=== PATIENT | female | born 1975 | race African-American/Black ===

== ENCOUNTER 2016-05-31 19:06 | Inpatient (IN) | payer OTHER ==
[~2016-05-31] VITALS: Ht 167.6 cm; Wt 67.1 kg
[2016-05-31] VITALS (20 sets, daily range): BP systolic 151–243; BP diastolic 104–141; PULSE 92–139; RESP 15–29; TEMP 97; O2SAT 70–98
[~2016-05-31 19:06] MED LIST: 1-ME1LIQ PO; ATEN-102 PO; Hydrocodone/Acetaminophen PO; LISI-363 PO; LOPE2 PO; SIMV20TA PO
[2016-05-31] MEDS ORDERED: methylPREDNISolone SOD SUCC 125 MG/2 ML VIAL IVP ONE (19:15)
[2016-05-31] MEDS ORDERED: SODIUM CHLORIDE 0.9% FLUSH 5 ML FLUSH IVF PRN (19:15)
[2016-05-31] MEDS ORDERED: ETOMIDATE 20 MG/10 ML VIAL ONE (19:20)
[2016-05-31] MEDS ORDERED: SUCCINYLCHOLINE CHLORIDE 200 MG/10 ML VIAL ONE (19:20)
[2016-05-31] MEDS ORDERED: PROPOFOL 1000 MG/100 ML INJ 100 ML ONE (19:33)
[2016-05-31 19:37] LABS: AUTOMATED NEUTROPHIL # 6.1 TH/MM3 (1.8-7.7); BASOPHIL # 0.1 TH/MM3 (0-0.2); BASOPHIL % 0.7 % (0.0-2.0); EOSINOPHIL # 0.2 TH/MM3 (0-0.4); EOSINOPHIL % 2.1 % (0.0-4.0); HEMATOCRIT 50.8 % (35.0-46.0); HEMO FLAGS DIFF FINAL; LYMPH % 39.6 % (9.0-44.0); LYMPHOCYTE # 4.5 TH/MM3 (1.0-4.8); MEAN CELL VOLUME 102.1 FL (80.0-100.0); MEAN CORPUSCULAR HEMOGLOBIN 32.4 PG (27.0-34.0); MEAN CORPUSCULAR HGB CONC 31.8 % (32.0-36.0); MONO % 3.9 % (0.0-8.0); NEUT % 53.7 % (16.0-70.0); PLATELET COUNT 233 TH/MM3 (150-450); RED BLOOD COUNT 4.98 MIL/MM3 (4.00-5.30); RED CELL DISTRIBUTION WIDTH 15.1 % (11.6-17.2); WHITE BLOOD COUNT 11.4 TH/MM3 (4.0-11.0)
[2016-05-31 19:41] LABS: I-STAT POTASSIUM 4.1 MMOL/L (3.5-4.9); I-STAT SODIUM 142 MMOL/L (138-146)
[2016-05-31] MEDS: PROPOFOL 1000 MG/100 ML INJ 100 ML IV SCH (19:45)
[2016-05-31] MEDS ORDERED: MIDAZOLAM HCL 5 MG/ML VIAL (1 ML) ONE (19:47)
[2016-05-31 19:52] LABS: APTT (PATIENT) 24.7 SEC (24.3-30.1); PROTHROMBIN TIME - PATIENT 10.9 SEC (9.8-11.6)
[2016-05-31 20:07] LABS: ALKALINE PHOSPHATASE 117 U/L (45-117); ALT (GPT) 32 U/L (10-53); ANION GAP 17 MEQ/L (5-15); AST (GOT) 30 U/L (15-37); BICARBONATE 17.1 MEQ/L (21.0-32.0); BLOOD UREA NITROGEN 21 MG/DL (7-18); CHLORIDE 107 MEQ/L (98-107); CREATINE KINASE 163 U/L (26-192); GLOMERULAR FILTRATION RATE 36 ML/MIN (>89); SODIUM (NA) 141 MEQ/L (136-145); TOTAL BILIRUBIN ADULT 0.5 MG/DL (0.2-1.0)
--- NOTE | 2016-05-31 20:10 | RADRPT ---
EXAM DATE/TIME: 05/31/2016 19:48 [facility] COMPARISON: No previous studies available for comparison. INDICATIONS : Post intubation. Stroke alert. MEDICAL HISTORY : Unobtainable SURGICAL HISTORY : Unobtainable ENCOUNTER: Initial ACUITY: 1 day PAIN SCORE: Non-responsive. LOCATION: Bilateral chest FINDINGS: There is dense consolidation in the lungs, right greater than left with multiple air bronchograms. En dotracheal tube in satisfactory position. NG enters stomach. Probable small effusions. No pneumothora x. CONCLUSION: 1. Dense consolidation in both lungs, right greater than left. Differential diagnosis includes aspira tion, edema or infection. Allen Burks MD on May 31, 2016 at 20:07 Board Certified Radiologist. This report was verified electronically.
--- NOTE | 2016-05-31 20:34 | RADRPT ---
EXAM DATE/TIME: 05/31/2016 20:08 [facility] COMPARISON: No previous studies available for comparison. INDICATIONS : Altered mental status. Right sided gaze. RADIATION DOSE: 65.66 CTDIvol (mGy) This report was called by Dr. Burks to Dr. Owen at 8: 32 PM. MEDICAL HISTORY : Non-responsive. SURGICAL HISTORY : Non-responsive. ENCOUNTER: Initial ACUITY: 1 day PAIN SCALE: Non-responsive LOCATION: cranial TECHNIQUE: Multiple contiguous axial images were obtained of the head. Using automated exposure control and adj ustment of the mA and/or kV according to patient size, radiation dose was kept as low as reasonably a chievable to obtain optimal diagnostic quality images. FINDINGS: CEREBRUM: The ventricles are normal for age. No evidence of midline shift, mass lesion, hemorrhage or acute in farction. No extra-axial fluid collections are seen. POSTERIOR FOSSA: The cerebellum and brainstem are intact. The 4th ventricle is midline. The cerebellopontine angle i s unremarkable. EXTRACRANIAL: The visualized portion of the orbits is intact. SKULL: The calvaria is intact. No evidence of skull fracture. CONCLUSION: Normal examination. Allen Burks MD on May 31, 2016 at 20:30 Board Certified Radiologist. This report was verified electronically.
--- NOTE | 2016-05-31 20:35 | RADRPT ---
EXAM DATE/TIME: 05/31/2016 20:12 [facility] COMPARISON: No previous studies available for comparison. INDICATIONS : Abnormal chest x-ray. Hypoxia. RADIATION DOSE: 5.13 CTDIvol (mGy) MEDICAL HISTORY : Non-responsive. SURGICAL HISTORY : Non-responsive. ENCOUNTER: Initial ACUITY: 1 day PAIN SCALE: Non-responsive LOCATION: chest TECHNIQUE: Volumetric scanning of the chest was performed. Using automated exposure control and adjustment of t he mA and/or kV according to patient size, radiation dose was kept as low as reasonably achievable to obtain optimal diagnostic quality images. FINDINGS: There is extensive groundglass opacity as well is dense consolidation in both lungs. Differential edilberto gnosis includes flash pulmonary edema and massive aspiration. Endotracheal tube tip is just above car joaquin. NG is seen in the stomach. Trace pleural fluid. No pericardial effusion. No acute findings in the upper abdomen. CONCLUSION: 1. Extensive dense lung consolidation and groundglass opacity bilaterally. Differential diagnosis inc ludes flash pulmonary edema and massive aspiration. Endotracheal tube and nasogastric tube in satisfa ctory position. Allen Burks MD on May 31, 2016 at 20:32 Board Certified Radiologist. This report was verified electronically.
[2016-05-31] MEDS ORDERED: PIPERACIL-TAZO 4.5 GM PREMIX 100 ML IV STA (20:36)
[2016-05-31] MEDS ORDERED: VANCOMYCIN INJ 1,150 MG in SODIUM CHLOR 0.9% 250 ML INJ 250 ML IV ONE (20:45)
--- NOTE | 2016-05-31 20:50 | PD ---
HPI Chief Complaint: Stroke Alert Time Seen by Provider: 19:11 Travel History International Travel<30 days: No Contact w/Intl Traveler<30days: No Traveled to known affect area: No History of Present Illness HPI Is a 40-year-old female who presents to emergency room as a stroke alert from [facility]. As per [facility], they were called as patient was unresponsive. Reports that when they arrived on scene, pt had a right sided facial gaze and right-sided deficits. Reports that patient was unresponsive with a GCS of 6 or 7. Reports that on route to the emergency room, patient woke up and began talking. In the emergency room, the patient was alert to person, patient was able to move all extremities, patient was able to follow commands, patient reports that she has history of hypertension, reports that she did drink a few beers today, reports that she feels short of breath. Patient reports history of hypertension, denies use of drugs. PFSH Past Medical History Cardiovascular Problems: Yes High Cholesterol: Yes Diminished Hearing: No Gastrointestinal Disorders: Yes (CHRONIC DIARRHEA/COLITIS) Hypertension: Yes : 4 Para: 2 Miscarriage: 0 : 2 Ectopic : No Ovarian Cysts: No Tubal Ligation: No Past Surgical History Hysterectomy: No Social History Alcohol Use: Yes (WEEKENDS) Tobacco Use: Yes (WEEKENDS) Substance Use: No (DENIES) Allergies-Medications (Allergen,Severity, Reaction): Coded Allergies: No Known Allergies (Verified , 11/23/15) Reported Meds & Prescriptions Reported Meds & Active Scripts Active Review of Systems ROS Limitations: Altered Mental Status Except as stated in HPI: all other systems reviewed are Neg General / Constitutional: No: Fever Eyes: No: Visual changes HENT: No: Headaches Cardiovascular: Positive: Chest Pain or Discomfort Respiratory: Positive: Shortness of Breath Gastrointestinal: No: Abdominal Pain Genitourinary: No: Dysuria Musculoskeletal: No: Pain Skin: No Rash Neurologic: No: Weakness Psychiatric: No: Depression Endocrine: No: Polydipsia Hematologic/Lymphatic: No: Easy Bruising Physical Exam Narrative GENERAL: pt in acute respiratory distress SKIN: Warm and dry. HEAD: Atraumatic. Normocephalic. EYES: Pupils equal and round. No scleral icterus. No injection or drainage. ENT: No nasal bleeding or discharge. Mucous membranes pink and moist. NECK: Trachea midline. No JVD. CARDIOVASCULAR: Tachycardic. No murmur appreciated. RESPIRATORY: Patient with diffuse Rales bilaterally, patient using accessory muscles to breathe GASTROINTESTINAL: Abdomen soft, non-tender, nondistended. Hepatic and splenic margins not palpable. MUSCULOSKELETAL: No obvious deformities. No clubbing. No cyanosis. No edema. NEUROLOGICAL: Awake and alert. Motor grossly within normal limits. PSYCHIATRIC: Anxious Data Data Last Documented VS Vital Signs Date Time Temp Pulse Resp B/P Pulse Ox O2 Delivery O2 Flow Rate FiO2 05/31/16 21:30 95 16 174/123 90 Ventilator 100 Orders Electrocardiogram (05/31/16 19:11) Prothrombin Time / Inr (Pt) (05/31/16 19:11) Act Partial Throm Time (Ptt) (05/31/16 19:11) Complete Blood Count With Diff (05/31/16 19:11) Comprehensive Metabolic Panel (05/31/16 19:11) Creatine Kinase (Cpk) (05/31/16 19:11) Troponin I (05/31/16 19:11) Urinalysis - C+S If Indicated (05/31/16 19:11) Ecg Monitoring (05/31/16 19:11) Iv Access Insert/Monitor (05/31/16 19:11) Oximetry (05/31/16 19:11) Sodium Chloride 0.9% Flush (Ns Flush) (05/31/16 19:15) Ct Thorax/ Chest Wo Iv Contras (05/31/16 ) Arterial Blood Gas (Abg) (05/31/16 ) Methylprednisolone So Succ Inj (Solumedr (05/31/16 19:15) Albuterol-Ipratropium Neb (Duoneb Neb) (05/31/16 19:15) Ct Brain W/O Iv Contrast(Rout) (05/31/16 ) Lactic Acid Sepsis Protocol (05/31/16 19:19) Blood Culture (05/31/16 19:19) Etomidate Inj (Amidate Inj) (05/31/16 19:20) Succinylcholine Inj (Quelicin Inj) (05/31/16 19:20) Chest, Single Ap (05/31/16 ) Propofol 1000 Mg/100 Ml Inj (Diprivan 10 (05/31/16 19:33) Propofol 1000 Mg/100 Ml Inj (Diprivan 10 (05/31/16 19:45) ^ Infusion (05/31/16 19:36) RASS (05/31/16 19:36) Neurological Rass Scale RELL.Q2H (05/31/16 19:36) Insert Ng Tube (05/31/16 19:36) Urinary Catheter Insert/Apply (05/31/16 19:36) I-Stat Creatinine (05/31/16 19:10) I-Stat Profile (05/31/16 19:10) Ed Urine Pregnancytest Poc (05/31/16 19:38) Alcohol (Ethanol) (05/31/16 19:38) Salicylates (Aspirin) (05/31/16 19:38) Tylenol (Acetaminophen) (05/31/16 19:38) Blood Glucose (05/31/16 19:38) Midazolam Inj (Versed Inj) (05/31/16 19:47) Labetalol Inj (Trandate Inj) (05/31/16 20:30) Ob/Psych Drug Screen, Urine (05/31/16 20:35) Piperacil-Tazo 4.5 Gm Premix (Zosyn 4.5 (05/31/16 20:36) Vancomycin Inj (Vancomycin Inj) (05/31/16 20:45) Etomidate Inj (Amidate Inj) (05/31/16 21:45) Succinylcholine Inj (Quelicin Inj) (05/31/16 21:45) Midazolam Inj (Versed Inj) (05/31/16 21:45) Admit Order (Ed Use Only) (05/31/16 21:33) Labs Laboratory Tests Test 05/31/16 05/31/16 19:10 20:39 White Blood Count 11.4 TH/MM3 Red Blood Count 4.98 MIL/MM3 Hemoglobin 16.1 GM/DL Bedside Hemoglobin 18.4 G/DL Hematocrit 50.8 % Bedside Hematocrit 54.0 % Mean Corpuscular Volume 102.1 FL Mean Corpuscular Hemoglobin 32.4 PG Mean Corpuscular Hemoglobin 31.8 % Concent Red Cell Distribution Width 15.1 % Platelet Count 233 TH/MM3 Mean Platelet Volume 12.1 FL Neutrophils (%) (Auto) 53.7 % Lymphocytes (%) (Auto) 39.6 % Monocytes (%) (Auto) 3.9 % Eosinophils (%) (Auto) 2.1 % Basophils (%) (Auto) 0.7 % Neutrophils # (Auto) 6.1 TH/MM3 Lymphocytes # (Auto) 4.5 TH/MM3 Monocytes # (Auto) 0.4 TH/MM3 Eosinophils # (Auto) 0.2 TH/MM3 Basophils # (Auto) 0.1 TH/MM3 CBC Comment DIFF FINAL Differential Comment Prothrombin Time 10.9 SEC Prothromb Time International 1.0 RATIO Ratio Activated Partial 24.7 SEC Thromboplast Time Bedside Sodium 142 MMOL/L Sodium Level 141 MEQ/L Bedside Potassium 4.1 MMOL/L Potassium Level 4.0 MEQ/L Bedside Chloride 109 MMOL/L Chloride Level 107 MEQ/L Carbon Dioxide Level 17.1 MEQ/L Anion Gap 17 MEQ/L Bedside Blood Urea Nitrogen 33 MG/DL Blood Urea Nitrogen 21 MG/DL Creatinine 1.87 MG/DL Bedside Creatinine 1.6 MG/DL Estimat Glomerular Filtration 36 ML/MIN Rate Bedside Glucose 192 MG/DL Random Glucose 191 MG/DL Lactic Acid Level 10.6 mmol/L 7.1 mmol/L Calcium Level 9.0 MG/DL Total Bilirubin 0.5 MG/DL Aspartate Amino Transf 30 U/L (AST/SGOT) Alanine Aminotransferase 32 U/L (ALT/SGPT) Alkaline Phosphatase 117 U/L Total Creatine Kinase 163 U/L Troponin I 0.02 NG/ML Total Protein 9.0 GM/DL Albumin 4.0 GM/DL Salicylates Level 3.7 MG/DL Acetaminophen Level LESS THAN 2.0 MCG/ML Ethyl Alcohol Level 5 MG/DL MDM Medical Decision Making Medical Screen Exam Complete: Yes Emergency Medical Condition: Yes Interpretation(s) Vital Signs Date Time Temp Pulse Resp B/P Pulse Ox O2 Delivery O2 Flow Rate FiO2 05/31/16 19:57 112 29 230/132 96 Ventilator 100 05/31/16 19:24 132 15 243/133 70 05/31/16 19:09 139 29 215/141 ekg: sinus tach at 130bpm, qt/qtc: 314/391, Differential Diagnosis Hypertensive emergency, CVA, flash pulmonary edema secondary to hypertensive emergency, ACS, pneumonia, sepsis, pneumothorax Narrative Course 40-year-old female with history of hypertension, presents to emergency room after a stroke alert was initiated by [facility]. Patient was moving all extremities upon arrival to emergency room. Patient was minimally conversive complaining of shortness of breath. Patient reports history of hypertension, reported strength 2-3 beers tonight. Stroke alert was called ahead, BS normal. At CT, patient's pulse ox dropped to the 40s, patient and rest for distress, patient was brought back to ER for intubation. Patient's oxygen sats were in the 40s, patient was bagged and patient was intubated successfully. Patients initial BP 243/133, pt does have hx of htn, c/o of sob. On initial clinical exam, patient had diffuse rails. Patient most likely in flash pulmonary edema from hypertensive emergency. Patient was moving all extremities upon arrival to emergency room and talking in full sentences, unlikely the patient was having a CVA. wbc: 11.4, lactic acid 10.2 - patient has been pancultured, patient has been given broad-spectrum antibiotics. Patient has improved on a labetalol drip for control of hypertension, plan to decrease blood pressure slowly Patient will be admitted to ICU Case reviewed with Dr Knapp Critical Care Narrative Aggregate critical care time was 60 minutes. Time to perform other separately billable procedures was not included in the critical care time. My time did not include minutes spent treating any other patients simultaneously or on activities that did not directly contribute to the patient's treatment. The services I provided to this patient were to treat and/or prevent clinically significant deterioration that could result in: , decompensation, deterioration I provided critical care services requiring my management, as noted below: Chart data review, documentation time, medication orders and management, vital sign assessments/reviewing monitor data, ordering and reviewing lab tests, ordering and interpreting/reviewing x-rays and diagnostic studies, care of the patient and discussion of the patient with the admitting physicians. Procedures Procedure Narrative After the risks and benefits were discussed the following procedure was performed: INTUBATION: The patient was put in optimal position for the procedure. Rapid sequence intubation was initiated by me using 20 milligrams of etomidate IV and 100 milligrams of succinylcholine IV. The patient was intubated with a 7.5 cuffed endotracheal tube. Tube placement was confirmed by visualization of the tube and balloon passing through the cords, capnometry and subsequent chest x-ray. Breath sounds were equal and well aerated bilaterally postintubation. No breath sounds over stomach. Patient tolerated procedure well. Diagnosis Primary Impression: Hypertensive emergency Additional Impressions: Pulmonary edema Respiratory disorder with ventilator dependence Admitting Information Admitting Physician Requests: Admit Adriana Owen DO May 31, 2016 20:49
[2016-05-31] MEDS: LABETALOL INJ 500 MG in SODIUM CHLORIDE 0.9% INJ 150 ML IV SCH (21:00)
[2016-05-31 21:25] LABS: LACTIC ACID GHOST NOT REPORTABLE
[2016-05-31 21:26] LABS: ACETAMINOPHEN LESS THAN 2.0 MCG/ML (10.0-30.0)
--- NOTE | 2016-05-31 21:26 | EKG ---
Date Performed: 05/31/2016 Time Performed: 19:34:11 PTAGE: 40 years EKG: PROBABLE SINUS TACHYCARDIA vs ATRIAL FLUTTER with RVR LEFT ANTERIOR FASCICULAR BLOCK SEPTAL MYOCARDIAL INFARCTION ABNORMAL ECG PREVIOUS TRACING : 11/14/2015 18.39 DOCTOR: Bran Martin Interpretating Date/Time 05/31/2016 21:24:18
[2016-05-31] MEDS ORDERED: SUCCINYLCHOLINE CHLORIDE 200 MG/10 ML VIAL IM ONE (21:45)
[2016-05-31] MEDS ORDERED: MIDAZOLAM HCL 2 MG/2 ML VIAL IV PUSH ONE (21:45)
[2016-05-31] MEDS ORDERED: ETOMIDATE 20 MG/10 ML VIAL IV PUSH ONE (21:45)
[2016-05-31] MEDS ORDERED: RESP: ALBUTEROL 2.5 MG/IPRATROPIUM 0.5 MG NEB (PRN) ONE (21:48)
[2016-05-31] MEDS ORDERED: FUROSEMIDE 40 MG/4 ML VIAL IV PUSH SCH (22:00)
[2016-05-31] MEDS ORDERED: SODIUM CHLOR 0.9% 1000 ML INJ 1,000 ML IV SCH (22:22)
[2016-05-31] MEDS ORDERED: MAGNESIUM SULFATE INJ 2 GM in SODIUM CHLORIDE 0.9% INJ 96 ML IV PRN (22:30)
[2016-05-31] MEDS ORDERED: SODIUM PHOSPHATE INJ 30 MMOL in SODIUM CHLOR 0.9% 250 ML INJ 240 ML IV PRN (22:30)
[2016-05-31] MEDS ORDERED: MISCELLANEOUS NURSING INFORMATION XX SCH (22:30)
[2016-05-31] MEDS ORDERED: BISACODYL EC 5 MG TABEC PO PRN (22:30)
[2016-05-31] MEDS ORDERED: POTASSIUM PHOSPHATE MONOBASIC 500 MG TAB PO PRN (22:30)
[2016-05-31] MEDS ORDERED: POTASSIUM PHOSPHATE MONOBASIC 500 MG TAB PO/TUBE PRN (22:30)
[2016-05-31] MEDS ORDERED: POTASSIUM CHLOR 40 MEQ PREMIX 100 ML IV PRN ×2 (22:30)
[2016-05-31] MEDS ORDERED: RESP: ALBUTEROL 2.5 MG/IPRATROPIUM 0.5 MG NEB (PRN) INH (22:30)
[2016-05-31] MEDS ORDERED: ONDANSETRON HCL 4 MG/2 ML VIAL IV PRN (22:30)
[2016-05-31] MEDS ORDERED: MAGNESIUM SULFATE INJ 4 GM in SODIUM CHLORIDE 0.9% INJ 92 ML IV PRN (22:30)
[2016-05-31] MEDS ORDERED: CHLORHEXIDINE GLUCONATE 2 % 1 PACK (2 CLOTHS) TOP PRN (22:30)
[2016-05-31] MEDS: DOCUSATE SODIUM 100 MG/10 ML UDC G-TUBE SCH (22:30)
[2016-05-31] MEDS ORDERED: MAGNESIUM HYDROXIDE SUSP 30 ML CUP PO PRN (22:30)
[2016-05-31] MEDS ORDERED: POTASSIUM CL 40 MEQ/30 ML LIQ UDC PO/TUBE PRN ×2 (22:30)
[2016-05-31] MEDS ORDERED: SODIUM CHLORIDE 0.9% FLUSH 5 ML FLUSH IV FLUSH PRN (22:30)
[2016-05-31] MEDS ORDERED: POTASSIUM CHLOR 20 MEQ PREMIX 100 ML IV PRN ×2 (22:30)
[2016-05-31] MEDS ORDERED: POTASSIUM PHOSPHATE INJ 30 MMOL in SODIUM CHLOR 0.9% 250 ML INJ 250 ML IV PRN (22:30)
[2016-05-31] MEDS ORDERED: MAGNESIUM OXIDE 400 MG TAB PO PRN (22:30)
[2016-05-31] MEDS ORDERED: RESP: ALBUTEROL 2.5 MG/IPRATROPIUM 0.5 MG NEB (SCH) ONE (22:42)
[2016-05-31] MEDS ORDERED: FUROSEMIDE 100 MG/10 ML VIAL IV PUSH ONE (22:45)
[2016-05-31 23:00] LABS: AMPHETAMINE, URINE NEG (NEG); BARBITURATES, URINE NEG (NEG); COCAINE, URINE NEG (NEG)
[2016-05-31 23:01] LABS: BACTERIA, URINE RARE /hpf; BLOOD, URINE MOD (NEG); GLUCOSE,URINE 150 mg/dL (NEG); HYALINE CAST, URINE 1 /lpf (RARE); KETONE, URINE NEG (NEG); MUCUS URINE FEW /lpf (OCC); NITRITE,URINE NEG (NEG); SQUAMOUS EPITHELIAL CELL URINE 1 /hpf (0-5); URINE COLOR YELLOW (YELLW/STRAW)
[2016-05-31] MEDS: RESP: ALBUTEROL 2.5 MG/IPRATROPIUM 0.5 MG NEB (SCH) INH ×2 (23:27→23:28)
[2016-05-31 23:39] LABS: COMMENT (UR) CATH-CULTURE IND; CULTURE IF INDICATED CATH CULTURE IND
[2016-05-31] MEDS: HEPARIN SODIUM - SQ 10,000 UNITS/ML VIAL SQ SCH (23:57)
[2016-06-01] VITALS (20 sets, daily range): BP systolic 143–192; BP diastolic 88–129; PULSE 79–94; RESP 16–27; TEMP 98.3–99.3; O2SAT 91–100
[2016-06-01 00:07] LABS: BLOOD GAS BASE EXCESS -3.2 mmol/L (-2-2); BLOOD GAS HCO3 21 mmol/L (22-26); BLOOD GAS METHEMOGLOBIN 2.2 % (0-2); BLOOD GAS O2 HGB SATURATION 94 % (90-100); BLOOD GAS OXYGEN CONTENT 19.9 Vol % (12.0-20.0); BLOOD GAS PCO2 37 mmHg (38-42); BLOOD GAS PO2 128 mmHG (61-120); CRITICAL VALUE NO; OXYGEN DEVICE VENTILATOR; TEMP CORR TO 98.6
[2016-06-01 00:08] LABS: DRAW SITE RT RADIAL; NUMBER OF ARTERIAL PUNCTURES 1; STAT YES; ULNAR PULSE PRESENT; VENT SETTINGS 16/500/100/PEEP10
[2016-06-01] MEDS ORDERED: AMLO10TA2 PO (00:11)
[2016-06-01] MEDS ORDERED: ATEN50TA PO (00:11)
[2016-06-01] MEDS ORDERED: fentaNYL 2,500 MCG/NS 250 ML IV SCH (03:30)
[2016-06-01] MEDS: PROPOFOL 1000 MG/100 ML INJ 100 ML IV SCH (03:49)
[2016-06-01] MEDS: RESP: ALBUTEROL 2.5 MG/IPRATROPIUM 0.5 MG NEB (SCH) INH ×4 (03:53→20:51)
[2016-06-01] MEDS: CHLORHEXIDINE GLUCONATE 2 % 1 PACK (2 CLOTHS) TOP SCH (04:00)
--- NOTE | 2016-06-01 04:46 | RADRPT ---
EXAM DATE/TIME: 06/01/2016 03:28 [facility] COMPARISON: CHEST SINGLE AP, May 31, 2016, 19:48. INDICATIONS : Shortness of breath, possible pulmonary disease. MEDICAL HISTORY : None. SURGICAL HISTORY : None. ENCOUNTER: Subsequent ACUITY: 2 days PAIN SCORE: Non-responsive. LOCATION: Bilateral chest FINDINGS: There has been a significant improvement in the right lung with resolution of the prominent areas of airspace opacity. There is some mild patchy areas of opacity, but no areas of consolidation. On the left side, the airspace opacities in right upper lung have cleared. There is some residual consolid ation at the left base. Endotracheal tube tip well above the jc. Gastric tube tip and side-port project within the stomach. CONCLUSION: Significant improved aeration of the lungs with residual consolidation of the left base and resolutio n of areas of consolidation throughout the remainder of the lungs. Brent Joshua MD on June 01, 2016 at 4:43 Board Certified Radiologist. This report was verified electronically.
--- NOTE | 2016-06-01 04:51 | HHI.HP ---
HPI Service Critical Care Medicine Primary Care Physician Unknown Admission Diagnosis Hypertensive Emergency with flash pulmonary edema Diagnosis: Travel History International Travel<30 Days: No Contact w/Intl Traveler <30 Da: No Traveled to Known Affected Are: No History of Present Illness Is a 40-year-old female who presents to emergency room as a stroke alert from [facility]. As per [facility], the patient was noted to be unresponsive. Upon EMS arrival on the scene scene, pt had a right sided facial gaze and right-sided deficits. Reports that patient was unresponsive with a GCS of 6 or 7.Enroute to the emergency room, the patient became responsive and conversant . In the emergency room, the patient was alert to person, patient was able to move all extremities, patient was able to follow commands, patient reports that she has history of hypertension, reports that she did drink a few beers today, reports that she feels short of breath. In the ED the patient's presentation was blood pressure 205/141 .Per the patient's family report the patient has hypertension but has not been taking any antihypertensive medications secondary to income restrictions, has not filled any prescriptions. The patient subsequently suddenly became short of breath, dyspnea O2 sat in the 70s. The patient was emergently intubated in the ED, the patient was noted to have copious frothy bloody secretions, likely flash pulmonary edema. Critical care is consulted for management and treatment. History PFSH Past Medical History Cardiovascular Problems: Yes High Cholesterol: Yes Diminished Hearing: No Gastrointestinal Disorders: Yes (CHRONIC DIARRHEA/COLITIS) Hypertension: Yes : 4 Para: 2 Miscarriage: 0 : 2 Ectopic : No Ovarian Cysts: No Tubal Ligation: No Past Surgical History Hysterectomy: No Social History Alcohol Use: Yes (WEEKENDS) Tobacco Use: Yes (WEEKENDS) Substance Use: No (DENIES) Allergies-Medications Allergies-Medications (Allergen,Severity, Reaction): Coded Allergies: No Known Allergies (Verified , 11/23/15) Reported Meds & Prescriptions Reported Meds & Active Scripts Active ROS Review of Systems ROS Limitations: Altered Mental Status Except as stated in HPI: all other systems reviewed are Neg General / Constitutional: No: Fever Eyes: No: Visual changes HENT: No: Headaches Cardiovascular: Positive: Chest Pain or Discomfort Respiratory: Positive: Shortness of Breath Gastrointestinal: No: Abdominal Pain Genitourinary: No: Dysuria Musculoskeletal: No: Pain Skin: No Rash Neurologic: No: Weakness Psychiatric: No: Depression Endocrine: No: Polydipsia Hematologic/Lymphatic: No: Easy Bruising Physical Exam Vital Signs Vital Signs Date Time Temp Pulse Resp B/P Pulse Ox O2 Delivery O2 Flow Rate FiO2 06/01/16 02:00 92 06/01/16 01:35 99.1 91 23 192/129 97 06/01/16 01:15 94 60 06/01/16 01:15 100 100 06/01/16 00:42 92 16 181/128 93 Ventilator 100 06/01/16 00:33 94 16 158/105 94 Ventilator 100 06/01/16 00:18 94 16 173/106 91 Ventilator 05/31/16 23:30 95 16 169/118 97 Ventilator 100 05/31/16 23:28 97 16 175/130 96 Ventilator 100 05/31/16 23:00 95 16 153/112 98 Ventilator 100 05/31/16 22:41 93 16 182/117 95 Ventilator 100 05/31/16 22:36 97.0 05/31/16 22:25 93 16 166/124 95 Ventilator 05/31/16 22:10 92 16 157/104 94 Ventilator 100 05/31/16 22:00 94 16 160/108 92 Ventilator 05/31/16 21:50 97 16 151/104 90 Ventilator 05/31/16 21:45 94 16 161/117 90 Ventilator 100 05/31/16 21:36 95 16 165/118 92 Ventilator 100 05/31/16 21:30 95 16 174/123 90 Ventilator 100 05/31/16 21:21 96 16 184/135 92 Ventilator 100 05/31/16 21:15 97 16 198/141 90 Ventilator 100 05/31/16 21:12 100 05/31/16 21:10 98 16 193/141 89 Ventilator 05/31/16 21:01 109 16 214/134 90 Ventilator 05/31/16 19:57 112 29 230/132 96 Ventilator 100 05/31/16 19:40 93 100 05/31/16 19:24 132 15 243/133 70 05/31/16 19:09 139 29 215/141 Physical Exam GENERAL: Obese female lying in bed intubated and sedated. SKIN: Warm and dry. HEAD: Atraumatic. Normocephalic. EYES: PERRLA, 3mm brisk. No scleral icterus. No injection or drainage. ENT: No nasal bleeding or discharge. Mucous membranes pink and moist. NECK: Trachea midline. No JVD. Orotracheal intubation copious frothy pink secretions noted emanating from ETT CARDIOVASCULAR: Normal rate, regular rhythm. Hypertensive 225/118 RESPIRATORY: No accessory muscle use. Clear to auscultation. Breath sounds equal bilaterally. GASTROINTESTINAL: Abdomen soft, non-tender, nondistended. No guarding. MUSCULOSKELETAL: Extremities without clubbing, cyanosis, or edema. No obvious deformities. NEUROLOGICAL: GCS 3T. Intubated and sedated on propofol Laboratory Laboratory Tests Test 05/31/16 05/31/16 05/31/16 05/31/16 19:10 20:33 20:39 23:22 White Blood Count 11.4 Red Blood Count 4.98 Hemoglobin 16.1 Bedside Hemoglobin 18.4 Hematocrit 50.8 Bedside Hematocrit 54.0 Mean Corpuscular Volume 102.1 Mean Corpuscular Hemoglobin 32.4 Mean Corpuscular Hemoglobin 31.8 Concent Red Cell Distribution Width 15.1 Platelet Count 233 Mean Platelet Volume 12.1 Neutrophils (%) (Auto) 53.7 Lymphocytes (%) (Auto) 39.6 Monocytes (%) (Auto) 3.9 Eosinophils (%) (Auto) 2.1 Basophils (%) (Auto) 0.7 Neutrophils # (Auto) 6.1 Lymphocytes # (Auto) 4.5 Monocytes # (Auto) 0.4 Eosinophils # (Auto) 0.2 Basophils # (Auto) 0.1 CBC Comment DIFF FINAL Differential Comment Prothrombin Time 10.9 Prothromb Time International 1.0 Ratio Activated Partial 24.7 Thromboplast Time Bedside Sodium 142 Sodium Level 141 Bedside Potassium 4.1 Potassium Level 4.0 Bedside Chloride 109 Chloride Level 107 Carbon Dioxide Level 17.1 Anion Gap 17 Bedside Blood Urea Nitrogen 33 Blood Urea Nitrogen 21 Creatinine 1.87 Bedside Creatinine 1.6 Estimat Glomerular Filtration 36 Rate Bedside Glucose 192 Random Glucose 191 Lactic Acid Level 10.6 7.1 Calcium Level 9.0 Total Bilirubin 0.5 Aspartate Amino Transf 30 (AST/SGOT) Alanine Aminotransferase 32 (ALT/SGPT) Alkaline Phosphatase 117 Total Creatine Kinase 163 Troponin I 0.02 1.11 Total Protein 9.0 Albumin 4.0 Salicylates Level 3.7 Acetaminophen Level LESS THAN 2.0 Ethyl Alcohol Level 5 Urine Color YELLOW Urine Turbidity HAZY Urine pH 7.0 Urine Specific [place] 1.012 Urine Protein 300 Urine Glucose (UA) 150 Urine Ketones NEG Urine Occult Blood MOD Urine Nitrite NEG Urine Bilirubin NEG Urine Urobilinogen LESS THAN 2.0 Urine Leukocyte Esterase NEG Urine RBC 11 Urine WBC 4 Urine Squamous Epithelial 1 Cells Urine Amorphous Sediment RARE Urine Bacteria RARE Urine Hyaline Casts 1 Urine Mucus FEW Microscopic Urinalysis Comment CATH-CULTURE IND Urine Opiates Screen NEG Urine Barbiturates Screen NEG Urine Amphetamines Screen NEG Urine Benzodiazepines Screen POS Urine Cocaine Screen NEG Urine Cannabinoids Screen POS Phosphorus Level 4.7 Test 05/31/16 23:40 Blood Gas Puncture Site RT RADIAL Blood Gas Patient Temperature 98.6 Blood Gas HCO3 21 Blood Gas Base Excess -3.2 Blood Gas Oxygen Saturation 94 Arterial Blood pH 7.37 Arterial Blood Partial 37 Pressure CO2 Arterial Blood Partial 128 Pressure O2 Arterial Blood Oxygen Content 19.9 Arterial Blood 2.0 Carboxyhemoglobin Arterial Blood Methemoglobin 2.2 Blood Gas Hemoglobin 15.0 Oxygen Delivery Device VENTILATOR Blood Gas Ventilator Setting 16/500/100/PEEP10 Date/Time Procedure Status Source Growth 05/31/16 20:40 Aerobic Blood Culture Received Blood Peripheral Pending 05/31/16 20:40 Anaerobic Blood Culture Received Blood Peripheral Pending 05/31/16 20:33 Urine Culture Received Urine Catheterized Urine Pending Result Diagram: 05/31/16190905/31/161909 Septic Shock Reassessment Heart: Regular rate and rhythm Lungs: Crackles Skin: Warm Peripheral Pulses: Bounding Right Radial Bounding Left Radial Bounding Right Dorsalis Pedis Bounding Left Dorsalis Pedis Capillary Refill: Brisk Assessment and Plan Assessment and Plan This is a 40-year-old female that presented to the ED and hypertensive crisis . The patient has been unable to obtain prescription secondary to income restrictions . The patient subsequently went into angelia pulmonary edema requiring emergent intubation. Patient remains critically ill with uncontrolled severe hypertension requiring intravenous infusions at this time. Prognosis is guarded Neurologic: Altered mental status -GCS 3T intubated and sedated on propofol and fentanyl -Sedation holiday per ICU protocol Respiratory: Pulmonary edema Hypoxic respiratory failure -Patient received Lasix 80 mg, 1 L diuresis -Repeat chest x-ray follow-up results -Maintain tidal volume 6-8 cc/kilogram -Bronchodilators when necessary -CPAP trials begin today Cardiovascular: Hypertensive emergency -Initial BP 225/141-currently on labetalol infusion -Maintain MAP 80-100 (70% of presenting MAP) unsure of patient's normal baseline blood pressure -Begin PO home antihypertensive meds today, atenolol 50 mg/day, mass 10 mg/day via NG tube, begin to wean labetalol infusion -Elevated troponin 1.11, follow-up serial troponin levels -Obtain echo follow-up results Renal: Renal insufficiency -Monitor BMP. Creatinine 1.8 -Maintain Cespedes -- Strict I/Os FEN/GI: Obesity -IVF normal saline KVO -Insert NG tube, maintain nothing by mouth status with plans for weaning mechanical ventilation today Heme/ID: -Monitor CBC -Lactate 10, given Zosyn and vancomycin empirically in ED -Follow-up blood and urine cultures -Monitor serial lactate, patient afebrile, CBC 11.1 Endocrine: Monitor blood glucose level per ICU protocol -- SSI Prophylaxis: GI Prophylaxis DVT Prophylaxis -- SCDs Lines: Peripheral IVs. Central line if indicated Dispo: This patient remains critically ill with one or more organ systems which are or may become a threat to life. I have spent in excess of 49 minutes discontinuously in the care and management of this patient. This time is exclusive of procedures, and includes, but is not limited to, evaluation of the patient, review of the medical record, discussions with family, consultants, nursing staff, or respiratory therapy, and documentation in the medical record. Code Status Full code Discussed Condition With Daughter at bedside and ED Crystal Leslie MD Jun 01, 2016 04:51
[2016-06-01 04:57] LABS: AUTOMATED NEUTROPHIL # 13.2 TH/MM3 (1.8-7.7); BASOPHIL % 0.2 % (0.0-2.0); HEMATOCRIT 41.8 % (35.0-46.0); HEMO FLAGS DIFF FINAL; LYMPH % 2.1 % (9.0-44.0); LYMPHOCYTE # 0.3 TH/MM3 (1.0-4.8); MEAN CELL VOLUME 97.4 FL (80.0-100.0); MEAN CORPUSCULAR HGB CONC 33.8 % (32.0-36.0); MONO % 3.7 % (0.0-8.0); PLATELET COUNT 183 TH/MM3 (150-450); RED BLOOD COUNT 4.29 MIL/MM3 (4.00-5.30); RED CELL DISTRIBUTION WIDTH 14.2 % (11.6-17.2)
[2016-06-01 05:24] LABS: INTERNATIONAL NORMALIZED RATIO 1.1 RATIO; PROTHROMBIN TIME - PATIENT 11.9 SEC (9.8-11.6)
[2016-06-01 05:43] LABS: BLOOD GAS CARBOXYHEMOGLOBIN 1.5 % (0-4); BLOOD GAS HCO3 23 mmol/L (22-26); BLOOD GAS METHEMOGLOBIN 1.2 % (0-2); BLOOD GAS O2 HGB SATURATION 90 % (90-100); BLOOD GAS OXYGEN CONTENT 17.8 Vol % (12.0-20.0); BLOOD GAS PCO2 40 mmHg (38-42); BLOOD GAS PO2 70 mmHg (61-120); CRITICAL VALUE NO; OXYGEN DEVICE VENTILATOR; TEMP CORR TO 98.6; VENT SETTINGS AC/16/500/PEEP10
[2016-06-01 05:44] LABS: DRAW SITE RT RADIAL; FIO2 50 %; NUMBER OF ARTERIAL PUNCTURES 1; STAT NO; ULNAR PULSE PRESENT
[2016-06-01 05:57] LABS: BICARBONATE 23.5 MEQ/L (21.0-32.0); MAGNESIUM 1.9 MG/DL (1.5-2.5)
[2016-06-01 06:12] LABS: POTASSIUM 3.4 MEQ/L (3.5-5.1)
[2016-06-01] MEDS: LABETALOL INJ 500 MG in SODIUM CHLORIDE 0.9% INJ 150 ML IV SCH (06:42)
[2016-06-01] MEDS: CHLORHEXIDINE 0.12% (ORAL KIT) 15 ML CUP MT SCH ×2 (08:00→20:00)
[2016-06-01] MEDS: PANTOPRAZOLE SODIUM 40 MG VIAL IV SCH (08:10)
[2016-06-01] MEDS ORDERED: ATENOLOL 50 MG TAB PO SCH (09:00)
[2016-06-01] MEDS: REMOVE OLD PATCH T-DERMAL SCH (09:00)
[2016-06-01] MEDS: SODIUM CHLORIDE 0.9% FLUSH 5 ML FLUSH IV FLUSH SCH ×2 (09:00→20:33)
[2016-06-01] MEDS ORDERED: ASPIRIN 325 MG TAB TUBE ONE (09:00)
[2016-06-01] MEDS: DOCUSATE SODIUM 100 MG/10 ML UDC G-TUBE SCH ×2 (09:04→22:30)
[2016-06-01] MEDS: FUROSEMIDE 40 MG/4 ML VIAL IV PUSH SCH (09:04)
[2016-06-01] MEDS: HEPARIN SODIUM - SQ 10,000 UNITS/ML VIAL SQ SCH (09:05)
[2016-06-01] MEDS ORDERED: CLOPIDOGREL 300 MG TAB PO ONE (09:45)
[2016-06-01] MEDS: NITROGLYCERIN 0.2 MG/HR PATCH TD SCH (09:53)
[2016-06-01 10:48] LABS: HEMATOCRIT 41.9 % (35.0-46.0); MEAN CELL VOLUME 96.9 FL (80.0-100.0); MEAN CORPUSCULAR HEMOGLOBIN 32.1 PG (27.0-34.0); MEAN CORPUSCULAR HGB CONC 33.1 % (32.0-36.0); PLATELET COUNT 188 TH/MM3 (150-450); RED BLOOD COUNT 4.32 MIL/MM3 (4.00-5.30); RED CELL DISTRIBUTION WIDTH 14.5 % (11.6-17.2); REVIEW FLAG FINAL
[2016-06-01 10:57] LABS: APTT (PATIENT) 27.6 SEC (24.3-30.1); INTERNATIONAL NORMALIZED RATIO 1.1 RATIO; PROTHROMBIN TIME - PATIENT 11.9 SEC (9.8-11.6)
[2016-06-01] MEDS: HEPARIN-D5W INJ 250 ML IV SCH (11:21)
--- NOTE | 2016-06-01 13:17 | MB ---
cc: BRAN LOCKE DO DATE OF CONSULTATION: 06/01/2016. REASON FOR CONSULTATION: Flash pulmonary edema, NSTEMI. HISTORY OF PRESENT ILLNESS: Ms. Carlisle is a 40-year-old female who presented to the [facility] as a stroke alert from [facility]. Per [facility], the patient was somewhat unresponsive, and on arrival to the scene she had a right-sided facial gaze and right-sided deficits. En route to the emergency room, she became responsive and was conversing. She was seen in the emergency room and found to have a blood pressure of 243/133. Her main complaint was that she had been extremely short of breath recently. She previously was on antihypertensive medicines, but has not been able to fill the prescriptions due to how much they cost. The patient subsequently got short of breath well while at CT scan for the stroke alert and was brought back to the emergency room. Her pulse oximetry was found to be in the 40s to 50s and she was emergently intubated. She was noted to have copious frothy bloody secretions likely due to flash pulmonary edema. PAST MEDICAL HISTORY: 1. Hypertension 2. Hyperlipidemia. 3. Colitis. 4. Previous rectal abscess. PAST SURGICAL HISTORY: Incision and drainage rectal abscess. ALLERGIES NO KNOWN DRUG ALLERGIES. MEDICATIONS: 1. Atenolol 50 milligrams daily. 2. Norvasc 10 milligrams daily Of note, the patient has not been taking her blood pressure medications due to cost. FAMILY HISTORY: Denies premature coronary artery disease or sudden cardiac within the family. SOCIAL HISTORY: The patient drinks on the weekends. She reports smoking tobacco on the weekends. Denies substance abuse, although toxicology has shown positive for cannabis and benzodiazepines. REVIEW OF SYSTEMS Fourteen systems were reviewed in the emergency room records and history and physical and pertinent positives and negatives are as above; otherwise negative. PHYSICAL EXAMINATION: VITAL SIGNS: Temperature 99.3, heart rate 79, blood pressure 159/98; on arrival, 243/133, respirations 20, pulse ox 96% on the vent. GENERAL: In general, the patient is sedated and intubated. HEAD, EYES, EARS, NOSE, THROAT: Pupils are equal and reactive. The mucous membranes are moist. ET tube in place. NECK: The neck is supple. No JVD at 45 degrees. No carotid bruits heard bilaterally. Carotid upstroke is brisk in nature. HEART: Regular rate and rhythm. Positive first and second heart sounds with no murmurs, gallops or rubs. PMI is nondisplaced. LUNGS: Decreased breath sounds bilaterally with rales noted in the lower lung lion. ABDOMEN: The abdomen is soft, nontender and nondistended. No organomegaly noted. EXTREMITIES: No clubbing, cyanosis or edema. Femoral and distal pulses are intact bilaterally. NEUROLOGIC: Unable to assess due to intubation. OSTEOPATHIC: Osteopathically, no kyphoscoliosis, lordosis or paraspinal tender points. LABORATORY WORK: White blood cell count 14.0, hemoglobin 14.1, hematocrit 41.8, platelet count 183,000. Potassium 3.4, BUN 31, creatinine 2.09, lactic acid 7.1. Troponin 1.11. EKGS: Electrocardiogram (May 31, 2016 @ 1934): Sinus tachycardia at 130 beats per minute, left anterior fascicular block, poor R wave progression and cannot rule out old septal infarct. IMPRESSION: 1. Hypertensive emergency with acute kidney injury, lactic acidosis and possible stroke-like symptoms before arrival to the emergency room. 2. Flash pulmonary edema due to hypertensive emergency. 3. Vent-dependent respiratory failure. 4. Non-S-T elevation myocardial infarction, most likely type 2 due to hypertensive emergency, lactic acidosis and hypoxia. 5. Lactic acidosis due to hypoxia and hypertensive emergency. 6. Acute kidney injury. 7. Tobacco abuse. RECOMMENDATIONS: 1. The patient was previously on labetalol drip, which has been titrated down and off at this point. We will continue Norvasc and amlodipine for blood pressure management. 2. Vent per primary care team. 3. Continue with Lasix IV for diuresis for which the patient appears to have put out 1.5 liters. 4. As far as her NSTEMI goes, we will continue aspirin and beta denilson. We will start her on statin therapy high-dose. Will discuss with critical care about starting anticoagulation with heparin and do antiplatelet therapy. 5. Depending on the hospital course, she will most likely need an eventual ischemic workup before discharge. 6. Will check a 2-D echocardiogram to look at overall left ventricular function, cardiac structure and valvulopathies. Thank you for allowing me to see Topher Carlisle. If there are any questions, please do not hesitate to call. Bran ROWELL /9:21 AM /1:00 PM
[2016-06-01] MEDS: LABETALOL HCL 100 MG/20 ML VIAL IV PRN ×3 (14:46→21:18)
[2016-06-01] MEDS ORDERED: HEPARIN SODIUM - IV 10,000 UNITS/10 ML VIAL IV PRN ×2 (15:45)
[2016-06-01 17:41] LABS: APTT (PATIENT) 63.9 SEC (24.3-30.1)
[2016-06-01] MEDS: ATORVASTATIN 80 MG TAB PO SCH (20:34)
[2016-06-01] MEDS: METOPROLOL TARTRATE 25 MG TAB PO SCH (20:34)
[2016-06-01 23:51] LABS: APTT (PATIENT) 71.7 SEC (24.3-30.1)
[2016-06-02] VITALS (15 sets, daily range): BP systolic 154–185; BP diastolic 87–118; PULSE 86–91; RESP 19–26; TEMP 97.4–98.9; O2SAT 93–100
[2016-06-02] MEDS: RESP: ALBUTEROL 2.5 MG/IPRATROPIUM 0.5 MG NEB (SCH) INH ×4 (03:45→20:22)
[2016-06-02] MEDS: CHLORHEXIDINE GLUCONATE 2 % 1 PACK (2 CLOTHS) TOP SCH (04:00)
[2016-06-02] MEDS: LABETALOL HCL 100 MG/20 ML VIAL IV PRN ×5 (05:24→21:14)
[2016-06-02] MEDS: CHLORHEXIDINE 0.12% (ORAL KIT) 15 ML CUP MT SCH ×2 (07:41→20:00)
[2016-06-02] MEDS: ASPIRIN 81 MG CHEW TAB CHEW SCH (08:19)
[2016-06-02] MEDS: NITROGLYCERIN 0.2 MG/HR PATCH TD SCH (08:19)
[2016-06-02] MEDS: METOPROLOL TARTRATE 25 MG TAB PO SCH ×2 (08:20→20:28)
[2016-06-02] MEDS: CLOPIDOGREL 75 MG TAB PO SCH (08:20)
[2016-06-02] MEDS: REMOVE OLD PATCH T-DERMAL SCH (08:20)
[2016-06-02] MEDS: FUROSEMIDE 40 MG/4 ML VIAL IV PUSH SCH (08:20)
[2016-06-02] MEDS: PANTOPRAZOLE SODIUM 40 MG VIAL IV SCH (08:21)
[2016-06-02] MEDS: SODIUM CHLORIDE 0.9% FLUSH 5 ML FLUSH IV FLUSH SCH ×2 (08:27→20:28)
--- NOTE | 2016-06-02 08:52 | HHI.PR ---
Subjective Remarks resting comfortably with no distress. on three liters of oxygen via N/C. denies chest pain. BP still elevated. d/w the RN and no other acute issues over night. Objective Vitals Vital Signs Date Time Temp Pulse Resp B/P Pulse Ox O2 Delivery O2 Flow Rate FiO2 06/02/16 07:24 98 Nasal Cannula 3.00 06/02/16 06:00 87 06/02/16 04:00 98.8 88 23 154/91 100 06/02/16 04:00 88 06/02/16 02:00 89 06/02/16 00:00 88 06/02/16 00:00 88 06/02/16 00:00 98.3 88 19 167/87 95 06/01/16 22:00 86 06/01/16 21:00 97 Nasal Cannula 4.00 06/01/16 20:00 85 06/01/16 20:00 98.6 85 27 174/105 98 06/01/16 18:00 86 06/01/16 16:00 98.3 85 20 175/103 97 06/01/16 16:00 86 06/01/16 14:00 84 06/01/16 12:00 98.6 88 24 143/88 100 06/01/16 12:00 88 06/01/16 10:35 93 Nasal Cannula 3.00 06/01/16 10:35 93 Nasal Cannula 3 06/01/16 10:00 90 I/O 06/01/16 06/01/16 06/01/16 06/02/16 06/02/16 06/02/16 07:00 15:00 23:00 07:00 15:00 23:00 Intake Total 466 ml 1073 ml 191 ml 183 ml Output Total 1550 ml 1700 ml Balance -1084 ml -627 ml 191 ml 183 ml Intake Oral 0 ml 540 ml 120 ml 120 ml IV Total 466 ml 533 ml 71 ml 63 ml Output Urine Total 1550 ml 1700 ml # Voids 2 1 # Bowel Movements 0 0 0 Result Diagram: 06/01/16 1027 06/01/16 0439 Imaging Last Impressions Chest X-Ray 06/01/16 0000 Signed Impressions: Service Date/Time: Wednesday, June 01, 2016 03:28 - CONCLUSION: Significant improved aeration of the lungs with residual consolidation of the left base and resolution of areas of consolidation throughout the remainder of the lungs. Brent Joshua MD Head CT 05/31/16 0000 Signed Impressions: Service Date/Time: Tuesday, May 31, 2016 20:08 - CONCLUSION: Normal examination. Allen Burks MD Chest CT 05/31/16 0000 Signed Impressions: Service Date/Time: Tuesday, May 31, 2016 20:12 - CONCLUSION: 1. Extensive dense lung consolidation and groundglass opacity bilaterally. Differential diagnosis includes flash pulmonary edema and massive aspiration. Endotracheal tube and nasogastric tube in satisfactory position. Allen Burks MD Objective Remarks GENERAL: This is a well-nourished, well-developed patient, in no apparent distress. CARDIOVASCULAR: Regular rate and regular rhythm without murmurs, gallops, or rubs. RESPIRATORY: Clear to auscultation. Breath sounds equal bilaterally. No wheezes , rales, or rhonchi. GASTROINTESTINAL: Abdomen soft, non-tender, nondistended. Normal, active bowel sounds MUSCULOSKELETAL: Extremities without clubbing, cyanosis, or edema. NEURO: Alert & Oriented x4 to person, place, time, situation. Moves all ext x4 Procedures intubation Medications and IVs Current Medications IV Flush (NS Flush) 2 ml UNSCH PRN IVF FLUSH AFTER USING IV ACCESS; Start at 19:15 Methylprednisolone Sodium Succinate (SoluMEDROL INJ) 125 mg ONCE ONCE IVP Last administered on 05/31/16 21:34; Start 05/31/16 at 19:15; Stop 05/31/16 at 19: 16; Status DC Albuterol/ Ipratropium (Duoneb Neb) 1 ampule Q15M INH Last administered on t 23:28; Start 05/31/16 at 19:15; Stop 05/31/16 at 19:46; Status DC Etomidate (Amidate Inj) 20 mg STK-MED ONCE .ROUTE ; Start 05/31/16 at 19:20; Stop 05/31/16 at 19:21; Status DC Succinylcholine Chloride 200 mg 200 mg STK-MED ONCE .ROUTE ; Start 05/31/16 at 19 :20; Stop 05/31/16 at 19:21; Status DC Propofol 100 ml @ As Directed STK-MED ONCE .ROUTE ; Start 05/31/16 at 19:33; Stop 05/31/16 at 19:34; Status DC Propofol (Diprivan 1000 Mg/100ml Inj) 100 ml @ 0 mls/hr TITRATE IV Last administered on 06/01/16 03:49; Start 05/31/16 at 19:45; Stop 06/01/16 at 15:30; Status DC Midazolam HCl 5 mg 5 mg STK-MED ONCE .ROUTE ; Start 05/31/16 at 19:47; Stop at 19:48; Status DC Labetalol HCl 500 mg/Sodium Chloride 250 ml @ 0 mls/hr TITRATE IV Last administered on 06/01/16 06:42; Start 05/31/16 at 20:30; Stop 06/01/16 at 10:28; Status DC Piperacillin Sod/ Tazobactam Sod 100 ml @ 200 mls/hr ONCE STAT IV Last administered on 05/31/16 21:35; Start 05/31/16 at 20:36; Stop 05/31/16 at 21:05; Status DC Vancomycin HCl/ Sodium Chloride (Vancomycin Inj/ NS 250 ml Inj) 261.5 ml @ 250 mls/hr ONCE ONCE IV Last administered on 05/31/16 22:52; Start 05/31/16 at 20: 45; Stop 05/31/16 at 21:47; Status DC Etomidate (Amidate Inj) 20 mg ONCE ONCE IV PUSH Last administered on 05/31/16 21:37; Start 05/31/16 at 21:45; Stop 05/31/16 at 21:46; Status DC Succinylcholine Chloride (Quelicin Inj) 100 mg ONCE ONCE IM Last administered on 05/31/16 21:37; Start 05/31/16 at 21:45; Stop 05/31/16 at 21:46; Status DC Midazolam HCl (Versed Inj) 4 mg ONCE ONCE IV PUSH Last administered on 21:37; Start 05/31/16 at 21:45; Stop 05/31/16 at 21:46; Status DC Albuterol/ Ipratropium (Duoneb Neb) 3 ampule STK-MED ONCE .ROUTE ; Start at 21:48; Stop 05/31/16 at 21:49; Status DC Furosemide 40 mg 40 mg NOW IV PUSH Last administered on 05/31/16 22:03; Start 05/31/16 at 22:00; Stop 05/31/16 at 23:56; Status DC Potassium Chloride 100 ml @ 50 mls/hr Q2H PRN IV For Potassium 2.8 - 3.2 mEq/L ; Start 05/31/16 at 22:30; Stop 06/01/16 at 15:31; Status DC Potassium Chloride (KCl 20 Meq Premix Inj) 100 ml @ 50 mls/hr Q2H PRN IV For Potassium 2.8 - 3.2 mEq/L Last administered on 06/01/16 09:53; Start 05/31/16 at 22:30; Stop 06/01/16 at 15:31; Status DC Potassium Chloride 40 meq 40 meq UNSCH PRN PO/TUBE For Potassium 3.3 - 3.5 mEq/ L; Start 05/31/16 at 22:30; Stop 06/01/16 at 15:31; Status DC Potassium Chloride 100 ml @ 25 mls/hr UNSCH PRN IV For Potassium 3.3 - 3.5 mEq /L; Start 05/31/16 at 22:30; Stop 06/01/16 at 15:31; Status DC Potassium Chloride 100 ml @ 50 mls/hr Q2H PRN IV For Potassium 3.3 - 3.5 mEq/ L Last administered on 06/01/16 06:33; Start 05/31/16 at 22:30; Stop 06/01/16 at 15:31; Status DC Magnesium Sulfate/ Sodium Chloride (Magnesium Sulfate Inj/NS Inj) 100 ml @ 50 mls/hr UNSCH PRN IV For Magnesium 0.9 - 1.1 mg/dL; Start 05/31/16 at 22:30; Stop 06/01/16 at 15:31; Status DC Magnesium Oxide 800 mg 800 mg UNSCH PRN PO For Magnesium 1.2 - 1.6 mg/dL; Start 05/31/16 at 22:30; Stop 06/01/16 at 15:31; Status DC Magnesium Sulfate/ Sodium Chloride (Magnesium Sulfate Inj/NS Inj) 100 ml @ 50 mls/hr UNSCH PRN IV For Magnesium 1.2 - 1.6 mg/dL; Start 05/31/16 at 22:30; Stop 06/01/16 at 15:31; Status DC Potassium Phosphate 2000 mg 2,000 mg Q4H PRN PO For Phosphorus < 2.5 mg/dL; Start 05/31/16 at 22:30; Stop 06/01/16 at 15:31; Status DC Sodium Phosphate/ Sodium Chloride (Sodium Phosphate Inj/NS 250 ml Inj) 250 ml @ 42 mls/hr UNSCH PRN IV For Phosphorus < 2.5 mg/dL; Start 05/31/16 at 22:30; Stop 06/01/16 at 15:31; Status DC Potassium Chloride (KCl 40 Meq/30 ml Liq) 40 meq UNSCH PRN PO/TUBE SEE LABEL COMMENTS; Start 05/31/16 at 22:30; Stop 06/01/16 at 15:31; Status DC Potassium Phosphate 2000 mg 2,000 mg UNSCH PRN PO/TUBE SEE LABEL COMMENTS; Start 05/31/16 at 22:30; Stop 06/01/16 at 15:31; Status DC Potassium Phosphate/Sodium Chloride (Potassium Phosphate Inj/NS 250 ml Inj) 260 ml @ 42 mls/hr UNSCH PRN IV SEE LABEL COMMENTS; Start 05/31/16 at 22:30; Stop 06/01/16 at 15:31; Status DC Chlorhexidine Gluconate 15 ml 15 ml BID@08,20 MT Last administered on 06/01/16 08:00; Start 06/01/16 at 08:00 Sodium Chloride (NS 1000 ml Inj) 1,000 ml @ 30 mls/hr Q24H IV Last administered on 05/31/16 23:57; Start 05/31/16 at 22:22; Stop 06/01/16 at 12:04; Status DC IV Flush (NS Flush) 2 ml UNSCH PRN IV FLUSH FLUSH AFTER USING IV ACCESS; Start 05/31/16 at 22:30 IV Flush (NS Flush) 2 ml BID IV FLUSH Last administered on 06/02/16 08:27; Start 06/01/16 at 09:00 Acetaminophen (Tylenol) 650 mg Q6H PRN PO PAIN 1-10 AND/OR FEVER >101F; Start 05/31/16 at 22:30 Pantoprazole Sodium (Protonix Inj) 40 mg DAILY IV Last administered on 08:21; Start 06/01/16 at 09:00 Ondansetron HCl (Zofran Inj) 4 mg Q6H PRN IV NAUSEA OR VOMITING; Start 05/31/16 at 22:30 Docusate Sodium (Colace Liq) 100 mg Q12H G-TUBE Last administered on 06/01/16 09:04; Start 05/31/16 at 22:30 Bisacodyl (Dulcolax Ec) 10 mg DAILY PRN PO CONSTIPATION; Start 05/31/16 at 22:30 Magnesium Hydroxide (Milk Of Magnesia Liq) 30 ml Q12H PRN PO CONSTIPATION; Start 05/31/16 at 22:30 Albuterol/ Ipratropium (Duoneb Neb) 1 ampule Q6HR NEB INH Last administered on 06/02/16 07:23; Start 06/01/16 at 04:00 Albuterol/ Ipratropium (Duoneb Neb) 1 ampule Q2HR NEB PRN INH WHEEZING; Start 05/31/16 at 22:30 Heparin Sodium (Porcine) (Heparin Inj) 5,000 units Q12H SQ Last administered on 06/01/16 09:05; Start 05/31/16 at 22:30; Stop 06/01/16 at 09:49; Status DC Miscellaneous Information 1 Q361D XX ; Start 05/31/16 at 22:30 Chlorhexidine Gluconate (Chlorhexidine 2% Cloth) 3 pack Taper DAILY@04 TOP Last administered on 06/02/16 04:00; Start 06/01/16 at 04:00; Stop 05/28/17 at 03: 59 Chlorhexidine Gluconate (Chlorhexidine 2% Cloth) 3 pack UNSCH PRN TOP HYGIENIC CARE; Start 05/31/16 at 22:30 Furosemide (Lasix Inj) 80 mg ONCE ONCE IV PUSH Last administered on 05/31/16 23:57; Start 05/31/16 at 22:45; Stop 05/31/16 at 22:57; Status DC Albuterol/ Ipratropium 3 ampule 3 ampule STK-MED ONCE .ROUTE ; Start 05/31/16 at 22:42; Stop 05/31/16 at 22:43; Status DC Fentanyl Citrate (fentaNYL DRIP) 250 ml @ 0 mls/hr TITRATE IV Last administered on 06/01/16 03:48; Start 06/01/16 at 03:30; Stop 06/01/16 at 15:30; Status DC Amlodipine Besylate (Norvasc) 10 mg DAILY PO Last administered on 06/02/16 08: 20; Start 06/01/16 at 09:00 Atenolol (Tenormin) 50 mg DAILY PO Last administered on 06/01/16 08:09; Start 06/01/16 at 09:00; Stop 06/01/16 at 09:33; Status DC Aspirin (Aspirin) 325 mg STAT ONCE TUBE Last administered on 06/01/16 09:04; Start 06/01/16 at 09:00; Stop 06/01/16 at 09:01; Status DC Aspirin (Aspirin Chew) 81 mg DAILY CHEW Last administered on 06/02/16 08:19; Start 06/02/16 at 09:00 Nitroglycerin (Nitro-Dur 0.2 Mg Patch.24 Hr) 1 patch DAILY TD Last administered on 06/02/16 08:19; Start 06/01/16 at 09:00 Miscellaneous Information 1 DAILY T-DERMAL ; Start 06/01/16 at 09:00 Furosemide (Lasix Inj) 40 mg DAILY IV PUSH Last administered on 06/02/16 08:20 ; Start 06/01/16 at 09:00 Metoprolol Tartrate (Lopressor) 25 mg Q12HR PO Last administered on 06/02/16 08 :20; Start 06/01/16 at 21:00 Atorvastatin Calcium (Lipitor) 80 mg HS PO Last administered on 06/01/16 20:34 ; Start 06/01/16 at 21:00 Heparin Sodium (Porcine) (Heparin Inj) 5,000 units UNSCH PRN IV APTT LESS THAN 25; Start 06/01/16 at 15:45 Heparin Sodium (Porcine) 2500 units 2,500 units UNSCH PRN IV APTT 25 TO 39; Start 06/01/16 at 15:45 Heparin Sodium/ Dextrose (Heparin-D5W Inj) 250 ml @ 0 mls/hr TITRATE IV Last administered on 06/01/16 11:21; Start 06/01/16 at 11:00 Clopidogrel Bisulfate (Plavix) 600 mg ONCE ONCE PO Last administered on 10:44; Start 06/01/16 at 09:45; Stop 06/01/16 at 10:21; Status DC Clopidogrel Bisulfate (Plavix) 75 mg DAILY PO Last administered on 06/02/16 08: 20; Start 06/02/16 at 09:00 Labetalol HCl (Trandate Inj) 20 mg Q2H PRN IV SBP greater than 160mm Hg Last administered on 06/02/16 05:24; Start 06/01/16 at 11:00 A/P Assessment and Plan A/P Altered mental status-resolved Pulmonary edema Hypoxic respiratory failure -s/p intubation/ extubation -continue lasix -echo pending Hypertensive emergency- improved -Initial BP 225/141- -continue metoprolol and norvasc -will monitor and adjust the regimen as needed -Obtain echo follow-up results NSTEMI- due to hypertensive emergency continue heparin drip- aspirin, plavix and statin echo pending. cardiology following. chronic renal insufficiency -Monitor BMP. -Maintain Cespedes -- Strict I/Os - SSI Prophylaxis: GI Prophylaxis with PPI DVT Prophylaxis -- SCDs/ heparin drip transfer to telemetry later this evening or in am if BP stable. Manny Blandon MD Jun 02, 2016 08:52
--- NOTE | 2016-06-02 10:09 | PD.CARD.PN ---
Subjective Subjective Remarks No CP/SOB/palpitations Objective Medications Current Medications Medications (Trade) Dose Ordered Sig/Aylin Route Start Time Stop Time Status Last Admin (Peridex 0.12% Liq) 15 ml BID@08,20 MT 06/01/16 08:00 06/01/16 08:00 (Tylenol) 650 mg Q6H PRN PO 05/31/16 22:30 (Zofran Inj) 4 mg Q6H PRN IV 05/31/16 22:30 (Colace Liq) 100 mg Q12H G-TUBE 05/31/16 22:30 06/01/16 09:04 (Dulcolax Ec) 10 mg DAILY PRN PO 05/31/16 22:30 (Milk Of Magnesia Liq) 30 ml Q12H PRN PO 05/31/16 22:30 Miscellaneous Information 1 Q361D XX 05/31/16 22:30 (Chlorhexidine 2% Cloth) 3 pack Taper DAILY@04 TOP 06/01/16 04:00 05/28/17 03:59 06/02/16 04:00 (Chlorhexidine 2% Cloth) 3 pack UNSCH PRN TOP 05/31/16 22:30 (Norvasc) 10 mg DAILY PO 06/01/16 09:00 06/02/16 08:20 (Aspirin Chew) 81 mg DAILY CHEW 06/02/16 09:00 06/02/16 08:19 (Nitro-Dur 0.2 Mg Patch.24 Hr) 1 patch DAILY TD 06/01/16 09:00 06/02/16 08:19 Miscellaneous Information 1 DAILY T-DERMAL 06/01/16 09:00 06/02/16 08:20 (Lasix Inj) 40 mg DAILY IV PUSH 06/01/16 09:00 06/02/16 08:20 (Lopressor) 25 mg Q12HR PO 06/01/16 21:00 06/02/16 08:20 (Lipitor) 80 mg HS PO 06/01/16 21:00 06/01/16 20:34 (Heparin Inj) 5,000 units UNSCH PRN IV 06/01/16 15:45 Heparin Sodium (Porcine) 2500 units 2,500 units UNSCH PRN IV 06/01/16 15:45 (Heparin-D5W Inj) 250 ml @ 0 mls/hr TITRATE IV 06/01/16 11:00 06/01/16 11:21 (Plavix) 75 mg DAILY PO 06/02/16 09:00 06/02/16 08:20 (Trandate Inj) 20 mg Q2H PRN IV 06/01/16 11:00 06/02/16 05:24 (Protonix) 40 mg DAILY PO 06/03/16 09:00 Vital Signs / I&O Vital Signs Date Time Temp Pulse Resp B/P Pulse Ox O2 Delivery O2 Flow Rate FiO2 06/02/16 07:24 98 Nasal Cannula 3.00 06/02/16 06:00 87 06/02/16 04:00 98.8 88 23 154/91 100 06/02/16 04:00 88 06/02/16 02:00 89 06/02/16 00:00 88 06/02/16 00:00 88 06/02/16 00:00 98.3 88 19 167/87 95 06/01/16 22:00 86 06/01/16 21:00 97 Nasal Cannula 4.00 06/01/16 20:00 85 06/01/16 20:00 98.6 85 27 174/105 98 06/01/16 18:00 86 06/01/16 16:00 98.3 85 20 175/103 97 06/01/16 16:00 86 06/01/16 14:00 84 06/01/16 12:00 98.6 88 24 143/88 100 06/01/16 12:00 88 06/01/16 10:35 93 Nasal Cannula 3.00 06/01/16 10:35 93 Nasal Cannula 3 I/O 06/01/16 06/01/16 06/01/16 06/02/16 06/02/16 06/02/16 07:00 15:00 23:00 07:00 15:00 23:00 Intake Total 466 ml 1073 ml 191 ml 183 ml Output Total 1550 ml 1700 ml Balance -1084 ml -627 ml 191 ml 183 ml Intake Oral 0 ml 540 ml 120 ml 120 ml IV Total 466 ml 533 ml 71 ml 63 ml Output Urine Total 1550 ml 1700 ml # Voids 2 1 # Bowel Movements 0 0 0 Physical Exam GENERAL: NAD SKIN: Warm and dry. HEAD: Atraumatic. Normocephalic. EYES: Pupils equal and round. No scleral icterus. No injection or drainage. ENT: No nasal bleeding or discharge. Mucous membranes pink and moist. NECK: Trachea midline. No JVD. CARDIOVASCULAR: Regular rate and rhythm. RESPIRATORY: No accessory muscle use. Decreased breath sounds bilaterally GASTROINTESTINAL: Abdomen soft, non-tender, nondistended. Hepatic and splenic margins not palpable. MUSCULOSKELETAL: Extremities without clubbing, cyanosis, or edema. No obvious deformities. NEUROLOGICAL: Awake and alert. No obvious cranial nerve deficits. Motor grossly within normal limits. Five out of 5 muscle strength in the arms and legs. Normal speech. PSYCHIATRIC: Appropriate mood and affect; insight and judgment normal. Laboratory Laboratory Tests Test 06/01/16 06/01/16 06/01/16 06/01/16 10:27 13:48 17:24 22:58 White Blood Count 18.0 TH/MM3 Red Blood Count 4.32 MIL/MM3 Hemoglobin 13.9 GM/DL Hematocrit 41.9 % Mean Corpuscular Volume 96.9 FL Mean Corpuscular Hemoglobin 32.1 PG Mean Corpuscular Hemoglobin 33.1 % Concent Red Cell Distribution Width 14.5 % Platelet Count 188 TH/MM3 Mean Platelet Volume 11.0 FL Prothrombin Time 11.9 SEC Prothromb Time International 1.1 RATIO Ratio Activated Partial 27.6 SEC 63.9 SEC 71.7 SEC Thromboplast Time Lactic Acid Level 3.2 mmol/L Troponin I 0.19 NG/ML Test 06/02/16 04:52 Activated Partial 78.0 SEC Thromboplast Time Assessment and Plan Problem List: (1) Hypertensive emergency (2) Flash pulmonary edema (3) Respiratory disorder with ventilator dependence (4) NSTEMI (non-ST elevated myocardial infarction) (5) Lactic acidosis (6) Tobacco abuse (7) CHERYL (acute kidney injury) Assessment and Plan 1) NSTEMI most likely Type 2 in nature due to HTN emergency and hypoxia 2) Flash pulmonary edema most likely due to HTN emergency 3) Extubated, doing well on NC 4) Still hypertensive, would prefer starting TRAN-I, will recheck BUN/Cr before starting 5) Needs ischemic workup before discharge, troponin spill appears Type 2 will most likely do a Lexiscan nuclear stress test, probably Friday, recheck BUN/Cr and Lactic acid in the morning 6) Continue diuresis Bran Martin DO Jun 02, 2016 10:09
[2016-06-02 10:47] LABS: AUTOMATED NEUTROPHIL # 13.1 TH/MM3 (1.8-7.7); BASOPHIL # 0.1 TH/MM3 (0-0.2); BASOPHIL % 0.3 % (0.0-2.0); EOSINOPHIL % 0.2 % (0.0-4.0); HEMATOCRIT 41.4 % (35.0-46.0); HEMO FLAGS DIFF FINAL; LYMPH % 8.6 % (9.0-44.0); LYMPHOCYTE # 1.3 TH/MM3 (1.0-4.8); MEAN CELL VOLUME 97.5 FL (80.0-100.0); MEAN CORPUSCULAR HEMOGLOBIN 32.4 PG (27.0-34.0); MEAN CORPUSCULAR HGB CONC 33.3 % (32.0-36.0); MONO % 5.5 % (0.0-8.0); NEUT % 85.4 % (16.0-70.0); PLATELET COUNT 172 TH/MM3 (150-450); RED BLOOD COUNT 4.25 MIL/MM3 (4.00-5.30); RED CELL DISTRIBUTION WIDTH 14.6 % (11.6-17.2); WHITE BLOOD COUNT 15.3 TH/MM3 (4.0-11.0)
[2016-06-02 11:11] LABS: BICARBONATE 30.2 MEQ/L (21.0-32.0); POTASSIUM 3.2 MEQ/L (3.5-5.1)
[2016-06-02] MEDS: DOCUSATE SODIUM 100 MG/10 ML UDC G-TUBE SCH ×2 (11:31→20:28)
--- NOTE | 2016-06-02 12:37 | EC ---
Study Study Date:06/02/2016 STUDY CONCLUSIONS SUMMARY - Left ventricle: The cavity size was normal. Wall thickness was increased in a pattern of mild LVH. Systolic function was normal. The estimated ejection fraction was in the range of 55% to 60%. Wall motion was normal; there were no regional wall motion abnormalities. - Pulmonary arteries: PA peak pressure: 40mm Hg (S). If LV function is below 40, please consider prescribing an ACEI or ARB or document rationale for non-use. PROCEDURE DATA STUDY STATUS: Elective. Procedure: Transthoracic echocardiography. Image quality was fair. Scanning was performed from the parasternal, apical, and subcostal acoustic windows. Study completion: The patient tolerated the procedure well. Transthoracic echocardiography. M-mode, complete 2D, complete spectral Doppler, and color Doppler. Patient status: Inpatient. CARDIAC ANATOMY LEFT VENTRICLE: The cavity size was normal. Wall thickness was increased in a pattern of mild LVH. Systolic function was normal. The estimated ejection fraction was in the range of 55% to 60%. Wall motion was normal; there were no regional wall motion abnormalities. AORTIC VALVE: Trileaflet; normal thickness leaflets. Doppler: Transvalvular velocity was within the normal range. There was no stenosis. No regurgitation. AORTA: Aortic root: The aortic root was normal in size. MITRAL VALVE: Mildly thickened leaflets, . Doppler: Transvalvular velocity was within the normal range. There was no evidence for stenosis. Trace regurgitation. Peak gradient: 2mm Hg (D). LEFT ATRIUM: The atrium was normal in size. RIGHT VENTRICLE: The cavity size was normal. Wall thickness was normal. PULMONIC VALVE: Poorly visualized. Doppler: Transvalvular velocity was within the normal range. There was no evidence for stenosis. No regurgitation. TRICUSPID VALVE: Structurally normal valve. Doppler: Transvalvular velocity was within the normal range. No regurgitation. PULMONARY ARTERY: The main pulmonary artery was normal-sized. Systolic pressure was within the normal range. RIGHT ATRIUM: The atrium was normal in size. PERICARDIUM: There was no pericardial effusion. SYSTEMIC VEINS: Inferior vena cava: The vessel was normal in size. BASIC MEASUREMENTS ADULT Normal Left ventricle LV internal dimension, ED, chordal level, *34.3 mm 43-52 PLAX LV posterior wall thickness, ED 7.16 mm IVS/LVPW ratio, ED *1.91 <1.3 Ventricular septum Septal thickness, ED 13.7 mm Aortic valve Leaflet separation 18 mm 15-26 Left atrium Anterior-posterior dimension 40 mm Right ventricle RV internal dimension, ED, PLAX *17.9 mm 19-38 BASIC MEASUREMENTS ADULT Normal Aortic valve Leaflet separation 18 mm 15-26 Aorta Root diameter, ED 28 mm 20-37 DOPPLER MEASUREMENTS ADULT Normal Main pulmonary artery Pressure, S *40 mm Hg =30 Mitral valve Peak E-wave velocity 73.1 cm/s Peak A-wave velocity 78.5 cm/s Peak gradient, D 2 mm Hg Peak E/A ratio 0.9 Maximal regurgitant velocity 329 cm/s Tricuspid valve Regurgitant peak velocity 264 cm/s Peak RV-RA gradient, S 28 mm Hg Maximal regurgitant velocity 264 cm/s Systemic veins Estimated CVP 10 mm Hg Right ventricle RV pressure, S *40 mm Hg <30 LEGEND: Mean values are shown as u=mean value. Asterisk (*) benedict values outside specified normal range. Prepared and signed by Manish Shrestha [id number]
[2016-06-02 14:36] LABS: APTT (PATIENT) 38.5 SEC (24.3-30.1)
[2016-06-02] MEDS: HEPARIN-D5W INJ 250 ML IV SCH (17:49)
[2016-06-02] MEDS: ATORVASTATIN 80 MG TAB PO SCH (20:28)
[2016-06-02 22:36] LABS: APTT (PATIENT) 64.3 SEC (24.3-30.1)
[2016-06-03] VITALS (13 sets, daily range): BP systolic 160–201; BP diastolic 86–126; PULSE 75–114; RESP 16–21; TEMP 98.3–99.1; O2SAT 97–100
[2016-06-03] MEDS: LABETALOL HCL 100 MG/20 ML VIAL IV PRN ×7 (02:39→19:48)
[2016-06-03] MEDS: RESP: ALBUTEROL 2.5 MG/IPRATROPIUM 0.5 MG NEB (SCH) INH ×4 (03:47→22:00)
[2016-06-03] MEDS: CHLORHEXIDINE GLUCONATE 2 % 1 PACK (2 CLOTHS) TOP SCH (04:00)
[2016-06-03 04:03] LABS: BICARBONATE 30.4 MEQ/L (21.0-32.0); POTASSIUM 3.2 MEQ/L (3.5-5.1)
[2016-06-03 04:05] LABS: HDL CHOLESTEROL 63.3 MG/DL (40.0-60.0)
[2016-06-03] MEDS ORDERED: POTASSIUM CHLORIDE 10 MEQ CONTROLLED RELEASE TAB PO ONE ×2 (04:30→12:15)
[2016-06-03] MEDS: CHLORHEXIDINE 0.12% (ORAL KIT) 15 ML CUP MT SCH ×2 (07:32→19:44)
[2016-06-03] MEDS: SODIUM CHLORIDE 0.9% FLUSH 5 ML FLUSH IV FLUSH SCH ×2 (08:20→19:45)
[2016-06-03] MEDS: PANTOPRAZOLE SOD 40 MG DELAYED RELEASE TAB PO SCH (08:20)
[2016-06-03] MEDS: FUROSEMIDE 40 MG/4 ML VIAL IV PUSH SCH (08:20)
[2016-06-03] MEDS: METOPROLOL TARTRATE 25 MG TAB PO SCH ×2 (08:20→19:45)
[2016-06-03] MEDS: CLOPIDOGREL 75 MG TAB PO SCH (08:20)
[2016-06-03] MEDS: ASPIRIN 81 MG CHEW TAB CHEW SCH (08:20)
[2016-06-03] MEDS: NITROGLYCERIN 0.2 MG/HR PATCH TD SCH (08:21)
[2016-06-03] MEDS: REMOVE OLD PATCH T-DERMAL SCH (08:21)
--- NOTE | 2016-06-03 08:29 | PD.CARD.PN ---
Subjective Subjective Remarks No chest pain/SOB Had some vaginal bleeding and coughing up blood over night Objective Medications Current Medications Medications (Trade) Dose Ordered Sig/Aylin Route Start Time Stop Time Status Last Admin (NS Flush) 2 ml UNSCH PRN IVF 05/31/16 19:15 (Peridex 0.12% Liq) 15 ml BID@08,20 MT 06/01/16 08:00 06/01/16 08:00 (NS Flush) 2 ml UNSCH PRN IV FLUSH 05/31/16 22:30 (NS Flush) 2 ml BID IV FLUSH 06/01/16 09:00 06/03/16 08:20 (Tylenol) 650 mg Q6H PRN PO 05/31/16 22:30 (Zofran Inj) 4 mg Q6H PRN IV 05/31/16 22:30 (Colace Liq) 100 mg Q12H G-TUBE 05/31/16 22:30 06/02/16 11:31 (Dulcolax Ec) 10 mg DAILY PRN PO 05/31/16 22:30 (Milk Of Magnesia Liq) 30 ml Q12H PRN PO 05/31/16 22:30 Miscellaneous Information 1 Q361D XX 05/31/16 22:30 (Chlorhexidine 2% Cloth) 3 pack Taper DAILY@04 TOP 06/01/16 04:00 05/28/17 03:59 06/03/16 04:00 (Chlorhexidine 2% Cloth) 3 pack UNSCH PRN TOP 05/31/16 22:30 (Norvasc) 10 mg DAILY PO 06/01/16 09:00 06/03/16 08:20 (Aspirin Chew) 81 mg DAILY CHEW 06/02/16 09:00 06/03/16 08:20 (Nitro-Dur 0.2 Mg Patch.24 Hr) 1 patch DAILY TD 06/01/16 09:00 06/03/16 08:21 Miscellaneous Information 1 DAILY T-DERMAL 06/01/16 09:00 06/03/16 08:21 (Lasix Inj) 40 mg DAILY IV PUSH 06/01/16 09:00 06/03/16 08:20 (Lopressor) 25 mg Q12HR PO 06/01/16 21:00 06/03/16 08:20 (Lipitor) 80 mg HS PO 06/01/16 21:00 06/02/16 20:28 (Heparin Inj) 5,000 units UNSCH PRN IV 06/01/16 15:45 Heparin Sodium (Porcine) 2500 units 2,500 units UNSCH PRN IV 06/01/16 15:45 06/02/16 15:44 (Heparin-D5W Inj) 250 ml @ 0 mls/hr TITRATE IV 06/01/16 11:00 06/02/16 17:49 (Plavix) 75 mg DAILY PO 06/02/16 09:00 06/03/16 08:20 (Trandate Inj) 20 mg Q2H PRN IV 06/01/16 11:00 06/03/16 07:43 (Protonix) 40 mg DAILY PO 06/03/16 09:00 06/03/16 08:20 Vital Signs / I&O Vital Signs Date Time Temp Pulse Resp B/P Pulse Ox O2 Delivery O2 Flow Rate FiO2 06/03/16 06:00 85 06/03/16 04:00 75 06/03/16 04:00 98.7 82 20 174/104 98 06/03/16 02:00 87 06/03/16 00:00 98.4 88 20 160/86 97 06/03/16 00:00 88 06/02/16 22:00 86 06/02/16 21:58 94 Nasal Cannula 2.00 06/02/16 20:21 94 21 06/02/16 20:00 91 06/02/16 20:00 98.9 91 26 185/118 95 06/02/16 18:00 88 06/02/16 16:00 87 06/02/16 16:00 97.4 87 20 176/97 93 06/02/16 14:00 88 06/02/16 12:00 86 06/02/16 12:00 97.6 86 22 162/93 97 06/02/16 10:00 86 I/O 06/02/16 06/02/16 06/02/16 06/03/16 06/03/16 06/03/16 07:00 15:00 23:00 07:00 15:00 23:00 Intake Total 183 ml 739 ml 187 ml 168 ml Output Total 2050 ml 250 ml 725 ml Balance 183 ml -1311 ml -63 ml -557 ml Intake Oral 120 ml 680 ml 120 ml 120 ml IV Total 63 ml 59 ml 67 ml 48 ml Output Urine Total 2050 ml 250 ml 725 ml # Voids 1 4 1 2 # Bowel Movements 0 0 0 0 Physical Exam GENERAL: NAD SKIN: Warm and dry. HEAD: Atraumatic. Normocephalic. EYES: Pupils equal and round. No scleral icterus. No injection or drainage. ENT: No nasal bleeding or discharge. Mucous membranes pink and moist. NECK: Trachea midline. No JVD. CARDIOVASCULAR: Regular rate and rhythm. RESPIRATORY: No accessory muscle use. Decreased breath sounds bilaterally GASTROINTESTINAL: Abdomen soft, non-tender, nondistended. Hepatic and splenic margins not palpable. MUSCULOSKELETAL: Extremities without clubbing, cyanosis, or edema. No obvious deformities. NEUROLOGICAL: Awake and alert. No obvious cranial nerve deficits. Motor grossly within normal limits. Five out of 5 muscle strength in the arms and legs. Normal speech. PSYCHIATRIC: Appropriate mood and affect; insight and judgment normal. Laboratory Laboratory Tests Test 06/02/16 06/02/16 06/02/16 06/03/16 10:15 14:16 22:16 03:17 White Blood Count 15.3 TH/MM3 Red Blood Count 4.25 MIL/MM3 Hemoglobin 13.8 GM/DL Hematocrit 41.4 % Mean Corpuscular Volume 97.5 FL Mean Corpuscular Hemoglobin 32.4 PG Mean Corpuscular Hemoglobin 33.3 % Concent Red Cell Distribution Width 14.6 % Platelet Count 172 TH/MM3 Mean Platelet Volume 11.1 FL Neutrophils (%) (Auto) 85.4 % Lymphocytes (%) (Auto) 8.6 % Monocytes (%) (Auto) 5.5 % Eosinophils (%) (Auto) 0.2 % Basophils (%) (Auto) 0.3 % Neutrophils # (Auto) 13.1 TH/MM3 Lymphocytes # (Auto) 1.3 TH/MM3 Monocytes # (Auto) 0.8 TH/MM3 Eosinophils # (Auto) 0.0 TH/MM3 Basophils # (Auto) 0.1 TH/MM3 CBC Comment DIFF FINAL Differential Comment Sodium Level 141 MEQ/L 143 MEQ/L Potassium Level 3.2 MEQ/L 3.2 MEQ/L Chloride Level 105 MEQ/L 105 MEQ/L Carbon Dioxide Level 30.2 MEQ/L 30.4 MEQ/L Anion Gap 6 MEQ/L 8 MEQ/L Blood Urea Nitrogen 26 MG/DL 22 MG/DL Creatinine 1.74 MG/DL 1.50 MG/DL Estimat Glomerular Filtration 39 ML/MIN 46 ML/MIN Rate Random Glucose 131 MG/DL 117 MG/DL Calcium Level 9.0 MG/DL 8.9 MG/DL Activated Partial 38.5 SEC 64.3 SEC Thromboplast Time Magnesium Level 1.9 MG/DL Triglycerides Level 120 MG/DL Cholesterol Level 175 MG/DL LDL Cholesterol 88 MG/DL HDL Cholesterol 63.3 MG/DL Cholesterol/HDL Ratio 2.76 RATIO Test 06/03/16 03:28 Activated Partial 65.0 SEC Thromboplast Time Lactic Acid Level 0.9 mmol/L Assessment and Plan Problem List: (1) Hypertensive emergency (2) Flash pulmonary edema (3) Respiratory disorder with ventilator dependence (4) NSTEMI (non-ST elevated myocardial infarction) (5) Lactic acidosis (6) Tobacco abuse (7) CHERYL (acute kidney injury) Assessment and Plan 1) NSTEMI most likely Type 2 in nature due to HTN emergency and hypoxia 2) Flash pulmonary edema most likely due to HTN emergency 3) Extubated, doing well on room air 4) Still hypertensive, will start TRAN-I and change Norvasc to Procardia 5) With concern for recent bleeding and thought that this is Type 2 in nature, will opt for stress test tomorrow 6) Continue diuresis Bran Martin DO Jun 03, 2016 08:28
[2016-06-03] MEDS: DOCUSATE SODIUM 100 MG/10 ML UDC G-TUBE SCH ×2 (10:30→21:46)
[2016-06-03] MEDS: NIFEdipine 10 MG CAP PO SCH ×2 (10:37→17:37)
--- NOTE | 2016-06-03 12:09 | HHI.PR ---
Subjective Remarks resting comfortably with no distress. denies chest pain or sob. says that had some vaginal bleeding last night. Objective Vitals Vital Signs Date Time Temp Pulse Resp B/P Pulse Ox O2 Delivery O2 Flow Rate FiO2 06/03/16 10:10 100 06/03/16 06:00 85 06/03/16 04:00 75 06/03/16 04:00 98.7 82 20 174/104 98 06/03/16 02:00 87 06/03/16 00:00 98.4 88 20 160/86 97 06/03/16 00:00 88 06/02/16 22:00 86 06/02/16 21:58 94 Nasal Cannula 2.00 06/02/16 20:21 94 21 06/02/16 20:00 91 06/02/16 20:00 98.9 91 26 185/118 95 06/02/16 18:00 88 06/02/16 16:00 87 06/02/16 16:00 97.4 87 20 176/97 93 06/02/16 14:00 88 I/O 06/02/16 06/02/16 06/02/16 06/03/16 06/03/16 06/03/16 07:00 15:00 23:00 07:00 15:00 23:00 Intake Total 183 ml 739 ml 187 ml 168 ml Output Total 2050 ml 250 ml 725 ml Balance 183 ml -1311 ml -63 ml -557 ml Intake Oral 120 ml 680 ml 120 ml 120 ml IV Total 63 ml 59 ml 67 ml 48 ml Output Urine Total 2050 ml 250 ml 725 ml # Voids 1 4 1 2 # Bowel Movements 0 0 0 0 Result Diagram: 06/02/16 1015 06/03/16 0317 Imaging Last Impressions Chest X-Ray 06/01/16 0000 Signed Impressions: Service Date/Time: Wednesday, June 01, 2016 03:28 - CONCLUSION: Significant improved aeration of the lungs with residual consolidation of the left base and resolution of areas of consolidation throughout the remainder of the lungs. Brent Joshua MD Head CT 05/31/16 0000 Signed Impressions: Service Date/Time: Tuesday, May 31, 2016 20:08 - CONCLUSION: Normal examination. Allen Burks MD Chest CT 05/31/16 0000 Signed Impressions: Service Date/Time: Tuesday, May 31, 2016 20:12 - CONCLUSION: 1. Extensive dense lung consolidation and groundglass opacity bilaterally. Differential diagnosis includes flash pulmonary edema and massive aspiration. Endotracheal tube and nasogastric tube in satisfactory position. Allen Burks MD Objective Remarks GENERAL: This is a well-nourished, well-developed patient, in no apparent distress. CARDIOVASCULAR: Regular rate and regular rhythm without murmurs, gallops, or rubs. RESPIRATORY: Clear to auscultation. Breath sounds equal bilaterally. No wheezes , rales, or rhonchi. GASTROINTESTINAL: Abdomen soft, non-tender, nondistended. Normal, active bowel sounds MUSCULOSKELETAL: Extremities without clubbing, cyanosis, or edema. NEURO: Alert & Oriented x4 to person, place, time, situation. Moves all ext x4 Procedures intubation Medications and IVs Current Medications IV Flush (NS Flush) 2 ml UNSCH PRN IVF FLUSH AFTER USING IV ACCESS; Start at 19:15; Stop 06/03/16 at 08:34; Status DC Methylprednisolone Sodium Succinate (SoluMEDROL INJ) 125 mg ONCE ONCE IVP Last administered on 05/31/16 21:34; Start 05/31/16 at 19:15; Stop 05/31/16 at 19: 16; Status DC Albuterol/ Ipratropium (Duoneb Neb) 1 ampule Q15M INH Last administered on 23:28; Start 05/31/16 at 19:15; Stop 05/31/16 at 19:46; Status DC Etomidate (Amidate Inj) 20 mg STK-MED ONCE .ROUTE ; Start 05/31/16 at 19:20; Stop 05/31/16 at 19:21; Status DC Succinylcholine Chloride 200 mg 200 mg STK-MED ONCE .ROUTE ; Start 05/31/16 at 19 :20; Stop 05/31/16 at 19:21; Status DC Propofol 100 ml @ As Directed STK-MED ONCE .ROUTE ; Start 05/31/16 at 19:33; Stop 05/31/16 at 19:34; Status DC Propofol (Diprivan 1000 Mg/100ml Inj) 100 ml @ 0 mls/hr TITRATE IV Last administered on 06/01/16 03:49; Start 05/31/16 at 19:45; Stop 06/01/16 at 15:30; Status DC Midazolam HCl 5 mg 5 mg STK-MED ONCE .ROUTE ; Start 05/31/16 at 19:47; Stop at 19:48; Status DC Labetalol HCl 500 mg/Sodium Chloride 250 ml @ 0 mls/hr TITRATE IV Last administered on 06/01/16 06:42; Start 05/31/16 at 20:30; Stop 06/01/16 at 10:28; Status DC Piperacillin Sod/ Tazobactam Sod 100 ml @ 200 mls/hr ONCE STAT IV Last administered on 05/31/16 21:35; Start 05/31/16 at 20:36; Stop 05/31/16 at 21:05; Status DC Vancomycin HCl/ Sodium Chloride (Vancomycin Inj/ NS 250 ml Inj) 261.5 ml @ 250 mls/hr ONCE ONCE IV Last administered on 05/31/16 22:52; Start 05/31/16 at 20: 45; Stop 05/31/16 at 21:47; Status DC Etomidate (Amidate Inj) 20 mg ONCE ONCE IV PUSH Last administered on 05/31/16 21:37; Start 05/31/16 at 21:45; Stop 05/31/16 at 21:46; Status DC Succinylcholine Chloride (Quelicin Inj) 100 mg ONCE ONCE IM Last administered on 05/31/16 21:37; Start 05/31/16 at 21:45; Stop 05/31/16 at 21:46; Status DC Midazolam HCl (Versed Inj) 4 mg ONCE ONCE IV PUSH Last administered on 21:37; Start 05/31/16 at 21:45; Stop 05/31/16 at 21:46; Status DC Albuterol/ Ipratropium (Duoneb Neb) 3 ampule STK-MED ONCE .ROUTE ; Start at 21:48; Stop 05/31/16 at 21:49; Status DC Furosemide 40 mg 40 mg NOW IV PUSH Last administered on 05/31/16 22:03; Start 05/31/16 at 22:00; Stop 05/31/16 at 23:56; Status DC Potassium Chloride 100 ml @ 50 mls/hr Q2H PRN IV For Potassium 2.8 - 3.2 mEq/L ; Start 05/31/16 at 22:30; Stop 06/01/16 at 15:31; Status DC Potassium Chloride (KCl 20 Meq Premix Inj) 100 ml @ 50 mls/hr Q2H PRN IV For Potassium 2.8 - 3.2 mEq/L Last administered on 06/01/16 09:53; Start 05/31/16 at 22:30; Stop 06/01/16 at 15:31; Status DC Potassium Chloride 40 meq 40 meq UNSCH PRN PO/TUBE For Potassium 3.3 - 3.5 mEq/ L; Start 05/31/16 at 22:30; Stop 06/01/16 at 15:31; Status DC Potassium Chloride 100 ml @ 25 mls/hr UNSCH PRN IV For Potassium 3.3 - 3.5 mEq /L; Start 05/31/16 at 22:30; Stop 06/01/16 at 15:31; Status DC Potassium Chloride 100 ml @ 50 mls/hr Q2H PRN IV For Potassium 3.3 - 3.5 mEq/ L Last administered on 06/01/16 06:33; Start 05/31/16 at 22:30; Stop 06/01/16 at 15:31; Status DC Magnesium Sulfate/ Sodium Chloride (Magnesium Sulfate Inj/NS Inj) 100 ml @ 50 mls/hr UNSCH PRN IV For Magnesium 0.9 - 1.1 mg/dL; Start 05/31/16 at 22:30; Stop 06/01/16 at 15:31; Status DC Magnesium Oxide 800 mg 800 mg UNSCH PRN PO For Magnesium 1.2 - 1.6 mg/dL; Start 05/31/16 at 22:30; Stop 06/01/16 at 15:31; Status DC Magnesium Sulfate/ Sodium Chloride (Magnesium Sulfate Inj/NS Inj) 100 ml @ 50 mls/hr UNSCH PRN IV For Magnesium 1.2 - 1.6 mg/dL; Start 05/31/16 at 22:30; Stop 06/01/16 at 15:31; Status DC Potassium Phosphate 2000 mg 2,000 mg Q4H PRN PO For Phosphorus < 2.5 mg/dL; Start 05/31/16 at 22:30; Stop 06/01/16 at 15:31; Status DC Sodium Phosphate/ Sodium Chloride (Sodium Phosphate Inj/NS 250 ml Inj) 250 ml @ 42 mls/hr UNSCH PRN IV For Phosphorus < 2.5 mg/dL; Start 05/31/16 at 22:30; Stop 06/01/16 at 15:31; Status DC Potassium Chloride (KCl 40 Meq/30 ml Liq) 40 meq UNSCH PRN PO/TUBE SEE LABEL COMMENTS; Start 05/31/16 at 22:30; Stop 06/01/16 at 15:31; Status DC Potassium Phosphate 2000 mg 2,000 mg UNSCH PRN PO/TUBE SEE LABEL COMMENTS; Start 05/31/16 at 22:30; Stop 06/01/16 at 15:31; Status DC Potassium Phosphate/Sodium Chloride (Potassium Phosphate Inj/NS 250 ml Inj) 260 ml @ 42 mls/hr UNSCH PRN IV SEE LABEL COMMENTS; Start 05/31/16 at 22:30; Stop 06/01/16 at 15:31; Status DC Chlorhexidine Gluconate 15 ml 15 ml BID@08,20 MT Last administered on 06/01/16 08:00; Start 06/01/16 at 08:00 Sodium Chloride (NS 1000 ml Inj) 1,000 ml @ 30 mls/hr Q24H IV Last administered on 05/31/16 23:57; Start 05/31/16 at 22:22; Stop 06/01/16 at 12:04; Status DC IV Flush (NS Flush) 2 ml UNSCH PRN IV FLUSH FLUSH AFTER USING IV ACCESS; Start 05/31/16 at 22:30 IV Flush (NS Flush) 2 ml BID IV FLUSH Last administered on 06/03/16 08:20; Start 06/01/16 at 09:00 Acetaminophen (Tylenol) 650 mg Q6H PRN PO PAIN 1-10 AND/OR FEVER >101F; Start 05/31/16 at 22:30 Pantoprazole Sodium (Protonix Inj) 40 mg DAILY IV Last administered on 08:21; Start 06/01/16 at 09:00; Stop 06/02/16 at 09:00; Status DC Ondansetron HCl (Zofran Inj) 4 mg Q6H PRN IV NAUSEA OR VOMITING; Start 05/31/16 at 22:30 Docusate Sodium (Colace Liq) 100 mg Q12H G-TUBE Last administered on 06/02/16 11:31; Start 05/31/16 at 22:30 Bisacodyl (Dulcolax Ec) 10 mg DAILY PRN PO CONSTIPATION; Start 05/31/16 at 22:30 Magnesium Hydroxide (Milk Of Magnesia Liq) 30 ml Q12H PRN PO CONSTIPATION; Start 05/31/16 at 22:30 Albuterol/ Ipratropium (Duoneb Neb) 1 ampule Q6HR NEB INH Last administered on 06/03/16 10:09; Start 06/01/16 at 04:00 Albuterol/ Ipratropium (Duoneb Neb) 1 ampule Q2HR NEB PRN INH WHEEZING; Start 05/31/16 at 22:30 Heparin Sodium (Porcine) (Heparin Inj) 5,000 units Q12H SQ Last administered on 06/01/16 09:05; Start 05/31/16 at 22:30; Stop 06/01/16 at 09:49; Status DC Miscellaneous Information 1 Q361D XX ; Start 05/31/16 at 22:30 Chlorhexidine Gluconate (Chlorhexidine 2% Cloth) 3 pack Taper DAILY@04 TOP Last administered on 06/03/16 04:00; Start 06/01/16 at 04:00; Stop 05/28/17 at 03: 59 Chlorhexidine Gluconate (Chlorhexidine 2% Cloth) 3 pack UNSCH PRN TOP HYGIENIC CARE; Start 05/31/16 at 22:30 Furosemide (Lasix Inj) 80 mg ONCE ONCE IV PUSH Last administered on 05/31/16 23:57; Start 05/31/16 at 22:45; Stop 05/31/16 at 22:57; Status DC Albuterol/ Ipratropium 3 ampule 3 ampule STK-MED ONCE .ROUTE ; Start 05/31/16 at 22:42; Stop 05/31/16 at 22:43; Status DC Fentanyl Citrate (fentaNYL DRIP) 250 ml @ 0 mls/hr TITRATE IV Last administered on 06/01/16 03:48; Start 06/01/16 at 03:30; Stop 06/01/16 at 15:30; Status DC Amlodipine Besylate (Norvasc) 10 mg DAILY PO Last administered on 06/02/16 08: 20; Start 06/01/16 at 09:00; Stop 06/03/16 at 08:32; Status DC Atenolol (Tenormin) 50 mg DAILY PO Last administered on 06/01/16 08:09; Start 06/01/16 at 09:00; Stop 06/01/16 at 09:33; Status DC Aspirin (Aspirin) 325 mg STAT ONCE TUBE Last administered on 06/01/16 09:04; Start 06/01/16 at 09:00; Stop 06/01/16 at 09:01; Status DC Aspirin (Aspirin Chew) 81 mg DAILY CHEW Last administered on 06/03/16 08:20; Start 06/02/16 at 09:00 Nitroglycerin (Nitro-Dur 0.2 Mg Patch.24 Hr) 1 patch DAILY TD Last administered on 06/03/16 08:21; Start 06/01/16 at 09:00 Miscellaneous Information 1 DAILY T-DERMAL Last administered on 06/03/16 08:21 ; Start 06/01/16 at 09:00 Furosemide (Lasix Inj) 40 mg DAILY IV PUSH Last administered on 06/03/16 08:20 ; Start 06/01/16 at 09:00 Metoprolol Tartrate (Lopressor) 25 mg Q12HR PO Last administered on 06/03/16 08 :20; Start 06/01/16 at 21:00 Atorvastatin Calcium (Lipitor) 80 mg HS PO Last administered on 06/02/16 20:28 ; Start 06/01/16 at 21:00 Heparin Sodium (Porcine) (Heparin Inj) 5,000 units UNSCH PRN IV APTT LESS THAN 25; Start 06/01/16 at 15:45; Stop 06/03/16 at 08:34; Status DC Heparin Sodium (Porcine) 2500 units 2,500 units UNSCH PRN IV APTT 25 TO 39 Last administered on 06/02/16 15:44; Start 06/01/16 at 15:45; Stop 06/03/16 at 08: 34; Status DC Heparin Sodium/ Dextrose (Heparin-D5W Inj) 250 ml @ 0 mls/hr TITRATE IV Last administered on 06/02/16 17:49; Start 06/01/16 at 11:00; Stop 06/03/16 at 08:34; Status DC Clopidogrel Bisulfate (Plavix) 600 mg ONCE ONCE PO Last administered on 10:44; Start 06/01/16 at 09:45; Stop 06/01/16 at 10:21; Status DC Clopidogrel Bisulfate (Plavix) 75 mg DAILY PO Last administered on 06/03/16 08: 20; Start 06/02/16 at 09:00 Labetalol HCl (Trandate Inj) 20 mg Q2H PRN IV SBP greater than 160mm Hg Last administered on 06/03/16 10:22; Start 06/01/16 at 11:00 Pantoprazole Sodium (Protonix) 40 mg DAILY PO Last administered on 06/03/16 08: 20; Start 06/03/16 at 09:00 Potassium Chloride (KCl) 40 meq ONCE ONCE PO Last administered on 06/03/16 04: 41; Start 06/03/16 at 04:30; Stop 06/03/16 at 04:31; Status DC Heparin Sodium (Porcine) (Heparin Inj) 5,000 units Q8HR SQ ; Start 06/03/16 at 14 :00; Stop 06/03/16 at 14:00; Status DC Nifedipine (Procardia) 10 mg Q8H PO Last administered on 06/03/16 10:37; Start 06/03/16 at 09:00 Heparin Sodium (Porcine) (Heparin Inj) 5,000 units Q8HR SQ ; Start 06/03/16 at 14 :00 A/P Assessment and Plan A/P Altered mental status-resolved Pulmonary edema Hypoxic respiratory failure -s/p intubation/ extubation -continue lasix -echo with EF 55% and no regional wall motion abnormalities. Hypertensive emergency- improved -Initial BP 225/141- -continue metoprolol - norvasc was switched to procardia -will monitor and adjust the regimen as needed NSTEMI- due to hypertensive emergency continue aspirin, plavix and statin heparin was discontinued. cardiology following. chronic renal insufficiency -Monitor BMP. -- Strict I/Os hypokalemia; will replace and monitor vaginal bleeding- d/w the patient; she will have a follow-up with [facility] as outpatient - SSI Prophylaxis: GI Prophylaxis with PPI DVT Prophylaxis -- SCDs/subq heparin transfer to telemetry soon if BP remains stable. d/w . Manny Blandon MD Jun 03, 2016 12:09
[2016-06-03] MEDS ORDERED: HEPARIN SODIUM - SQ 10,000 UNITS/ML VIAL SQ SCH (14:00)
[2016-06-03] MEDS: HEPARIN SODIUM - SQ 10,000 UNITS/ML VIAL SQ SCH ×2 (14:13→21:46)
[2016-06-03] MEDS: ATORVASTATIN 80 MG TAB PO SCH (19:44)
[2016-06-03] MEDS: hydrALAZINE HCL 20 MG/ML VIAL IV PUSH PRN (21:46)
[2016-06-04] VITALS (12 sets, daily range): BP systolic 154–177; BP diastolic 96–105; PULSE 91–111; RESP 15–20; TEMP 98–98.8; O2SAT 95–100
[2016-06-04] MEDS: NIFEdipine 10 MG CAP PO SCH ×2 (00:08→08:18)
[2016-06-04] MEDS: CHLORHEXIDINE GLUCONATE 2 % 1 PACK (2 CLOTHS) TOP SCH (04:00)
[2016-06-04] MEDS: RESP: ALBUTEROL 2.5 MG/IPRATROPIUM 0.5 MG NEB (SCH) INH ×4 (04:10→21:22)
[2016-06-04] MEDS: hydrALAZINE HCL 20 MG/ML VIAL IV PUSH PRN ×4 (04:24→14:10)
[2016-06-04 05:25] LABS: AUTOMATED NEUTROPHIL # 6.5 TH/MM3 (1.8-7.7); BASOPHIL % 0.4 % (0.0-2.0); EOSINOPHIL # 0.2 TH/MM3 (0-0.4); EOSINOPHIL % 1.9 % (0.0-4.0); HEMATOCRIT 42.3 % (35.0-46.0); HEMO FLAGS DIFF FINAL; LYMPH % 17.6 % (9.0-44.0); LYMPHOCYTE # 1.6 TH/MM3 (1.0-4.8); MEAN CELL VOLUME 96.6 FL (80.0-100.0); MEAN CORPUSCULAR HEMOGLOBIN 32.4 PG (27.0-34.0); MEAN CORPUSCULAR HGB CONC 33.6 % (32.0-36.0); MONO % 6.9 % (0.0-8.0); NEUT % 73.2 % (16.0-70.0); PLATELET COUNT 203 TH/MM3 (150-450); RED BLOOD COUNT 4.38 MIL/MM3 (4.00-5.30); RED CELL DISTRIBUTION WIDTH 14.4 % (11.6-17.2); WHITE BLOOD COUNT 8.8 TH/MM3 (4.0-11.0)
[2016-06-04] MEDS: ACETAMINOPHEN 325 MG TAB PO PRN ×2 (05:29→11:17)
[2016-06-04] MEDS: HEPARIN SODIUM - SQ 10,000 UNITS/ML VIAL SQ SCH ×3 (05:33→22:00)
[2016-06-04 05:35] LABS: APTT (PATIENT) 27.1 SEC (24.3-30.1)
[2016-06-04 05:55] LABS: BICARBONATE 26.4 MEQ/L (21.0-32.0); POTASSIUM 3.7 MEQ/L (3.5-5.1)
[2016-06-04] MEDS: CHLORHEXIDINE 0.12% (ORAL KIT) 15 ML CUP MT SCH ×2 (08:00→20:00)
[2016-06-04] MEDS: CLOPIDOGREL 75 MG TAB PO SCH (08:18)
[2016-06-04] MEDS: PANTOPRAZOLE SOD 40 MG DELAYED RELEASE TAB PO SCH (08:18)
[2016-06-04] MEDS: METOPROLOL TARTRATE 25 MG TAB PO SCH ×2 (08:18→21:00)
[2016-06-04] MEDS: REMOVE OLD PATCH T-DERMAL SCH (08:19)
[2016-06-04] MEDS: FUROSEMIDE 40 MG/4 ML VIAL IV PUSH SCH (08:19)
[2016-06-04] MEDS: ASPIRIN 81 MG CHEW TAB CHEW SCH (08:19)
[2016-06-04] MEDS: NITROGLYCERIN 0.2 MG/HR PATCH TD SCH (08:19)
[2016-06-04] MEDS: SODIUM CHLORIDE 0.9% FLUSH 5 ML FLUSH IV FLUSH SCH ×2 (08:20→21:00)
[2016-06-04] MEDS: DOCUSATE SODIUM 100 MG/10 ML UDC G-TUBE SCH ×2 (08:20→19:21)
[2016-06-04] MEDS ORDERED: REGADENOSON INJ 0.4 MG/5 ML SYR ONE (09:55)
--- NOTE | 2016-06-04 10:56 | RADRPT ---
EXAM DATE/TIME: 06/04/2016 09:07 [facility] COMPARISON: MYOCARDIAL PERF PHARM SPECT, GATED W/EF, December 18, 2011, 10:06. INDICATIONS : Elevated troponins. Myocardial infarction. DOSE: 25.4 mCi Tc99m Myoview at stress. 8.1 mCi Tc99m Myoview at rest. 0.4 mg Lexiscan STRESS SYMPTOMS: Dyspnea and nausea. EJECTION FRACTION: 37% MEDICAL HISTORY : Hypertension. Hypercholesterolemia. Stroke. SURGICAL HISTORY : None. ENCOUNTER: Initial ACUITY: 1 day PAIN SCALE: 3/10 LOCATION: Bilateral chest TECHNIQUE: The patient underwent pharmacologic stress with infusion of prescribed dose. Continuous ECG tracing was monitored during stress. Gated SPECT imaging was performed after stress and conventional SPECT i maging was performed at rest. The examination was performed on a SPECT/CT scanner, both attenuation and non-corrected datasets were reviewed. FINDINGS: DISTRIBUTION: The maximum perfused segment at stress is in the anterolateral wall. PERFUSION STUDY: The pattern of perfusion at stress is within normal limits. GATED STUDY: There is global hypokinesia. No focal wall motion abnormality is identified. CONCLUSION: 1. Normal left ventricle perfusion without reversible or fixed perfusion defect identified. 2. Global hypokinesia with reduced left ventricle ejection fraction calculated at 37%. RISK CATEGORY: Intermediate (1-3% Annual Mortality Rate) Ozzy Kolb MD on June 04, 2016 at 10:51 Board Certified Radiologist. This report was verified electronically.
--- NOTE | 2016-06-04 11:50 | HHI.PR ---
Subjective Remarks resting comfortably with no distress. had some headache earlier which is better now. no chest pain. Objective Vitals Vital Signs Date Time Temp Pulse Resp B/P Pulse Ox O2 Delivery O2 Flow Rate FiO2 06/04/16 06:00 92 06/04/16 04:00 91 06/04/16 04:00 98.8 91 15 169/105 100 06/04/16 02:00 93 06/04/16 00:01 98 21 06/04/16 00:00 95 06/04/16 00:00 98.5 95 15 166/96 99 06/03/16 22:00 85 06/03/16 20:00 99.1 81 17 199/118 98 06/03/16 20:00 81 06/03/16 18:00 96 06/03/16 16:00 98.3 88 19 201/126 98 06/03/16 16:00 88 06/03/16 14:00 84 06/03/16 12:00 98.3 87 21 98 06/03/16 12:00 87 I/O 06/03/16 06/03/16 06/03/16 06/04/16 06/04/16 06/04/16 07:00 15:00 23:00 07:00 15:00 23:00 Intake Total 168 ml 744 ml 480 ml 0 ml Output Total 725 ml 1500 ml 200 ml 200 ml Balance -557 ml -756 ml 280 ml -200 ml Intake Oral 120 ml 720 ml 480 ml 0 ml IV Total 48 ml 24 ml Output Urine Total 725 ml 1500 ml 200 ml 200 ml # Voids 2 4 1 1 # Bowel Movements 0 2 0 0 Result Diagram: 06/04/16 0420 06/04/16 0420 Imaging Last Impressions Myocardial Perfusion Scan Nuc Med 06/04/16 0900 Signed Impressions: Service Date/Time: Saturday, June 04, 2016 09:07 - CONCLUSION: 1. Normal left ventricle perfusion without reversible or fixed perfusion defect identified. 2. Global hypokinesia with reduced left ventricle ejection fraction calculated at 37%%. RISK CATEGORY: Intermediate (1-3%% Annual Mortality Rate) Ozzy Kolb MD Chest X-Ray 06/01/16 0000 Signed Impressions: Service Date/Time: Wednesday, June 01, 2016 03:28 - CONCLUSION: Significant improved aeration of the lungs with residual consolidation of the left base and resolution of areas of consolidation throughout the remainder of the lungs. Brent Joshua MD Head CT 05/31/16 0000 Signed Impressions: Service Date/Time: Tuesday, May 31, 2016 20:08 - CONCLUSION: Normal examination. Allen Burks MD Chest CT 05/31/16 0000 Signed Impressions: Service Date/Time: Tuesday, May 31, 2016 20:12 - CONCLUSION: 1. Extensive dense lung consolidation and groundglass opacity bilaterally. Differential diagnosis includes flash pulmonary edema and massive aspiration. Endotracheal tube and nasogastric tube in satisfactory position. Allen Burks MD Objective Remarks GENERAL: This is a well-nourished, well-developed patient, in no apparent distress. CARDIOVASCULAR: Regular rate and regular rhythm without murmurs, gallops, or rubs. RESPIRATORY: Clear to auscultation. Breath sounds equal bilaterally. No wheezes , rales, or rhonchi. GASTROINTESTINAL: Abdomen soft, non-tender, nondistended. Normal, active bowel sounds MUSCULOSKELETAL: Extremities without clubbing, cyanosis, or edema. NEURO: Alert & Oriented x4 to person, place, time, situation. Moves all ext x4 Procedures intubation Medications and IVs Current Medications IV Flush (NS Flush) 2 ml UNSCH PRN IVF FLUSH AFTER USING IV ACCESS; Start at 19:15; Stop 06/03/16 at 08:34; Status DC Methylprednisolone Sodium Succinate (SoluMEDROL INJ) 125 mg ONCE ONCE IVP Last administered on 05/31/16 21:34; Start 05/31/16 at 19:15; Stop 05/31/16 at 19: 16; Status DC Albuterol/ Ipratropium (Duoneb Neb) 1 ampule Q15M INH Last administered on t 23:28; Start 05/31/16 at 19:15; Stop 05/31/16 at 19:46; Status DC Etomidate (Amidate Inj) 20 mg STK-MED ONCE .ROUTE ; Start 05/31/16 at 19:20; Stop 05/31/16 at 19:21; Status DC Succinylcholine Chloride 200 mg 200 mg STK-MED ONCE .ROUTE ; Start 05/31/16 at 19 :20; Stop 05/31/16 at 19:21; Status DC Propofol 100 ml @ As Directed STK-MED ONCE .ROUTE ; Start 05/31/16 at 19:33; Stop 05/31/16 at 19:34; Status DC Propofol (Diprivan 1000 Mg/100ml Inj) 100 ml @ 0 mls/hr TITRATE IV Last administered on 06/01/16 03:49; Start 05/31/16 at 19:45; Stop 06/01/16 at 15:30; Status DC Midazolam HCl 5 mg 5 mg STK-MED ONCE .ROUTE ; Start 05/31/16 at 19:47; Stop at 19:48; Status DC Labetalol HCl 500 mg/Sodium Chloride 250 ml @ 0 mls/hr TITRATE IV Last administered on 06/01/16 06:42; Start 05/31/16 at 20:30; Stop 06/01/16 at 10:28; Status DC Piperacillin Sod/ Tazobactam Sod 100 ml @ 200 mls/hr ONCE STAT IV Last administered on 05/31/16 21:35; Start 05/31/16 at 20:36; Stop 05/31/16 at 21:05; Status DC Vancomycin HCl/ Sodium Chloride (Vancomycin Inj/ NS 250 ml Inj) 261.5 ml @ 250 mls/hr ONCE ONCE IV Last administered on 05/31/16 22:52; Start 05/31/16 at 20: 45; Stop 05/31/16 at 21:47; Status DC Etomidate (Amidate Inj) 20 mg ONCE ONCE IV PUSH Last administered on 05/31/16 21:37; Start 05/31/16 at 21:45; Stop 05/31/16 at 21:46; Status DC Succinylcholine Chloride (Quelicin Inj) 100 mg ONCE ONCE IM Last administered on 05/31/16 21:37; Start 05/31/16 at 21:45; Stop 05/31/16 at 21:46; Status DC Midazolam HCl (Versed Inj) 4 mg ONCE ONCE IV PUSH Last administered on 21:37; Start 05/31/16 at 21:45; Stop 05/31/16 at 21:46; Status DC Albuterol/ Ipratropium (Duoneb Neb) 3 ampule STK-MED ONCE .ROUTE ; Start at 21:48; Stop 05/31/16 at 21:49; Status DC Furosemide 40 mg 40 mg NOW IV PUSH Last administered on 05/31/16 22:03; Start 05/31/16 at 22:00; Stop 05/31/16 at 23:56; Status DC Potassium Chloride 100 ml @ 50 mls/hr Q2H PRN IV For Potassium 2.8 - 3.2 mEq/L ; Start 05/31/16 at 22:30; Stop 06/01/16 at 15:31; Status DC Potassium Chloride (KCl 20 Meq Premix Inj) 100 ml @ 50 mls/hr Q2H PRN IV For Potassium 2.8 - 3.2 mEq/L Last administered on 06/01/16 09:53; Start 05/31/16 at 22:30; Stop 06/01/16 at 15:31; Status DC Potassium Chloride 40 meq 40 meq UNSCH PRN PO/TUBE For Potassium 3.3 - 3.5 mEq/ L; Start 05/31/16 at 22:30; Stop 06/01/16 at 15:31; Status DC Potassium Chloride 100 ml @ 25 mls/hr UNSCH PRN IV For Potassium 3.3 - 3.5 mEq /L; Start 05/31/16 at 22:30; Stop 06/01/16 at 15:31; Status DC Potassium Chloride 100 ml @ 50 mls/hr Q2H PRN IV For Potassium 3.3 - 3.5 mEq/ L Last administered on 06/01/16 06:33; Start 05/31/16 at 22:30; Stop 06/01/16 at 15:31; Status DC Magnesium Sulfate/ Sodium Chloride (Magnesium Sulfate Inj/NS Inj) 100 ml @ 50 mls/hr UNSCH PRN IV For Magnesium 0.9 - 1.1 mg/dL; Start 05/31/16 at 22:30; Stop 06/01/16 at 15:31; Status DC Magnesium Oxide 800 mg 800 mg UNSCH PRN PO For Magnesium 1.2 - 1.6 mg/dL; Start 05/31/16 at 22:30; Stop 06/01/16 at 15:31; Status DC Magnesium Sulfate/ Sodium Chloride (Magnesium Sulfate Inj/NS Inj) 100 ml @ 50 mls/hr UNSCH PRN IV For Magnesium 1.2 - 1.6 mg/dL; Start 05/31/16 at 22:30; Stop 06/01/16 at 15:31; Status DC Potassium Phosphate 2000 mg 2,000 mg Q4H PRN PO For Phosphorus < 2.5 mg/dL; Start 05/31/16 at 22:30; Stop 06/01/16 at 15:31; Status DC Sodium Phosphate/ Sodium Chloride (Sodium Phosphate Inj/NS 250 ml Inj) 250 ml @ 42 mls/hr UNSCH PRN IV For Phosphorus < 2.5 mg/dL; Start 05/31/16 at 22:30; Stop 06/01/16 at 15:31; Status DC Potassium Chloride (KCl 40 Meq/30 ml Liq) 40 meq UNSCH PRN PO/TUBE SEE LABEL COMMENTS; Start 05/31/16 at 22:30; Stop 06/01/16 at 15:31; Status DC Potassium Phosphate 2000 mg 2,000 mg UNSCH PRN PO/TUBE SEE LABEL COMMENTS; Start 05/31/16 at 22:30; Stop 06/01/16 at 15:31; Status DC Potassium Phosphate/Sodium Chloride (Potassium Phosphate Inj/NS 250 ml Inj) 260 ml @ 42 mls/hr UNSCH PRN IV SEE LABEL COMMENTS; Start 05/31/16 at 22:30; Stop 06/01/16 at 15:31; Status DC Chlorhexidine Gluconate 15 ml 15 ml BID@08,20 MT Last administered on 06/01/16 08:00; Start 06/01/16 at 08:00 Sodium Chloride (NS 1000 ml Inj) 1,000 ml @ 30 mls/hr Q24H IV Last administered on 05/31/16 23:57; Start 05/31/16 at 22:22; Stop 06/01/16 at 12:04; Status DC IV Flush (NS Flush) 2 ml UNSCH PRN IV FLUSH FLUSH AFTER USING IV ACCESS; Start 05/31/16 at 22:30 IV Flush (NS Flush) 2 ml BID IV FLUSH Last administered on 06/04/16 08:20; Start 06/01/16 at 09:00 Acetaminophen (Tylenol) 650 mg Q6H PRN PO PAIN 1-10 AND/OR FEVER >101F Last administered on 06/04/16 11:17; Start 05/31/16 at 22:30 Pantoprazole Sodium (Protonix Inj) 40 mg DAILY IV Last administered on 08:21; Start 06/01/16 at 09:00; Stop 06/02/16 at 09:00; Status DC Ondansetron HCl (Zofran Inj) 4 mg Q6H PRN IV NAUSEA OR VOMITING; Start 05/31/16 at 22:30 Docusate Sodium (Colace Liq) 100 mg Q12H G-TUBE Last administered on 06/02/16 11:31; Start 05/31/16 at 22:30 Bisacodyl (Dulcolax Ec) 10 mg DAILY PRN PO CONSTIPATION; Start 05/31/16 at 22:30 Magnesium Hydroxide (Milk Of Magnesia Liq) 30 ml Q12H PRN PO CONSTIPATION; Start 05/31/16 at 22:30 Albuterol/ Ipratropium (Duoneb Neb) 1 ampule Q6HR NEB INH Last administered on 06/04/16 04:10; Start 06/01/16 at 04:00 Albuterol/ Ipratropium (Duoneb Neb) 1 ampule Q2HR NEB PRN INH WHEEZING; Start 05/31/16 at 22:30 Heparin Sodium (Porcine) (Heparin Inj) 5,000 units Q12H SQ Last administered on 06/01/16 09:05; Start 05/31/16 at 22:30; Stop 06/01/16 at 09:49; Status DC Miscellaneous Information 1 Q361D XX ; Start 05/31/16 at 22:30 Chlorhexidine Gluconate (Chlorhexidine 2% Cloth) 3 pack Taper DAILY@04 TOP Last administered on 06/04/16 04:00; Start 06/01/16 at 04:00; Stop 05/28/17 at 03 :59 Chlorhexidine Gluconate (Chlorhexidine 2% Cloth) 3 pack UNSCH PRN TOP HYGIENIC CARE; Start 05/31/16 at 22:30 Furosemide (Lasix Inj) 80 mg ONCE ONCE IV PUSH Last administered on 05/31/16 23:57; Start 05/31/16 at 22:45; Stop 05/31/16 at 22:57; Status DC Albuterol/ Ipratropium 3 ampule 3 ampule STK-MED ONCE .ROUTE ; Start 05/31/16 at 22:42; Stop 05/31/16 at 22:43; Status DC Fentanyl Citrate (fentaNYL DRIP) 250 ml @ 0 mls/hr TITRATE IV Last administered on 06/01/16 03:48; Start 06/01/16 at 03:30; Stop 06/01/16 at 15:30; Status DC Amlodipine Besylate (Norvasc) 10 mg DAILY PO Last administered on 06/02/16 08: 20; Start 06/01/16 at 09:00; Stop 06/03/16 at 08:32; Status DC Atenolol (Tenormin) 50 mg DAILY PO Last administered on 06/01/16 08:09; Start 06/01/16 at 09:00; Stop 06/01/16 at 09:33; Status DC Aspirin (Aspirin) 325 mg STAT ONCE TUBE Last administered on 06/01/16 09:04; Start 06/01/16 at 09:00; Stop 06/01/16 at 09:01; Status DC Aspirin (Aspirin Chew) 81 mg DAILY CHEW Last administered on 06/04/16 08:19; Start 06/02/16 at 09:00 Nitroglycerin (Nitro-Dur 0.2 Mg Patch.24 Hr) 1 patch DAILY TD Last administered on 06/04/16 08:19; Start 06/01/16 at 09:00 Miscellaneous Information 1 DAILY T-DERMAL Last administered on 06/04/16 08:19 ; Start 06/01/16 at 09:00 Furosemide (Lasix Inj) 40 mg DAILY IV PUSH Last administered on 06/04/16 08:19 ; Start 06/01/16 at 09:00 Metoprolol Tartrate (Lopressor) 25 mg Q12HR PO Last administered on 06/04/16 08:18; Start 06/01/16 at 21:00 Atorvastatin Calcium (Lipitor) 80 mg HS PO Last administered on 06/03/16 19:44 ; Start 06/01/16 at 21:00 Heparin Sodium (Porcine) (Heparin Inj) 5,000 units UNSCH PRN IV APTT LESS THAN 25; Start 06/01/16 at 15:45; Stop 06/03/16 at 08:34; Status DC Heparin Sodium (Porcine) 2500 units 2,500 units UNSCH PRN IV APTT 25 TO 39 Last administered on 06/02/16 15:44; Start 06/01/16 at 15:45; Stop 06/03/16 at 08: 34; Status DC Heparin Sodium/ Dextrose (Heparin-D5W Inj) 250 ml @ 0 mls/hr TITRATE IV Last administered on 06/02/16 17:49; Start 06/01/16 at 11:00; Stop 06/03/16 at 08:34; Status DC Clopidogrel Bisulfate (Plavix) 600 mg ONCE ONCE PO Last administered on 10:44; Start 06/01/16 at 09:45; Stop 06/01/16 at 10:21; Status DC Clopidogrel Bisulfate (Plavix) 75 mg DAILY PO Last administered on 06/04/16 08 :18; Start 06/02/16 at 09:00 Labetalol HCl (Trandate Inj) 20 mg Q2H PRN IV SBP greater than 160mm Hg Last administered on 06/03/16 19:48; Start 06/01/16 at 11:00 Pantoprazole Sodium (Protonix) 40 mg DAILY PO Last administered on 06/04/16 08 :18; Start 06/03/16 at 09:00 Potassium Chloride (KCl) 40 meq ONCE ONCE PO Last administered on 06/03/16 04: 41; Start 06/03/16 at 04:30; Stop 06/03/16 at 04:31; Status DC Heparin Sodium (Porcine) (Heparin Inj) 5,000 units Q8HR SQ ; Start 06/03/16 at 14 :00; Stop 06/03/16 at 14:00; Status DC Nifedipine (Procardia) 10 mg Q8H PO Last administered on 06/04/16 08:18; Start 06/03/16 at 09:00 Heparin Sodium (Porcine) (Heparin Inj) 5,000 units Q8HR SQ Last administered on 06/04/16 05:33; Start 06/03/16 at 14:00 Potassium Chloride (KCl) 30 meq ONCE ONCE PO Last administered on 06/03/16 12: 49; Start 06/03/16 at 12:15; Stop 06/03/16 at 12:22; Status DC Hydralazine HCl (Apresoline Inj) 10 mg Q30M PRN IV PUSH bp>160/90 Last administered on 06/04/16 08:46; Start 06/03/16 at 21:45 Regadenoson (Lexiscan Inj) 0.4 mg STK-MED ONCE .ROUTE Last administered on 06/04 09:55; Start 06/04/16 at 09:55; Stop 06/04/16 at 09:56; Status DC A/P Assessment and Plan A/P Altered mental status-resolved Pulmonary edema Hypoxic respiratory failure -s/p intubation/ extubation -continue lasix -echo with EF 55% and no regional wall motion abnormalities. Hypertensive emergency- improved -continue metoprolol - norvasc was switched to procardia -will monitor and adjust the regimen as needed NSTEMI- due to hypertensive emergency continue aspirin, plavix and statin heparin was discontinued. myocardial perfusion test with no perfusion defects. cardiology following. chronic renal insufficiency- improving -Monitor BMP. -- Strict I/Os hypokalemia; replaced vaginal bleeding- d/w the patient; she will have a follow-up with [facility] as outpatient - SSI Prophylaxis: GI Prophylaxis with PPI DVT Prophylaxis -- SCDs/subq heparin transfer to telemetry soon if BP remains stable. Manny Blandon MD Jun 04, 2016 11:50
[2016-06-04] MEDS: NIFEdipine 20 MG CAP PO SCH ×2 (15:12→22:00)
[2016-06-04] MEDS: LABETALOL HCL 100 MG/20 ML VIAL IV PRN (16:43)
--- NOTE | 2016-06-04 18:36 | PD.CARD.PN ---
Subjective Subjective Remarks Patient seen earlier today around noon, no chest pain/shortness of breath Had a headache, but gone after Tylenol Objective Medications Current Medications Medications (Trade) Dose Ordered Sig/Aylin Route Start Time Stop Time Status Last Admin (Peridex 0.12% Liq) 15 ml BID@08,20 MT 06/01/16 08:00 06/01/16 08:00 (NS Flush) 2 ml UNSCH PRN IV FLUSH 05/31/16 22:30 (NS Flush) 2 ml BID IV FLUSH 06/01/16 09:00 06/04/16 08:20 (Tylenol) 650 mg Q6H PRN PO 05/31/16 22:30 06/04/16 11:17 (Zofran Inj) 4 mg Q6H PRN IV 05/31/16 22:30 (Colace Liq) 100 mg Q12H G-TUBE 05/31/16 22:30 06/02/16 11:31 (Dulcolax Ec) 10 mg DAILY PRN PO 05/31/16 22:30 (Milk Of Magnesia Liq) 30 ml Q12H PRN PO 05/31/16 22:30 Miscellaneous Information 1 Q361D XX 05/31/16 22:30 (Chlorhexidine 2% Cloth) 3 pack Taper DAILY@04 TOP 06/01/16 04:00 05/28/17 03:59 06/04/16 04:00 (Chlorhexidine 2% Cloth) 3 pack UNSCH PRN TOP 05/31/16 22:30 (Aspirin Chew) 81 mg DAILY CHEW 06/02/16 09:00 06/04/16 08:19 (Nitro-Dur 0.2 Mg Patch.24 Hr) 1 patch DAILY TD 06/01/16 09:00 06/04/16 08:19 Miscellaneous Information 1 DAILY T-DERMAL 06/01/16 09:00 06/04/16 08:19 (Lasix Inj) 40 mg DAILY IV PUSH 06/01/16 09:00 06/04/16 08:19 (Lopressor) 25 mg Q12HR PO 06/01/16 21:00 06/04/16 08:18 (Lipitor) 80 mg HS PO 06/01/16 21:00 06/03/16 19:44 (Plavix) 75 mg DAILY PO 06/02/16 09:00 06/04/16 08:18 (Trandate Inj) 20 mg Q2H PRN IV 06/01/16 11:00 06/04/16 16:43 (Protonix) 40 mg DAILY PO 06/03/16 09:00 06/04/16 08:18 (Heparin Inj) 5,000 units Q8HR SQ 06/03/16 14:00 06/04/16 05:33 (Apresoline Inj) 10 mg Q30M PRN IV PUSH 06/03/16 21:45 06/04/16 14:10 (Procardia) 20 mg Q8HR PO 06/04/16 14:00 06/04/16 15:12 Vital Signs / I&O Vital Signs Date Time Temp Pulse Resp B/P Pulse Ox O2 Delivery O2 Flow Rate FiO2 06/04/16 16:00 98.2 111 18 154/103 06/04/16 15:30 95 21 06/04/16 12:00 98.0 91 20 169/96 06/04/16 08:00 93 06/04/16 08:00 98.1 93 18 177/99 97 06/04/16 06:00 92 06/04/16 04:00 91 06/04/16 04:00 98.8 91 15 169/105 100 06/04/16 02:00 93 06/04/16 00:01 98 21 06/04/16 00:00 95 06/04/16 00:00 98.5 95 15 166/96 99 06/03/16 22:00 85 06/03/16 20:00 99.1 81 17 199/118 98 06/03/16 20:00 81 I/O 06/03/16 06/03/16 06/03/16 06/04/16 06/04/16 06/04/16 07:00 15:00 23:00 07:00 15:00 23:00 Intake Total 168 ml 744 ml 480 ml 0 ml 720 ml Output Total 725 ml 1500 ml 200 ml 200 ml Balance -557 ml -756 ml 280 ml -200 ml 720 ml Intake Oral 120 ml 720 ml 480 ml 0 ml 720 ml IV Total 48 ml 24 ml Output Urine Total 725 ml 1500 ml 200 ml 200 ml # Voids 2 4 1 1 2 # Bowel Movements 0 2 0 0 2 Physical Exam GENERAL: NAD SKIN: Warm and dry. HEAD: Atraumatic. Normocephalic. EYES: Pupils equal and round. No scleral icterus. No injection or drainage. ENT: No nasal bleeding or discharge. Mucous membranes pink and moist. NECK: Trachea midline. No JVD. CARDIOVASCULAR: Regular rate and rhythm. RESPIRATORY: No accessory muscle use. Decreased breath sounds bilaterally GASTROINTESTINAL: Abdomen soft, non-tender, nondistended. Hepatic and splenic margins not palpable. MUSCULOSKELETAL: Extremities without clubbing, cyanosis, or edema. No obvious deformities. NEUROLOGICAL: Awake and alert. No obvious cranial nerve deficits. Motor grossly within normal limits. Five out of 5 muscle strength in the arms and legs. Normal speech. PSYCHIATRIC: Appropriate mood and affect; insight and judgment normal. Laboratory Laboratory Tests Test 06/04/16 04:20 White Blood Count 8.8 TH/MM3 Red Blood Count 4.38 MIL/MM3 Hemoglobin 14.2 GM/DL Hematocrit 42.3 % Mean Corpuscular Volume 96.6 FL Mean Corpuscular Hemoglobin 32.4 PG Mean Corpuscular Hemoglobin 33.6 % Concent Red Cell Distribution Width 14.4 % Platelet Count 203 TH/MM3 Mean Platelet Volume 10.8 FL Neutrophils (%) (Auto) 73.2 % Lymphocytes (%) (Auto) 17.6 % Monocytes (%) (Auto) 6.9 % Eosinophils (%) (Auto) 1.9 % Basophils (%) (Auto) 0.4 % Neutrophils # (Auto) 6.5 TH/MM3 Lymphocytes # (Auto) 1.6 TH/MM3 Monocytes # (Auto) 0.6 TH/MM3 Eosinophils # (Auto) 0.2 TH/MM3 Basophils # (Auto) 0.0 TH/MM3 CBC Comment DIFF FINAL Differential Comment Activated Partial 27.1 SEC Thromboplast Time Sodium Level 139 MEQ/L Potassium Level 3.7 MEQ/L Chloride Level 104 MEQ/L Carbon Dioxide Level 26.4 MEQ/L Anion Gap 9 MEQ/L Blood Urea Nitrogen 21 MG/DL Creatinine 1.40 MG/DL Estimat Glomerular Filtration 50 ML/MIN Rate Random Glucose 110 MG/DL Calcium Level 9.7 MG/DL Assessment and Plan Problem List: (1) Hypertensive emergency (2) Flash pulmonary edema (3) Respiratory disorder with ventilator dependence (4) NSTEMI (non-ST elevated myocardial infarction) (5) Lactic acidosis (6) Tobacco abuse (7) CHERYL (acute kidney injury) Assessment and Plan 1) NSTEMI most likely Type 2 in nature due to HTN emergency and hypoxia 2) Flash pulmonary edema most likely due to HTN emergency 3) Extubated, doing well on room air, no shortness of breath 4) Still hypertensive, Procardia increased... may need Clonidine 5) Stress test showing no ischemic defects, continue medical management Bran Martin DO Jun 04, 2016 18:36
[2016-06-04] MEDS: ATORVASTATIN 80 MG TAB PO SCH (21:00)
[2016-06-05] VITALS (13 sets, daily range): BP systolic 145–165; BP diastolic 79–93; PULSE 60–104; RESP 12–20; TEMP 98.2–98.7; O2SAT 95–100
[2016-06-05] MEDS: RESP: ALBUTEROL 2.5 MG/IPRATROPIUM 0.5 MG NEB (SCH) INH (03:02)
[2016-06-05] MEDS: CHLORHEXIDINE GLUCONATE 2 % 1 PACK (2 CLOTHS) TOP SCH (04:00)
[2016-06-05] MEDS: HEPARIN SODIUM - SQ 10,000 UNITS/ML VIAL SQ SCH ×5 (06:00→21:43)
[2016-06-05] MEDS: hydrALAZINE HCL 20 MG/ML VIAL IV PUSH PRN ×2 (06:35→10:41)
[2016-06-05] MEDS: NIFEdipine 20 MG CAP PO SCH ×3 (06:42→21:43)
[2016-06-05] MEDS: CHLORHEXIDINE 0.12% (ORAL KIT) 15 ML CUP MT SCH ×2 (08:00→20:00)
[2016-06-05] MEDS: CLOPIDOGREL 75 MG TAB PO SCH (08:51)
[2016-06-05] MEDS: ASPIRIN 81 MG CHEW TAB CHEW SCH (08:51)
[2016-06-05] MEDS: PANTOPRAZOLE SOD 40 MG DELAYED RELEASE TAB PO SCH (08:51)
[2016-06-05] MEDS: FUROSEMIDE 40 MG/4 ML VIAL IV PUSH SCH (08:51)
[2016-06-05] MEDS: METOPROLOL TARTRATE 25 MG TAB PO SCH ×2 (08:51→21:43)
[2016-06-05] MEDS: SODIUM CHLORIDE 0.9% FLUSH 5 ML FLUSH IV FLUSH SCH ×2 (08:52→21:00)
--- NOTE | 2016-06-05 09:31 | PD.CARD.PN ---
Subjective Subjective Remarks No chest pain/SOB, up and ambulating Objective Medications Current Medications Medications (Trade) Dose Ordered Sig/Aylin Route Start Time Stop Time Status Last Admin (Tylenol) 650 mg Q6H PRN PO 05/31/16 22:30 06/04/16 11:17 (Zofran Inj) 4 mg Q6H PRN IV 05/31/16 22:30 (Colace Liq) 100 mg Q12H G-TUBE 05/31/16 22:30 06/02/16 11:31 (Dulcolax Ec) 10 mg DAILY PRN PO 05/31/16 22:30 (Milk Of Magnesia Liq) 30 ml Q12H PRN PO 05/31/16 22:30 Miscellaneous Information 1 Q361D XX 05/31/16 22:30 (Chlorhexidine 2% Cloth) 3 pack Taper DAILY@04 TOP 06/01/16 04:00 05/28/17 03:59 06/05/16 04:00 (Chlorhexidine 2% Cloth) 3 pack UNSCH PRN TOP 05/31/16 22:30 (Aspirin Chew) 81 mg DAILY CHEW 06/02/16 09:00 06/05/16 08:51 (Nitro-Dur 0.2 Mg Patch.24 Hr) 1 patch DAILY TD 06/01/16 09:00 06/04/16 08:19 Miscellaneous Information 1 DAILY T-DERMAL 06/01/16 09:00 06/04/16 08:19 (Lasix Inj) 40 mg DAILY IV PUSH 06/01/16 09:00 06/05/16 08:51 (Lopressor) 25 mg Q12HR PO 06/01/16 21:00 06/05/16 08:51 (Lipitor) 80 mg HS PO 06/01/16 21:00 06/04/16 21:00 (Plavix) 75 mg DAILY PO 06/02/16 09:00 06/05/16 08:51 (Trandate Inj) 20 mg Q2H PRN IV 06/01/16 11:00 06/04/16 16:43 (Protonix) 40 mg DAILY PO 06/03/16 09:00 06/05/16 08:51 (Heparin Inj) 5,000 units Q8HR SQ 06/03/16 14:00 06/04/16 22:00 (Apresoline Inj) 10 mg Q30M PRN IV PUSH 06/03/16 21:45 06/05/16 06:35 (Procardia) 20 mg Q8HR PO 06/04/16 14:00 06/05/16 06:42 (Catapres) 0.1 mg Q8H PRN PO 06/04/16 19:30 Vital Signs / I&O Vital Signs Date Time Temp Pulse Resp B/P Pulse Ox O2 Delivery O2 Flow Rate FiO2 06/05/16 08:23 95 06/05/16 08:00 103 06/05/16 08:00 98.4 102 14 154/87 100 06/05/16 06:30 89 06/05/16 04:30 98.2 90 12 151/89 98 06/05/16 04:00 90 06/05/16 02:00 93 06/05/16 00:00 98.5 91 12 162/89 97 06/05/16 00:00 91 06/04/16 22:00 100 06/04/16 21:22 98 21 06/04/16 20:00 98.2 103 18 164/96 95 06/04/16 20:00 103 06/04/16 16:00 98.2 111 18 154/103 06/04/16 15:30 95 21 06/04/16 12:00 98.0 91 20 169/96 I/O 06/04/16 06/04/16 06/04/16 06/05/16 06/05/16 06/05/16 07:00 15:00 23:00 07:00 15:00 23:00 Intake Total 0 ml 720 ml 480 ml 480 ml Output Total 200 ml Balance -200 ml 720 ml 480 ml 480 ml Intake Oral 0 ml 720 ml 480 ml 480 ml Output Urine Total 200 ml # Voids 1 2 1 0 # Bowel Movements 0 2 1 0 Physical Exam GENERAL: NAD SKIN: Warm and dry. HEAD: Atraumatic. Normocephalic. EYES: Pupils equal and round. No scleral icterus. No injection or drainage. ENT: No nasal bleeding or discharge. Mucous membranes pink and moist. NECK: Trachea midline. No JVD. CARDIOVASCULAR: Regular rate and rhythm. RESPIRATORY: No accessory muscle use. Decreased breath sounds bilaterally GASTROINTESTINAL: Abdomen soft, non-tender, nondistended. Hepatic and splenic margins not palpable. MUSCULOSKELETAL: Extremities without clubbing, cyanosis, or edema. No obvious deformities. NEUROLOGICAL: Awake and alert. No obvious cranial nerve deficits. Motor grossly within normal limits. Five out of 5 muscle strength in the arms and legs. Normal speech. PSYCHIATRIC: Appropriate mood and affect; insight and judgment normal. Laboratory Laboratory Tests Test 06/02/16 06/02/16 06/02/16 06/03/16 10:15 14:16 22:16 03:17 White Blood Count 15.3 TH/MM3 (4.0-11.0) Red Blood Count 4.25 MIL/MM3 (4.00-5.30) Hemoglobin 13.8 GM/DL (11.6-15.3) Hematocrit 41.4 % (35.0-46.0) Mean Corpuscular Volume 97.5 FL (80.0-100.0) Mean Corpuscular Hemoglobin 32.4 PG (27.0-34.0) Mean Corpuscular Hemoglobin 33.3 % Concent (32.0-36.0) Red Cell Distribution Width 14.6 % (11.6-17.2) Platelet Count 172 TH/MM3 (150-450) Mean Platelet Volume 11.1 FL (7.0-11.0) Neutrophils (%) (Auto) 85.4 % (16.0-70.0) Lymphocytes (%) (Auto) 8.6 % (9.0-44.0) Monocytes (%) (Auto) 5.5 % (0.0-8.0) Eosinophils (%) (Auto) 0.2 % (0.0-4.0) Basophils (%) (Auto) 0.3 % (0.0-2.0) Neutrophils # (Auto) 13.1 TH/MM3 (1.8-7.7) Lymphocytes # (Auto) 1.3 TH/MM3 (1.0-4.8) Monocytes # (Auto) 0.8 TH/MM3 (0-0.9) Eosinophils # (Auto) 0.0 TH/MM3 (0-0.4) Basophils # (Auto) 0.1 TH/MM3 (0-0.2) CBC Comment DIFF FINAL Differential Comment Sodium Level 141 MEQ/L 143 MEQ/L (136-145) (136-145) Potassium Level 3.2 MEQ/L 3.2 MEQ/L (3.5-5.1) (3.5-5.1) Chloride Level 105 MEQ/L 105 MEQ/L (98-107) (98-107) Carbon Dioxide Level 30.2 MEQ/L 30.4 MEQ/L (21.0-32.0) (21.0-32.0) Anion Gap 6 MEQ/L (5-15) 8 MEQ/L (5-15) Blood Urea Nitrogen 26 MG/DL (7-18) 22 MG/DL (7-18) Creatinine 1.74 MG/DL 1.50 MG/DL (0.50-1.00) (0.50-1.00) Estimat Glomerular Filtration 39 ML/MIN (>89) 46 ML/MIN (>89) Rate Random Glucose 131 MG/DL 117 MG/DL (74-106) (74-106) Calcium Level 9.0 MG/DL 8.9 MG/DL (8.5-10.1) (8.5-10.1) Activated Partial 38.5 SEC 64.3 SEC Thromboplast Time (24.3-30.1) (24.3-30.1) Magnesium Level 1.9 MG/DL (1.5-2.5) Triglycerides Level 120 MG/DL (42-150) Cholesterol Level 175 MG/DL (120-200) LDL Cholesterol 88 MG/DL (0-99) HDL Cholesterol 63.3 MG/DL (40.0-60.0) Cholesterol/HDL Ratio 2.76 RATIO Test 06/03/16 06/04/16 03:28 04:20 Activated Partial 65.0 SEC 27.1 SEC Thromboplast Time (24.3-30.1) (24.3-30.1) Lactic Acid Level 0.9 mmol/L (0.4-2.0) White Blood Count 8.8 TH/MM3 (4.0-11.0) Red Blood Count 4.38 MIL/MM3 (4.00-5.30) Hemoglobin 14.2 GM/DL (11.6-15.3) Hematocrit 42.3 % (35.0-46.0) Mean Corpuscular Volume 96.6 FL (80.0-100.0) Mean Corpuscular Hemoglobin 32.4 PG (27.0-34.0) Mean Corpuscular Hemoglobin 33.6 % Concent (32.0-36.0) Red Cell Distribution Width 14.4 % (11.6-17.2) Platelet Count 203 TH/MM3 (150-450) Mean Platelet Volume 10.8 FL (7.0-11.0) Neutrophils (%) (Auto) 73.2 % (16.0-70.0) Lymphocytes (%) (Auto) 17.6 % (9.0-44.0) Monocytes (%) (Auto) 6.9 % (0.0-8.0) Eosinophils (%) (Auto) 1.9 % (0.0-4.0) Basophils (%) (Auto) 0.4 % (0.0-2.0) Neutrophils # (Auto) 6.5 TH/MM3 (1.8-7.7) Lymphocytes # (Auto) 1.6 TH/MM3 (1.0-4.8) Monocytes # (Auto) 0.6 TH/MM3 (0-0.9) Eosinophils # (Auto) 0.2 TH/MM3 (0-0.4) Basophils # (Auto) 0.0 TH/MM3 (0-0.2) CBC Comment DIFF FINAL Differential Comment Sodium Level 139 MEQ/L (136-145) Potassium Level 3.7 MEQ/L (3.5-5.1) Chloride Level 104 MEQ/L (98-107) Carbon Dioxide Level 26.4 MEQ/L (21.0-32.0) Anion Gap 9 MEQ/L (5-15) Blood Urea Nitrogen 21 MG/DL (7-18) Creatinine 1.40 MG/DL (0.50-1.00) Estimat Glomerular Filtration 50 ML/MIN (>89) Rate Random Glucose 110 MG/DL (74-106) Calcium Level 9.7 MG/DL (8.5-10.1) Assessment and Plan Problem List: (1) Hypertensive emergency (2) Flash pulmonary edema (3) Respiratory disorder with ventilator dependence (4) NSTEMI (non-ST elevated myocardial infarction) (5) Lactic acidosis (6) Tobacco abuse (7) CHERYL (acute kidney injury) Assessment and Plan 1) NSTEMI most likely Type 2 in nature due to HTN emergency and hypoxia 2) Flash pulmonary edema most likely due to HTN emergency 3) Extubated, doing well on room air, no shortness of breath 4) Still hypertensive, Procardia increased which seems to have her blood pressure better, will need good follow up and titration of blood pressure medications out patient 5) Stress test showing no ischemic defects, continue medical management 6) Needs OBGYN follow up 7) Will change Eugene to Bran Wong DO Jun 05, 2016 09:31
[2016-06-05] MEDS: DOCUSATE SODIUM 100 MG/10 ML UDC G-TUBE SCH ×2 (10:21→22:30)
[2016-06-05] MEDS: cloNIDine HCL 0.1 MG TAB PO PRN (10:41)
--- NOTE | 2016-06-05 10:55 | HHI.PR ---
Subjective Remarks resting comfortably with no distress. no chest pain or sob. d/w the RN. Objective Vitals Vital Signs Date Time Temp Pulse Resp B/P Pulse Ox O2 Delivery O2 Flow Rate FiO2 06/05/16 10:00 93 06/05/16 08:23 95 06/05/16 08:00 103 06/05/16 08:00 98.4 102 14 154/87 100 06/05/16 06:30 89 06/05/16 04:30 98.2 90 12 151/89 98 06/05/16 04:00 90 06/05/16 02:00 93 06/05/16 00:00 98.5 91 12 162/89 97 06/05/16 00:00 91 06/04/16 22:00 100 06/04/16 21:22 98 21 06/04/16 20:00 98.2 103 18 164/96 95 06/04/16 20:00 103 06/04/16 16:00 98.2 111 18 154/103 06/04/16 15:30 95 21 06/04/16 12:00 98.0 91 20 169/96 I/O 06/04/16 06/04/16 06/04/16 06/05/16 06/05/16 06/05/16 07:00 15:00 23:00 07:00 15:00 23:00 Intake Total 0 ml 720 ml 480 ml 480 ml Output Total 200 ml Balance -200 ml 720 ml 480 ml 480 ml Intake Oral 0 ml 720 ml 480 ml 480 ml Output Urine Total 200 ml # Voids 1 2 1 0 # Bowel Movements 0 2 1 0 Result Diagram: 06/04/16 0420 06/04/16 0420 Imaging Last Impressions Myocardial Perfusion Scan Nuc Med 06/04/16 0900 Signed Impressions: Service Date/Time: Saturday, June 04, 2016 09:07 - CONCLUSION: 1. Normal left ventricle perfusion without reversible or fixed perfusion defect identified. 2. Global hypokinesia with reduced left ventricle ejection fraction calculated at 37%%. RISK CATEGORY: Intermediate (1-3%% Annual Mortality Rate) Ozzy Kolb MD Chest X-Ray 06/01/16 0000 Signed Impressions: Service Date/Time: Wednesday, June 01, 2016 03:28 - CONCLUSION: Significant improved aeration of the lungs with residual consolidation of the left base and resolution of areas of consolidation throughout the remainder of the lungs. Brent Joshua MD Head CT 05/31/16 0000 Signed Impressions: Service Date/Time: Tuesday, May 31, 2016 20:08 - CONCLUSION: Normal examination. Allen Burks MD Chest CT 05/31/16 0000 Signed Impressions: Service Date/Time: Tuesday, May 31, 2016 20:12 - CONCLUSION: 1. Extensive dense lung consolidation and groundglass opacity bilaterally. Differential diagnosis includes flash pulmonary edema and massive aspiration. Endotracheal tube and nasogastric tube in satisfactory position. Allen Burks MD Objective Remarks GENERAL: This is a well-nourished, well-developed patient, in no apparent distress. CARDIOVASCULAR: Regular rate and regular rhythm without murmurs, gallops, or rubs. RESPIRATORY: Clear to auscultation. Breath sounds equal bilaterally. No wheezes , rales, or rhonchi. GASTROINTESTINAL: Abdomen soft, non-tender, nondistended. Normal, active bowel sounds MUSCULOSKELETAL: Extremities without clubbing, cyanosis, or edema. NEURO: Alert & Oriented x4 to person, place, time, situation. Moves all ext x4 Procedures intubation Medications and IVs Current Medications IV Flush (NS Flush) 2 ml UNSCH PRN IVF FLUSH AFTER USING IV ACCESS; Start at 19:15; Stop 06/03/16 at 08:34; Status DC Methylprednisolone Sodium Succinate (SoluMEDROL INJ) 125 mg ONCE ONCE IVP Last administered on 05/31/16 21:34; Start 05/31/16 at 19:15; Stop 05/31/16 at 19: 16; Status DC Albuterol/ Ipratropium (Duoneb Neb) 1 ampule Q15M INH Last administered on t 23:28; Start 05/31/16 at 19:15; Stop 05/31/16 at 19:46; Status DC Etomidate (Amidate Inj) 20 mg STK-MED ONCE .ROUTE ; Start 05/31/16 at 19:20; Stop 05/31/16 at 19:21; Status DC Succinylcholine Chloride 200 mg 200 mg STK-MED ONCE .ROUTE ; Start 05/31/16 at 19 :20; Stop 05/31/16 at 19:21; Status DC Propofol 100 ml @ As Directed STK-MED ONCE .ROUTE ; Start 05/31/16 at 19:33; Stop 05/31/16 at 19:34; Status DC Propofol (Diprivan 1000 Mg/100ml Inj) 100 ml @ 0 mls/hr TITRATE IV Last administered on 06/01/16 03:49; Start 05/31/16 at 19:45; Stop 06/01/16 at 15:30; Status DC Midazolam HCl 5 mg 5 mg STK-MED ONCE .ROUTE ; Start 05/31/16 at 19:47; Stop at 19:48; Status DC Labetalol HCl 500 mg/Sodium Chloride 250 ml @ 0 mls/hr TITRATE IV Last administered on 06/01/16 06:42; Start 05/31/16 at 20:30; Stop 06/01/16 at 10:28; Status DC Piperacillin Sod/ Tazobactam Sod 100 ml @ 200 mls/hr ONCE STAT IV Last administered on 05/31/16 21:35; Start 05/31/16 at 20:36; Stop 05/31/16 at 21:05; Status DC Vancomycin HCl/ Sodium Chloride (Vancomycin Inj/ NS 250 ml Inj) 261.5 ml @ 250 mls/hr ONCE ONCE IV Last administered on 05/31/16 22:52; Start 05/31/16 at 20: 45; Stop 05/31/16 at 21:47; Status DC Etomidate (Amidate Inj) 20 mg ONCE ONCE IV PUSH Last administered on 05/31/16 21:37; Start 05/31/16 at 21:45; Stop 05/31/16 at 21:46; Status DC Succinylcholine Chloride (Quelicin Inj) 100 mg ONCE ONCE IM Last administered on 05/31/16 21:37; Start 05/31/16 at 21:45; Stop 05/31/16 at 21:46; Status DC Midazolam HCl (Versed Inj) 4 mg ONCE ONCE IV PUSH Last administered on 21:37; Start 05/31/16 at 21:45; Stop 05/31/16 at 21:46; Status DC Albuterol/ Ipratropium (Duoneb Neb) 3 ampule STK-MED ONCE .ROUTE ; Start at 21:48; Stop 05/31/16 at 21:49; Status DC Furosemide 40 mg 40 mg NOW IV PUSH Last administered on 05/31/16 22:03; Start 05/31/16 at 22:00; Stop 05/31/16 at 23:56; Status DC Potassium Chloride 100 ml @ 50 mls/hr Q2H PRN IV For Potassium 2.8 - 3.2 mEq/L ; Start 05/31/16 at 22:30; Stop 06/01/16 at 15:31; Status DC Potassium Chloride (KCl 20 Meq Premix Inj) 100 ml @ 50 mls/hr Q2H PRN IV For Potassium 2.8 - 3.2 mEq/L Last administered on 06/01/16 09:53; Start 05/31/16 at 22:30; Stop 06/01/16 at 15:31; Status DC Potassium Chloride 40 meq 40 meq UNSCH PRN PO/TUBE For Potassium 3.3 - 3.5 mEq/ L; Start 05/31/16 at 22:30; Stop 06/01/16 at 15:31; Status DC Potassium Chloride 100 ml @ 25 mls/hr UNSCH PRN IV For Potassium 3.3 - 3.5 mEq /L; Start 05/31/16 at 22:30; Stop 06/01/16 at 15:31; Status DC Potassium Chloride 100 ml @ 50 mls/hr Q2H PRN IV For Potassium 3.3 - 3.5 mEq/ L Last administered on 06/01/16 06:33; Start 05/31/16 at 22:30; Stop 06/01/16 at 15:31; Status DC Magnesium Sulfate/ Sodium Chloride (Magnesium Sulfate Inj/NS Inj) 100 ml @ 50 mls/hr UNSCH PRN IV For Magnesium 0.9 - 1.1 mg/dL; Start 05/31/16 at 22:30; Stop 06/01/16 at 15:31; Status DC Magnesium Oxide 800 mg 800 mg UNSCH PRN PO For Magnesium 1.2 - 1.6 mg/dL; Start 05/31/16 at 22:30; Stop 06/01/16 at 15:31; Status DC Magnesium Sulfate/ Sodium Chloride (Magnesium Sulfate Inj/NS Inj) 100 ml @ 50 mls/hr UNSCH PRN IV For Magnesium 1.2 - 1.6 mg/dL; Start 05/31/16 at 22:30; Stop 06/01/16 at 15:31; Status DC Potassium Phosphate 2000 mg 2,000 mg Q4H PRN PO For Phosphorus < 2.5 mg/dL; Start 05/31/16 at 22:30; Stop 06/01/16 at 15:31; Status DC Sodium Phosphate/ Sodium Chloride (Sodium Phosphate Inj/NS 250 ml Inj) 250 ml @ 42 mls/hr UNSCH PRN IV For Phosphorus < 2.5 mg/dL; Start 05/31/16 at 22:30; Stop 06/01/16 at 15:31; Status DC Potassium Chloride (KCl 40 Meq/30 ml Liq) 40 meq UNSCH PRN PO/TUBE SEE LABEL COMMENTS; Start 05/31/16 at 22:30; Stop 06/01/16 at 15:31; Status DC Potassium Phosphate 2000 mg 2,000 mg UNSCH PRN PO/TUBE SEE LABEL COMMENTS; Start 05/31/16 at 22:30; Stop 06/01/16 at 15:31; Status DC Potassium Phosphate/Sodium Chloride (Potassium Phosphate Inj/NS 250 ml Inj) 260 ml @ 42 mls/hr UNSCH PRN IV SEE LABEL COMMENTS; Start 05/31/16 at 22:30; Stop 06/01/16 at 15:31; Status DC Chlorhexidine Gluconate 15 ml 15 ml BID@08,20 MT Last administered on 06/01/16 08:00; Start 06/01/16 at 08:00 Sodium Chloride (NS 1000 ml Inj) 1,000 ml @ 30 mls/hr Q24H IV Last administered on 05/31/16 23:57; Start 05/31/16 at 22:22; Stop 06/01/16 at 12:04; Status DC IV Flush (NS Flush) 2 ml UNSCH PRN IV FLUSH FLUSH AFTER USING IV ACCESS; Start 05/31/16 at 22:30 IV Flush (NS Flush) 2 ml BID IV FLUSH Last administered on 06/05/16 08:52; Start 06/01/16 at 09:00 Acetaminophen (Tylenol) 650 mg Q6H PRN PO PAIN 1-10 AND/OR FEVER >101F Last administered on 06/04/16 11:17; Start 05/31/16 at 22:30 Pantoprazole Sodium (Protonix Inj) 40 mg DAILY IV Last administered on 08:21; Start 06/01/16 at 09:00; Stop 06/02/16 at 09:00; Status DC Ondansetron HCl (Zofran Inj) 4 mg Q6H PRN IV NAUSEA OR VOMITING; Start 05/31/16 at 22:30 Docusate Sodium (Colace Liq) 100 mg Q12H G-TUBE Last administered on 06/02/16 11:31; Start 05/31/16 at 22:30 Bisacodyl (Dulcolax Ec) 10 mg DAILY PRN PO CONSTIPATION; Start 05/31/16 at 22:30 Magnesium Hydroxide (Milk Of Magnesia Liq) 30 ml Q12H PRN PO CONSTIPATION; Start 05/31/16 at 22:30 Albuterol/ Ipratropium (Duoneb Neb) 1 ampule Q6HR NEB INH Last administered on 06/04/16 21:22; Start 06/01/16 at 04:00; Stop 06/05/16 at 04:00; Status DC Albuterol/ Ipratropium (Duoneb Neb) 1 ampule Q2HR NEB PRN INH WHEEZING; Start 05/31/16 at 22:30 Heparin Sodium (Porcine) (Heparin Inj) 5,000 units Q12H SQ Last administered on 06/01/16 09:05; Start 05/31/16 at 22:30; Stop 06/01/16 at 09:49; Status DC Miscellaneous Information 1 Q361D XX ; Start 05/31/16 at 22:30 Chlorhexidine Gluconate (Chlorhexidine 2% Cloth) 3 pack Taper DAILY@04 TOP Last administered on 06/05/16 04:00; Start 06/01/16 at 04:00; Stop 05/28/17 at 03 :59 Chlorhexidine Gluconate (Chlorhexidine 2% Cloth) 3 pack UNSCH PRN TOP HYGIENIC CARE; Start 05/31/16 at 22:30 Furosemide (Lasix Inj) 80 mg ONCE ONCE IV PUSH Last administered on 05/31/16 23:57; Start 05/31/16 at 22:45; Stop 05/31/16 at 22:57; Status DC Albuterol/ Ipratropium 3 ampule 3 ampule STK-MED ONCE .ROUTE ; Start 05/31/16 at 22:42; Stop 05/31/16 at 22:43; Status DC Fentanyl Citrate (fentaNYL DRIP) 250 ml @ 0 mls/hr TITRATE IV Last administered on 06/01/16 03:48; Start 06/01/16 at 03:30; Stop 06/01/16 at 15:30; Status DC Amlodipine Besylate (Norvasc) 10 mg DAILY PO Last administered on 06/02/16 08: 20; Start 06/01/16 at 09:00; Stop 06/03/16 at 08:32; Status DC Atenolol (Tenormin) 50 mg DAILY PO Last administered on 06/01/16 08:09; Start 06/01/16 at 09:00; Stop 06/01/16 at 09:33; Status DC Aspirin (Aspirin) 325 mg STAT ONCE TUBE Last administered on 06/01/16 09:04; Start 06/01/16 at 09:00; Stop 06/01/16 at 09:01; Status DC Aspirin (Aspirin Chew) 81 mg DAILY CHEW Last administered on 06/05/16 08:51; Start 06/02/16 at 09:00 Nitroglycerin (Nitro-Dur 0.2 Mg Patch.24 Hr) 1 patch DAILY TD Last administered on 06/04/16 08:19; Start 06/01/16 at 09:00; Stop 06/05/16 at 09:36 ; Status DC Miscellaneous Information 1 DAILY T-DERMAL Last administered on 06/04/16 08:19 ; Start 06/01/16 at 09:00; Stop 06/05/16 at 09:36; Status DC Furosemide (Lasix Inj) 40 mg DAILY IV PUSH Last administered on 06/05/16 08:51 ; Start 06/01/16 at 09:00; Stop 06/05/16 at 09:36; Status DC Metoprolol Tartrate (Lopressor) 25 mg Q12HR PO Last administered on 06/05/16 08:51; Start 06/01/16 at 21:00 Atorvastatin Calcium (Lipitor) 80 mg HS PO Last administered on 06/04/16 21:00 ; Start 06/01/16 at 21:00 Heparin Sodium (Porcine) (Heparin Inj) 5,000 units UNSCH PRN IV APTT LESS THAN 25; Start 06/01/16 at 15:45; Stop 06/03/16 at 08:34; Status DC Heparin Sodium (Porcine) 2500 units 2,500 units UNSCH PRN IV APTT 25 TO 39 Last administered on 06/02/16 15:44; Start 06/01/16 at 15:45; Stop 06/03/16 at 08: 34; Status DC Heparin Sodium/ Dextrose (Heparin-D5W Inj) 250 ml @ 0 mls/hr TITRATE IV Last administered on 06/02/16 17:49; Start 06/01/16 at 11:00; Stop 06/03/16 at 08:34; Status DC Clopidogrel Bisulfate (Plavix) 600 mg ONCE ONCE PO Last administered on 10:44; Start 06/01/16 at 09:45; Stop 06/01/16 at 10:21; Status DC Clopidogrel Bisulfate (Plavix) 75 mg DAILY PO Last administered on 06/05/16 08 :51; Start 06/02/16 at 09:00 Labetalol HCl (Trandate Inj) 20 mg Q2H PRN IV SBP greater than 160mm Hg Last administered on 06/04/16 16:43; Start 06/01/16 at 11:00 Pantoprazole Sodium (Protonix) 40 mg DAILY PO Last administered on 06/05/16 08 :51; Start 06/03/16 at 09:00 Potassium Chloride (KCl) 40 meq ONCE ONCE PO Last administered on 06/03/16 04: 41; Start 06/03/16 at 04:30; Stop 06/03/16 at 04:31; Status DC Heparin Sodium (Porcine) (Heparin Inj) 5,000 units Q8HR SQ ; Start 06/03/16 at 14 :00; Stop 06/03/16 at 14:00; Status DC Nifedipine (Procardia) 10 mg Q8H PO Last administered on 06/04/16 08:18; Start 06/03/16 at 09:00; Stop 06/04/16 at 13:26; Status DC Heparin Sodium (Porcine) (Heparin Inj) 5,000 units Q8HR SQ Last administered on 06/04/16 22:00; Start 06/03/16 at 14:00 Potassium Chloride (KCl) 30 meq ONCE ONCE PO Last administered on 06/03/16 12: 49; Start 06/03/16 at 12:15; Stop 06/03/16 at 12:22; Status DC Hydralazine HCl (Apresoline Inj) 10 mg Q30M PRN IV PUSH bp>160/90 Last administered on 06/05/16 10:41; Start 06/03/16 at 21:45 Regadenoson (Lexiscan Inj) 0.4 mg STK-MED ONCE .ROUTE Last administered on 06/04 09:55; Start 06/04/16 at 09:55; Stop 06/04/16 at 09:56; Status DC Nifedipine (Procardia) 20 mg Q8HR PO Last administered on 06/05/16 06:42; Start 06/04/16 at 14:00 Clonidine (Catapres) 0.1 mg Q8H PRN PO SEE LABEL COMMENTS Last administered on 06/05/16 10:41; Start 06/04/16 at 19:30 Furosemide (Lasix) 40 mg DAILY PO ; Start 06/06/16 at 09:00; Status UNV Lisinopril (Prinivil) 5 mg DAILY PO ; Start 06/05/16 at 09:30; Status UNV A/P Assessment and Plan A/P Altered mental status-resolved Pulmonary edema Hypoxic respiratory failure -s/p intubation/ extubation -continue lasix -echo with EF 55% and no regional wall motion abnormalities. Hypertensive emergency- improved -continue metoprolol - norvasc was switched to procardia -lasix and lisinopril were added -will monitor and adjust the regimen as needed NSTEMI- due to hypertensive emergency continue aspirin, plavix and statin heparin was discontinued. myocardial perfusion test with no perfusion defects. cardiology following. chronic renal insufficiency- improving -Monitor BMP. -- Strict I/Os hypokalemia; replaced vaginal bleeding- d/w the patient; she will have a follow-up with DIRECTOR OF PHYSIOTHERAPY SERVICES as outpatient - SSI Prophylaxis: GI Prophylaxis with PPI DVT Prophylaxis -- SCDs/subq heparin transfer to telemetry today. Discharge Planning dc home in am if BP stable. Manny Blandon MD Jun 05, 2016 10:55
[2016-06-05] MEDS: ATORVASTATIN 80 MG TAB PO SCH (21:43)
[2016-06-06] VITALS (7 sets, daily range): BP systolic 144–183; BP diastolic 92–108; PULSE 86–93; RESP 16–22; TEMP 97.1–98.5; O2SAT 95–97
[2016-06-06] MEDS: cloNIDine HCL 0.1 MG TAB PO PRN (01:06)
[2016-06-06] MEDS: CHLORHEXIDINE GLUCONATE 2 % 1 PACK (2 CLOTHS) TOP SCH (03:50)
[2016-06-06] MEDS: NIFEdipine 20 MG CAP PO SCH (05:28)
[2016-06-06] MEDS: HEPARIN SODIUM - SQ 10,000 UNITS/ML VIAL SQ SCH ×3 (05:29→22:00)
[2016-06-06] MEDS: CHLORHEXIDINE 0.12% (ORAL KIT) 15 ML CUP MT SCH ×2 (08:00→20:00)
[2016-06-06] MEDS: LISINOPRIL 5 MG TAB PO SCH ×2 (09:43→09:48)
[2016-06-06] MEDS: ASPIRIN 81 MG CHEW TAB CHEW SCH (09:44)
[2016-06-06] MEDS: FUROSEMIDE 40 MG TAB PO SCH (09:44)
[2016-06-06] MEDS: CLOPIDOGREL 75 MG TAB PO SCH (09:44)
[2016-06-06] MEDS: METOPROLOL TARTRATE 25 MG TAB PO SCH ×2 (09:44→20:40)
[2016-06-06] MEDS: PANTOPRAZOLE SOD 40 MG DELAYED RELEASE TAB PO SCH (09:44)
[2016-06-06] MEDS: DOCUSATE SODIUM 100 MG/10 ML UDC G-TUBE SCH ×2 (09:44→22:09)
[2016-06-06] MEDS: SODIUM CHLORIDE 0.9% FLUSH 5 ML FLUSH IV FLUSH SCH ×2 (09:47→20:40)
--- NOTE | 2016-06-06 10:11 | PD.CARD.PN ---
Subjective Subjective Remarks No chest pain, no shortness of breath Objective Medications Current Medications Medications (Trade) Dose Ordered Sig/Aylin Route Start Time Stop Time Status Last Admin (Peridex 0.12% Liq) 15 ml BID@08,20 MT 06/01/16 08:00 06/01/16 08:00 (Tylenol) 650 mg Q6H PRN PO 05/31/16 22:30 06/04/16 11:17 (Zofran Inj) 4 mg Q6H PRN IV 05/31/16 22:30 (Colace Liq) 100 mg Q12H G-TUBE 05/31/16 22:30 06/06/16 09:44 (Dulcolax Ec) 10 mg DAILY PRN PO 05/31/16 22:30 (Milk Of Magnesia Liq) 30 ml Q12H PRN PO 05/31/16 22:30 Miscellaneous Information 1 Q361D XX 05/31/16 22:30 (Chlorhexidine 2% Cloth) Taper DAILY@04 TOP 06/01/16 04:00 05/28/17 03:59 06/05/16 04:00 (Chlorhexidine 2% Cloth) 3 pack UNSCH PRN TOP 05/31/16 22:30 (Aspirin Chew) 81 mg DAILY CHEW 06/02/16 09:00 06/06/16 09:44 (Lopressor) 25 mg Q12HR PO 06/01/16 21:00 06/06/16 09:44 (Lipitor) 80 mg HS PO 06/01/16 21:00 06/05/16 21:43 (Plavix) 75 mg DAILY PO 06/02/16 09:00 06/06/16 09:44 (Trandate Inj) 20 mg Q2H PRN IV 06/01/16 11:00 06/04/16 16:43 (Protonix) 40 mg DAILY PO 06/03/16 09:00 06/06/16 09:44 (Heparin Inj) 5,000 units Q8HR SQ 06/03/16 14:00 06/04/16 22:00 (Apresoline Inj) 10 mg Q30M PRN IV PUSH 06/03/16 21:45 06/05/16 10:41 (Procardia) 20 mg Q8HR PO 06/04/16 14:00 06/06/16 05:28 (Catapres) 0.1 mg Q8H PRN PO 06/04/16 19:30 06/06/16 01:06 (Lasix) 40 mg DAILY PO 06/06/16 09:00 06/06/16 09:44 (Prinivil) 5 mg DAILY PO 06/05/16 09:30 06/06/16 09:48 Vital Signs / I&O Vital Signs Date Time Temp Pulse Resp B/P Pulse Ox O2 Delivery O2 Flow Rate FiO2 06/06/16 08:00 98.5 93 20 183/93 96 06/06/16 04:00 97.7 86 18 144/93 95 06/06/16 00:00 98.2 89 18 158/98 95 06/05/16 20:00 97 06/05/16 20:00 98.2 103 18 156/86 96 06/05/16 17:15 98.4 104 20 165/93 97 06/05/16 16:00 95 06/05/16 16:00 98.6 95 20 158/91 100 06/05/16 14:00 101 06/05/16 12:00 92 06/05/16 12:00 98.7 92 12 145/79 100 I/O 06/05/16 06/05/16 06/05/16 06/06/16 06/06/16 06/06/16 07:00 15:00 23:00 07:00 15:00 23:00 Intake Total 480 ml 480 ml 360 ml Output Total 750 ml Balance 480 ml -750 ml 480 ml 360 ml Intake Oral 480 ml 480 ml 360 ml Output Urine Total 750 ml # Voids 0 1 1 # Bowel Movements 0 1 Physical Exam GENERAL: NAD SKIN: Warm and dry. HEAD: Atraumatic. Normocephalic. EYES: Pupils equal and round. No scleral icterus. No injection or drainage. ENT: No nasal bleeding or discharge. Mucous membranes pink and moist. NECK: Trachea midline. No JVD. CARDIOVASCULAR: Regular rate and rhythm. RESPIRATORY: No accessory muscle use. CTA B/L GASTROINTESTINAL: Abdomen soft, non-tender, nondistended. Hepatic and splenic margins not palpable. MUSCULOSKELETAL: Extremities without clubbing, cyanosis, or edema. No obvious deformities. NEUROLOGICAL: Awake and alert. No obvious cranial nerve deficits. Motor grossly within normal limits. Five out of 5 muscle strength in the arms and legs. Normal speech. PSYCHIATRIC: Appropriate mood and affect; insight and judgment normal. Laboratory Laboratory Tests Test 06/04/16 04:20 White Blood Count 8.8 TH/MM3 (4.0-11.0) Red Blood Count 4.38 MIL/MM3 (4.00-5.30) Hemoglobin 14.2 GM/DL (11.6-15.3) Hematocrit 42.3 % (35.0-46.0) Mean Corpuscular Volume 96.6 FL (80.0-100.0) Mean Corpuscular Hemoglobin 32.4 PG (27.0-34.0) Mean Corpuscular Hemoglobin 33.6 % Concent (32.0-36.0) Red Cell Distribution Width 14.4 % (11.6-17.2) Platelet Count 203 TH/MM3 (150-450) Mean Platelet Volume 10.8 FL (7.0-11.0) Neutrophils (%) (Auto) 73.2 % (16.0-70.0) Lymphocytes (%) (Auto) 17.6 % (9.0-44.0) Monocytes (%) (Auto) 6.9 % (0.0-8.0) Eosinophils (%) (Auto) 1.9 % (0.0-4.0) Basophils (%) (Auto) 0.4 % (0.0-2.0) Neutrophils # (Auto) 6.5 TH/MM3 (1.8-7.7) Lymphocytes # (Auto) 1.6 TH/MM3 (1.0-4.8) Monocytes # (Auto) 0.6 TH/MM3 (0-0.9) Eosinophils # (Auto) 0.2 TH/MM3 (0-0.4) Basophils # (Auto) 0.0 TH/MM3 (0-0.2) CBC Comment DIFF FINAL Differential Comment Activated Partial 27.1 SEC Thromboplast Time (24.3-30.1) Sodium Level 139 MEQ/L (136-145) Potassium Level 3.7 MEQ/L (3.5-5.1) Chloride Level 104 MEQ/L (98-107) Carbon Dioxide Level 26.4 MEQ/L (21.0-32.0) Anion Gap 9 MEQ/L (5-15) Blood Urea Nitrogen 21 MG/DL (7-18) Creatinine 1.40 MG/DL (0.50-1.00) Estimat Glomerular Filtration 50 ML/MIN (>89) Rate Random Glucose 110 MG/DL (74-106) Calcium Level 9.7 MG/DL (8.5-10.1) Assessment and Plan Problem List: (1) Hypertensive emergency (2) Flash pulmonary edema (3) Respiratory disorder with ventilator dependence (4) NSTEMI (non-ST elevated myocardial infarction) (5) Lactic acidosis (6) Tobacco abuse (7) CHERYL (acute kidney injury) Assessment and Plan 1) NSTEMI most likely Type 2 in nature due to HTN emergency and hypoxia 2) Flash pulmonary edema most likely due to HTN emergency 3) Extubated, doing well on room air, no shortness of breath 4) Procardia increased which seems to have her blood pressure better, will need good follow up and titration of blood pressure medications out patient 5) Stress test showing no ischemic defects, continue medical management 6) Needs OBGYN follow up 7) Cardiovascularly stable for discharge today, blood pressure will not be perfect on discharge, needs follow up, can be placed on Procardia XL 60mg Bran Martin DO Jun 06, 2016 10:11
--- NOTE | 2016-06-06 11:13 | HHI.PR ---
Subjective Remarks resting comfortably with no distress. denies chest pain or sob. Objective Vitals Vital Signs Date Time Temp Pulse Resp B/P Pulse Ox O2 Delivery O2 Flow Rate FiO2 06/06/16 08:00 98.5 93 20 183/93 96 06/06/16 04:00 97.7 86 18 144/93 95 06/06/16 00:00 98.2 89 18 158/98 95 06/05/16 20:00 97 06/05/16 20:00 98.2 103 18 156/86 96 06/05/16 17:15 98.4 104 20 165/93 97 06/05/16 16:00 95 06/05/16 16:00 98.6 95 20 158/91 100 06/05/16 14:00 101 06/05/16 12:00 92 06/05/16 12:00 98.7 92 12 145/79 100 I/O 06/05/16 06/05/16 06/05/16 06/06/16 06/06/16 06/06/16 06:59 14:59 22:59 06:59 14:59 22:59 Intake Total 480 ml 480 ml 360 ml Output Total 750 ml Balance 480 ml -750 ml 480 ml 360 ml Intake Oral 480 ml 480 ml 360 ml Output Urine Total 750 ml # Voids 0 1 1 # Bowel Movements 0 1 Result Diagram: 06/04/16 0420 06/04/16 0420 Imaging Last Impressions Myocardial Perfusion Scan Nuc Med 06/04/16 0900 Signed Impressions: Service Date/Time: Saturday, June 04, 2016 09:07 - CONCLUSION: 1. Normal left ventricle perfusion without reversible or fixed perfusion defect identified. 2. Global hypokinesia with reduced left ventricle ejection fraction calculated at 37%%. RISK CATEGORY: Intermediate (1-3%% Annual Mortality Rate) Ozzy Kolb MD Chest X-Ray 06/01/16 0000 Signed Impressions: Service Date/Time: Wednesday, June 01, 2016 03:28 - CONCLUSION: Significant improved aeration of the lungs with residual consolidation of the left base and resolution of areas of consolidation throughout the remainder of the lungs. Brent Joshua MD Head CT 05/31/16 0000 Signed Impressions: Service Date/Time: Tuesday, May 31, 2016 20:08 - CONCLUSION: Normal examination. Allen Burks MD Chest CT 05/31/16 0000 Signed Impressions: Service Date/Time: Tuesday, May 31, 2016 20:12 - CONCLUSION: 1. Extensive dense lung consolidation and groundglass opacity bilaterally. Differential diagnosis includes flash pulmonary edema and massive aspiration. Endotracheal tube and nasogastric tube in satisfactory position. Allen Burks MD Objective Remarks GENERAL: This is a well-nourished, well-developed patient, in no apparent distress. CARDIOVASCULAR: Regular rate and regular rhythm without murmurs, gallops, or rubs. RESPIRATORY: Clear to auscultation. Breath sounds equal bilaterally. No wheezes , rales, or rhonchi. GASTROINTESTINAL: Abdomen soft, non-tender, nondistended. Normal, active bowel sounds MUSCULOSKELETAL: Extremities without clubbing, cyanosis, or edema. NEURO: Alert & Oriented x4 to person, place, time, situation. Moves all ext x4 Procedures intubation Medications and IVs Current Medications IV Flush (NS Flush) 2 ml UNSCH PRN IVF FLUSH AFTER USING IV ACCESS; Start at 19:15; Stop 06/03/16 at 08:34; Status DC Methylprednisolone Sodium Succinate (SoluMEDROL INJ) 125 mg ONCE ONCE IVP Last administered on 05/31/16 21:34; Start 05/31/16 at 19:15; Stop 05/31/16 at 19: 16; Status DC Albuterol/ Ipratropium (Duoneb Neb) 1 ampule Q15M INH Last administered on 23:28; Start 05/31/16 at 19:15; Stop 05/31/16 at 19:46; Status DC Etomidate (Amidate Inj) 20 mg STK-MED ONCE .ROUTE ; Start 05/31/16 at 19:20; Stop 05/31/16 at 19:21; Status DC Succinylcholine Chloride 200 mg 200 mg STK-MED ONCE .ROUTE ; Start 05/31/16 at 19 :20; Stop 05/31/16 at 19:21; Status DC Propofol 100 ml @ As Directed STK-MED ONCE .ROUTE ; Start 05/31/16 at 19:33; Stop 05/31/16 at 19:34; Status DC Propofol (Diprivan 1000 Mg/100ml Inj) 100 ml @ 0 mls/hr TITRATE IV Last administered on 06/01/16 03:49; Start 05/31/16 at 19:45; Stop 06/01/16 at 15:30; Status DC Midazolam HCl 5 mg 5 mg STK-MED ONCE .ROUTE ; Start 05/31/16 at 19:47; Stop at 19:48; Status DC Labetalol HCl 500 mg/Sodium Chloride 250 ml @ 0 mls/hr TITRATE IV Last administered on 06/01/16 06:42; Start 05/31/16 at 20:30; Stop 06/01/16 at 10:28; Status DC Piperacillin Sod/ Tazobactam Sod 100 ml @ 200 mls/hr ONCE STAT IV Last administered on 05/31/16 21:35; Start 05/31/16 at 20:36; Stop 05/31/16 at 21:05; Status DC Vancomycin HCl/ Sodium Chloride (Vancomycin Inj/ NS 250 ml Inj) 261.5 ml @ 250 mls/hr ONCE ONCE IV Last administered on 05/31/16 22:52; Start 05/31/16 at 20: 45; Stop 05/31/16 at 21:47; Status DC Etomidate (Amidate Inj) 20 mg ONCE ONCE IV PUSH Last administered on 05/31/16 21:37; Start 05/31/16 at 21:45; Stop 05/31/16 at 21:46; Status DC Succinylcholine Chloride (Quelicin Inj) 100 mg ONCE ONCE IM Last administered on 05/31/16 21:37; Start 05/31/16 at 21:45; Stop 05/31/16 at 21:46; Status DC Midazolam HCl (Versed Inj) 4 mg ONCE ONCE IV PUSH Last administered on 21:37; Start 05/31/16 at 21:45; Stop 05/31/16 at 21:46; Status DC Albuterol/ Ipratropium (Duoneb Neb) 3 ampule STK-MED ONCE .ROUTE ; Start at 21:48; Stop 05/31/16 at 21:49; Status DC Furosemide 40 mg 40 mg NOW IV PUSH Last administered on 05/31/16 22:03; Start 05/31/16 at 22:00; Stop 05/31/16 at 23:56; Status DC Potassium Chloride 100 ml @ 50 mls/hr Q2H PRN IV For Potassium 2.8 - 3.2 mEq/L ; Start 05/31/16 at 22:30; Stop 06/01/16 at 15:31; Status DC Potassium Chloride (KCl 20 Meq Premix Inj) 100 ml @ 50 mls/hr Q2H PRN IV For Potassium 2.8 - 3.2 mEq/L Last administered on 06/01/16 09:53; Start 05/31/16 at 22:30; Stop 06/01/16 at 15:31; Status DC Potassium Chloride 40 meq 40 meq UNSCH PRN PO/TUBE For Potassium 3.3 - 3.5 mEq/ L; Start 05/31/16 at 22:30; Stop 06/01/16 at 15:31; Status DC Potassium Chloride 100 ml @ 25 mls/hr UNSCH PRN IV For Potassium 3.3 - 3.5 mEq /L; Start 05/31/16 at 22:30; Stop 06/01/16 at 15:31; Status DC Potassium Chloride 100 ml @ 50 mls/hr Q2H PRN IV For Potassium 3.3 - 3.5 mEq/ L Last administered on 06/01/16 06:33; Start 05/31/16 at 22:30; Stop 06/01/16 at 15:31; Status DC Magnesium Sulfate/ Sodium Chloride (Magnesium Sulfate Inj/NS Inj) 100 ml @ 50 mls/hr UNSCH PRN IV For Magnesium 0.9 - 1.1 mg/dL; Start 05/31/16 at 22:30; Stop 06/01/16 at 15:31; Status DC Magnesium Oxide 800 mg 800 mg UNSCH PRN PO For Magnesium 1.2 - 1.6 mg/dL; Start 05/31/16 at 22:30; Stop 06/01/16 at 15:31; Status DC Magnesium Sulfate/ Sodium Chloride (Magnesium Sulfate Inj/NS Inj) 100 ml @ 50 mls/hr UNSCH PRN IV For Magnesium 1.2 - 1.6 mg/dL; Start 05/31/16 at 22:30; Stop 06/01/16 at 15:31; Status DC Potassium Phosphate 2000 mg 2,000 mg Q4H PRN PO For Phosphorus < 2.5 mg/dL; Start 05/31/16 at 22:30; Stop 06/01/16 at 15:31; Status DC Sodium Phosphate/ Sodium Chloride (Sodium Phosphate Inj/NS 250 ml Inj) 250 ml @ 42 mls/hr UNSCH PRN IV For Phosphorus < 2.5 mg/dL; Start 05/31/16 at 22:30; Stop 06/01/16 at 15:31; Status DC Potassium Chloride (KCl 40 Meq/30 ml Liq) 40 meq UNSCH PRN PO/TUBE SEE LABEL COMMENTS; Start 05/31/16 at 22:30; Stop 06/01/16 at 15:31; Status DC Potassium Phosphate 2000 mg 2,000 mg UNSCH PRN PO/TUBE SEE LABEL COMMENTS; Start 05/31/16 at 22:30; Stop 06/01/16 at 15:31; Status DC Potassium Phosphate/Sodium Chloride (Potassium Phosphate Inj/NS 250 ml Inj) 260 ml @ 42 mls/hr UNSCH PRN IV SEE LABEL COMMENTS; Start 05/31/16 at 22:30; Stop 06/01/16 at 15:31; Status DC Chlorhexidine Gluconate 15 ml 15 ml BID@08,20 MT Last administered on 06/01/16 08:00; Start 06/01/16 at 08:00 Sodium Chloride (NS 1000 ml Inj) 1,000 ml @ 30 mls/hr Q24H IV Last administered on 05/31/16 23:57; Start 05/31/16 at 22:22; Stop 06/01/16 at 12:04; Status DC IV Flush (NS Flush) 2 ml UNSCH PRN IV FLUSH FLUSH AFTER USING IV ACCESS; Start 05/31/16 at 22:30 IV Flush (NS Flush) 2 ml BID IV FLUSH Last administered on 06/06/16 09:47; Start 06/01/16 at 09:00 Acetaminophen (Tylenol) 650 mg Q6H PRN PO PAIN 1-10 AND/OR FEVER >101F Last administered on 06/04/16 11:17; Start 05/31/16 at 22:30 Pantoprazole Sodium (Protonix Inj) 40 mg DAILY IV Last administered on 08:21; Start 06/01/16 at 09:00; Stop 06/02/16 at 09:00; Status DC Ondansetron HCl (Zofran Inj) 4 mg Q6H PRN IV NAUSEA OR VOMITING; Start 05/31/16 at 22:30 Docusate Sodium (Colace Liq) 100 mg Q12H G-TUBE Last administered on 06/06/16 09:44; Start 05/31/16 at 22:30 Bisacodyl (Dulcolax Ec) 10 mg DAILY PRN PO CONSTIPATION; Start 05/31/16 at 22:30 Magnesium Hydroxide (Milk Of Magnesia Liq) 30 ml Q12H PRN PO CONSTIPATION; Start 05/31/16 at 22:30 Albuterol/ Ipratropium (Duoneb Neb) 1 ampule Q6HR NEB INH Last administered on 06/04/16 21:22; Start 06/01/16 at 04:00; Stop 06/05/16 at 04:00; Status DC Albuterol/ Ipratropium (Duoneb Neb) 1 ampule Q2HR NEB PRN INH WHEEZING; Start 05/31/16 at 22:30 Heparin Sodium (Porcine) (Heparin Inj) 5,000 units Q12H SQ Last administered on 06/01/16 09:05; Start 05/31/16 at 22:30; Stop 06/01/16 at 09:49; Status DC Miscellaneous Information 1 Q361D XX ; Start 05/31/16 at 22:30 Chlorhexidine Gluconate (Chlorhexidine 2% Cloth) Taper DAILY@04 TOP Last administered on 06/05/16 04:00; Start 06/01/16 at 04:00; Stop 05/28/17 at 03:59 Chlorhexidine Gluconate (Chlorhexidine 2% Cloth) 3 pack UNSCH PRN TOP HYGIENIC CARE; Start 05/31/16 at 22:30 Furosemide (Lasix Inj) 80 mg ONCE ONCE IV PUSH Last administered on 05/31/16 23:57; Start 05/31/16 at 22:45; Stop 05/31/16 at 22:57; Status DC Albuterol/ Ipratropium 3 ampule 3 ampule STK-MED ONCE .ROUTE ; Start 05/31/16 at 22:42; Stop 05/31/16 at 22:43; Status DC Fentanyl Citrate (fentaNYL DRIP) 250 ml @ 0 mls/hr TITRATE IV Last administered on 06/01/16 03:48; Start 06/01/16 at 03:30; Stop 06/01/16 at 15:30; Status DC Amlodipine Besylate (Norvasc) 10 mg DAILY PO Last administered on 06/02/16 08: 20; Start 06/01/16 at 09:00; Stop 06/03/16 at 08:32; Status DC Atenolol (Tenormin) 50 mg DAILY PO Last administered on 06/01/16 08:09; Start 06/01/16 at 09:00; Stop 06/01/16 at 09:33; Status DC Aspirin (Aspirin) 325 mg STAT ONCE TUBE Last administered on 06/01/16 09:04; Start 06/01/16 at 09:00; Stop 06/01/16 at 09:01; Status DC Aspirin (Aspirin Chew) 81 mg DAILY CHEW Last administered on 06/06/16 09:44; Start 06/02/16 at 09:00 Nitroglycerin (Nitro-Dur 0.2 Mg Patch.24 Hr) 1 patch DAILY TD Last administered on 06/04/16 08:19; Start 06/01/16 at 09:00; Stop 06/05/16 at 09:36 ; Status DC Miscellaneous Information 1 DAILY T-DERMAL Last administered on 06/04/16 08:19 ; Start 06/01/16 at 09:00; Stop 06/05/16 at 09:36; Status DC Furosemide (Lasix Inj) 40 mg DAILY IV PUSH Last administered on 06/05/16 08:51 ; Start 06/01/16 at 09:00; Stop 06/05/16 at 09:36; Status DC Metoprolol Tartrate (Lopressor) 25 mg Q12HR PO Last administered on 06/06/16 09:44; Start 06/01/16 at 21:00 Atorvastatin Calcium (Lipitor) 80 mg HS PO Last administered on 06/05/16 21:43 ; Start 06/01/16 at 21:00 Heparin Sodium (Porcine) (Heparin Inj) 5,000 units UNSCH PRN IV APTT LESS THAN 25; Start 06/01/16 at 15:45; Stop 06/03/16 at 08:34; Status DC Heparin Sodium (Porcine) 2500 units 2,500 units UNSCH PRN IV APTT 25 TO 39 Last administered on 06/02/16 15:44; Start 06/01/16 at 15:45; Stop 06/03/16 at 08: 34; Status DC Heparin Sodium/ Dextrose (Heparin-D5W Inj) 250 ml @ 0 mls/hr TITRATE IV Last administered on 06/02/16 17:49; Start 06/01/16 at 11:00; Stop 06/03/16 at 08:34; Status DC Clopidogrel Bisulfate (Plavix) 600 mg ONCE ONCE PO Last administered on 10:44; Start 06/01/16 at 09:45; Stop 06/01/16 at 10:21; Status DC Clopidogrel Bisulfate (Plavix) 75 mg DAILY PO Last administered on 06/06/16 09 :44; Start 06/02/16 at 09:00 Labetalol HCl (Trandate Inj) 20 mg Q2H PRN IV SBP greater than 160mm Hg Last administered on 06/04/16 16:43; Start 06/01/16 at 11:00 Pantoprazole Sodium (Protonix) 40 mg DAILY PO Last administered on 06/06/16 09 :44; Start 06/03/16 at 09:00 Potassium Chloride (KCl) 40 meq ONCE ONCE PO Last administered on 06/03/16 04: 41; Start 06/03/16 at 04:30; Stop 06/03/16 at 04:31; Status DC Heparin Sodium (Porcine) (Heparin Inj) 5,000 units Q8HR SQ ; Start 06/03/16 at 14 :00; Stop 06/03/16 at 14:00; Status DC Nifedipine (Procardia) 10 mg Q8H PO Last administered on 06/04/16 08:18; Start 06/03/16 at 09:00; Stop 06/04/16 at 13:26; Status DC Heparin Sodium (Porcine) (Heparin Inj) 5,000 units Q8HR SQ Last administered on 06/04/16 22:00; Start 06/03/16 at 14:00 Potassium Chloride (KCl) 30 meq ONCE ONCE PO Last administered on 06/03/16 12: 49; Start 06/03/16 at 12:15; Stop 06/03/16 at 12:22; Status DC Hydralazine HCl (Apresoline Inj) 10 mg Q30M PRN IV PUSH bp>160/90 Last administered on 06/05/16 10:41; Start 06/03/16 at 21:45 Regadenoson (Lexiscan Inj) 0.4 mg STK-MED ONCE .ROUTE Last administered on 06/04 09:55; Start 06/04/16 at 09:55; Stop 06/04/16 at 09:56; Status DC Nifedipine (Procardia) 20 mg Q8HR PO Last administered on 06/06/16 05:28; Start 06/04/16 at 14:00 Clonidine (Catapres) 0.1 mg Q8H PRN PO SEE LABEL COMMENTS Last administered on 06/06/16 01:06; Start 06/04/16 at 19:30 Furosemide (Lasix) 40 mg DAILY PO Last administered on 06/06/16 09:44; Start 06/06/16 at 09:00 Lisinopril (Prinivil) 5 mg DAILY PO Last administered on 06/06/16 09:48; Start 06/05/16 at 09:30 A/P Assessment and Plan A/P Altered mental status-resolved Pulmonary edema-resolved Hypoxic respiratory failure-resolved -s/p intubation/ extubation -continue lasix -echo with EF 55% and no regional wall motion abnormalities. Hypertensive emergency- improved -continue metoprolol - norvasc was switched to procardia -lasix and lisinopril were added -close outpatient f/u with pcp and this was d/w the patient. NSTEMI- due to hypertensive emergency continue aspirin, plavix and statin myocardial perfusion test with no perfusion defects. cardiology cleared for discharge. chronic renal insufficiency- improving -Monitor BMP. -- Strict I/Os hypokalemia; replaced vaginal bleeding- d/w the patient; she will have a follow-up with [facility] as outpatient - SSI Prophylaxis: GI Prophylaxis with PPI DVT Prophylaxis -- SCDs/subq heparin Discharge Planning dc home today if BP stable. see med list. f/u by pcp. d/w the patient and case management. time spent 31 min. Manny Blandon MD Jun 06, 2016 11:13
[2016-06-06] MEDS ORDERED: Aspirin Chew CHEW (11:16)
[2016-06-06] MEDS ORDERED: PLAV75TA29 PO (11:16)
[2016-06-06] MEDS ORDERED: LISI-519 PO (11:16)
[2016-06-06] MEDS ORDERED: FURO1TAB60 PO (11:16)
[2016-06-06] MEDS ORDERED: NIFE1TAB86 PO (11:16)
[2016-06-06] MEDS ORDERED: LIPI80TA PO (11:16)
[2016-06-06] MEDS ORDERED: METO25TA3 PO (11:16)
--- NOTE | 2016-06-06 11:16 | HHI.DCPOC ---
Discharge Care Plan Diagnosis: (1) Pulmonary edema Your Health Problems Are: Shortness of Breath Goals to Promote Your Health * To prevent worsening of your condition and complications * To maintain your health at the optimal level Directions to Meet Your Goals Take your medications as prescribed Follow your dietary instruction Follow activity as directed Keep your appointments as scheduled Take your immunizations and boosters as scheduled If your symptoms worsen call your PCP, if no PCP go to Urgent Care Center or Emergency Room Smoking is Dangerous to Your Health. Avoid second hand smoke Call the 24-hour hour crisis hotline for domestic abuse at Manny Blandon MD Jun 06, 2016 11:16
--- NOTE | 2016-06-06 11:21 | HHI.DS ---
Discharge Summary Admission Date May 31, 2016 at 21:35 Discharge Date: Jun 06, 2016 Admitting Diagnosis Hypertensive Emergency with flash pulmonary edema (1) Flash pulmonary edema ICD Code: J81.0 Diagnosis: Principal (2) NSTEMI (non-ST elevated myocardial infarction) ICD Code: I21.4 Diagnosis: Principal Procedures intubation Brief History - From Admission Is a 40-year-old female who presents to emergency room as a stroke alert from [facility]. As per [facility], the patient was noted to be unresponsive. Upon EMS arrival on the scene scene, pt had a right sided facial gaze and right-sided deficits. Reports that patient was unresponsive with a GCS of 6 or 7.Enroute to the emergency room, the patient became responsive and conversant . In the emergency room, the patient was alert to person, patient was able to move all extremities, patient was able to follow commands, patient reports that she has history of hypertension, reports that she did drink a few beers today, reports that she feels short of breath. In the ED the patient's presentation was blood pressure 205/141 .Per the patient's family report the patient has hypertension but has not been taking any antihypertensive medications secondary to income restrictions, has not filled any prescriptions. The patient subsequently suddenly became short of breath, dyspnea O2 sat in the 70s. The patient was emergently intubated in the ED, the patient was noted to have copious frothy bloody secretions, likely flash pulmonary edema. Critical care is consulted for management and treatment. History PFSH Past Medical History Cardiovascular Problems: Yes High Cholesterol: Yes Diminished Hearing: No Gastrointestinal Disorders: Yes (CHRONIC DIARRHEA/COLITIS) Hypertension: Yes : 4 Para: 2 Miscarriage: 0 : 2 Ectopic : No Ovarian Cysts: No Tubal Ligation: No Past Surgical History Hysterectomy: No Social History Alcohol Use: Yes (WEEKENDS) Tobacco Use: Yes (WEEKENDS) Substance Use: No (DENIES) Allergies-Medications Allergies-Medications (Allergen,Severity, Reaction): Coded Allergies: No Known Allergies (Verified , 11/23/15) Reported Meds & Prescriptions Reported Meds & Active Scripts Active ROS Review of Systems ROS Limitations: Altered Mental Status Except as stated in HPI: all other systems reviewed are Neg General / Constitutional: No: Fever Eyes: No: Visual changes HENT: No: Headaches Cardiovascular: Positive: Chest Pain or Discomfort Respiratory: Positive: Shortness of Breath Gastrointestinal: No: Abdominal Pain Genitourinary: No: Dysuria Musculoskeletal: No: Pain Skin: No Rash Neurologic: No: Weakness Psychiatric: No: Depression Endocrine: No: Polydipsia Hematologic/Lymphatic: No: Easy Bruising CBC/BMP: 06/04/16 0420 06/04/16 0420 Significant Findings Laboratory Tests Test 06/04/16 04:20 Neutrophils (%) (Auto) 73.2 % (16.0-70.0) Blood Urea Nitrogen 21 MG/DL (7-18) Creatinine 1.40 MG/DL (0.50-1.00) Estimat Glomerular Filtration 50 ML/MIN (>89) Rate Random Glucose 110 MG/DL (74-106) Imaging Last Impressions Myocardial Perfusion Scan Nuc Med 06/04/16 0900 Signed Impressions: Service Date/Time: Saturday, June 04, 2016 09:07 - CONCLUSION: 1. Normal left ventricle perfusion without reversible or fixed perfusion defect identified. 2. Global hypokinesia with reduced left ventricle ejection fraction calculated at 37%%. RISK CATEGORY: Intermediate (1-3%% Annual Mortality Rate) Ozzy Kolb MD Chest X-Ray 06/01/16 0000 Signed Impressions: Service Date/Time: Wednesday, June 01, 2016 03:28 - CONCLUSION: Significant improved aeration of the lungs with residual consolidation of the left base and resolution of areas of consolidation throughout the remainder of the lungs. Brent Joshua MD Head CT 05/31/16 0000 Signed Impressions: Service Date/Time: Tuesday, May 31, 2016 20:08 - CONCLUSION: Normal examination. Allen Burks MD Chest CT 05/31/16 0000 Signed Impressions: Service Date/Time: Tuesday, May 31, 2016 20:12 - CONCLUSION: 1. Extensive dense lung consolidation and groundglass opacity bilaterally. Differential diagnosis includes flash pulmonary edema and massive aspiration. Endotracheal tube and nasogastric tube in satisfactory position. Allen Burks MD PE at Discharge GENERAL: This is a well-nourished, well-developed patient, in no apparent distress. CARDIOVASCULAR: Regular rate and regular rhythm without murmurs, gallops, or rubs. RESPIRATORY: Clear to auscultation. Breath sounds equal bilaterally. No wheezes , rales, or rhonchi. GASTROINTESTINAL: Abdomen soft, non-tender, nondistended. Normal, active bowel sounds MUSCULOSKELETAL: Extremities without clubbing, cyanosis, or edema. NEURO: Alert & Oriented x4 to person, place, time, situation. Moves all ext x4 Hospital Course Altered mental status-resolved Pulmonary edema-resolved Hypoxic respiratory failure-resolved -s/p intubation/ extubation -continue lasix -echo with EF 55% and no regional wall motion abnormalities. Hypertensive emergency- improved -continue metoprolol - norvasc was switched to procardia -lasix and lisinopril were added -close outpatient f/u with pcp and this was d/w the patient. NSTEMI- due to hypertensive emergency continue aspirin, plavix and statin myocardial perfusion test with no perfusion defects. cardiology cleared for discharge. chronic renal insufficiency- improving -Monitor BMP. -- Strict I/Os hypokalemia; replaced vaginal bleeding- d/w the patient; she will have a follow-up with [facility] as outpatient - SSI Prophylaxis: GI Prophylaxis with PPI DVT Prophylaxis -- SCDs/subq heparin Pt Condition on Discharge: Good Discharge Disposition: Discharge Home Discharge Time: > 30 minutes Discharge Instructions DIET: Follow Instructions for: Heart Healthy Diet Activities you can perform: Regular-No Restrictions Follow up Referrals: PCP Follow-up New Medications: Nifedipine ER 24 HR (Procardia XL) 60 Mg Tab 60 MG PO DAILY hypertension #30 Ref 0 TAB Potassium Chloride ER (Potassium Chloride ER) 10 Meq Cap 10 MEQ PO DAILY Electrolyte Replacement #30 Ref 0 CAP Atorvastatin (Lipitor) 80 Mg Tab 80 MG PO HS dyslipidemia Days 30 Ref 0 TAB Clopidogrel (Plavix) 75 Mg Tab 75 MG PO DAILY cad Days 30 Ref 0 TAB Furosemide (Lasix) 40 Mg Tab 40 MG PO DAILY hypertension Days 30 Ref 0 TAB Lisinopril (Lisinopril) 5 Mg Tab 5 MG PO DAILY hypertension Days 30 Ref 0 TAB Metoprolol Tartrate (Metoprolol Tartrate) 25 Mg Tab 25 MG PO Q12HR hypertension Days 30 Ref 0 TAB ([Aspirin Chew]) 81 MG CHEW 81 MG CHEW DAILY cad Days 30 Ref 0 TAB.CHEW Discontinued Medications: Amlodipine (Amlodipine) 10 Mg Tab 10 MG PO DAILY Blood Pressure Management #30 Ref 0 TAB Atenolol (Atenolol) 50 Mg Tab 50 MG PO DAILY Blood Pressure Management #30 Ref 0 TAB Manny Blandon MD Jun 06, 2016 11:21
[2016-06-06] MEDS ORDERED: POTA10CA PO (11:31)
[2016-06-06] MEDS: NIFEdipine 60 MG SUSTAINED RELEASE TAB PO SCH (12:40)
[2016-06-06] MEDS: ATORVASTATIN 80 MG TAB PO SCH (20:40)
[2016-06-07] VITALS: BP 133/86; PULSE 80; RESP 16; TEMP 97.9; O2SAT 98
[2016-06-07 04:00] VITALS: BP 153/86; PULSE 85; RESP 20; TEMP 97.7; O2SAT 100
[2016-06-07] MEDS: CHLORHEXIDINE GLUCONATE 2 % 1 PACK (2 CLOTHS) TOP SCH (04:15)
[2016-06-07] MEDS: HEPARIN SODIUM - SQ 10,000 UNITS/ML VIAL SQ SCH (05:11)
[2016-06-07 06:21] LABS: HEMATOCRIT 44.8 % (35.0-46.0); MEAN CORPUSCULAR HEMOGLOBIN 32.4 PG (27.0-34.0); MEAN CORPUSCULAR HGB CONC 33.4 % (32.0-36.0); PLATELET COUNT 265 TH/MM3 (150-450); RED BLOOD COUNT 4.62 MIL/MM3 (4.00-5.30); RED CELL DISTRIBUTION WIDTH 14.3 % (11.6-17.2); REVIEW FLAG FINAL; WHITE BLOOD COUNT 9.8 TH/MM3 (4.0-11.0)
[2016-06-07 08:00] VITALS: BP 148/85; PULSE 88; RESP 16; TEMP 98.5; O2SAT 95
[2016-06-07] MEDS: CHLORHEXIDINE 0.12% (ORAL KIT) 15 ML CUP MT SCH (08:00)
--- NOTE | 2016-06-07 08:12 | HHI.PR ---
Subjective Remarks resting comfortably with no distress. no chest pain or sob. d/w the RN and no acute issues over night. Objective Vitals Vital Signs Date Time Temp Pulse Resp B/P Pulse Ox O2 Delivery O2 Flow Rate FiO2 06/07/16 04:00 97.7 85 20 153/86 100 06/07/16 00:00 97.9 80 16 133/86 98 06/06/16 20:27 92 06/06/16 20:00 97.5 92 16 148/92 96 06/06/16 16:00 86 06/06/16 16:00 97.1 93 22 178/106 96 06/06/16 12:00 98.1 86 22 181/108 97 I/O 06/06/16 06/06/16 06/06/16 06/07/16 06/07/16 06/07/16 07:00 15:00 23:00 07:00 15:00 23:00 Intake Total 360 ml 600 ml 240 ml 1080 ml Balance 360 ml 600 ml 240 ml 1080 ml Intake Oral 360 ml 600 ml 240 ml 1080 ml IV Total 0 ml # Voids 1 3 5 1 # Bowel Movements 1 3 1 Result Diagram: 06/07/16 0530 06/04/16 0420 Imaging Last Impressions Myocardial Perfusion Scan Nuc Med 06/04/16 0900 Signed Impressions: Service Date/Time: Saturday, June 04, 2016 09:07 - CONCLUSION: 1. Normal left ventricle perfusion without reversible or fixed perfusion defect identified. 2. Global hypokinesia with reduced left ventricle ejection fraction calculated at 37%%. RISK CATEGORY: Intermediate (1-3%% Annual Mortality Rate) Ozzy Kolb MD Chest X-Ray 06/01/16 0000 Signed Impressions: Service Date/Time: Wednesday, June 01, 2016 03:28 - CONCLUSION: Significant improved aeration of the lungs with residual consolidation of the left base and resolution of areas of consolidation throughout the remainder of the lungs. Brent Joshua MD Head CT 05/31/16 0000 Signed Impressions: Service Date/Time: Tuesday, May 31, 2016 20:08 - CONCLUSION: Normal examination. Allen Burks MD Chest CT 05/31/16 0000 Signed Impressions: Service Date/Time: Tuesday, May 31, 2016 20:12 - CONCLUSION: 1. Extensive dense lung consolidation and groundglass opacity bilaterally. Differential diagnosis includes flash pulmonary edema and massive aspiration. Endotracheal tube and nasogastric tube in satisfactory position. Allen Burks MD Objective Remarks GENERAL: This is a well-nourished, well-developed patient, in no apparent distress. CARDIOVASCULAR: Regular rate and regular rhythm without murmurs, gallops, or rubs. RESPIRATORY: Clear to auscultation. Breath sounds equal bilaterally. No wheezes , rales, or rhonchi. GASTROINTESTINAL: Abdomen soft, non-tender, nondistended. Normal, active bowel sounds MUSCULOSKELETAL: Extremities without clubbing, cyanosis, or edema. NEURO: Alert & Oriented x4 to person, place, time, situation. Moves all ext x4 Procedures intubation Medications and IVs Current Medications IV Flush (NS Flush) 2 ml UNSCH PRN IVF FLUSH AFTER USING IV ACCESS; Start at 19:15; Stop 06/03/16 at 08:34; Status DC Methylprednisolone Sodium Succinate (SoluMEDROL INJ) 125 mg ONCE ONCE IVP Last administered on 05/31/16 21:34; Start 05/31/16 at 19:15; Stop 05/31/16 at 19: 16; Status DC Albuterol/ Ipratropium (Duoneb Neb) 1 ampule Q15M INH Last administered on 23:28; Start 05/31/16 at 19:15; Stop 05/31/16 at 19:46; Status DC Etomidate (Amidate Inj) 20 mg STK-MED ONCE .ROUTE ; Start 05/31/16 at 19:20; Stop 05/31/16 at 19:21; Status DC Succinylcholine Chloride 200 mg 200 mg STK-MED ONCE .ROUTE ; Start 05/31/16 at 19 :20; Stop 05/31/16 at 19:21; Status DC Propofol 100 ml @ As Directed STK-MED ONCE .ROUTE ; Start 05/31/16 at 19:33; Stop 05/31/16 at 19:34; Status DC Propofol (Diprivan 1000 Mg/100ml Inj) 100 ml @ 0 mls/hr TITRATE IV Last administered on 06/01/16 03:49; Start 05/31/16 at 19:45; Stop 06/01/16 at 15:30; Status DC Midazolam HCl 5 mg 5 mg STK-MED ONCE .ROUTE ; Start 05/31/16 at 19:47; Stop at 19:48; Status DC Labetalol HCl 500 mg/Sodium Chloride 250 ml @ 0 mls/hr TITRATE IV Last administered on 06/01/16 06:42; Start 05/31/16 at 20:30; Stop 06/01/16 at 10:28; Status DC Piperacillin Sod/ Tazobactam Sod 100 ml @ 200 mls/hr ONCE STAT IV Last administered on 05/31/16 21:35; Start 05/31/16 at 20:36; Stop 05/31/16 at 21:05; Status DC Vancomycin HCl/ Sodium Chloride (Vancomycin Inj/ NS 250 ml Inj) 261.5 ml @ 250 mls/hr ONCE ONCE IV Last administered on 05/31/16 22:52; Start 05/31/16 at 20: 45; Stop 05/31/16 at 21:47; Status DC Etomidate (Amidate Inj) 20 mg ONCE ONCE IV PUSH Last administered on 05/31/16 21:37; Start 05/31/16 at 21:45; Stop 05/31/16 at 21:46; Status DC Succinylcholine Chloride (Quelicin Inj) 100 mg ONCE ONCE IM Last administered on 05/31/16 21:37; Start 05/31/16 at 21:45; Stop 05/31/16 at 21:46; Status DC Midazolam HCl (Versed Inj) 4 mg ONCE ONCE IV PUSH Last administered on 21:37; Start 05/31/16 at 21:45; Stop 05/31/16 at 21:46; Status DC Albuterol/ Ipratropium (Duoneb Neb) 3 ampule STK-MED ONCE .ROUTE ; Start at 21:48; Stop 05/31/16 at 21:49; Status DC Furosemide 40 mg 40 mg NOW IV PUSH Last administered on 05/31/16 22:03; Start 05/31/16 at 22:00; Stop 05/31/16 at 23:56; Status DC Potassium Chloride 100 ml @ 50 mls/hr Q2H PRN IV For Potassium 2.8 - 3.2 mEq/L ; Start 05/31/16 at 22:30; Stop 06/01/16 at 15:31; Status DC Potassium Chloride (KCl 20 Meq Premix Inj) 100 ml @ 50 mls/hr Q2H PRN IV For Potassium 2.8 - 3.2 mEq/L Last administered on 06/01/16 09:53; Start 05/31/16 at 22:30; Stop 06/01/16 at 15:31; Status DC Potassium Chloride 40 meq 40 meq UNSCH PRN PO/TUBE For Potassium 3.3 - 3.5 mEq/ L; Start 05/31/16 at 22:30; Stop 06/01/16 at 15:31; Status DC Potassium Chloride 100 ml @ 25 mls/hr UNSCH PRN IV For Potassium 3.3 - 3.5 mEq /L; Start 05/31/16 at 22:30; Stop 06/01/16 at 15:31; Status DC Potassium Chloride 100 ml @ 50 mls/hr Q2H PRN IV For Potassium 3.3 - 3.5 mEq/ L Last administered on 06/01/16 06:33; Start 05/31/16 at 22:30; Stop 06/01/16 at 15:31; Status DC Magnesium Sulfate/ Sodium Chloride (Magnesium Sulfate Inj/NS Inj) 100 ml @ 50 mls/hr UNSCH PRN IV For Magnesium 0.9 - 1.1 mg/dL; Start 05/31/16 at 22:30; Stop 06/01/16 at 15:31; Status DC Magnesium Oxide 800 mg 800 mg UNSCH PRN PO For Magnesium 1.2 - 1.6 mg/dL; Start 05/31/16 at 22:30; Stop 06/01/16 at 15:31; Status DC Magnesium Sulfate/ Sodium Chloride (Magnesium Sulfate Inj/NS Inj) 100 ml @ 50 mls/hr UNSCH PRN IV For Magnesium 1.2 - 1.6 mg/dL; Start 05/31/16 at 22:30; Stop 06/01/16 at 15:31; Status DC Potassium Phosphate 2000 mg 2,000 mg Q4H PRN PO For Phosphorus < 2.5 mg/dL; Start 05/31/16 at 22:30; Stop 06/01/16 at 15:31; Status DC Sodium Phosphate/ Sodium Chloride (Sodium Phosphate Inj/NS 250 ml Inj) 250 ml @ 42 mls/hr UNSCH PRN IV For Phosphorus < 2.5 mg/dL; Start 05/31/16 at 22:30; Stop 06/01/16 at 15:31; Status DC Potassium Chloride (KCl 40 Meq/30 ml Liq) 40 meq UNSCH PRN PO/TUBE SEE LABEL COMMENTS; Start 05/31/16 at 22:30; Stop 06/01/16 at 15:31; Status DC Potassium Phosphate 2000 mg 2,000 mg UNSCH PRN PO/TUBE SEE LABEL COMMENTS; Start 05/31/16 at 22:30; Stop 06/01/16 at 15:31; Status DC Potassium Phosphate/Sodium Chloride (Potassium Phosphate Inj/NS 250 ml Inj) 260 ml @ 42 mls/hr UNSCH PRN IV SEE LABEL COMMENTS; Start 05/31/16 at 22:30; Stop 06/01/16 at 15:31; Status DC Chlorhexidine Gluconate 15 ml 15 ml BID@08,20 MT Last administered on 06/01/16 08:00; Start 06/01/16 at 08:00 Sodium Chloride (NS 1000 ml Inj) 1,000 ml @ 30 mls/hr Q24H IV Last administered on 05/31/16 23:57; Start 05/31/16 at 22:22; Stop 06/01/16 at 12:04; Status DC IV Flush (NS Flush) 2 ml UNSCH PRN IV FLUSH FLUSH AFTER USING IV ACCESS; Start 05/31/16 at 22:30 IV Flush (NS Flush) 2 ml BID IV FLUSH Last administered on 06/06/16 20:40; Start 06/01/16 at 09:00 Acetaminophen (Tylenol) 650 mg Q6H PRN PO PAIN 1-10 AND/OR FEVER >101F Last administered on 06/04/16 11:17; Start 05/31/16 at 22:30 Pantoprazole Sodium (Protonix Inj) 40 mg DAILY IV Last administered on 08:21; Start 06/01/16 at 09:00; Stop 06/02/16 at 09:00; Status DC Ondansetron HCl (Zofran Inj) 4 mg Q6H PRN IV NAUSEA OR VOMITING; Start 05/31/16 at 22:30 Docusate Sodium (Colace Liq) 100 mg Q12H G-TUBE Last administered on 06/06/16 09:44; Start 05/31/16 at 22:30 Bisacodyl (Dulcolax Ec) 10 mg DAILY PRN PO CONSTIPATION; Start 05/31/16 at 22:30 Magnesium Hydroxide (Milk Of Magnesia Liq) 30 ml Q12H PRN PO CONSTIPATION; Start 05/31/16 at 22:30 Albuterol/ Ipratropium (Duoneb Neb) 1 ampule Q6HR NEB INH Last administered on 06/04/16 21:22; Start 06/01/16 at 04:00; Stop 06/05/16 at 04:00; Status DC Albuterol/ Ipratropium (Duoneb Neb) 1 ampule Q2HR NEB PRN INH WHEEZING; Start 05/31/16 at 22:30 Heparin Sodium (Porcine) (Heparin Inj) 5,000 units Q12H SQ Last administered on 06/01/16 09:05; Start 05/31/16 at 22:30; Stop 06/01/16 at 09:49; Status DC Miscellaneous Information 1 Q361D XX ; Start 05/31/16 at 22:30 Chlorhexidine Gluconate (Chlorhexidine 2% Cloth) Taper DAILY@04 TOP Last administered on 06/05/16 04:00; Start 06/01/16 at 04:00; Stop 05/28/17 at 03:59 Chlorhexidine Gluconate (Chlorhexidine 2% Cloth) 3 pack UNSCH PRN TOP HYGIENIC CARE; Start 05/31/16 at 22:30 Furosemide (Lasix Inj) 80 mg ONCE ONCE IV PUSH Last administered on 05/31/16 23:57; Start 05/31/16 at 22:45; Stop 05/31/16 at 22:57; Status DC Albuterol/ Ipratropium 3 ampule 3 ampule STK-MED ONCE .ROUTE ; Start 05/31/16 at 22:42; Stop 05/31/16 at 22:43; Status DC Fentanyl Citrate (fentaNYL DRIP) 250 ml @ 0 mls/hr TITRATE IV Last administered on 06/01/16 03:48; Start 06/01/16 at 03:30; Stop 06/01/16 at 15:30; Status DC Amlodipine Besylate (Norvasc) 10 mg DAILY PO Last administered on 06/02/16 08: 20; Start 06/01/16 at 09:00; Stop 06/03/16 at 08:32; Status DC Atenolol (Tenormin) 50 mg DAILY PO Last administered on 06/01/16 08:09; Start 06/01/16 at 09:00; Stop 06/01/16 at 09:33; Status DC Aspirin (Aspirin) 325 mg STAT ONCE TUBE Last administered on 06/01/16 09:04; Start 06/01/16 at 09:00; Stop 06/01/16 at 09:01; Status DC Aspirin (Aspirin Chew) 81 mg DAILY CHEW Last administered on 06/06/16 09:44; Start 06/02/16 at 09:00 Nitroglycerin (Nitro-Dur 0.2 Mg Patch.24 Hr) 1 patch DAILY TD Last administered on 06/04/16 08:19; Start 06/01/16 at 09:00; Stop 06/05/16 at 09:36 ; Status DC Miscellaneous Information 1 DAILY T-DERMAL Last administered on 06/04/16 08:19 ; Start 06/01/16 at 09:00; Stop 06/05/16 at 09:36; Status DC Furosemide (Lasix Inj) 40 mg DAILY IV PUSH Last administered on 06/05/16 08:51 ; Start 06/01/16 at 09:00; Stop 06/05/16 at 09:36; Status DC Metoprolol Tartrate (Lopressor) 25 mg Q12HR PO Last administered on 06/06/16 20:40; Start 06/01/16 at 21:00 Atorvastatin Calcium (Lipitor) 80 mg HS PO Last administered on 06/06/16 20:40 ; Start 06/01/16 at 21:00 Heparin Sodium (Porcine) (Heparin Inj) 5,000 units UNSCH PRN IV APTT LESS THAN 25; Start 06/01/16 at 15:45; Stop 06/03/16 at 08:34; Status DC Heparin Sodium (Porcine) 2500 units 2,500 units UNSCH PRN IV APTT 25 TO 39 Last administered on 06/02/16 15:44; Start 06/01/16 at 15:45; Stop 06/03/16 at 08: 34; Status DC Heparin Sodium/ Dextrose (Heparin-D5W Inj) 250 ml @ 0 mls/hr TITRATE IV Last administered on 06/02/16 17:49; Start 06/01/16 at 11:00; Stop 06/03/16 at 08:34; Status DC Clopidogrel Bisulfate (Plavix) 600 mg ONCE ONCE PO Last administered on 10:44; Start 06/01/16 at 09:45; Stop 06/01/16 at 10:21; Status DC Clopidogrel Bisulfate (Plavix) 75 mg DAILY PO Last administered on 06/06/16 09 :44; Start 06/02/16 at 09:00 Labetalol HCl (Trandate Inj) 20 mg Q2H PRN IV SBP greater than 160mm Hg Last administered on 06/04/16 16:43; Start 06/01/16 at 11:00 Pantoprazole Sodium (Protonix) 40 mg DAILY PO Last administered on 06/06/16 09 :44; Start 06/03/16 at 09:00 Potassium Chloride (KCl) 40 meq ONCE ONCE PO Last administered on 06/03/16 04: 41; Start 06/03/16 at 04:30; Stop 06/03/16 at 04:31; Status DC Heparin Sodium (Porcine) (Heparin Inj) 5,000 units Q8HR SQ ; Start 06/03/16 at 14 :00; Stop 06/03/16 at 14:00; Status DC Nifedipine (Procardia) 10 mg Q8H PO Last administered on 06/04/16 08:18; Start 06/03/16 at 09:00; Stop 06/04/16 at 13:26; Status DC Heparin Sodium (Porcine) (Heparin Inj) 5,000 units Q8HR SQ Last administered on 06/04/16 22:00; Start 06/03/16 at 14:00 Potassium Chloride (KCl) 30 meq ONCE ONCE PO Last administered on 06/03/16 12: 49; Start 06/03/16 at 12:15; Stop 06/03/16 at 12:22; Status DC Hydralazine HCl (Apresoline Inj) 10 mg Q30M PRN IV PUSH bp>160/90 Last administered on 06/05/16 10:41; Start 06/03/16 at 21:45 Regadenoson (Lexiscan Inj) 0.4 mg STK-MED ONCE .ROUTE Last administered on 06/04 09:55; Start 06/04/16 at 09:55; Stop 06/04/16 at 09:56; Status DC Nifedipine (Procardia) 20 mg Q8HR PO Last administered on 06/06/16 05:28; Start 06/04/16 at 14:00; Stop 06/06/16 at 11:34; Status DC Clonidine (Catapres) 0.1 mg Q8H PRN PO SEE LABEL COMMENTS Last administered on 06/06/16 01:06; Start 06/04/16 at 19:30 Furosemide (Lasix) 40 mg DAILY PO Last administered on 06/06/16 09:44; Start 06/06/16 at 09:00 Lisinopril (Prinivil) 5 mg DAILY PO Last administered on 06/06/16 09:48; Start 06/05/16 at 09:30 Nifedipine (Procardia Xl) 60 mg DAILY PO Last administered on 06/06/16 12:40; Start 06/06/16 at 12:00 A/P Assessment and Plan A/P Altered mental status-resolved Pulmonary edema-resolved Hypoxic respiratory failure-resolved -s/p intubation/ extubation -continue lasix -echo with EF 55% and no regional wall motion abnormalities. Hypertensive emergency- improved -continue metoprolol - norvasc was switched to procardia -lasix and lisinopril were added -close outpatient f/u with pcp and this was d/w the patient. NSTEMI- due to hypertensive emergency continue aspirin, and statin myocardial perfusion test with no perfusion defects. cardiology cleared for discharge. chronic renal insufficiency- improving -Monitor BMP. -- Strict I/Os hypokalemia; replaced vaginal bleeding- d/w the patient; she will have a follow-up with [facility] as outpatient - SSI Prophylaxis: GI Prophylaxis with PPI DVT Prophylaxis -- SCDs/subq heparin Discharge Planning BP has much improved. dc home today. see med list. f/u by pcp. d/w the patient and case management. previously d/w . time spent 31 min. Manny Blandon MD Jun 07, 2016 08:12
[2016-06-07] MEDS ORDERED: LIPI20TA PO (08:17)
[2016-06-07] MEDS ORDERED: LIPI40TA PO (08:21)
[2016-06-07 08:25] VITALS: O2SAT 98
[2016-06-07] MEDS: SODIUM CHLORIDE 0.9% FLUSH 5 ML FLUSH IV FLUSH SCH (08:25)
[2016-06-07] MEDS: FUROSEMIDE 40 MG TAB PO SCH (08:25)
[2016-06-07] MEDS: ASPIRIN 81 MG CHEW TAB CHEW SCH (08:25)
[2016-06-07] MEDS: NIFEdipine 60 MG SUSTAINED RELEASE TAB PO SCH (08:26)
[2016-06-07] MEDS: METOPROLOL TARTRATE 25 MG TAB PO SCH (08:26)
[2016-06-07] MEDS: PANTOPRAZOLE SOD 40 MG DELAYED RELEASE TAB PO SCH (08:26)
[2016-06-07] MEDS: LISINOPRIL 5 MG TAB PO SCH (08:26)
[2016-06-07] MEDS: DOCUSATE SODIUM 100 MG/10 ML UDC G-TUBE SCH (08:27)
--- NOTE | 2016-06-07 10:35 | PD.CARD.PN ---
Subjective Subjective Remarks No chest pain, no shortness of breath Objective Medications Current Medications Medications (Trade) Dose Ordered Sig/Aylin Route Start Time Stop Time Status Last Admin (Peridex 0.12% Liq) 15 ml BID@08,20 MT 06/01/16 08:00 06/01/16 08:00 (NS Flush) 2 ml UNSCH PRN IV FLUSH 05/31/16 22:30 (NS Flush) 2 ml BID IV FLUSH 06/01/16 09:00 06/07/16 08:25 (Tylenol) 650 mg Q6H PRN PO 05/31/16 22:30 06/04/16 11:17 (Zofran Inj) 4 mg Q6H PRN IV 05/31/16 22:30 (Colace Liq) 100 mg Q12H G-TUBE 05/31/16 22:30 06/06/16 09:44 (Dulcolax Ec) 10 mg DAILY PRN PO 05/31/16 22:30 (Milk Of Magnesia Liq) 30 ml Q12H PRN PO 05/31/16 22:30 Miscellaneous Information 1 Q361D XX 05/31/16 22:30 (Chlorhexidine 2% Cloth) Taper DAILY@04 TOP 06/01/16 04:00 05/28/17 03:59 06/05/16 04:00 (Chlorhexidine 2% Cloth) 3 pack UNSCH PRN TOP 05/31/16 22:30 (Aspirin Chew) 81 mg DAILY CHEW 06/02/16 09:00 06/07/16 08:25 (Lopressor) 25 mg Q12HR PO 06/01/16 21:00 06/07/16 08:26 (Lipitor) 80 mg HS PO 06/01/16 21:00 06/06/16 20:40 (Trandate Inj) 20 mg Q2H PRN IV 06/01/16 11:00 06/04/16 16:43 (Protonix) 40 mg DAILY PO 06/03/16 09:00 06/07/16 08:26 (Heparin Inj) 5,000 units Q8HR SQ 06/03/16 14:00 06/04/16 22:00 (Apresoline Inj) 10 mg Q30M PRN IV PUSH 06/03/16 21:45 06/05/16 10:41 (Catapres) 0.1 mg Q8H PRN PO 06/04/16 19:30 06/06/16 01:06 (Lasix) 40 mg DAILY PO 06/06/16 09:00 06/07/16 08:25 (Prinivil) 5 mg DAILY PO 06/05/16 09:30 06/07/16 08:26 (Procardia Xl) 60 mg DAILY PO 06/06/16 12:00 06/07/16 08:26 Vital Signs / I&O Vital Signs Date Time Temp Pulse Resp B/P Pulse Ox O2 Delivery O2 Flow Rate FiO2 06/07/16 08:25 98 06/07/16 08:00 98.5 88 16 148/85 95 06/07/16 04:00 97.7 85 20 153/86 100 06/07/16 00:00 97.9 80 16 133/86 98 06/06/16 20:27 92 06/06/16 20:00 97.5 92 16 148/92 96 06/06/16 16:00 86 06/06/16 16:00 97.1 93 22 178/106 96 06/06/16 12:00 98.1 86 22 181/108 97 I/O 06/06/16 06/06/16 06/06/16 06/07/16 06/07/16 06/07/16 07:00 15:00 23:00 07:00 15:00 23:00 Intake Total 360 ml 600 ml 240 ml 1080 ml Balance 360 ml 600 ml 240 ml 1080 ml Intake Oral 360 ml 600 ml 240 ml 1080 ml IV Total 0 ml # Voids 1 3 5 1 # Bowel Movements 1 3 1 Physical Exam GENERAL: NAD SKIN: Warm and dry. HEAD: Atraumatic. Normocephalic. EYES: Pupils equal and round. No scleral icterus. No injection or drainage. ENT: No nasal bleeding or discharge. Mucous membranes pink and moist. NECK: Trachea midline. No JVD. CARDIOVASCULAR: Regular rate and rhythm. RESPIRATORY: No accessory muscle use. CTA B/L GASTROINTESTINAL: Abdomen soft, non-tender, nondistended. Hepatic and splenic margins not palpable. MUSCULOSKELETAL: Extremities without clubbing, cyanosis, or edema. No obvious deformities. NEUROLOGICAL: Awake and alert. No obvious cranial nerve deficits. Motor grossly within normal limits. Five out of 5 muscle strength in the arms and legs. Normal speech. PSYCHIATRIC: Appropriate mood and affect; insight and judgment normal. Laboratory Laboratory Tests Test 06/07/16 05:30 White Blood Count 9.8 TH/MM3 Red Blood Count 4.62 MIL/MM3 Hemoglobin 15.0 GM/DL Hematocrit 44.8 % Mean Corpuscular Volume 97.0 FL Mean Corpuscular Hemoglobin 32.4 PG Mean Corpuscular Hemoglobin 33.4 % Concent Red Cell Distribution Width 14.3 % Platelet Count 265 TH/MM3 Mean Platelet Volume 10.1 FL Assessment and Plan Problem List: (1) Hypertensive emergency (2) Flash pulmonary edema (3) Respiratory disorder with ventilator dependence (4) NSTEMI (non-ST elevated myocardial infarction) (5) Lactic acidosis (6) Tobacco abuse (7) CHERYL (acute kidney injury) Assessment and Plan 1) NSTEMI most likely Type 2 in nature due to HTN emergency and hypoxia 2) Flash pulmonary edema most likely due to HTN emergency 3) Procardia increased which seems to have her blood pressure better, will need good follow up and titration of blood pressure medications out patient 4) Stress test showing no ischemic defects, continue medical management 5) Needs OBGYN follow up for bleeding 6) Cardiovascularly stable for discharge today, blood pressure will not be perfect on discharge, needs follow up, can be placed on Procardia XL 60mg 7) No need for Plavix longer term, can be discontinued Bran Martin DO Jun 07, 2016 10:35
[2016-06-07 13:44] LABS: OBMETHADONE UR NEG (NEG); PHENCYCLIDINE URINE NEG (NEG)
[2016-06-07 13:45] LABS: BATH SALTS (MDPV) UR NEG (NEG); ECSTASY (MDMA) UR NEG (NEG); HEROIN (6-ACETYLMORPHINE) UR NEG (NEG); K2 SPICE UR NEG (NEG)
[2016-06-07 13:46] LABS: OXYCODONE (PERCODAN) NEG (NEG)
[2016-08-01] MEDS ORDERED: METO25TA3 PO (10:57)
[2016-08-01] MEDS ORDERED: LIPI40TA PO (10:57)
[2016-08-01] MEDS ORDERED: FURO1TAB60 PO (10:57)
[2016-08-01] MEDS ORDERED: LISI-519 PO (10:57)
[2016-08-01] MEDS ORDERED: POTA10CA PO (10:57)
[2016-08-01] MEDS ORDERED: NIFE1TAB86 PO (10:57)
[2016-08-01] MEDS ORDERED: OMEP40CA2 PO (10:58)
[2016-08-07] MEDS ORDERED: AMOX500T PO (11:19)
[2016-09-02] MEDS ORDERED: LISI40TA PO (11:56)
[2016-09-02] MEDS ORDERED: FURO1TAB60 PO (11:57)
[2016-09-02] MEDS ORDERED: NIFE1TAB86 PO (11:57)
[2016-09-02] MEDS ORDERED: POTA10CA PO (11:57)
[2016-09-02] MEDS ORDERED: METO25TA3 PO (11:57)
[2016-09-02] MEDS ORDERED: OMEP40CA2 PO (12:06)
[2016-10-07] MEDS ORDERED: CORITAB5 PO (11:53)
[2016-10-07] MEDS ORDERED: CLON.1 PO (11:59)
[2016-10-07] MEDS ORDERED: CLON0.3T PO (12:08)
[2016-10-07] MEDS ORDERED: CETI10 PO (12:10)
[2016-11-07] MEDS ORDERED: OMEP40CA2 PO (15:40)
[2016-11-07] MEDS ORDERED: POTA10CA PO (15:40)
[2016-11-07] MEDS ORDERED: CETI10 PO (15:40)
[2016-11-07] MEDS ORDERED: LISI40TA PO (15:40)
[2016-11-07] MEDS ORDERED: METO25TA3 PO (15:40)
[2016-11-07] MEDS ORDERED: NIFE1TAB86 PO (15:40)
[2016-11-07] MEDS ORDERED: FURO1TAB60 PO (15:40)
[2016-11-07] MEDS ORDERED: CLON.1 PO (15:44)
== END 2016-06-07 11:05 | disposition home or self-care (01) | DRG 208 ==
LOC: NEPE 19:06 → NEDA 21:35 → HIME 06-01 01:05 → N04B 06-05 17:37
PROVIDERS: ADMIT Internal Medicine; ATTEND Internal Medicine
PROC: 5A1935Z Respiratory Ventilation, Less than 24 Consecutive Hours (ICD-10-PCS; principal; 2016-05-31)
PROC: 0BH17EZ Insertion of Endotracheal Airway into Trachea, Via Natural or Artificial Opening (ICD-10-PCS; 2016-05-31)
DX: J96.01 Acute respiratory failure with hypoxia (principal); I21.4 Non-ST elevation (NSTEMI) myocardial infarction; N17.9 Acute kidney failure, unspecified; I16.1 Hypertensive emergency; J81.1 Chronic pulmonary edema; E87.2 Acidosis; I12.9 Hypertensive chronic kidney disease with stage 1 through stage 4 chronic kidney disease, or unspecified chronic kidney disease; N18.9 Chronic kidney disease, unspecified; K52.9 Noninfective gastroenteritis and colitis, unspecified; E78.00 Pure hypercholesterolemia, unspecified; E78.5 Hyperlipidemia, unspecified; E87.6 Hypokalemia; E66.9 Obesity, unspecified; N93.9 Abnormal uterine and vaginal bleeding, unspecified; Z68.23 Body mass index [BMI] 23.0-23.9, adult; Z72.0 Tobacco use; Z91.14 Patient's other noncompliance with medication regimen
CPT/HCPCS: 31500; 36600; 51702; 70450; 71010; 71250; 78452; 80048; 80053; 80061; 80307; 80320; 80329; 81001; 82435; 82550; 82565; 82805; 82947; 83605; 83735; 83880; 84100; 84132; 84295; 84484; 84520; 84703; 85025; 85027; 85610; 85730; 87040; 87086; 87641; 93005; 93017; 93306; 94002; 94003; 94640; 94664; 96365; 96375; A9502; C9113; G0480; G0481; J0330; J0360; J1644; J1940; J2250; J2543; J2785; J2930; J3010; J3370; J3480; J7030; J7050

== ENCOUNTER → 2016-08-01 | Outpatient (CLI) | payer OTHER ==
[~2016-08-01] MED LIST changes: -1-ME1LIQ PO; +AMOX500T PO; -ATEN-102 PO; +Aspirin Chew CHEW; +CETI10 PO; +CLON.1 PO; +CLON0.3T PO; +CORITAB5 PO; +FURO1TAB60 PO; -Hydrocodone/Acetaminophen PO; +LIPI40TA PO; -LISI-363 PO; +LISI-519 PO; +LISI40TA PO; -LOPE2 PO; +METO-309 PO; +METO25TA3 PO; +NIFE1TAB86 PO; +OMEP40CA2 PO; +POTA10CA PO; -SIMV20TA PO
[2016-08-01 13:07] LABS: BICARBONATE 26.8 MEQ/L (21.0-32.0); POTASSIUM 3.6 MEQ/L (3.5-5.1)
== END ==
LOC: CLAB 11:24
PROVIDERS: ATTEND Family Medicine
DX: N28.9 Disorder of kidney and ureter, unspecified (principal)
CPT/HCPCS: 36415; 80069

== ENCOUNTER → 2016-08-05 | Outpatient (CLI) | payer OTHER ==
--- NOTE | 2016-08-05 11:26 | RADRPT ---
EXAM DATE/TIME: 08/05/2016 10:02 [place] COMPARISON: No previous studies available for comparison. INDICATIONS : Renal insufficiency. MEDICAL HISTORY : Hypertension. Hypercholesterolemia. Myocardial infarction. Syncope. Dyspnea. SURGICAL HISTORY : Rectal abscess. ENCOUNTER: Initial ACUITY: 1 day PAIN SCORE: 4/10 LOCATION: Bilateral flank MEASUREMENTS: RIGHT KIDNEY: 11.7 x 5.4 x 4.7 cm LEFT KIDNEY: 11.7 x 5.2 x 6.8 cm FINDINGS: RIGHT KIDNEY: Renal cortex is normal in thickness and echotexture. No hydronephrosis, stone, or mass. LEFT KIDNEY: Renal cortex is normal in thickness and echotexture. No hydronephrosis, stone, or mass. BLADDER: Within normal limits given the degree of distension. CONCLUSION: No acute disease. Ozzy Hansen MD on August 05, 2016 at 11:23 Board Certified Radiologist. This report was verified electronically.
== END ==
LOC: HRAD 09:40
PROVIDERS: ATTEND Family Medicine
DX: N28.9 Disorder of kidney and ureter, unspecified (principal)
CPT/HCPCS: 76775

== ENCOUNTER 2016-11-22 10:40 | Inpatient (IN) | payer OTHER ==
[2016-11-22] VITALS (17 sets, daily range): BP systolic 122–273; BP diastolic 57–147; PULSE 46–88; RESP 16–20; TEMP 98.3–99; O2SAT 96–100
[~2016-11-22] VITALS: Ht 167.6 cm; Wt 65.5 kg
[~2016-11-22 10:40] MED LIST changes: -LACTATED RINGER'S 1000 ML INJ 1,000 ML ONE; -METO-309 PO
--- NOTE | 2016-11-22 11:22 | PD ---
HPI Chief Complaint: Hypertension Time Seen by Provider: 11:20 Travel History International Travel<30 days: No Contact w/Intl Traveler<30days: No Traveled to known affect area: No History of Present Illness HPI 41 year old female presents to the emergency department sent from [facility] for hypertension. Patient states that this is her fourth time having a colonoscopy and every time she has the bowel prep, she has been hypertensive. Patient states she is on clonidine, lisinopril, Toprol, furosemide, nifedipine, omeprazole. She did take her clonidine this morning, but has not taken any of her other medications. She states that she has been off her blood pressure medications, except her clonidine, for 3 days due to financial issues. The patient states she was in the emergency department to have her blood pressure lowered and then she would have to her procedure, colonoscopy and endoscopy, done. The patient states she feels relatively fine. She denies any symptoms. She denies any headache. No chest pain or shortness breath. No abdominal pain. No nausea, vomiting, diarrhea. No weakness or syncope. Patient states that she just wants her procedure to get done. Patient sees Dr. Lehman here at the [facility]. [facility] Past Medical History Asthma: No Autoimmune Disease: No Heart Rhythm Problems: Yes (this admission) Cancer: No Cardiovascular Problems: Yes High Cholesterol: Yes Chest Pain: Yes (this admission) Congestive Heart Failure: No COPD: No Diminished Hearing: No Endocrine: No Gastrointestinal Disorders: Yes (COLITIS) GERD: No Genitourinary: No Hiatal Hernia: No Hypertension: Yes Immune Disorder: No Musculoskeletal: No Neurologic: No Psychiatric: No Reproductive: No Respiratory: Yes Sleep Apnea: No Ulcer: No ?: Not : 4 Para: 2 Miscarriage: 0 : 2 Ectopic : No Ovarian Cysts: No Tubal Ligation: No Past Surgical History Abdominal Surgery: No Cardiac Surgery: No Ear Surgery: No Endocrine Surgery: No Eye Surgery: No Genitourinary Surgery: No Gynecologic Surgery: No Hysterectomy: No Oral Surgery: No Thoracic Surgery: No Other Surgery: Yes (PYLONIDAL CYST) Social History Alcohol Use: Yes (WEEKENDS) Tobacco Use: No Substance Use: Yes (Marijuana daily) Allergies-Medications (Allergen,Severity, Reaction): Coded Allergies: No Known Allergies (Verified , 11/22/16) Reported Meds & Prescriptions Reported Meds & Active Scripts Active Cetirizine (Cetirizine HCl) 10 Mg Tab 10 Mg PO DAILY Omeprazole 40 Mg Cap 40 Mg PO DAILY Potassium Chloride ER (Potassium Chloride) 10 Meq Cap 10 Meq PO DAILY Procardia XL (Nifedipine) 60 Mg Tab 60 Mg PO DAILY Metoprolol Tartrate 25 Mg Tab 25 Mg PO Q12HR Lasix (Furosemide) 40 Mg Tab 40 Mg PO DAILY Lisinopril 40 Mg Tab 40 Mg PO DAILY Clonidine (Clonidine HCl) 0.3 Mg Tab 0.3 Mg PO BID [Aspirin Chew] 81 MG Chew 81 Mg CHEW DAILY 30 Days Reported Coricidin Hbp Flu 15-500-2 mg (Dextromethorphan-Acetaminophen) 1 Tab Tab 500 Mg PO DAILY Review of Systems Except as stated in HPI: all other systems reviewed are Neg Physical Exam Narrative GENERAL: Well-nourished, well-developed female patient, ambulatory. Afebrile. SKIN: Focused skin assessment warm/dry. HEAD: Normocephalic. Atraumatic. EYES: No scleral icterus. No injection or drainage. NECK: Supple, trachea midline. No JVD or lymphadenopathy. CARDIOVASCULAR: Regular rate and rhythm without murmurs, gallops, or rubs. RESPIRATORY: Breath sounds equal bilaterally. No accessory muscle use. Lungs sounds are clear to auscultation. GASTROINTESTINAL: Abdomen soft, non-tender, nondistended. MUSCULOSKELETAL: No cyanosis, or edema. Bilateral upper and lower extremity strength 5/5. All extremities are neurovascularly intact. BACK: Nontender without obvious deformity. No CVA tenderness. NEUROLOGICAL: Awake and alert. Cranial nerves II through XII intact. Motor and sensory grossly within normal limits. Five out of 5 muscle strength in all muscle groups. Normal speech. Finger to nose is normal bilaterally. Heel-to- gardiner is normal bilaterally. Data Data Last Documented VS Vital Signs Date Time Temp Pulse Resp B/P Pulse Ox O2 Delivery O2 Flow Rate FiO2 11/22/16 13:30 54 16 266/147 100 Room Air 11/22/16 10:49 98.3 Orders Nifedipine Sr (Procardia Xl) (11/22/16 11:30) Metoprolol Tartrate (Lopressor) (11/22/16 11:30) Lisinopril (Prinivil) (11/22/16 11:30) Clonidine (Catapres) (11/22/16 13:00) Complete Blood Count With Diff (11/22/16 13:34) Basic Metabolic Panel (Bmp) (11/22/16 13:34) Enalaprilat Inj (Vasotec Inj) (11/22/16 13:45) Labs Laboratory Tests Test 11/22/16 13:50 White Blood Count 4.7 TH/MM3 Red Blood Count 4.39 MIL/MM3 Hemoglobin 14.0 GM/DL Hematocrit 42.9 % Mean Corpuscular Volume 97.8 FL Mean Corpuscular Hemoglobin 31.9 PG Mean Corpuscular Hemoglobin 32.6 % Concent Red Cell Distribution Width 13.8 % Platelet Count 205 TH/MM3 Mean Platelet Volume 10.9 FL Neutrophils (%) (Auto) 47.0 % Lymphocytes (%) (Auto) 41.0 % Monocytes (%) (Auto) 8.0 % Eosinophils (%) (Auto) 3.3 % Basophils (%) (Auto) 0.7 % Neutrophils # (Auto) 2.2 TH/MM3 Lymphocytes # (Auto) 1.9 TH/MM3 Monocytes # (Auto) 0.4 TH/MM3 Eosinophils # (Auto) 0.2 TH/MM3 Basophils # (Auto) 0.0 TH/MM3 CBC Comment DIFF FINAL Differential Comment Sodium Level 142 MEQ/L Potassium Level 3.8 MEQ/L Chloride Level 104 MEQ/L Carbon Dioxide Level 29.0 MEQ/L Anion Gap 9 MEQ/L Blood Urea Nitrogen 16 MG/DL Creatinine 1.21 MG/DL Estimat Glomerular Filtration 59 ML/MIN Rate Random Glucose 80 MG/DL Calcium Level 9.6 MG/DL MDM Medical Decision Making Medical Screen Exam Complete: Yes Emergency Medical Condition: Yes Medical Record Reviewed: Yes Differential Diagnosis Hypertensive emergency versus chronic hypertension versus electrolyte abnormality Narrative Course 41-year-old female was sent to the emergency department for hypertension. She has long history of hypertension and has been off her medications for 3 days. Plus, she states that every time she drinks the bowel prep, her blood pressure becomes elevated. I reviewed recent labs that were done in July. Patient is given nifedipine 60 mg, metoprolol 25 mg, lisinopril 40 mg as these are her chronic medications. Blood pressure remains significant elevated 260 systolic. Patient is given Vasotec 2.5 mg IV. CBC and BMP are drawn. Patient will be admitted. CBC is unremarkable. BMP shows creatinine is 1.21. Dr. Acevedo accepted admission. Diagnosis Primary Impression: Hypertensive urgency Admitting Information Admitting Physician Requests: Observation Nalini Troncoso Nov 22, 2016 11:22
[2016-11-22] MEDS ORDERED: LISINOPRIL 20 MG TAB PO ONE (11:30)
[2016-11-22] MEDS ORDERED: METOPROLOL TARTRATE 25 MG TAB PO ONE (11:30)
[2016-11-22] MEDS ORDERED: NIFEdipine 60 MG SUSTAINED RELEASE TAB PO ONE (11:30)
[2016-11-22] MEDS ORDERED: cloNIDine HCL 0.1 MG TAB PO ONE (13:00)
[2016-11-22] MEDS ORDERED: ENALAPRILAT 2.5 MG/2 ML VIAL IV PUSH ONE (13:45)
[2016-11-22 14:00] LABS: AUTOMATED NEUTROPHIL # 2.2 TH/MM3 (1.8-7.7); BASOPHIL % 0.7 % (0.0-2.0); EOSINOPHIL # 0.2 TH/MM3 (0-0.4); EOSINOPHIL % 3.3 % (0.0-4.0); HEMATOCRIT 42.9 % (35.0-46.0); HEMO FLAGS DIFF FINAL; LYMPHOCYTE # 1.9 TH/MM3 (1.0-4.8); MEAN CELL VOLUME 97.8 FL (80.0-100.0); MEAN CORPUSCULAR HEMOGLOBIN 31.9 PG (27.0-34.0); MEAN CORPUSCULAR HGB CONC 32.6 % (32.0-36.0); PLATELET COUNT 205 TH/MM3 (150-450); RED BLOOD COUNT 4.39 MIL/MM3 (4.00-5.30); RED CELL DISTRIBUTION WIDTH 13.8 % (11.6-17.2); WHITE BLOOD COUNT 4.7 TH/MM3 (4.0-11.0)
[2016-11-22 14:13] LABS: POTASSIUM 3.8 MEQ/L (3.5-5.1)
[2016-11-22] MEDS ORDERED: hydrALAZINE HCL 20 MG/ML VIAL IV PRN (15:00)
[2016-11-22] MEDS ORDERED: ENALAPRILAT 1.25 MG/ML VIAL IV PRN (15:00)
[2016-11-22] MEDS ORDERED: LABETALOL HCL 100 MG/20 ML VIAL IV PRN (15:00)
[2016-11-22] MEDS ORDERED: SODIUM CHLORIDE 0.9% FLUSH 10 ML FLUSH IV FLUSH PRN (15:00)
[2016-11-22] MEDS ORDERED: ONDANSETRON HCL 4 MG/2 ML VIAL IVP PRN (15:00)
[2016-11-22] MEDS ORDERED: ACETAMINOPHEN 325 MG TAB PO PRN (15:00)
[2016-11-22] MEDS ORDERED: cloNIDine HCL 0.1 MG TAB PO PRN (15:00)
[2016-11-22] MEDS ORDERED: NALOXONE HCL 0.4 MG/ML AMP IV PRN (15:00)
--- NOTE | 2016-11-22 15:20 | HHI.HP ---
cc: Mari Lehman MD [facility] Service [facility] Primary Care Physician No Primary Care Physician Admission Diagnosis hypertensive urgency Diagnoses: Chief Complaint: The blood pressure is elevated. I do not take my medications. Travel History International Travel<30 Days: No Contact w/Intl Traveler <30 Da: No Traveled to Known Affected Are: No History of Present Illness 41-year-old female with a history of hypertension, hyperlipidemia was transferred here from [facility] due to findings of significant elevated blood pressures preprocedure operation for a colonoscopy. Patient states that she underwent GoLYTELY over night to complete her bowel prep for a diagnostic colonoscopy due to her recent symptoms of weight loss with chronic diarrhea. In addition she stated that she was not able to take her home medications as of her clonidine 0.3 mg due to financial difficulties and renewing her medications. She states that she finally got her medication revealed however did not take those the past 3 days. She feels that undergoing GoLYTELY also contributed to her elevated blood pressure not just attributed to not taking her home antihypertensives. She denies any associated headaches, visual changes, chest pain nor any shortness of breath at this time. She has been emergency room multiple doses of IV Vasotec, by mouth Procardia, by mouth clonidine, by mouth lisinopril, by mouth Lopressor was given with no impact to her blood pressure. Review her history, she was previous admitted to intensive care unit for hypertensive urgency and social pulmonary edema for also history of lung adherence to her medications. At that time she also can confirm she was in intensive care unit multiple days with even medication infusions to get her blood pressure better controlled and down. Review of Systems Constitutional: COMPLAINS OF: Weight loss, DENIES: Fatigue, Fever, Chills, Change in appetite Endocrine: DENIES: Heat/cold intolerance Eyes: DENIES: Blurred vision, Eye pain, Vision loss Ears, nose, mouth, throat: DENIES: Hearing loss, Nasal discharge, Throat pain, Ear Pain, Sinus Pain Respiratory: DENIES: Cough, Shortness of breath Cardiovascular: DENIES: Chest pain, Palpitations, Dyspnea on Exertion, Lower Extremity Edema Gastrointestinal: DENIES: Abdominal pain, Black stools, Bloody stools, Constipation, Diarrhea, Nausea, Vomiting Genitourinary: DENIES: Dysuria Musculoskeletal: DENIES: Joint pain, Muscle aches, Stiffness Integumentary: DENIES: Rash Hematologic/lymphatic: DENIES: Bruising, Lymphadenopathy Immunologic/allergic: DENIES: Eczema Neurologic: DENIES: Headache, Localized weakness, Paresthesias Psychiatric: DENIES: Anxiety, Depression, Suicidal Ideation Past Family Social History Past Medical History Hypertension Hyperlipidemia colitis Rectal abscess Recent history of weight loss and diarrhea. Past Surgical History I&D of rectal abscess Reported Medications Cetirizine (Cetirizine HCl) 10 Mg Tab 10 Mg PO DAILY Omeprazole 40 Mg Cap 40 Mg PO DAILY Potassium Chloride ER (Potassium Chloride) 10 Meq Cap 10 Meq PO DAILY Procardia XL (Nifedipine) 60 Mg Tab 60 Mg PO DAILY Metoprolol Tartrate 25 Mg Tab 25 Mg PO Q12HR Lasix (Furosemide) 40 Mg Tab 40 Mg PO DAILY Lisinopril 40 Mg Tab 40 Mg PO DAILY Clonidine (Clonidine HCl) 0.3 Mg Tab 0.3 Mg PO BID [Aspirin Chew] 81 MG Chew 81 Mg CHEW DAILY 30 Days She reports of the above medications only medication she was taking was clonidine. She was not taking the rest for the past 3 days. Allergies: Coded Allergies: No Known Allergies (Verified , 11/22/16) Family History Mother has sleep apnea hypertension Social History Does not smoke cigarettes Weekend social use of alcohol and possible marijuana. Physical Exam Vital Signs Vital Signs Date Time Temp Pulse Resp B/P Pulse Ox O2 Delivery O2 Flow Rate FiO2 11/22/16 13:30 54 16 266/147 100 Room Air 11/22/16 12:00 46 16 249/124 100 Room Air 11/22/16 10:49 98.3 54 16 269/142 100 Physical Exam GENERAL: This is a well-nourished, well-developed patient, in no apparent distress. SKIN: No rashes, ecchymoses or lesions. Cool and dry. HEAD: Atraumatic. Normocephalic. No temporal or scalp tenderness. EYES: Pupils equal round and reactive. Extraocular motions intact. No scleral icterus. No injection or drainage. ENT: Nose without bleeding, purulent drainage or septal hematoma. Throat without erythema, tonsillar hypertrophy or exudate. Uvula midline. Airway patent. NECK: Trachea midline. No JVD or lymphadenopathy. Supple, nontender, no meningeal signs. CARDIOVASCULAR: Regular rate and rhythm RESPIRATORY: Clear to auscultation. Breath sounds equal bilaterally. No wheezes , rales, or rhonchi. GASTROINTESTINAL: Abdomen soft, non-tender, nondistended. Normoactive bowel sounds. MUSCULOSKELETAL: Extremities without clubbing, cyanosis, or edema. No joint tenderness, effusion, or edema noted. NEUROLOGICAL: Awake and alert to person place time and situation. Cranial nerves II through XII intact. Motor and sensory grossly within normal limits. Five out of 5 muscle strength in all muscle groups. Normal speech. Laboratory Laboratory Tests Test 11/22/16 13:50 White Blood Count 4.7 Red Blood Count 4.39 Hemoglobin 14.0 Hematocrit 42.9 Mean Corpuscular Volume 97.8 Mean Corpuscular Hemoglobin 31.9 Mean Corpuscular Hemoglobin 32.6 Concent Red Cell Distribution Width 13.8 Platelet Count 205 Mean Platelet Volume 10.9 Neutrophils (%) (Auto) 47.0 Lymphocytes (%) (Auto) 41.0 Monocytes (%) (Auto) 8.0 Eosinophils (%) (Auto) 3.3 Basophils (%) (Auto) 0.7 Neutrophils # (Auto) 2.2 Lymphocytes # (Auto) 1.9 Monocytes # (Auto) 0.4 Eosinophils # (Auto) 0.2 Basophils # (Auto) 0.0 CBC Comment DIFF FINAL Differential Comment Sodium Level 142 Potassium Level 3.8 Chloride Level 104 Carbon Dioxide Level 29.0 Anion Gap 9 Blood Urea Nitrogen 16 Creatinine 1.21 Estimat Glomerular Filtration 59 Rate Random Glucose 80 Calcium Level 9.6 Result Diagram: 11/22/16 1350 11/22/16 1350 Assessment and Plan Problem List: (1) Hypertensive urgency ICD Code: I16.0 Status: Acute Assessment and Plan 1. Hypertensive urgency-patient has had no response to multiple antihypertensives medications given the emergency room including IV Vasotec leading to continued blood pressures of systolic greater than 270s and diastolic greater the 130s, she is to be admitted for continued close monitoring of blood pressure with the possibility of given additional IV medications with possibility of need to start nifedipine infusion drip if blood pressure continues to be severely elevated causing significant risk for pulmonary edema, stroke, intracranial bleed, and other complications. We'll continue monitor blood pressure closely 2. Hyperlipidemialow-fat diet. 3. Recent weight loss with chronic diarrheafollow-up with primary care physician GI to reschedule diagnostic colonoscopy as an outpatient upon discharge. 4. CKD stage 3 - chronic on mari inhibitor. 5. DVT prophylaxisLovenox Physician Certification 2 Midnight Certification Type: Admission for Inpatient Services Order for Inpatient Services The services are ordered in accordance with Medicare regulations or non- Medicare payer requirements, as applicable. In the case of services not specified as inpatient-only, they are appropriately provided as inpatient services in accordance with the 2-midnight benchmark. Estimated LOS (days): 2 days is the estimated time the patient will need to remain in the hospital, assuming treatment plan goals are met and no additional complications. Post-Hospital Plan: Home Carmen Acevedo MD Nov 22, 2016 15:20
[2016-11-22] MEDS ORDERED: hydrALAZINE HCL 20 MG/ML VIAL IV PUSH ONE (15:30)
[2016-11-22] MEDS ORDERED: ENALAPRILAT 1.25 MG/ML VIAL IV PUSH ONE (15:30)
[2016-11-22] MEDS ORDERED: ENOXAPARIN SODIUM 40 MG/0.4 ML SYRINGE SQ SCH (16:00)
[2016-11-22] MEDS: cloNIDine HCL 0.3 MG TAB PO SCH (20:43)
[2016-11-22] MEDS: SODIUM CHLORIDE 0.9% FLUSH 10 ML FLUSH IV FLUSH SCH (20:43)
[2016-11-22] MEDS ORDERED: METOPROLOL TARTRATE 25 MG TAB PO SCH (21:00)
[2016-11-23] VITALS (10 sets, daily range): BP systolic 152–157; BP diastolic 99–101; PULSE 67–84; RESP 18–20; TEMP 98.6–98.8; O2SAT 98
[2016-11-23] MEDS: METOPROLOL TARTRATE 50 MG TAB PO SCH ×2 (08:39→08:50)
[2016-11-23] MEDS: cloNIDine HCL 0.3 MG TAB PO SCH (08:40)
[2016-11-23] MEDS: SODIUM CHLORIDE 0.9% FLUSH 10 ML FLUSH IV FLUSH SCH (08:40)
[2016-11-23] MEDS ORDERED: ACETAMINOPHEN PO SCH (09:00)
[2016-11-23] MEDS ORDERED: CHLORPHENIRAMINE PO SCH (09:00)
[2016-11-23] MEDS ORDERED: NIFEdipine 60 MG SUSTAINED RELEASE TAB PO SCH (09:00)
[2016-11-23] MEDS ORDERED: LISINOPRIL 20 MG TAB PO SCH (09:00)
[2016-11-23] MEDS ORDERED: ASPIRIN 81 MG CHEW TAB CHEW SCH (09:00)
[2016-11-23] MEDS ORDERED: NON-FORMULARY DRUG (Omeprazole 40 MG) PO SCH (09:00)
[2016-11-23] MEDS ORDERED: FUROSEMIDE 40 MG TAB PO SCH (09:00)
[2016-11-23] MEDS ORDERED: PANTOPRAZOLE SOD 40 MG DELAYED RELEASE TAB PO SCH (09:00)
[2016-11-23] MEDS ORDERED: [UNRECOGNIZED DRUG - OTHER] PO SCH (09:00)
[2016-11-23] MEDS ORDERED: POTASSIUM CHLORIDE 10 MEQ CAP PO SCH (09:00)
[2016-11-23] MEDS ORDERED: DEXTROMETHORPHAN PO SCH (09:00)
[2016-11-23] MEDS ORDERED: METO-309 PO (09:02)
--- NOTE | 2016-11-23 09:06 | HHI.PR ---
Subjective Remarks Denies any headache, nausea or vomiting. Denies any chest pain or abdominal pain. Blood pressures in the 150s, agreed to going up on metoprolol. She thinks that her hypertension is secondary to her colonic prep. She missed 3 days of blood pressure pills. Objective Vitals Vital Signs Date Time Temp Pulse Resp B/P Pulse Ox O2 Delivery O2 Flow Rate FiO2 11/23/16 08:00 69 11/23/16 07:00 98.8 67 18 152/99 98 11/23/16 07:00 73 11/23/16 06:00 74 11/23/16 05:00 69 11/23/16 04:00 73 11/23/16 03:00 98.6 75 20 157/101 98 11/23/16 03:00 70 11/23/16 02:09 77 11/23/16 01:00 72 11/23/16 00:00 84 11/22/16 23:00 98.7 72 18 153/98 99 11/22/16 23:00 68 11/22/16 22:00 74 11/22/16 21:00 80 11/22/16 20:00 86 11/22/16 19:00 82 11/22/16 19:00 99.0 88 20 156/93 98 11/22/16 18:00 84 11/22/16 17:40 85 18 154/59 98 11/22/16 16:30 78 16 137/74 97 Room Air 11/22/16 16:00 80 16 122/57 97 Room Air 11/22/16 15:30 84 16 128/58 98 Room Air 11/22/16 15:00 52 16 264/127 97 Room Air 11/22/16 14:30 52 16 271/135 96 Room Air 11/22/16 14:00 52 16 273/134 97 Room Air 11/22/16 13:30 54 16 266/147 100 Room Air 11/22/16 12:30 46 16 251/127 97 Room Air 11/22/16 12:00 46 16 249/124 100 Room Air 11/22/16 10:49 98.3 54 16 269/142 100 I/O 11/22/16 11/22/16 11/22/16 11/23/16 11/23/16 11/23/16 07:00 15:00 23:00 07:00 15:00 23:00 Intake Total 720 ml Output Total 300 ml Balance 420 ml Intake Oral 720 ml Output Urine Total 300 ml # Voids 3 Result Diagram: 11/22/16 1350 11/22/16 1350 Objective Remarks Not in distress, well-nourished, looks stated age PERRL, pink conjunctiva without injection, anicteric Nose without bleeding, airway patent, oropharynx clear Supple neck, no masses or thyromegaly, trachea midline Normal rate and regular rhythm, no murmurs gallops or rubs appreciated. Clear to auscultation and symmetric bilaterally, normal respiratory effort. Normal bowel sounds, soft, non-tender, nondistended, no guarding. Extremities without clubbing, cyanosis, or edema. No rash of generalized distribution. Skin is warm and dry. AAO x3, no cranial nerve deficits, moves all 4 extremities, no focal neurologic deficits Normal mood, appropriate affect A/P Problem List: (1) Hypertensive urgency ICD Code: I16.0 Status: Acute Assessment and Plan This is a 41-year-old female who was supposed to get a colonoscopy but was found to have a systolic blood pressure of 270s hence admitted to the hospital. 1. Hypertensive urgency- part is secondary to noncompliance resolving, blood pressure still mildly elevated despite being back on home medications. Increase metoprolol to 50 mg twice a day. Advised patient to keep home dose for now, she has a sphygmomanometer, if blood pressure still above 150 systolic in the next 3 days, she was instructed to take the higher dose of metoprolol. Follow-up with primary care physician in one week. 2. Hyperlipidemialow-fat diet. 3. Recent weight loss with chronic diarrheafollow-up with primary care physician GI to reschedule diagnostic colonoscopy as an outpatient upon discharge. 4. CKD stage 3 - chronic on mari inhibitor. 5. DVT prophylaxisLovenox Discharge patient to home Condition on discharge: Improved Regular Diet as tolerated Ad Angela activity Rx written: Metoprolol 50 mg twice a day Follow-up with primary care physician one week Patient's blood pressure improved and responded to treatment faster than usual. Aline Garcia MD Nov 23, 2016 09:06
== END 2016-11-23 10:05 | disposition home or self-care (01) | DRG 305 ==
LOC: NEPE 10:40 → NEDA 14:30 → OBSVTOIN 15:20 → HCIS 17:36
PROVIDERS: ADMIT Hospitalist; ATTEND Hospitalist
DX: I16.0 Hypertensive urgency (principal); N18.3 Chronic kidney disease, stage 3 (moderate); I12.9 Hypertensive chronic kidney disease with stage 1 through stage 4 chronic kidney disease, or unspecified chronic kidney disease; F12.90 Cannabis use, unspecified, uncomplicated; E78.5 Hyperlipidemia, unspecified; Z91.19 Patient's noncompliance with other medical treatment and regimen
CPT/HCPCS: 80048; 85025; 96374; J0360

== ENCOUNTER → 2016-11-22 | Day surgery (SDC) | payer OTHER ==
[~2016-11-22] MED LIST changes: -AMOX500T PO; -CLON.1 PO; +LACTATED RINGER'S 1000 ML INJ 1,000 ML ONE; -LIPI40TA PO; -LISI-519 PO
== END | disposition home or self-care (01) ==
LOC: ESDC 08:33
PROVIDERS: ATTEND Internal Medicine Gastroenterology
DX: R19.7 Diarrhea, unspecified (principal); Z53.09 Procedure and treatment not carried out because of other contraindication; I10 Essential (primary) hypertension
CPT/HCPCS: 99211; G0463; J7120

== ENCOUNTER → 2016-12-03 | Outpatient (CLI) | payer OTHER ==
[~2016-12-03] MED LIST changes: +METO-309 PO; -METO25TA3 PO
[2016-12-03 09:18] LABS: AUTOMATED NEUTROPHIL # 2.8 TH/MM3 (1.8-7.7); BASOPHIL % 0.6 % (0.0-2.0); EOSINOPHIL # 0.2 TH/MM3 (0-0.4); EOSINOPHIL % 4.4 % (0.0-4.0); HEMATOCRIT 43.9 % (35.0-46.0); HEMO FLAGS DIFF FINAL; LYMPH % 26.8 % (9.0-44.0); LYMPHOCYTE # 1.2 TH/MM3 (1.0-4.8); MEAN CORPUSCULAR HEMOGLOBIN 32.2 PG (27.0-34.0); MEAN CORPUSCULAR HGB CONC 33.2 % (32.0-36.0); MONO % 5.8 % (0.0-8.0); NEUT % 62.4 % (16.0-70.0); PLATELET COUNT 224 TH/MM3 (150-450); RED BLOOD COUNT 4.53 MIL/MM3 (4.00-5.30); RED CELL DISTRIBUTION WIDTH 13.7 % (11.6-17.2); WHITE BLOOD COUNT 4.6 TH/MM3 (4.0-11.0)
[2016-12-03 09:25] LABS: ANION GAP 7 MEQ/L (5-15); AST (GOT) 15 U/L (15-37); BICARBONATE 30.3 MEQ/L (21.0-32.0); BLOOD UREA NITROGEN 19 MG/DL (7-18); CHLORIDE 103 MEQ/L (98-107); GLOMERULAR FILTRATION RATE 57 ML/MIN (>89); GLUCOSE,FASTING 139 MG/DL (74-99); POTASSIUM 3.5 MEQ/L (3.5-5.1); SODIUM (NA) 140 MEQ/L (136-145)
[2016-12-03 09:27] LABS: ALT (GPT) 21 U/L (10-53)
[2016-12-03 09:29] LABS: ALKALINE PHOSPHATASE 74 U/L (45-117); TOTAL BILIRUBIN ADULT 0.4 MG/DL (0.2-1.0)
== END ==
LOC: CLAB 08:43
PROVIDERS: ATTEND Family Medicine
DX: Z00.00 Encounter for general adult medical examination without abnormal findings (principal); Z01.818 Encounter for other preprocedural examination; R19.7 Diarrhea, unspecified; R63.4 Abnormal weight loss
CPT/HCPCS: 36415; 80053; 85025

== ENCOUNTER → 2017-01-06 | Day surgery (SDC) | payer OTHER ==
[~2017-01-06] MED LIST changes: +LACTATED RINGER'S 1000 ML INJ 1,000 ML ONE; +PROPOFOL 500 MG/50 ML BTL IV ONE; +PROT40TA PO
--- NOTE | 2017-01-06 15:47 | GIPROC ---
[facility] [address] [facility], [address] EGD PROCEDURE REPORT EXAM DATE: 01/06/2017 PATIENT NAME: Topher Carlisle MR #: [id number] BIRTHDATE: 1975 ATTENDING: Lavell Joe MD ORDER #: [id number] CREDIT RISK ANALYTICS MANAGER: Tanya Hoskins RN STATUS: outpatient INDICATIONS: The patient is a 41 yr old female here for an EGD due to chronic diarrhea and unexplained diarrhea PROCEDURE PERFORMED: EGD w/ biopsy MEDICATIONS: None and Per Anesthesia. TOPICAL ANESTHETIC: none CONSENT: The patient understands the risks and benefits of the procedure and understands that these risks include, but are not limited to: sedation, allergic reaction, infection, perforation and/or bleeding. Alternative means of evaluation and treatment include, among others: physical exam, x-rays, and/or surgical intervention. The patient elects to proceed with this endoscopic procedure. medical equipment was checked for proper function. Hand hygiene and appropriate measures for infection prevention was taken. After the risks, benefits and alternatives of the procedure were thoroughly explained, Informed consent was verified, confirmed and timeout was successfully executed by the treatment team. The patient was anesthetized with topical anesthesia and the EC-3490Li ([id number]) endoscope was introduced through the mouth and advanced to the second portion of the duodenum. Retroflexed views revealed no abnormalities The gastroscope was then slowly withdrawn and removed. Moderate gastritis Bx from antrum. The endoscopy was otherwise normal. Bx from duodenum for diarrhea R/O Celiac Dx. ADVERSE EVENTS: There were no complications. IMPRESSIONS: 1. Moderate gastritis Bx from antrum 2. Normal endoscopy otherwise 3. Retroflexed views revealed no abnormalities RECOMMENDATIONS: 1. Await biopsy results. Biopsy results will not be ready for 7-10 days. If you don't hear from us in two weeks, call our office for biopsy results. 2. Anti-reflux regimen 3. Avoid NSAIDS 4. Protonix 40mg Q AM PATIENT CONDITION: stable DISPOSITION: Home REPEAT EXAM: Return as needed for EGD Lavell Joe MD eSigned: Lavell Joe MD 01/06/2017 3:46 PM cc: Omkar barajas M.D.
--- NOTE | 2017-01-06 15:49 | GIPROC ---
[facility] [address] [facility], [address] COLONOSCOPY PROCEDURE REPORT EXAM DATE: 01/06/2017 PATIENT NAME: Topher Carlisle MR #: [id number] BIRTHDATE: 1975 ENDOSCOPIST: Lavell Joe MD ORDER #: [id number] WEARING APPAREL ASSEMBLER: Tanya Hoskins RN STATUS: outpatient INDICATIONS: The patient is a 41 yr old female here for a colonoscopy due to weight loss, high risk patient with personal history of colonic polyps, and unexplained diarrhea PROCEDURE PERFORMED: Colonoscopy with biopsy MEDICATIONS: None and Per Anesthesia. PREP QUALITY: fair ESTIMATED BLOOD LOSS: None CONSENT: The patient understands the risks and benefits of the procedure and understands that these risks include, but are not limited to: sedation, allergic reaction, infection, perforation and/or bleeding. Alternative means of evaluation and treatment include, among others: physical exam, x-rays, and/or surgical intervention. The patient elects to proceed with this endoscopic procedure. medical equipment was checked for proper function. Hand hygiene and appropriate measures for infection prevention was taken. After the risks, benefits and alternatives of the procedure were thoroughly explained, Informed consent was verified, confirmed and timeout was successfully executed by the treatment team. A digital exam revealed no abnormalities of the rectum The EC-[id number] ([id number]) endoscope was introduced through the anus and advanced to the cecum, which was identified by both the appendix and ileocecal valve. The instrument was then slowly withdrawn as the colon was fully examined. COLON FINDINGS: The colonic mucosa appeared normal. Random Bx from cecum and sigmoid for diarrhea evaluation. Retroflexed views revealed no abnormalities The scope was then completely withdrawn from the patient and the procedure terminated. ADVERSE EVENTS: There were no complications. IMPRESSIONS: 1. The colonic mucosa appeared normal 2. Random Bx from cecum and sigmoid for diarrhea evaluation 3. Retroflexed views revealed no abnormalities 4. Revealed no abnormalities of the rectum RECOMMENDATIONS: 1. Await biopsy results. Biopsy results will not be ready for 7-10 days. If you don't hear from us in two weeks, call our office for results. 2. Yearly hemoccult 3. High fiber diet 4. RTC in 3 wks RECALL: Return 5 years Colonoscopy Lavell Joe MD eSigned: Lavell Joe MD 01/06/2017 3:49 PM cc: Omkar barajas M.D.
== END | disposition home or self-care (01) ==
LOC: ESDC 10:59
PROVIDERS: ATTEND Hospitalist
DX: R19.7 Diarrhea, unspecified (principal); R63.4 Abnormal weight loss; Z86.010 Personal history of colon polyps; K29.70 Gastritis, unspecified, without bleeding
CPT/HCPCS: 00740; 00810; 43239; 45380; 88305; J3010; J7120

== ENCOUNTER → 2017-02-14 | Outpatient (CLI) | payer OTHER ==
[~2017-02-14] MED LIST changes: -LACTATED RINGER'S 1000 ML INJ 1,000 ML ONE; -PROPOFOL 500 MG/50 ML BTL IV ONE
[2017-02-14 12:16] LABS: ALT (GPT) 21 U/L (10-53)
[2017-02-14 12:18] LABS: ALKALINE PHOSPHATASE 87 U/L (45-117); TOTAL BILIRUBIN ADULT 0.8 MG/DL (0.2-1.0)
[2017-02-14 12:21] LABS: ANION GAP 6 MEQ/L (5-15); AST (GOT) 15 U/L (15-37); BICARBONATE 28.3 MEQ/L (21.0-32.0); BLOOD UREA NITROGEN 21 MG/DL (7-18); CHLORIDE 104 MEQ/L (98-107); GLOMERULAR FILTRATION RATE 53 ML/MIN (>89); GLUCOSE,FASTING 84 MG/DL (74-99); POTASSIUM 4.2 MEQ/L (3.5-5.1); SODIUM (NA) 138 MEQ/L (136-145)
== END ==
LOC: CLAB 09:44
PROVIDERS: ATTEND Family Medicine
DX: R63.4 Abnormal weight loss (principal); K52.9 Noninfective gastroenteritis and colitis, unspecified
CPT/HCPCS: 36415; 80053

== ENCOUNTER 2017-10-18 12:04 | Inpatient (IN) | payer SELFPAY ==
[~2017-10-18] VITALS: Ht 167.6 cm; Wt 68.0 kg
[2017-10-18] VITALS (9 sets, daily range): BP systolic 144–204; BP diastolic 78–114; PULSE 79–93; RESP 16–22; TEMP 98.6–98.7; O2SAT 96–100
--- NOTE | 2017-10-18 12:24 | PD ---
HPI Chief Complaint: Cardiac Complaint Time Seen by Provider: 12:13 Travel History International Travel<30 days: No Contact w/Intl Traveler<30days: No Traveled to known affect area: No History of Present Illness HPI 42yo F with PMH of HTN, CAD presents to the ED with c/o midsternal chest pain for an hour. Pain is sharp and full, nonradiating and constant. Severity is moderate, about 5 out of 10. No exacerbating or alleviating factors. Denies any sob, nausea, diaphoresis, fever, cough, vomiting, abdominal pain, focal weakness or numbness. PFSH Past Medical History Asthma: No Autoimmune Disease: No Heart Rhythm Problems: Yes (this admission) Cancer: No Cardiovascular Problems: Yes High Cholesterol: Yes Chest Pain: Yes (this admission) Congestive Heart Failure: No COPD: No Diminished Hearing: No Endocrine: No Gastrointestinal Disorders: Yes (COLITIS) GERD: No Genitourinary: No Hiatal Hernia: No Hypertension: Yes Immune Disorder: No Musculoskeletal: No Neurologic: No Psychiatric: No Reproductive: No Respiratory: Yes Sleep Apnea: No Ulcer: No : 4 Para: 2 Miscarriage: 0 : 2 Ectopic : No Ovarian Cysts: No Tubal Ligation: No Past Surgical History Abdominal Surgery: No Cardiac Surgery: No Ear Surgery: No Endocrine Surgery: No Eye Surgery: No Genitourinary Surgery: No Gynecologic Surgery: No Hysterectomy: No Oral Surgery: No Thoracic Surgery: No Other Surgery: Yes (PYLONIDAL CYST) Social History Alcohol Use: Yes (WEEKENDS) Tobacco Use: No Substance Use: Yes (Marijuana daily) Allergies-Medications (Allergen,Severity, Reaction): Coded Allergies: No Known Allergies (Verified Allergy, Unknown, 10/18/17) Reported Meds & Prescriptions Reported Meds & Active Scripts Active Protonix (Pantoprazole Sodium) 40 Mg Tab 40 Mg PO DAILY Lisinopril 40 Mg Tab 40 Mg PO DAILY Clonidine (Clonidine HCl) 0.3 Mg Tab 0.3 Mg PO TID Lopressor (Metoprolol Tartrate) 50 Mg Tab 50 Mg PO Q12HR Cetirizine (Cetirizine HCl) 10 Mg Tab 10 Mg PO DAILY Omeprazole 40 Mg Cap 40 Mg PO DAILY Potassium Chloride ER (Potassium Chloride) 10 Meq Cap 10 Meq PO DAILY Procardia XL (Nifedipine) 60 Mg Tab 60 Mg PO DAILY Lasix (Furosemide) 40 Mg Tab 40 Mg PO DAILY [Aspirin Chew] 81 MG Chew 81 Mg CHEW DAILY 30 Days Reported Hydrochlorothiazide 25 Mg Tab 25 Mg PO BID Coricidin Hbp Flu 15-500-2 mg (Dextromethorphan-Acetaminophen) 1 Tab Tab 500 Mg PO DAILY Review of Systems Except as stated in HPI: all other systems reviewed are Neg Physical Exam Narrative GENERAL: 42yo F in mild distress. SKIN: Focused skin assessment warm/dry. HEAD: Atraumatic. Normocephalic. EYES: Pupils equal and round. No scleral icterus. No injection or drainage. ENT: No nasal bleeding or discharge. Mucous membranes pink and moist. NECK: Trachea midline. No JVD. CARDIOVASCULAR: Regular rate and rhythm. No murmur appreciated. RESPIRATORY: No accessory muscle use. Clear to auscultation. Breath sounds equal bilaterally. GASTROINTESTINAL: Abdomen soft, non-tender, nondistended. MUSCULOSKELETAL: No obvious deformities. No clubbing. No cyanosis. No edema. NEUROLOGICAL: Awake and alert. No obvious cranial nerve deficits. Motor grossly within normal limits. Normal speech. PSYCHIATRIC: Appropriate mood and affect; insight and judgment normal. Data Data Last Documented VS Vital Signs Date Time Temp Pulse Resp B/P (MAP) Pulse Ox O2 Delivery O2 Flow Rate FiO2 10/18/17 14:15 79 18 201/114 (143) 99 Room Air 10/18/17 12:09 98.6 Orders Orders Basic Metabolic Panel (Bmp) (10/18/17 12:19) Complete Blood Count With Diff (10/18/17 12:19) Magnesium (Mg) (10/18/17 12:19) Prothrombin Time / Inr (Pt) (10/18/17 12:19) Act Partial Throm Time (Ptt) (10/18/17 12:19) Troponin I (10/18/17 12:19) Chest, Single Ap (10/18/17 12:19) Aspirin (Aspirin) (10/18/17 12:30) Nitroglycerin Sl (Nitrostat Sl) (10/18/17 12:30) Labetalol Inj (Trandate Inj) (10/18/17 13:30) Nitroglycerin 2% Oint (Nitroglycerin 2% (10/18/17 14:00) Clonidine (Catapres) (10/18/17 22:00) Metoprolol Tartrate (Lopressor) (10/18/17 21:00) Nifedipine Sr (Procardia Xl) (10/19/17 09:00) Aspirin Chew (Aspirin Chew) (10/19/17 09:00) Admit Order (Ed Use Only) (10/18/17 13:49) Creatine Kinase (Cpk) (10/19/17 00:00) Troponin I (10/19/17 00:00) Electrocardiogram (10/18/17 18:00) Electrocardiogram (10/19/17 00:00) Nitroglycerin 2% Oint (Nitroglycerin 2% (10/19/17 18:00) Nitroglycerin Sl (Nitrostat Sl) (10/18/17 14:00) Magnesium (Mg) (10/18/17 13:50) Potassium Chloride (Kcl) (10/18/17 14:00) Hydralazine Inj (Apresoline Inj) (10/18/17 18:00) Clonidine (Catapres) (10/18/17 14:00) Nicardipine Inj (Cardene Inj) (10/18/17 14:00) Admit To Inpatient (10/18/17 ) Vital Signs (Adult) Q4H (10/18/17 13:53) Activity Oob With Assistance (10/18/17 13:53) Manager Port / Telemetry .CONTINUOUS (10/18/17 13:53) Diet Heart Healthy (10/18/17 Lunch) Sodium Chloride 0.9% Flush (Ns Flush) (10/18/17 14:00) Sodium Chloride 0.9% Flush (Ns Flush) (10/18/17 21:00) Acetaminophen (Tylenol) (10/18/17 15:00) Ondansetron Inj (Zofran Inj) (10/18/17 18:00) Basic Metabolic Panel (Bmp) (10/19/17 06:00) Complete Blood Count With Diff (10/19/17 06:00) Resp Oxygen Fredrick C Titrat 1-4 L (10/18/17 ) Pt Request For Service (10/18/17 13:53) Case Management Consult (10/18/17 13:53) Scd Bilateral/Knee High RELL.BID (10/18/17 13:53) Acetaminophen (Tylenol) (10/18/17 14:00) Naloxone Inj (Narcan Inj) (10/18/17 14:00) Docusate Sodium-Senna (Negin-Colace) (10/18/17 21:00) Sennosides (Senokot) (10/18/17 21:00) Bisacodyl Supp (Dulcolax Supp) (10/18/17 14:00) Lactulose Liq (Lactulose Liq) (10/18/17 14:00) Inpatient Certification (10/18/17 ) ^ Other Nursing Orders (10/18/17 15:15) Patient Transfer (10/18/17 ) Clonidine (Catapres) (10/18/17 14:00) Creatine Kinase (Cpk) (10/18/17 18:00) Troponin I (10/18/17 18:00) Labs Laboratory Tests Test 10/18/17 12:32 White Blood Count 5.7 TH/MM3 Red Blood Count 4.07 MIL/MM3 Hemoglobin 13.2 GM/DL Hematocrit 39.4 % Mean Corpuscular Volume 96.8 FL Mean Corpuscular Hemoglobin 32.4 PG Mean Corpuscular Hemoglobin Concent 33.5 % Red Cell Distribution Width 14.4 % Platelet Count 205 TH/MM3 Mean Platelet Volume 10.4 FL Neutrophils (%) (Auto) 62.7 % Lymphocytes (%) (Auto) 24.6 % Monocytes (%) (Auto) 8.2 % Eosinophils (%) (Auto) 3.8 % Basophils (%) (Auto) 0.7 % Neutrophils # (Auto) 3.5 TH/MM3 Lymphocytes # (Auto) 1.4 TH/MM3 Monocytes # (Auto) 0.5 TH/MM3 Eosinophils # (Auto) 0.2 TH/MM3 Basophils # (Auto) 0.0 TH/MM3 CBC Comment DIFF FINAL Differential Comment Prothrombin Time 10.6 SEC Prothromb Time International Ratio 1.0 RATIO Activated Partial Thromboplast Time 23.8 SEC Blood Urea Nitrogen 35 MG/DL Creatinine 2.53 MG/DL Random Glucose 100 MG/DL Calcium Level 9.0 MG/DL Magnesium Level 2.5 MG/DL Sodium Level 143 MEQ/L Potassium Level 3.4 MEQ/L Chloride Level 108 MEQ/L Carbon Dioxide Level 26.2 MEQ/L Anion Gap 9 MEQ/L Estimat Glomerular Filtration Rate 25 ML/MIN Troponin I 0.04 NG/ML MDM Medical Decision Making Medical Screen Exam Complete: Yes Emergency Medical Condition: Yes Interpretation(s) EKG: NSR 86bpm. LAD. 1mm ST elevation V1, V2, III. TWI V5, V6 which is new compare to EKG from 05/2016. Differential Diagnosis ACS vs. GERD vs. pneumonia vs. costochondritis Narrative Course 42yo F here with c/o midsternal chest pain for an hour. Started when she was running around after her grandchildren. Pt had NSTEMI in 05/2016 and was seen by Dr. Martin and thought it had been a result of her hypertensive emergency and pulmonary edema. Pt's blood pressure is elevated at 188/110 and she said this is actually a good blood pressure for her. Pt took her clonidine today. Will give aspirin and sublingual nitro PRN chest pain. Labs reviewed, no leukocytosis. H/H normal. BUN/creatinine elevated at 35/2.53. Creatinine is double what it was 01/2017. Pt's blood pressure is still elevated with at 177 /126 after nitro so will give labetalol 20mg IV. Troponin negative at 0.04. Pt also with chest pain and new T wave inversions on EKG, likely secondary to hypertensive emergency. Discussed with hospitalist Dr. Villegas who wants pt to be admitted to ICU under his care and to add nitropaste. Critical Care Narrative Aggregate critical care time was 40 minutes. Time to perform other separately billable procedures was not included in the critical care time. My time did not include minutes spent treating any other patients simultaneously or on activities that did not directly contribute to the patient's treatment. The services I provided to this patient were to treat and/or prevent clinically significant deterioration that could result in: cardiovascular collapse or . I provided critical care services requiring my management, as noted below: Chart data review, documentation time, medication orders and management, vital sign assessments/reviewing monitor data, ordering and reviewing lab tests, ordering and interpreting/reviewing x-rays and diagnostic studies, care of the patient and discussion of the patient with the admitting physicians. Diagnosis Primary Impression: CHERYL (acute kidney injury) Additional Impressions: Hypertensive emergency Chest pain Qualified Codes: R07.9 - Chest pain, unspecified Admitting Information Admitting Physician Requests: it Juliet Galdamez DO October 18, 2017 12:24
[2017-10-18] MEDS ORDERED: NITROGLYCERIN 0.4 MG SL 25 TABS/BTL SL SCH (12:30)
[2017-10-18] MEDS ORDERED: ASPIRIN 325 MG TAB PO ONE (12:30)
[2017-10-18] MEDS ORDERED: HYDR25TA5 PO (12:35)
[2017-10-18 12:47] LABS: AUTOMATED NEUTROPHIL # 3.5 TH/MM3 (1.8-7.7); BASOPHIL % 0.7 % (0.0-2.0); EOSINOPHIL # 0.2 TH/MM3 (0-0.4); EOSINOPHIL % 3.8 % (0.0-4.0); HEMATOCRIT 39.4 % (35.0-46.0); HEMOGLOBIN 13.2 GM/DL (11.6-15.3); LYMPH % 24.6 % (9.0-44.0); LYMPHOCYTE # 1.4 TH/MM3 (1.0-4.8); MEAN CELL VOLUME 96.8 FL (80.0-100.0); MEAN CORPUSCULAR HEMOGLOBIN 32.4 PG (27.0-34.0); MEAN CORPUSCULAR HGB CONC 33.5 % (32.0-36.0); MEAN PLATELET VOLUME 10.4 FL (7.0-11.0); MONO % 8.2 % (0.0-8.0); MONOCYTE # 0.5 TH/MM3 (0-0.9); NEUT % 62.7 % (16.0-70.0); PLATELET COUNT 205 TH/MM3 (150-450); RED BLOOD COUNT 4.07 MIL/MM3 (4.00-5.30); RED CELL DISTRIBUTION WIDTH 14.4 % (11.6-17.2); WHITE BLOOD COUNT 5.7 TH/MM3 (4.0-11.0)
[2017-10-18 12:59] LABS: PROTHROMBIN TIME - PATIENT 10.6 SEC (9.8-11.6)
[2017-10-18 13:05] LABS: BICARBONATE 26.2 MEQ/L (21.0-32.0); CREATININE 2.53 MG/DL (0.50-1.00); MAGNESIUM 2.5 MG/DL (1.5-2.5)
[2017-10-18 13:06] LABS: TROPONIN I 0.04 NG/ML (0.02-0.05)
--- NOTE | 2017-10-18 13:11 | RADRPT ---
EXAM DATE: 10/18/2017 1:00 PM EDT AGE/SEX: 42 years / Female INDICATIONS: Chest pain concentrating in the center. CLINICAL DATA: This is the patient's initial encounter. Patient reports that signs and symptoms have been present for 1 day and indicates a pain score of 5/10. MEDICAL/SURGICAL HISTORY: . Myocardial infarction. None. COMPARISON: Chest x-ray June 01, 2016. FINDINGS: A single AP view of the chest demonstrates the lungs to be symmetrically aerated without evidence of mass, infiltrate or effusion. Mild obscuration of the cardiac apex is considerably less pronounced fr om the prior study and felt to relate to residual scarring. The cardiomediastinal contours are unrema rkable. Osseous structures are intact. CONCLUSION: Residual scarring within the lingula. Otherwise, no acute infiltrate or effusion. Electronically signed by: Brent Agarwal MD 10/18/2017 1:10 PM EDT
[2017-10-18] MEDS ORDERED: LABETALOL HCL 100 MG/20 ML VIAL IV PUSH ONE (13:30)
[2017-10-18] MEDS ORDERED: NALOXONE HCL 0.4 MG/ML AMP IV PUSH PRN (14:00)
[2017-10-18] MEDS ORDERED: NITROGLYCERIN 0.4 MG SL 25 TABS/BTL SL PRN (14:00)
[2017-10-18] MEDS ORDERED: POTASSIUM CHLORIDE 20 MEQ CONTROLLED RELEASE TAB PO ONE (14:00)
[2017-10-18] MEDS ORDERED: cloNIDine HCL 0.1 MG TAB PO PRN (14:00)
[2017-10-18] MEDS ORDERED: NITROGLYCERIN 2% OINT 1 GM PACKET TOPICAL ONE (14:00)
[2017-10-18] MEDS ORDERED: LACTULOSE SYRUP 20 GM/30 ML CUP PO PRN (14:00)
[2017-10-18] MEDS ORDERED: BISACODYL 10 MG SUPP RECTAL PRN (14:00)
[2017-10-18] MEDS ORDERED: ACETAMINOPHEN 325 MG TAB PO PRN ×2 (14:00→15:00)
[2017-10-18] MEDS ORDERED: niCARdipine INJ 25 MG in SODIUM CHLOR 0.9% 250 ML INJ 250 ML IV PRN (14:00)
[2017-10-18] MEDS ORDERED: SODIUM CHLORIDE 0.9% FLUSH 10 ML FLUSH IV FLUSH PRN (14:00)
[2017-10-18] MEDS: niCARdipine INJ 25 MG in SODIUM CHLOR 0.9% 250 ML INJ 250 ML IV PRN ×3 (14:54→21:18)
--- NOTE | 2017-10-18 14:59 | HHI.HP ---
[facility] Primary Care Physician Admission Diagnosis Chest pain, CHERYL, hypertensive emergency Diagnoses: Chief Complaint: Chest pain Travel History International Travel<30 Days: No Contact w/Intl Traveler <30 Da: No Traveled to Known Affected Are: No History of Present Illness This is a 42-year-old female who presents to the emergency department complaining of chest pain. Patient was playing around with her grandchildren when she developed sharp severe retrosternal pain for 1 hour without radiation, nausea, vomiting, diaphoresis, shortness of breath and palpitations. Because of her history of NSTEMI she presented to the emergency room. Back in May 2016, she presented to the emergency room with NSTEMI 2/2 hypertensive emergency and flash pulmonary edema. Her blood pressure extremely elevated over 210/110 and already received IV labetalol, Nitropaste and nitroglycerin sublingual. Patient states her blood pressure has been controlled when she was taking all her medications. At this time she is only able to afford lisinopril , hydrochlorothiazide and clonidine. She also is worsening renal function no change in urinary habits denies NSAID use. All other systems reviewed negative Review of Systems Except as stated in HPI: all other systems reviewed are Neg Past Family Social History Past Medical History As previously mentioned. Nonischemic CMP s/p Lexiscan Past Surgical History Pilonidal cyst surgery Reported Medications Reported Meds & Active Scripts Active Protonix (Pantoprazole Sodium) 40 Mg Tab 40 Mg PO DAILY, not taking Lisinopril 40 Mg Tab 40 Mg PO DAILY Clonidine (Clonidine HCl) 0.3 Mg Tab 0.3 Mg PO TID Lopressor (Metoprolol Tartrate) 50 Mg Tab 50 Mg PO Q12HR, not taking Cetirizine (Cetirizine HCl) 10 Mg Tab 10 Mg PO DAILY, not taking Omeprazole 40 Mg Cap 40 Mg PO DAILY, not taking Potassium Chloride ER (Potassium Chloride) 10 Meq Cap 10 Meq PO DAILY, not taking Procardia XL (Nifedipine) 60 Mg Tab 60 Mg PO DAILY, not taking Lasix (Furosemide) 40 Mg Tab 40 Mg PO DAILY, not taking [Aspirin Chew] 81 MG Chew 81 Mg CHEW DAILY 30 Days, not taking Reported Hydrochlorothiazide 25 Mg Tab 25 Mg PO BID Coricidin Hbp Flu 15-500-2 mg (Dextromethorphan-Acetaminophen) 1 Tab Tab 500 Mg PO DAILY Allergies: Coded Allergies: No Known Allergies (Verified Allergy, Unknown, 10/18/17) Family History Diabetes hypertension Social History Continues to smoke, drinks on weekends uses marijuana daily Physical Exam Vital Signs Vital Signs Date Time Temp Pulse Resp B/P (MAP) Pulse Ox O2 Delivery O2 Flow Rate FiO2 10/18/17 14:15 79 18 201/114 (143) 99 Room Air 10/18/17 12:25 83 18 177/109 (131) 97 Room Air 204/113 (143) 10/18/17 12:09 98.6 91 16 188/110 (136) 97 Physical Exam GENERAL: This is a well-nourished, well-developed patient, in no apparent distress. SKIN: No rashes, ecchymoses or lesions. Cool and dry. HEAD: Atraumatic. Normocephalic. No temporal or scalp tenderness. EYES: Pupils equal round and reactive. Extraocular motions intact. No scleral icterus. No injection or drainage. ENT: Nose without bleeding, purulent drainage or septal hematoma. Throat without erythema, tonsillar hypertrophy or exudate. Uvula midline. Airway patent. NECK: Trachea midline. No JVD or lymphadenopathy. Supple, nontender, no meningeal signs. CARDIOVASCULAR: Regular rate and rhythm without murmurs, gallops, or rubs. RESPIRATORY: Clear to auscultation. Breath sounds equal bilaterally. No wheezes , rales, or rhonchi. GASTROINTESTINAL: Abdomen soft, non-tender, nondistended. No guarding. MUSCULOSKELETAL: Extremities without clubbing, cyanosis, or edema. No joint tenderness, effusion, or edema noted. No calf tenderness. Negative Homans sign bilaterally. NEUROLOGICAL: Awake and alert. Cranial nerves II through XII intact. Motor and sensory grossly within normal limits. Five out of 5 muscle strength in all muscle groups. Normal speech. Laboratory Laboratory Tests Test 10/18/17 04:45 10/18/17 12:32 White Blood Count 5.7 Red Blood Count 4.07 Hemoglobin 13.2 Hematocrit 39.4 Mean Corpuscular Volume 96.8 Mean Corpuscular Hemoglobin 32.4 Mean Corpuscular Hemoglobin Concent 33.5 Red Cell Distribution Width 14.4 Platelet Count 205 Mean Platelet Volume 10.4 Neutrophils (%) (Auto) 62.7 Lymphocytes (%) (Auto) 24.6 Monocytes (%) (Auto) 8.2 Eosinophils (%) (Auto) 3.8 Basophils (%) (Auto) 0.7 Neutrophils # (Auto) 3.5 Lymphocytes # (Auto) 1.4 Monocytes # (Auto) 0.5 Eosinophils # (Auto) 0.2 Basophils # (Auto) 0.0 CBC Comment DIFF FINAL Differential Comment Prothrombin Time 10.6 Prothromb Time International Ratio 1.0 Activated Partial Thromboplast Time 23.8 Blood Urea Nitrogen 35 Creatinine 2.53 Random Glucose 100 Calcium Level 9.0 Magnesium Level 2.5 Sodium Level 143 Potassium Level 3.4 Chloride Level 108 Carbon Dioxide Level 26.2 Anion Gap 9 Estimat Glomerular Filtration Rate 25 Troponin I 0.04 Result Diagram: 10/18/17 1232 10/18/17 1232 Imaging Last Impressions Chest X-Ray 10/18/17 1219 Signed Impressions: CONCLUSION: Residual scarring within the lingula. Otherwise, no acute infiltrate or effu libia. Caprini VTE Risk Assessment Caprini VTE Risk Assessment: No/Low Risk (score <= 1) Caprini Risk Assessment Model Point Value = 1 Point Value = 2 Point Value = 3 Point Value = 5 Age 41-60 Minor surgery BMI > 25 kg/m2 Swollen legs Varicose veins or History of unexplained or recurrent spontaneous Oral contraceptives or hormone replacement Sepsis (< 1 month) Serious lung disease, including pneumonia (< 1 month) Abnormal pulmonary function Acute myocardial infarction Congestive heart failure (< 1 month) History of inflammatory bowel disease Medical patient at bed rest Age 61-74 Arthroscopic surgery Major open surgery (> 45 min) Laparoscopic surgery (> 45 min) Malignancy Confined to bed (> 72 hours) Immobilizing plaster cast Central venous access Age >= 75 History of VTE Family history of VTE Factor V Leiden Prothrombin [id number] Lupus anticoagulant Anticardiolipin antibodies Elevated serum homocysteine Heparin-induced thrombocytopenia Other congenital or acquired thrombophilia Stroke (< 1 month) Elective arthroplasty Hip, pelvis, or leg fracture Acute spinal cord injury (< 1 month) Prophylaxis Regimen Total Risk Factor Score Risk Level Prophylaxis Regimen 0-1 Low Early ambulation 2 Moderate Order ONE of the following: *Sequential Compression Device (SCD) *Heparin 5000 units SQ BID 3-4 Higher Order ONE of the following medications: *Heparin 5000 units SQ TID *Enoxaparin/Lovenox 40 mg SQ daily (WT < 150 kg, CrCl > 30 mL/min) *Enoxaparin/Lovenox 30 mg SQ daily (WT < 150 kg, CrCl > 10-29 mL/min) *Enoxaparin/Lovenox 30 mg SQ BID (WT < 150 kg, CrCl > 30 mL/min) AND/OR *Sequential Compression Device (SCD) 5 or more Highest Order ONE of the following medications: *Heparin 5000 units SQ TID (Preferred with Epidurals) *Enoxaparin/Lovenox 40 mg SQ daily (WT < 150 kg, CrCl > 30 mL/min) *Enoxaparin/Lovenox 30 mg SQ daily (WT < 150 kg, CrCl > 10-29 mL/min) *Enoxaparin/Lovenox 30 mg SQ BID (WT < 150 kg, CrCl > 30 mL/min) AND *Sequential Compression Device (SCD) Assessment and Plan Problem List: (1) Chest pain ICD Code: R07.9 - Chest pain, unspecified Status: Acute (2) Hypertensive emergency ICD Code: I16.1 - Hypertensive emergency Status: Acute Assessment and Plan This is a 42-year-old female who presents to the emergency department complaining of exertional chest pain. She has severely elevated hypertension with abnormal EKG with new T inversion in the lateral leads (interpreted by me) Chest pain with abnormal EKG with history of NSTEMI secondary to hypertensive emergency and flash pulmonary edema. Currently pain-free. Trend cardiac enzymes and continue aspirin and start beta-denilson Hypertensive emergency. Start Nitropaste, Procardia, Lopressor and continue clonidine. Cardene drip. Consult nephrology and case management for patient's assistance Acute on chronic kidney disease stage III. Nonoliguric. Previous renal sonogram unremarkable. Avoid nephrotoxins. Nephrology has been consulted Nonischemic cardiomyopathy status post Lexiscan a year ago. Compensated. DVT prophylaxis with SCD and early ambulation Discussed Condition With pt and family Problem Qualifiers (1) Chest pain: Qualified Codes: R07.9 - Chest pain, unspecified Grayson Villegas MD October 18, 2017 14:59
--- NOTE | 2017-10-18 17:35 | PD.CONS ---
[facility] Service Nephrology Consult Requested By Dr. Villegas Reason for Consult Acute and chronic kidney disease with hypertension Primary Care Physician No Primary Care Physician History of Present Illness Patient is a 42-year-old -[place] female with history of uncontrolled hypertension, she states that she was diagnosed at age 22 and has a strong family history of hypertension from mother's side, patient states that she was on a physician kindergarten assistant program through [employer] and she did not have currently any physician, as she ran out of funding she could not afford her medications and stopped taking blood pressure medication, she felt sharp chest pain and there were some increasing shortness of breath and she was brought to the hospital, blood pressure peaked at 213/128, she was placed on Cardene drip. Patient baseline creatinine is around 1.1-1.2 now her creatinine is increased to 2.53. Review of Systems Constitutional: COMPLAINS OF: Fatigue Respiratory: COMPLAINS OF: Shortness of breath Cardiovascular: COMPLAINS OF: Chest pain Past Family Social History Allergies: Coded Allergies: No Known Allergies (Verified Allergy, Unknown, 10/18/17) Past Medical History Hypertension Hyperlipidemia colitis Rectal abscess Recent history of weight loss and diarrhea. Past Surgical History Rectal abscess drained Reported Medications Reported Meds & Active Scripts Active Protonix (Pantoprazole Sodium) 40 Mg Tab 40 Mg PO DAILY Lisinopril 40 Mg Tab 40 Mg PO DAILY Clonidine (Clonidine HCl) 0.3 Mg Tab 0.3 Mg PO TID Lopressor (Metoprolol Tartrate) 50 Mg Tab 50 Mg PO Q12HR Cetirizine (Cetirizine HCl) 10 Mg Tab 10 Mg PO DAILY Omeprazole 40 Mg Cap 40 Mg PO DAILY Potassium Chloride ER (Potassium Chloride) 10 Meq Cap 10 Meq PO DAILY Procardia XL (Nifedipine) 60 Mg Tab 60 Mg PO DAILY Lasix (Furosemide) 40 Mg Tab 40 Mg PO DAILY [Aspirin Chew] 81 MG Chew 81 Mg CHEW DAILY 30 Days Reported Hydrochlorothiazide 25 Mg Tab 25 Mg PO BID Coricidin Hbp Flu 15-500-2 mg (Dextromethorphan-Acetaminophen) 1 Tab Tab 500 Mg PO DAILY Active Ordered Medications Current Medications Medications (Trade) Dose Ordered Sig/Aylin Route Start Time Stop Time Status Last Admin (Catapres) 0.3 mg Q8HR PO 10/18/17 22:00 (Lopressor) 50 mg Q12HR PO 10/18/17 21:00 (Procardia Xl) 60 mg DAILY PO 10/19/17 09:00 (Aspirin Chew) 81 mg DAILY CHEW 10/19/17 09:00 (Nitroglycerin 2% Oint) 1 inch Q6HR TOP 10/19/17 18:00 (Nitrostat Sl) 0.4 mg Q5M PRN SL 10/18/17 14:00 (Apresoline Inj) 10 mg Q6HR PRN IV PUSH 10/18/17 18:00 (NS Flush) 2 ml UNSCH PRN IV FLUSH 10/18/17 14:00 (NS Flush) 2 ml BID IV FLUSH 10/18/17 21:00 (Tylenol) 650 mg Q4H PRN PO 10/18/17 15:00 (Zofran Inj) 4 mg Q6HR PRN IVP 10/18/17 18:00 (Tylenol) 650 mg Q6HR PRN PO 10/18/17 14:00 (Narcan Inj) 0.4 mg UNSCH PRN IV PUSH 10/18/17 14:00 (Negin-Colace) 1 tab BID PO 10/18/17 21:00 (Senokot) 17.2 mg Q12HR PRN PO 10/18/17 21:00 (Dulcolax Supp) 10 mg DAILY PRN RECTAL 10/18/17 14:00 (Lactulose Liq) 30 ml DAILY PRN PO 10/18/17 14:00 (Catapres) 0.3 mg Q6H PRN PO 10/18/17 14:00 Nicardipine HCl 25 mg/Sodium Chloride 260 ml @ 52 mls/hr TITRATE PRN IV 10/18/17 14:30 10/18/17 14:54 Family History Mother has hypertension Social History He smokes marijuana on regular basis, alcohol use rare Physical Exam Vital Signs Vital Signs Date Time Temp Pulse Resp B/P (MAP) Pulse Ox O2 Delivery O2 Flow Rate FiO2 10/18/17 16:00 98.6 93 18 160/84 (109) 100 10/18/17 15:37 83 18 177/91 (119) 96 Room Air 10/18/17 15:05 82 18 188/113 (138) 96 Room Air 10/18/17 14:54 75 213/128 10/18/17 14:15 79 18 201/114 (143) 99 Room Air 10/18/17 12:25 83 18 177/109 (131) 97 Room Air 204/113 (143) 10/18/17 12:09 98.6 91 16 188/110 (136) 97 Physical Exam GENERAL: Well-nourished, well-developed patient. SKIN: Warm and dry. HEAD: Normocephalic. EYES: No scleral icterus. No injection or drainage. NECK: Supple, trachea midline. No JVD or lymphadenopathy. CARDIOVASCULAR: Regular rate and rhythm without murmurs, gallops, or rubs. RESPIRATORY: Breath sounds equal bilaterally. No accessory muscle use. GASTROINTESTINAL: Abdomen soft, non-tender, nondistended. EXTREMITIES: No cyanosis, or edema. NEUROLOGICAL: Awake, alert, and oriented x 3. Non-focal. Laboratory Laboratory Tests Test 10/18/17 04:45 10/18/17 12:32 White Blood Count 5.7 Red Blood Count 4.07 Hemoglobin 13.2 Hematocrit 39.4 Mean Corpuscular Volume 96.8 Mean Corpuscular Hemoglobin 32.4 Mean Corpuscular Hemoglobin Concent 33.5 Red Cell Distribution Width 14.4 Platelet Count 205 Mean Platelet Volume 10.4 Neutrophils (%) (Auto) 62.7 Lymphocytes (%) (Auto) 24.6 Monocytes (%) (Auto) 8.2 Eosinophils (%) (Auto) 3.8 Basophils (%) (Auto) 0.7 Neutrophils # (Auto) 3.5 Lymphocytes # (Auto) 1.4 Monocytes # (Auto) 0.5 Eosinophils # (Auto) 0.2 Basophils # (Auto) 0.0 CBC Comment DIFF FINAL Differential Comment Prothrombin Time 10.6 Prothromb Time International Ratio 1.0 Activated Partial Thromboplast Time 23.8 Blood Urea Nitrogen 35 Creatinine 2.53 Random Glucose 100 Calcium Level 9.0 Magnesium Level 2.5 Sodium Level 143 Potassium Level 3.4 Chloride Level 108 Carbon Dioxide Level 26.2 Anion Gap 9 Estimat Glomerular Filtration Rate 25 Troponin I 0.04 Result Diagram: 10/18/17 1232 10/18/17 1232 Imaging Last Impressions Chest X-Ray 10/18/17 1219 Signed Impressions: CONCLUSION: Residual scarring within the lingula. Otherwise, no acute infiltrate or effu libia. Assessment and Plan Problem List: (1) Acute worsening of stage 3 chronic kidney disease ICD Codes: N18.3 - Chronic kidney disease, stage 3 (moderate) Plan: Patient has chronic kidney disease GFR at best is 59 Now reduce to 25 Patient has hypertensive urgency and this can damage the kidney She has hypertensive nephrosclerosis And has underlying kidney disease Noncompliance played a role in hypertensive urgency Patient states she will be paying more attention about her medication I will obtain a kidney ultrasound Avoid nephrotoxic Avoid dye study (2) Hypertensive urgency ICD Codes: I16.0 - Hypertensive urgency Status: Acute Plan: On Maryan Boss MD October 18, 2017 17:35
[2017-10-18] MEDS ORDERED: hydrALAZINE HCL 20 MG/ML VIAL IV PUSH PRN (18:00)
[2017-10-18] MEDS ORDERED: ONDANSETRON HCL 4 MG/2 ML VIAL IVP PRN (18:00)
[2017-10-18 18:46] LABS: MAGNESIUM 2.1 MG/DL (1.5-2.5)
[2017-10-18 18:49] LABS: TROPONIN I 0.05 NG/ML (0.02-0.05)
[2017-10-18] MEDS: SODIUM CHLORIDE 0.9% FLUSH 10 ML FLUSH IV FLUSH SCH (19:38)
[2017-10-18] MEDS: DOCUSATE SODIUM 50 MG/SENNA 8.6 MG TAB PO SCH (19:39)
[2017-10-18] MEDS: METOPROLOL TARTRATE 50 MG TAB PO SCH (19:39)
[2017-10-18] MEDS: cloNIDine HCL 0.1 MG TAB PO PRN (19:40)
[2017-10-18] MEDS ORDERED: SENNOSIDES 8.6 MG TAB PO PRN (21:00)
[2017-10-18] MEDS: cloNIDine HCL 0.3 MG TAB PO SCH (21:16)
[2017-10-18] MEDS ORDERED: CHLORHEXIDINE GLUCONATE 2 % 1 PACK (2 CLOTHS)(extra cloths) TOPICAL PRN (22:30)
[2017-10-19] VITALS (12 sets, daily range): BP systolic 123–175; BP diastolic 71–99; PULSE 73–91; RESP 16–22; TEMP 97.8–98.7; O2SAT 97–100
[2017-10-19] MEDS: niCARdipine INJ 25 MG in SODIUM CHLOR 0.9% 250 ML INJ 250 ML IV PRN ×2 (00:32→05:39)
[2017-10-19 00:43] LABS: TROPONIN I 0.08 NG/ML (0.02-0.05)
[2017-10-19] MEDS: CHLORHEXIDINE GLUCONATE 2 % 1 PACK (2 CLOTHS)(taper/protocol) TOPICAL SCH ×2 (03:41→20:14)
[2017-10-19] MEDS: cloNIDine HCL 0.3 MG TAB PO SCH ×3 (05:39→20:17)
[2017-10-19 06:40] LABS: BASOPHIL % 0.8 % (0.0-2.0); EOSINOPHIL # 0.2 TH/MM3 (0-0.4); EOSINOPHIL % 4.3 % (0.0-4.0); HEMATOCRIT 38.6 % (35.0-46.0); HEMOGLOBIN 12.9 GM/DL (11.6-15.3); LYMPH % 30.6 % (9.0-44.0); LYMPHOCYTE # 1.6 TH/MM3 (1.0-4.8); MEAN CELL VOLUME 96.3 FL (80.0-100.0); MEAN CORPUSCULAR HEMOGLOBIN 32.3 PG (27.0-34.0); MEAN CORPUSCULAR HGB CONC 33.5 % (32.0-36.0); MEAN PLATELET VOLUME 11.1 FL (7.0-11.0); MONO % 6.5 % (0.0-8.0); MONOCYTE # 0.3 TH/MM3 (0-0.9); NEUT % 57.8 % (16.0-70.0); PLATELET COUNT 218 TH/MM3 (150-450); RED BLOOD COUNT 4.01 MIL/MM3 (4.00-5.30); RED CELL DISTRIBUTION WIDTH 14.6 % (11.6-17.2); WHITE BLOOD COUNT 5.2 TH/MM3 (4.0-11.0)
[2017-10-19 07:03] LABS: CALCIUM 8.9 MG/DL (8.5-10.1); CREATININE 2.28 MG/DL (0.50-1.00)
[2017-10-19 07:05] LABS: COMPLEMENT C4 29 MG/DL (10-40)
[2017-10-19] MEDS: DOCUSATE SODIUM 50 MG/SENNA 8.6 MG TAB PO SCH ×2 (08:26→20:15)
[2017-10-19] MEDS: METOPROLOL TARTRATE 50 MG TAB PO SCH ×2 (08:26→20:14)
[2017-10-19] MEDS: ASPIRIN 81 MG CHEW TAB CHEW SCH (08:27)
[2017-10-19] MEDS: NIFEdipine 60 MG SUSTAINED RELEASE TAB PO SCH (08:27)
[2017-10-19] MEDS: SODIUM CHLORIDE 0.9% FLUSH 10 ML FLUSH IV FLUSH SCH ×2 (09:00→20:14)
[2017-10-19] MEDS ORDERED: POTASSIUM CHLORIDE 20 MEQ CONTROLLED RELEASE TAB PO ONE (09:15)
--- NOTE | 2017-10-19 10:07 | HHI.PR ---
Subjective Remarks The patient was resting comfortably in bed. She wanted to go home. She said that she has been unable to afford her medications and that is why she has been noncompliant. She said she ran out of some medications 3 months ago. Discussed with nursing. Objective Vitals Vital Signs Date Time Temp Pulse Resp B/P (MAP) Pulse Ox O2 Delivery O2 Flow Rate FiO2 10/19/17 06:00 76 10/19/17 05:39 78 141/82 10/19/17 04:10 100 21 10/19/17 04:00 75 10/19/17 04:00 98.3 75 17 137/81 (99) 100 10/19/17 02:00 73 10/19/17 00:32 76 122/71 10/19/17 00:00 98.1 74 19 123/71 (88) 99 10/19/17 00:00 74 10/18/17 22:00 80 10/18/17 21:18 83 149/78 10/18/17 20:00 91 10/18/17 20:00 98.7 91 22 144/78 (100) 100 10/18/17 18:23 88 154/85 10/18/17 18:00 92 22 177/97 (123) 100 10/18/17 17:51 87 174/98 10/18/17 16:00 98.6 93 18 160/84 (109) 100 10/18/17 15:50 86 167/91 10/18/17 15:37 83 18 177/91 (119) 96 Room Air 10/18/17 15:05 82 18 188/113 (138) 96 Room Air 10/18/17 14:54 75 213/128 10/18/17 14:15 79 18 201/114 (143) 99 Room Air 10/18/17 12:25 83 18 177/109 (131) 97 Room Air 204/113 (143) 10/18/17 12:09 98.6 91 16 188/110 (136) 97 I/O 10/18/17 10/18/17 10/18/17 10/19/17 10/19/17 10/19/17 07:00 15:00 23:00 07:00 15:00 23:00 Intake Total 720 ml 1491 ml Output Total 550 ml Balance 720 ml 941 ml Intake Oral 720 ml IV Total 1491 ml Output Urine Total 550 ml # Voids 3 # Bowel Movements 0 0 Result Diagram: 10/19/17 0445 10/19/17 0445 Imaging Last Impressions Chest X-Ray 10/18/17 1219 Signed Impressions: CONCLUSION: Residual scarring within the lingula. Otherwise, no acute infiltrate or effu libia. Objective Remarks GENERAL: This is a well-nourished, well-developed patient, in no apparent distress. SKIN: No rashes, ecchymoses or lesions. Cool and dry. HEAD: Atraumatic. Normocephalic. No temporal or scalp tenderness. EYES: Pupils equal round and reactive. Extraocular motions intact. No scleral icterus. No injection or drainage. ENT: Nose without bleeding, purulent drainage or septal hematoma. Throat without erythema, tonsillar hypertrophy or exudate. Uvula midline. Airway patent. NECK: Trachea midline. No JVD or lymphadenopathy. Supple, nontender, no meningeal signs. CARDIOVASCULAR: Regular rate and rhythm without murmurs, gallops, or rubs. RESPIRATORY: Clear to auscultation. Breath sounds equal bilaterally. No wheezes , rales, or rhonchi. GASTROINTESTINAL: Abdomen soft, non-tender, nondistended. No guarding. MUSCULOSKELETAL: Extremities without clubbing, cyanosis, or edema. No joint tenderness, effusion, or edema noted. NEUROLOGICAL: Awake and alert. Cranial nerves II through XII intact. Motor and sensory grossly within normal limits. Five out of 5 muscle strength in all muscle groups. Normal speech. A/P Problem List: (1) Chest pain ICD Code: R07.9 - Chest pain, unspecified Status: Acute (2) Hypertensive emergency ICD Code: I16.1 - Hypertensive emergency Status: Acute Assessment and Plan Chest pain This is a 42-year-old female who presents to the emergency department complaining of exertional chest pain. She had severely elevated hypertension with abnormal EKG with new T inversion in the lateral leads. She has a history of NSTEMI secondary to hypertensive emergency and flash pulmonary edema. Currently chest pain-free. Chest x-ray with residual scarring in the lingula, otherwise no acute process. - Trend cardiac enzymes. - continue aspirin and start beta-denilson. - blood pressure control. - telemetry. - cardiology consult pending. Hypertensive emergency Started Nitropaste, Procardia, Lopressor, clonidine and Meena niñoip. Blood pressure currently controlled. - d/c nitropaste and Cardene. - continue Procardia, Lopressor and clonidine. - follow up with cardiology. - case management consult for medication assistance as pt has been noncompliant s/t inability to afford meds. Acute on chronic kidney disease stage III Nonoliguric. Previous renal sonogram unremarkable. Nephrology consult appreciated. - Avoid nephrotoxins. - Nephrology following. - renal US. Hypokalemia K+ level 3.3. - replete and monitor. DVT prophylaxis with SCD and early ambulation Problem Qualifiers (1) Chest pain: Qualified Codes: R07.9 - Chest pain, unspecified Layton Washington DO October 19, 2017 10:07
--- NOTE | 2017-10-19 11:31 | HHI.NPPN ---
Subjective History of Present Illness Patient is a 42-year-old -[place] female who came in with uncontrolled hypertension, chest pain, renal failure. Patient has a compliance issue and loss assistance for her medical supply, she used to come to outpatient clinic at [place] Since then she ran out of the medication Review of Systems General Constitutional: Fatigue Objective Data Data Vital Signs Date Time Temp Pulse Resp B/P (MAP) Pulse Ox O2 Delivery O2 Flow Rate FiO2 10/19/17 10:00 76 10/19/17 08:00 76 10/19/17 08:00 98.7 91 22 144/78 (100) 100 10/19/17 06:00 76 10/19/17 05:39 78 141/82 10/19/17 04:10 100 21 10/19/17 04:00 75 10/19/17 04:00 98.3 75 17 137/81 (99) 100 10/19/17 02:00 73 10/19/17 00:32 76 122/71 10/19/17 00:00 98.1 74 19 123/71 (88) 99 10/19/17 00:00 74 10/18/17 22:00 80 10/18/17 21:18 83 149/78 10/18/17 20:00 91 10/18/17 20:00 98.7 91 22 144/78 (100) 100 10/18/17 18:23 88 154/85 10/18/17 18:00 92 22 177/97 (123) 100 10/18/17 17:51 87 174/98 10/18/17 16:00 98.6 93 18 160/84 (109) 100 10/18/17 15:50 86 167/91 10/18/17 15:37 83 18 177/91 (119) 96 Room Air 10/18/17 15:05 82 18 188/113 (138) 96 Room Air 10/18/17 14:54 75 213/128 10/18/17 14:15 79 18 201/114 (143) 99 Room Air 10/18/17 12:25 83 18 177/109 (131) 97 Room Air 204/113 (143) 10/18/17 12:09 98.6 91 16 188/110 (136) 97 -: 10/19/17 0445 10/19/17 0445 Physical Exam General Appearance: Well Developed, Well Nourished Neck Neck Exam: Neck Supple Pulmonary Resp Exam: Clear Bilaterally, Breath Sounds Equal Cardiology CV Exam: Regular, Normal Sinus Rhythm Gastrointestinal/Abdomen GI Exam: Soft, Non-Tender, Bowel Sounds Present Integumentary Skin Exam: Clear Extremeties Extremities Exam: No Edema Neurologic Neuro Exam: Alert, Awake, Oriented Assessment/Plan Problem List: (1) Acute worsening of stage 3 chronic kidney disease ICD Codes: N18.3 - Chronic kidney disease, stage 3 (moderate) Plan: Patient has chronic kidney disease GFR at best is 59 Now reduce to 25 which improved to 28 She has persistently low potassium despite replacement We will check urine electrolytes Patient has hypertensive urgency and this can damage the kidney She has hypertensive nephrosclerosis And has underlying kidney disease Noncompliance played a role in hypertensive urgency Patient states she will be paying more attention about her medication I will obtain a kidney ultrasound Avoid nephrotoxic Avoid dye study Follow BMP (2) Hypertensive urgency ICD Codes: I16.0 - Hypertensive urgency Status: Acute Plan: On medication (3) Chest pain ICD Codes: R07.9 - Chest pain, unspecified Status: Acute Plan: Await cardiology evaluation Problem Qualifiers (1) Chest pain: Qualified Codes: R07.9 - Chest pain, unspecified Maryan Alas MD October 19, 2017 11:31
--- NOTE | 2017-10-19 14:08 | EKG ---
Date Performed: 10/18/2017 Time Performed: 12:22:12 PTAGE: 42 years EKG: Sinus rhythm LEFT ATRIAL ENLARGEMENT LEFT ANTERIOR FASCICULAR BLOCK MODERATE T-WAVE ABNORMALITY, CONSIDER LATERAL ISCHEMIA POSSIBLE LVH ABNORMAL ECG Compared to PREVIOUS TRACING , heart rate is slower, aberrently conducted beats no longer present. Th e T-waves are now more inverted anterolaterally. PREVIOUS TRACIN05/31/2016 19.34 DOCTOR: Lee Carroll Interpretating Date/Time 10/19/2017 14:08:01
--- NOTE | 2017-10-19 14:09 | EKG ---
Date Performed: 10/18/2017 Time Performed: 17:14:37 PTAGE: 42 years EKG: Sinus rhythm WITH OCCASIONAL VENTRICULAR PREMATURE COMPLEXES LEFT ATRIAL ENLARGEMENT LEFT ANTERIOR FASCICULAR BLO CK LEFT VENTRICULAR HYPERTROPHY AND ST-T CHANGE ABNORMAL ECG Compared to PREVIOUS TRACING , voltage criteria for LVH now present. PREVIOUS TRACIN10/18/2017 12. 22 DOCTOR: Lee Carroll Interpretating Date/Time 10/19/2017 14:08:34
--- NOTE | 2017-10-19 14:11 | EKG ---
Date Performed: 10/19/2017 Time Performed: 00:28:58 PTAGE: 42 years EKG: Sinus rhythm . Possible left atrial abnormality Left axis deviation Left ventricular hypertrophy Lateral T wave ch anges are probably due to ventricular hypertrophy Abnormal ECG Since PREVIOUS TRACING , no significant change noted PREVIOUS TRACIN10/18/2017 17.14.37 DOCTOR: Lee Carroll Interpretating Date/Time 10/19/2017 14:09:10
[2017-10-19] MEDS: cloNIDine HCL 0.1 MG TAB PO PRN ×2 (14:27→20:14)
[2017-10-19 16:20] LABS: SODIUM,RANDOM URINE 136 MEQ/L
[2017-10-19] MEDS: SPIRONOLACTONE 25 MG TAB PO SCH (16:39)
[2017-10-19 16:41] LABS: BACTERIA, URINE MOD /hpf; BILIRUBIN, URINE NEG (NEG); BLOOD, URINE NEG (NEG); GLUCOSE,URINE 70 mg/dL (NEG); HYALINE CAST, URINE 2 /lpf (RARE); KETONE, URINE NEG (NEG); MUCUS URINE FEW /lpf (OCC); NITRITE,URINE NEG (NEG); SQUAMOUS EPITHELIAL CELL URINE 12 /hpf (0-5); URINE COLOR YELLOW (YELLW/STRAW); URINE LEUKOCYTE ESTERASE LARGE (NEG)
[2017-10-19] MEDS ORDERED: NITROGLYCERIN 2% OINT 1 GM PACKET TOP SCH (18:00)
[2017-10-20] VITALS (8 sets, daily range): BP systolic 165–195; BP diastolic 93–117; PULSE 69–77; RESP 16–20; TEMP 97.7–98.1; O2SAT 94–100
--- NOTE | 2017-10-20 01:39 | RADRPT ---
EXAM DATE: 10/20/2017 1:36 AM EDT AGE/SEX: 42 years / Female INDICATIONS: Worsening renal function. CLINICAL DATA: This is the patient's initial encounter. Patient reports that signs and symptoms have been present for 1 day and indicates a pain score of 0/10. MEDICAL/SURGICAL HISTORY: Hypertension. None. COMPARISON: No prior exams available for comparison. MEASUREMENTS: Right Kidney:__11.2 x 5.9 x 4.5 cm cm Left Kidney:__9.6 x 4.9 x 4.8 cm cm FINDINGS: Right Kidney: Left Kidney: Bladder: Within normal limits given the degree of distension. CONCLUSION: 1. Negative renal sonogram. Electronically signed by: King Caldwell MD 10/20/2017 1:38 AM EDT
[2017-10-20] MEDS: cloNIDine HCL 0.3 MG TAB PO SCH ×3 (06:17→22:53)
[2017-10-20] MEDS: NIFEdipine 60 MG SUSTAINED RELEASE TAB PO SCH (07:40)
[2017-10-20] MEDS: ASPIRIN 81 MG CHEW TAB CHEW SCH (07:40)
[2017-10-20] MEDS: METOPROLOL TARTRATE 50 MG TAB PO SCH (07:40)
[2017-10-20] MEDS: SPIRONOLACTONE 25 MG TAB PO SCH (07:40)
[2017-10-20] MEDS: DOCUSATE SODIUM 50 MG/SENNA 8.6 MG TAB PO SCH ×2 (07:42→19:55)
[2017-10-20] MEDS: SODIUM CHLORIDE 0.9% FLUSH 10 ML FLUSH IV FLUSH SCH ×2 (07:43→19:55)
--- NOTE | 2017-10-20 10:24 | PD.CONS ---
HPI Service cardiology Consult Requested By Reason for Consult chest pain Primary Care Physician No Primary Care Physician History of Present Illness 42 yo AAF with HTN and CKD who presents with exertional chest pain and hypertensive emergency with SBP 204. She reports on 09/18/17 having played with her grandchild and developed sudden onset chest discomfort lasting about one hour reminiscent of prior [place] in 2017; she then came to ED for evaluation. She reports having longstanding high blood pressure that had been under control until recently when she lost medical assistance and wasn't able afford office visits and medication costs; she had been out of medication for some time. In 2017 she presented with NSTEMI felt to be due to hypertensive emergency and flash pulmonary edema; stress testing at that time was normal. Her chest pain has resolved since admission; currently using nitro patch. Troponin levels trending slightly upward 0.04 --> 00.8 --> 0.09 --> 0.12. She denies SOB or palpitations. (Yi English) Review of Systems Consitutional: COMPLAINS OF: Weight loss, DENIES: Fatigue, Fever, Chills, Weight gain Respiratory: DENIES: Cough, Snoring, Shortness of breath, Wheezing, Sputum production Cardiovascular: DENIES: Palpitations, Syncope, Tachycardia Gastrointestinal: DENIES: Nausea, Vomiting, Change in bowel habits, Reflux, Bloody stools, Melena (Yi English) Past Family Social History Allergies: Coded Allergies: No Known Allergies (Verified Allergy, Unknown, 10/18/17) Past Medical History Nonischemic CMP s/p Lexiscan Past Surgical History Pilonidal cyst surgery Reported Medications Reported Meds & Active Scripts Active Protonix (Pantoprazole Sodium) 40 Mg Tab 40 Mg PO DAILY Lisinopril 40 Mg Tab 40 Mg PO DAILY Clonidine (Clonidine HCl) 0.3 Mg Tab 0.3 Mg PO TID Lopressor (Metoprolol Tartrate) 50 Mg Tab 50 Mg PO Q12HR Cetirizine (Cetirizine HCl) 10 Mg Tab 10 Mg PO DAILY Omeprazole 40 Mg Cap 40 Mg PO DAILY Potassium Chloride ER (Potassium Chloride) 10 Meq Cap 10 Meq PO DAILY Procardia XL (Nifedipine) 60 Mg Tab 60 Mg PO DAILY Lasix (Furosemide) 40 Mg Tab 40 Mg PO DAILY [Aspirin Chew] 81 MG Chew 81 Mg CHEW DAILY 30 Days Reported Hydrochlorothiazide 25 Mg Tab 25 Mg PO BID Coricidin Hbp Flu 15-500-2 mg (Dextromethorphan-Acetaminophen) 1 Tab Tab 500 Mg PO DAILY Active Ordered Medications Current Medications Medications (Trade) Dose Ordered Sig/Aylin Route Start Time Stop Time Status Last Admin (Catapres) 0.3 mg Q8HR PO 10/18/17 22:00 10/20/17 06:17 (Lopressor) 50 mg Q12HR PO 10/18/17 21:00 10/20/17 07:40 (Procardia Xl) 60 mg DAILY PO 10/19/17 09:00 10/20/17 07:40 (Aspirin Chew) 81 mg DAILY CHEW 10/19/17 09:00 10/20/17 07:40 (Nitrostat Sl) 0.4 mg Q5M PRN SL 10/18/17 14:00 (Apresoline Inj) 10 mg Q6HR PRN IV PUSH 10/18/17 18:00 (NS Flush) 2 ml UNSCH PRN IV FLUSH 10/18/17 14:00 (NS Flush) 2 ml BID IV FLUSH 10/18/17 21:00 10/20/17 07:43 (Tylenol) 650 mg Q4H PRN PO 10/18/17 15:00 (Zofran Inj) 4 mg Q6HR PRN IVP 10/18/17 18:00 (Tylenol) 650 mg Q6HR PRN PO 10/18/17 14:00 (Narcan Inj) 0.4 mg UNSCH PRN IV PUSH 10/18/17 14:00 (Negin-Colace) 1 tab BID PO 10/18/17 21:00 10/19/17 08:26 (Senokot) 17.2 mg Q12HR PRN PO 10/18/17 21:00 (Dulcolax Supp) 10 mg DAILY PRN RECTAL 10/18/17 14:00 (Lactulose Liq) 30 ml DAILY PRN PO 10/18/17 14:00 (Catapres) 0.3 mg Q6H PRN PO 10/18/17 14:00 10/19/17 20:14 ([facility] Nursing Information) Patient in critical care unit? Ass... [id number] .XX 10/18/17 22:30 (Chlorhexidine 2% Cloth) 3 pack DAILY@04 TOPICAL 10/19/17 04:00 10/23/17 04:01 (Chlorhexidine 2% Cloth) 3 pack UNSCH PRN TOPICAL 10/18/17 22:30 10/23/17 22:20 (Aldactone) 25 mg BID@09,18 PO 10/19/17 18:00 10/20/17 07:40 Family History Diabetes hypertension Social History Continues to smoke, drinks on weekends uses marijuana daily (Yi English) Physical Exam Vital Signs Vital Signs Date Time Temp Pulse Resp B/P (MAP) Pulse Ox O2 Delivery O2 Flow Rate FiO2 10/20/17 08:00 98.0 71 18 188/114 (138) 100 10/20/17 04:00 98.0 77 16 165/94 (117) 94 10/20/17 00:01 72 10/20/17 00:00 98.1 74 16 167/93 (117) 95 10/19/17 21:38 98 21 10/19/17 20:00 97.8 78 16 175/99 (124) 97 10/19/17 16:00 97.8 75 18 145/94 (111) 97 10/19/17 14:00 98.7 74 22 144/88 (106) 100 10/19/17 14:00 76 10/19/17 12:00 76 Physical Exam GENERAL: SKIN: Warm and dry. HEAD: Atraumatic. Normocephalic. EYES: Pupils equal and round. No scleral icterus. No injection or drainage. ENT: No nasal bleeding or discharge. NECK: Trachea midline. No JVD. CARDIOVASCULAR: Regular rate and rhythm. no murmurs RESPIRATORY: No accessory muscle use. Clear to auscultation. Breath sounds equal bilaterally. GASTROINTESTINAL: Abdomen soft, non-tender, nondistended. MUSCULOSKELETAL: Extremities without clubbing, cyanosis, or edema. No obvious deformities. NEUROLOGICAL: Awake and alert. Normal speech. PSYCHIATRIC: Appropriate mood and affect; insight and judgment normal. Laboratory Laboratory Tests Test 10/19/17 14:30 10/19/17 19:50 Urine Color YELLOW Urine Turbidity HAZY Urine pH 6.0 Urine Specific [place] 1.018 Urine Protein 30 Urine Glucose (UA) 70 Urine Ketones NEG Urine Occult Blood NEG Urine Nitrite NEG Urine Bilirubin NEG Urine Urobilinogen LESS THAN 2.0 Urine Leukocyte Esterase LARGE Urine RBC 10 Urine WBC 41 Urine Squamous Epithelial Cells 12 Urine Bacteria MOD Urine Hyaline Casts 2 Urine Mucus FEW Microscopic Urinalysis Comment CULTURE INDICATED Urine Random Creatinine 155 Urine Random Total Protein 58 Urine Random Sodium 136 Urine Random Potassium 28 Urine Random Chloride 139 Urine Protein/Creatinine Ratio 0.37 Troponin I 0.12 Date/Time Source Procedure Growth Status 10/19/17 14:30 Urine Clean Catch Urine Culture Pending Received (Yi English) Result Diagram: 10/19/17 0445 10/19/17 0445 Imaging Last 48 hours Impressions Renal Ultrasound 10/19/17 0000 Signed Impressions: CONCLUSION: 1. Negative renal sonogram. Chest X-Ray 10/18/17 1219 Signed Impressions: CONCLUSION: Residual scarring within the lingula. Otherwise, no acute infiltrate or effu libia. (Yi English) Assessment and Plan Problem List: (1) Chest pain ICD Codes: R07.9 - Chest pain, unspecified Status: Acute (2) NSTEMI (non-ST elevated myocardial infarction) ICD Codes: I21.4 - Non-ST elevation (NSTEMI) myocardial infarction Status: Acute (3) Hypertensive urgency ICD Codes: I16.0 - Hypertensive urgency Status: Acute Assessment and Plan 42 yo AAF with HTN and CKD who presents with exertional chest pain and hypertensive emergency with SBP 204. She reports on 09/18/17 having played with her grandchild and developed sudden onset chest discomfort lasting about one hour reminiscent of prior [place] in 2017; she then came to ED for evaluation. She reports having longstanding high blood pressure that had been under control until recently when she lost medical assistance and wasn't able afford office visits and medication costs; she had been out of medication for some time. In 2017 she presented with NSTEMI felt to be due to hypertensive emergency and flash pulmonary edema; stress testing at that time was normal NSTEMI- no chest pain since admission troponin elevation demand mediated from CKD vs. ischemic check updated echo consider lexiscan although patient states prefers not to have one done. 2017 echo EF 55-60% acute on chronic CKD- creatinine 2.2; nephrology following no ACEi or ARB HTN- overall improving, consider increasing Nifedipine. cont asa, aldactone, clonidine, hydralazine and metoprolol she will need to be discharged on medications she can afford [id number] as she is self-pay (Yi English) Assessment and Plan aggressive BP control encourage medication complaince no plans for C given demand mediated event and CKD lexiscan if patient agreeable. DC metoprolol. add labetalol. add hydralazine. DC spironolactone given CKD. generic medications. CM consult (Rosalio Goff MD) Problem Qualifiers (1) Chest pain: Qualified Codes: R07.9 - Chest pain, unspecified Yi English October 20, 2017 10:24 Rosalio Goff MD October 20, 2017 10:36
--- NOTE | 2017-10-20 11:35 | HHI.NPPN ---
Subjective History of Present Illness Patient is a 42-year-old -[place] female who came in with uncontrolled hypertension, chest pain, renal failure. Patient has a compliance issue and loss assistance for her medical supply, she used to come to outpatient clinic at [place] Since then she ran out of the medication Review of Systems General Constitutional: Fatigue Objective Data Data Vital Signs Date Time Temp Pulse Resp B/P (MAP) Pulse Ox O2 Delivery O2 Flow Rate FiO2 10/20/17 08:00 98.0 71 18 188/114 (138) 100 10/20/17 04:00 98.0 77 16 165/94 (117) 94 10/20/17 00:01 72 10/20/17 00:00 98.1 74 16 167/93 (117) 95 10/19/17 21:38 98 21 10/19/17 20:00 97.8 78 16 175/99 (124) 97 10/19/17 16:00 97.8 75 18 145/94 (111) 97 10/19/17 14:00 98.7 74 22 144/88 (106) 100 10/19/17 14:00 76 10/19/17 12:00 76 -: 10/19/17 0445 10/19/17 0445 Microbiology 10/19/17 Urine Culture, Received Pending Physical Exam General Appearance: Well Developed, Well Nourished Neck Neck Exam: Neck Supple Pulmonary Resp Exam: Clear Bilaterally, Breath Sounds Equal Cardiology CV Exam: Regular, Normal Sinus Rhythm Gastrointestinal/Abdomen GI Exam: Soft, Non-Tender, Bowel Sounds Present Integumentary Skin Exam: Clear Extremeties Extremities Exam: No Edema Neurologic Neuro Exam: Alert, Awake, Oriented Assessment/Plan Problem List: (1) Acute worsening of stage 3 chronic kidney disease ICD Codes: N18.3 - Chronic kidney disease, stage 3 (moderate) Plan: Patient has chronic kidney disease GFR at best is 59 Now reduce to 25 which improved to 28 no new labs K low in urine Patient has hypertensive urgency and this can damage the kidney She has hypertensive nephrosclerosis And has underlying kidney disease Noncompliance played a role in hypertensive urgency Patient states she will be paying more attention about her medication cardiology following CP pt refused Lexiscan Rt kidney 11.2 Lt 9.6 , reported normal. (2) Hypertensive urgency ICD Codes: I16.0 - Hypertensive urgency Status: Acute Plan: On medication not well controlled Hydralazine/Labetalol added to Nifedipine/Clonidine (3) Chest pain ICD Codes: R07.9 - Chest pain, unspecified Status: Acute Plan: Await cardiology evaluation Problem Qualifiers (1) Chest pain: Qualified Codes: R07.9 - Chest pain, unspecified Maryan Alas MD October 20, 2017 11:35
[2017-10-20] MEDS: hydrALAZINE HCL 25 MG TAB PO SCH ×3 (12:28→22:53)
[2017-10-20 12:57] LABS: HEMATOCRIT 38.9 % (35.0-46.0); HEMOGLOBIN 13.7 GM/DL (11.6-15.3); MEAN CELL VOLUME 95.6 FL (80.0-100.0); MEAN CORPUSCULAR HEMOGLOBIN 33.7 PG (27.0-34.0); MEAN CORPUSCULAR HGB CONC 35.3 % (32.0-36.0); MEAN PLATELET VOLUME 10.6 FL (7.0-11.0); PLATELET COUNT 231 TH/MM3 (150-450); RED BLOOD COUNT 4.07 MIL/MM3 (4.00-5.30); RED CELL DISTRIBUTION WIDTH 14.7 % (11.6-17.2); WHITE BLOOD COUNT 5.3 TH/MM3 (4.0-11.0)
[2017-10-20 13:17] LABS: BICARBONATE 29.2 MEQ/L (21.0-32.0); CALCIUM 8.9 MG/DL (8.5-10.1); CREATININE 2.01 MG/DL (0.50-1.00)
--- NOTE | 2017-10-20 13:17 | HHI.PR ---
Subjective Remarks The patient was resting comfortably in bed. She said that she does not want a pharmacological stress test because she does not like the way it makes her feel. She would be willing to do an exercise stress test. She would be interested in talking to a dietitian. Discussed with cardiology. Objective Vitals Vital Signs Date Time Temp Pulse Resp B/P (MAP) Pulse Ox O2 Delivery O2 Flow Rate FiO2 10/20/17 08:00 98.0 71 18 188/114 (138) 100 10/20/17 04:00 98.0 77 16 165/94 (117) 94 10/20/17 00:01 72 10/20/17 00:00 98.1 74 16 167/93 (117) 95 10/19/17 21:38 98 21 10/19/17 20:00 97.8 78 16 175/99 (124) 97 10/19/17 16:00 97.8 75 18 145/94 (111) 97 10/19/17 14:00 98.7 74 22 144/88 (106) 100 10/19/17 14:00 76 I/O 10/19/17 10/19/17 10/19/17 10/20/17 10/20/17 10/20/17 07:00 15:00 23:00 07:00 15:00 23:00 Intake Total 1491 ml 860 ml 240 ml Output Total 550 ml 451 ml Balance 941 ml 409 ml 240 ml Intake Oral 860 ml 240 ml IV Total 1491 ml Output Urine Total 550 ml 450 ml Stool Total 1 ml # Voids 2 3 # Bowel Movements 0 0 0 Result Diagram: 10/20/17 1245 10/19/17 0445 Imaging Last Impressions Renal Ultrasound 10/19/17 0000 Signed Impressions: CONCLUSION: 1. Negative renal sonogram. Chest X-Ray 10/18/17 1219 Signed Impressions: CONCLUSION: Residual scarring within the lingula. Otherwise, no acute infiltrate or effu libia. Objective Remarks GENERAL: This is a well-nourished, well-developed patient, in no apparent distress. SKIN: No rashes, ecchymoses or lesions. Cool and dry. HEAD: Atraumatic. Normocephalic. No temporal or scalp tenderness. EYES: Pupils equal round and reactive. Extraocular motions intact. No scleral icterus. No injection or drainage. ENT: Nose without bleeding, purulent drainage or septal hematoma. Throat without erythema, tonsillar hypertrophy or exudate. Uvula midline. Airway patent. NECK: Trachea midline. No JVD or lymphadenopathy. Supple, nontender, no meningeal signs. CARDIOVASCULAR: Regular rate and rhythm without murmurs, gallops, or rubs. RESPIRATORY: Clear to auscultation. Breath sounds equal bilaterally. No wheezes , rales, or rhonchi. GASTROINTESTINAL: Abdomen soft, non-tender, nondistended. No guarding. MUSCULOSKELETAL: Extremities without clubbing, cyanosis, or edema. No joint tenderness, effusion, or edema noted. NEUROLOGICAL: Awake and alert. Cranial nerves II through XII intact. Motor and sensory grossly within normal limits. Five out of 5 muscle strength in all muscle groups. Normal speech. A/P Problem List: (1) Chest pain ICD Code: R07.9 - Chest pain, unspecified Status: Acute (2) Hypertensive emergency ICD Code: I16.1 - Hypertensive emergency Status: Acute Assessment and Plan Chest pain This is a 42-year-old female who presents to the emergency department complaining of exertional chest pain. She had severely elevated hypertension with abnormal EKG with new T inversion in the lateral leads. She has a history of NSTEMI secondary to hypertensive emergency and flash pulmonary edema. Currently chest pain-free. Chest x-ray with residual scarring in the lingula, otherwise no acute process. Cardiology consult appreciated. Trop elevated at 0.12. - continue aspirin and beta-denilson. - blood pressure control. - telemetry. - cardiology recommended Lexiscan. The pt does not want a nuclear stress test s/ t feeling symptomatic with them. Discussed with cardiology, will obtain a treadmill test in the AM. Hypertensive emergency Started Nitropaste, Procardia, Lopressor, clonidine and Cardene drip. Blood pressure fluctuates. - d/c nitropaste and Cardene. - continue Procardia, Labetalol, hydralazine and clonidine. - follow up with cardiology. - case management consult for medication assistance as pt has been noncompliant s/t inability to afford meds. Acute on chronic kidney disease stage III Nonoliguric. Previous renal sonogram unremarkable. Nephrology consult appreciated. Renal US negative. - Avoid nephrotoxins. - Nephrology following. Hypokalemia K+ level 3.3. - replete and monitor. DVT prophylaxis with SCD and early ambulation Discharge Planning If blood pressure is controlled anticipate d/c in AM if stress test negative. Problem Qualifiers (1) Chest pain: Qualified Codes: R07.9 - Chest pain, unspecified Layton Washington DO October 20, 2017 13:17
[2017-10-20] MEDS ORDERED: hydrALAZINE HCL 25 MG TAB PO SCH (14:00)
[2017-10-20] MEDS: cloNIDine HCL 0.1 MG TAB PO PRN (19:56)
[2017-10-20] MEDS: LABETALOL HCL 200 MG TAB PO SCH (19:56)
[2017-10-20] MEDS: CHLORHEXIDINE GLUCONATE 2 % 1 PACK (2 CLOTHS)(taper/protocol) TOPICAL SCH (22:54)
[2017-10-21] VITALS (7 sets, daily range): BP systolic 152–198; BP diastolic 88–116; PULSE 72–79; RESP 17–18; TEMP 97.6–98.5; O2SAT 95–99
[2017-10-21] MEDS ORDERED: LORazepam 1 MG TAB PO ONE (00:30)
[2017-10-21] MEDS: hydrALAZINE HCL 25 MG TAB PO SCH (05:53)
[2017-10-21] MEDS: cloNIDine HCL 0.3 MG TAB PO SCH ×3 (05:53→22:13)
[2017-10-21] MEDS: ASPIRIN 81 MG CHEW TAB CHEW SCH (07:17)
[2017-10-21] MEDS: NIFEdipine 60 MG SUSTAINED RELEASE TAB PO SCH (07:17)
[2017-10-21] MEDS: LABETALOL HCL 200 MG TAB PO SCH ×2 (07:17→20:53)
[2017-10-21] MEDS: DOCUSATE SODIUM 50 MG/SENNA 8.6 MG TAB PO SCH ×2 (07:17→20:53)
[2017-10-21] MEDS: SODIUM CHLORIDE 0.9% FLUSH 10 ML FLUSH IV FLUSH SCH ×2 (07:22→20:53)
[2017-10-21 07:45] LABS: BICARBONATE 27.3 MEQ/L (21.0-32.0); CALCIUM 9.1 MG/DL (8.5-10.1); CREATININE 2.06 MG/DL (0.50-1.00); MAGNESIUM 2.1 MG/DL (1.5-2.5)
[2017-10-21] MEDS ORDERED: hydrALAZINE HCL 50 MG TAB PO ONE (08:00)
--- NOTE | 2017-10-21 08:02 | PD.CARD.PN ---
Subjective Subjective Remarks Patient reports she is doing well today and denies any further chest pain. No shortness of breath or palpitations. The patient declined Lexiscan because she did not like the way to the previous Lexiscan made her feel and the plan is for ETT today. She reports her BP has been going up since she was taken off the drip. (Vaughn Rosa) Objective Medications Current Medications Medications (Trade) Dose Ordered Sig/Aylin Route Start Time Stop Time Status Last Admin (Catapres) 0.3 mg Q8HR PO 10/18/17 22:00 10/21/17 05:53 (Procardia Xl) 60 mg DAILY PO 10/19/17 09:00 10/21/17 07:17 (Aspirin Chew) 81 mg DAILY CHEW 10/19/17 09:00 10/21/17 07:17 (Nitrostat Sl) 0.4 mg Q5M PRN SL 10/18/17 14:00 (Apresoline Inj) 10 mg Q6HR PRN IV PUSH 10/18/17 18:00 (NS Flush) 2 ml UNSCH PRN IV FLUSH 10/18/17 14:00 (NS Flush) 2 ml BID IV FLUSH 10/18/17 21:00 10/21/17 07:22 (Tylenol) 650 mg Q4H PRN PO 10/18/17 15:00 (Zofran Inj) 4 mg Q6HR PRN IVP 10/18/17 18:00 (Tylenol) 650 mg Q6HR PRN PO 10/18/17 14:00 (Narcan Inj) 0.4 mg UNSCH PRN IV PUSH 10/18/17 14:00 (Negin-Colace) 1 tab BID PO 10/18/17 21:00 10/21/17 07:17 (Senokot) 17.2 mg Q12HR PRN PO 10/18/17 21:00 (Dulcolax Supp) 10 mg DAILY PRN RECTAL 10/18/17 14:00 (Lactulose Liq) 30 ml DAILY PRN PO 10/18/17 14:00 (Catapres) 0.3 mg Q6H PRN PO 10/18/17 14:00 10/20/17 19:56 ([facility] Nursing Information) Patient in critical care unit? Ass... Q361D .XX 10/18/17 22:30 (Chlorhexidine 2% Cloth) 3 pack DAILY@04 TOPICAL 10/19/17 04:00 10/23/17 04:01 (Chlorhexidine 2% Cloth) 3 pack UNSCH PRN TOPICAL 10/18/17 22:30 10/23/17 22:20 (Trandate) 200 mg Q12HR PO 10/20/17 21:00 10/21/17 07:17 (Apresoline) 25 mg Q8HR PO 10/20/17 12:15 10/21/17 05:53 Vital Signs / I&O Vital Signs Date Time Temp Pulse Resp B/P (MAP) Pulse Ox O2 Delivery O2 Flow Rate FiO2 10/21/17 04:00 97.7 72 17 182/110 (134) 95 10/21/17 00:00 97.6 75 17 194/116 (142) 99 10/20/17 22:51 70 20 195/116 (142) 99 10/20/17 20:00 98.1 76 17 188/112 (137) 100 10/20/17 16:00 97.7 73 17 174/106 (128) 99 10/20/17 12:00 97.9 69 17 174/117 (136) 98 10/20/17 08:00 98.0 71 18 188/114 (138) 100 I/O 10/20/17 10/20/17 10/20/17 10/21/17 10/21/17 10/21/17 07:00 15:00 23:00 07:00 15:00 23:00 Intake Total 240 ml 360 ml 0 ml Balance 240 ml 360 ml 0 ml Intake Oral 240 ml 360 ml 0 ml # Voids 3 6 2 # Bowel Movements 0 0 0 Physical Exam GENERAL: Well-developed well-nourished. In no acute distress. NECK: No carotid bruits. No JVD. CARDIOVASCULAR: Regular rate and rhythm. No murmur appreciated. RESPIRATORY: No accessory muscle use. Clear to auscultation. Breath sounds equal bilaterally. MUSCULOSKELETAL: No clubbing or cyanosis. No edema. NEUROLOGICAL: Awake and alert. Normal speech. Laboratory Laboratory Tests Test 10/20/17 12:45 10/21/17 06:33 White Blood Count 5.3 TH/MM3 Red Blood Count 4.07 MIL/MM3 Hemoglobin 13.7 GM/DL Hematocrit 38.9 % Mean Corpuscular Volume 95.6 FL Mean Corpuscular Hemoglobin 33.7 PG Mean Corpuscular Hemoglobin Concent 35.3 % Red Cell Distribution Width 14.7 % Platelet Count 231 TH/MM3 Mean Platelet Volume 10.6 FL Blood Urea Nitrogen 27 MG/DL 29 MG/DL Creatinine 2.01 MG/DL 2.06 MG/DL Random Glucose 88 MG/DL 118 MG/DL Calcium Level 8.9 MG/DL 9.1 MG/DL Sodium Level 140 MEQ/L 140 MEQ/L Potassium Level 4.1 MEQ/L 4.1 MEQ/L Chloride Level 105 MEQ/L 104 MEQ/L Carbon Dioxide Level 29.2 MEQ/L 27.3 MEQ/L Anion Gap 6 MEQ/L 9 MEQ/L Estimat Glomerular Filtration Rate 33 ML/MIN 32 ML/MIN Magnesium Level 2.2 MG/DL 2.1 MG/DL Imaging Last Impressions Renal Ultrasound 10/19/17 0000 Signed Impressions: CONCLUSION: 1. Negative renal sonogram. Chest X-Ray 10/18/17 1219 Signed Impressions: CONCLUSION: Residual scarring within the lingula. Otherwise, no acute infiltrate or effu libia. (Vaughn Rosa) Assessment and Plan Problem List: (1) Chest pain ICD Codes: R07.9 - Chest pain, unspecified Status: Acute (2) NSTEMI (non-ST elevated myocardial infarction) ICD Codes: I21.4 - Non-ST elevation (NSTEMI) myocardial infarction Status: Acute (3) Hypertensive urgency ICD Codes: I16.0 - Hypertensive urgency Status: Acute Assessment and Plan 42 yo AAF with HTN and CKD who presents with exertional chest pain and hypertensive emergency with SBP 204. She reports on 09/18/17 having played with her grandchild and developed sudden onset chest discomfort lasting about one hour reminiscent of prior chest pain in 2017. She reports having longstanding high blood pressure that had been under control until recently when she lost medical assistance and wasn't able afford office visits and medication costs; she had been out of medication for some time. In 2017 she presented with NSTEMI felt to be due to hypertensive emergency and flash pulmonary edema; stress testing at that time was normal NSTEMI: no chest pain since admission troponin elevation demand mediated from CKD vs. ischemic check updated echo Patient declined Lexiscan, ETT today acute on chronic CKD: creatinine 2; nephrology following. Holding ACEi/ARB and diuretics for now. HTN: BP increasing since nicardipine drip stopped. Increase hydralazine. Continue nifedipine and labetalol. (Vaughn Rosa) Assessment and Plan plan for ETT today hold BB for stress test echo titrate hydralazine 100 mg TID and nifedipine 90 mg daily already on clonidine, hydralazine, nifedipine, labetalol avoid diuretics given CKD if ETT negative, DC planning with outpatient FU with PCP daily BP diary (Rosalio Goff MD) Problem Qualifiers (1) Chest pain: Qualified Codes: R07.9 - Chest pain, unspecified Vaughn Rosa October 21, 2017 08:02 Rosalio Goff MD October 21, 2017 09:51
[2017-10-21] MEDS ORDERED: NIFEdipine 30 MG SUSTAINED RELEASE TAB PO ONE (10:15)
[2017-10-21] MEDS ORDERED: hydrALAZINE HCL 20 MG/ML VIAL IV PUSH PRN (11:45)
--- NOTE | 2017-10-21 13:06 | HHI.NPPN ---
Subjective History of Present Illness Patient is a 42-year-old -Stateless female who came in with uncontrolled hypertension, chest pain, renal failure. Patient has a compliance issue and loss assistance for her medical supply, she used to come to outpatient clinic at [place] Since then she ran out of the medication Review of Systems General Constitutional: Fatigue Objective Data Data Vital Signs Date Time Temp Pulse Resp B/P (MAP) Pulse Ox O2 Delivery O2 Flow Rate FiO2 10/21/17 12:00 98.0 76 18 184/101 (128) 98 10/21/17 10:26 180/110 (133) 10/21/17 08:00 98.0 79 18 198/107 (137) 98 10/21/17 04:00 97.7 72 17 182/110 (134) 95 10/21/17 00:00 97.6 75 17 194/116 (142) 99 10/20/17 22:51 70 20 195/116 (142) 99 10/20/17 20:00 98.1 76 17 188/112 (137) 100 10/20/17 16:00 97.7 73 17 174/106 (128) 99 -: 10/20/17 1245 10/21/17 0633 Physical Exam General Appearance: Well Developed, Well Nourished Neck Neck Exam: Neck Supple Pulmonary Resp Exam: Clear Bilaterally, Breath Sounds Equal Cardiology CV Exam: Regular, Normal Sinus Rhythm Gastrointestinal/Abdomen GI Exam: Soft, Non-Tender, Bowel Sounds Present Integumentary Skin Exam: Clear Extremeties Extremities Exam: No Edema Neurologic Neuro Exam: Alert, Awake, Oriented Assessment/Plan Problem List: (1) Acute worsening of stage 3 chronic kidney disease ICD Codes: N18.3 - Chronic kidney disease, stage 3 (moderate) Plan: Patient has chronic kidney disease GFR at best is 59 reduce to 25 which improved to 32 Patient has hypertensive urgency and this can damage the kidney She has hypertensive nephrosclerosis And has underlying kidney disease Noncompliance played a role in hypertensive urgency Patient states she will be paying more attention about her medication cardiology following CP pt refused Lexiscan Rt kidney 11.2 Lt 9.6 , reported normal. BP Labile on several medications MRA ordered for ANUPAM Add Losartan and Aldactone (2) Hypertensive urgency ICD Codes: I16.0 - Hypertensive urgency Status: Acute Plan: On medication not well controlled Hydralazine/Labetalol added to Nifedipine/Clonidine added Losartan and Aldactone (3) Chest pain ICD Codes: R07.9 - Chest pain, unspecified Status: Acute Problem Qualifiers (1) Chest pain: Qualified Codes: R07.9 - Chest pain, unspecified Maryan Alas MD October 21, 2017 13:06
[2017-10-21] MEDS: LOSARTAN 50 MG TAB PO SCH ×2 (13:26→20:53)
[2017-10-21] MEDS: hydrALAZINE HCL 100 MG TAB PO SCH ×2 (13:26→22:13)
[2017-10-21] MEDS: SPIRONOLACTONE 25 MG TAB PO SCH (16:25)
[2017-10-21] MEDS ORDERED: GADOBENATE DIM PF 529 MG/ML 10ML VIAL (for RAD MRI) IV ONE (16:48)
--- NOTE | 2017-10-21 17:30 | RADRPT ---
EXAM DATE: 10/21/2017 4:44 PM EDT AGE/SEX: 42 years / Female INDICATIONS: . Renal artery stenosis. Uncontrolled hypertension. CLINICAL DATA: This is the patient's initial encounter. Patient reports that signs and symptoms have been present for > 1 year and indicates a pain score of 0/10. MEDICAL/SURGICAL HISTORY: Hypertension. . Abscess drainage. COMPARISON: No prior [place] exams available for comparison. TECHNIQUE: 30 ml Multihance (gadobenate) contrast infused MR angiography (single exam dose) was per formed with digital subtraction. The data was postprocessed with a variety of visualization algorith ms including full-volume maximum-intensity projection, multiplanar sliding thin slab reformation, and curved planar reformation. FINDINGS: Abdominal aorta: The celiac and SMA origins are widely patent. There are single renal arteries bilate rally. The renal ostia are well visualized. There is no hemodynamically significant renal artery sten osis identified. The infrarenal aorta is normal in caliber. The BERENICE is patent. Source data: The appearance of the liver, spleen, pancreas, adrenal glands and kidneys is within norm al limits. There is no retroperitoneal lymphadenopathy identified. CONCLUSION: 1. No hemodynamically significant renal artery stenosis identified. Electronically signed by: Jose Tellez MD 10/21/2017 5:28 PM EDT
--- NOTE | 2017-10-21 19:12 | HHI.PR ---
Subjective Remarks Deferred entry, the patient was seen earlier at 10:30 AM. Patient's blood pressure noted to be severely elevated. The patient denies chest pain, denies shortness of breath, denies headache, denies dizziness. The patient denies nausea or vomiting. Objective Vitals Vital Signs Date Time Temp Pulse Resp B/P (MAP) Pulse Ox O2 Delivery O2 Flow Rate FiO2 10/21/17 16:00 97.8 78 18 169/101 (123) 98 10/21/17 12:00 98.0 76 18 184/101 (128) 98 10/21/17 10:26 180/110 (133) 10/21/17 08:00 98.0 79 18 198/107 (137) 98 10/21/17 04:00 97.7 72 17 182/110 (134) 95 10/21/17 00:00 97.6 75 17 194/116 (142) 99 10/20/17 22:51 70 20 195/116 (142) 99 10/20/17 20:00 98.1 76 17 188/112 (137) 100 I/O 10/20/17 10/20/17 10/20/17 10/21/17 10/21/17 10/21/17 07:00 15:00 23:00 07:00 15:00 23:00 Intake Total 240 ml 360 ml 0 ml 480 ml Balance 240 ml 360 ml 0 ml 480 ml Intake Oral 240 ml 360 ml 0 ml 480 ml # Voids 3 6 2 4 # Bowel Movements 0 0 0 Result Diagram: 10/20/17 1245 10/21/17 0633 Imaging Last Impressions Abdomen Magnetic Resonance Angio 10/21/17 0000 Signed Impressions: CONCLUSION: 1. No hemodynamically significant renal artery stenosis identified. Renal Ultrasound 10/19/17 0000 Signed Impressions: CONCLUSION: 1. Negative renal sonogram. Chest X-Ray 10/18/17 1219 Signed Impressions: CONCLUSION: Residual scarring within the lingula. Otherwise, no acute infiltrate or effu libia. Objective Remarks NAD Lungs are clear bilaterally. S1-S2 present with regular rate and rhythm, no murmurs, rubs or gallops. Abdomen is soft, nontender, nondistended. no edema in lower extremities no JVD observed Procedures none A/P Problem List: (1) Chest pain ICD Code: R07.9 - Chest pain, unspecified Status: Acute (2) Hypertensive emergency ICD Code: I16.1 - Hypertensive emergency Status: Acute (3) Acute worsening of stage 3 chronic kidney disease ICD Code: N18.3 - Chronic kidney disease, stage 3 (moderate) (4) NSTEMI (non-ST elevated myocardial infarction) ICD Code: I21.4 - Non-ST elevation (NSTEMI) myocardial infarction Status: Acute Assessment and Plan Chest pain resolved' appreciate cardiology. Patient declined the Lexiscan because of how it makes her feel. Awaiting exercise stress testing. Patient with severely elevated blood pressure. Start nifedipine and continue to monitor vital signs. Patient with worsening CKD stage III. Nephrology following. Discharge Planning Continue to monitor the medical floor. DC pending cardiology, nephrology clearance and stabilization of blood pressure. Anticipate discharge in 1-2 days. Problem Qualifiers (1) Chest pain: Qualified Codes: R07.9 - Chest pain, unspecified Javier Vasquez MD October 21, 2017 19:12
[2017-10-22] VITALS: BP 139/86; PULSE 76; PULSE 79; RESP 18; TEMP 97.8; O2SAT 97
[2017-10-22] MEDS ORDERED: LORazepam 1 MG TAB PO ONE (01:00)
[2017-10-22] MEDS: CHLORHEXIDINE GLUCONATE 2 % 1 PACK (2 CLOTHS)(taper/protocol) TOPICAL SCH (03:25)
[2017-10-22 04:00] VITALS: BP 149/93; PULSE 79; RESP 18; TEMP 98; O2SAT 97
[2017-10-22] MEDS: hydrALAZINE HCL 100 MG TAB PO SCH ×2 (05:10→16:04)
[2017-10-22] MEDS: cloNIDine HCL 0.3 MG TAB PO SCH ×2 (05:10→16:04)
[2017-10-22 08:00] VITALS: BP 130/72; PULSE 82; RESP 16; TEMP 98; O2SAT 98
[2017-10-22] MEDS ORDERED: LABETALOL HCL 200 MG TAB PO SCH (09:00)
[2017-10-22] MEDS ORDERED: NIFEdipine 90 MG SUSTAINED RELEASE TAB PO SCH (09:00)
[2017-10-22] MEDS: SODIUM CHLORIDE 0.9% FLUSH 10 ML FLUSH IV FLUSH SCH (09:00)
[2017-10-22] MEDS: DOCUSATE SODIUM 50 MG/SENNA 8.6 MG TAB PO SCH (09:00)
--- NOTE | 2017-10-22 09:04 | PD.CARD.PN ---
Subjective Subjective Remarks no complaints yesterday refusing [facility] Chest pain center refused to do ETT due to abnormal troponin Objective Medications Current Medications Medications (Trade) Dose Ordered Sig/Aylin Route Start Time Stop Time Status Last Admin (Catapres) 0.3 mg Q8HR PO 10/18/17 22:00 10/22/17 05:10 (Aspirin Chew) 81 mg DAILY CHEW 10/19/17 09:00 10/21/17 07:17 (Nitrostat Sl) 0.4 mg Q5M PRN SL 10/18/17 14:00 (NS Flush) 2 ml UNSCH PRN IV FLUSH 10/18/17 14:00 (NS Flush) 2 ml BID IV FLUSH 10/18/17 21:00 10/21/17 20:53 (Tylenol) 650 mg Q4H PRN PO 10/18/17 15:00 (Zofran Inj) 4 mg Q6HR PRN IVP 10/18/17 18:00 (Tylenol) 650 mg Q6HR PRN PO 10/18/17 14:00 (Narcan Inj) 0.4 mg UNSCH PRN IV PUSH 10/18/17 14:00 (Negin-Colace) 1 tab BID PO 10/18/17 21:00 10/21/17 07:17 (Senokot) 17.2 mg Q12HR PRN PO 10/18/17 21:00 (Dulcolax Supp) 10 mg DAILY PRN RECTAL 10/18/17 14:00 (Lactulose Liq) 30 ml DAILY PRN PO 10/18/17 14:00 (Catapres) 0.3 mg Q6H PRN PO 10/18/17 14:00 10/20/17 19:56 ([facility] [place] Patient in critical care unit? Ass... Q361D .XX 10/18/17 22:30 (Chlorhexidine 2% Cloth) 3 pack DAILY@04 TOPICAL 10/19/17 04:00 10/23/17 04:01 (Chlorhexidine 2% Cloth) 3 pack UNSCH PRN TOPICAL 10/18/17 22:30 10/23/17 22:20 (Trandate) 200 mg Q12HR PO 10/20/17 21:00 10/21/17 20:53 (Apresoline) 100 mg Q8HR PO 10/21/17 14:00 10/22/17 05:10 (Procardia Xl) 90 mg DAILY PO 10/22/17 09:00 (Apresoline Inj) 20 mg Q6HR PRN IV PUSH 10/21/17 11:45 (Aldactone) 25 mg BID@,18 PO 10/21/17 18:00 10/21/17 16:25 (Cozaar) 50 mg Q12HR PO 10/21/17 13:15 10/21/17 20:53 Vital Signs / I&O Vital Signs Date Time Temp Pulse Resp B/P (MAP) Pulse Ox O2 Delivery O2 Flow Rate FiO2 10/22/17 04:00 98.0 79 18 149/93 (111) 97 10/22/17 00:00 76 10/22/17 00:00 97.8 79 18 139/86 (103) 97 10/21/17 20:00 98.5 79 18 152/88 (109) 98 10/21/17 16:00 97.8 78 18 169/101 (123) 98 10/21/17 12:00 98.0 76 18 184/101 (128) 98 10/21/17 10:26 180/110 (133) I/O 10/21/17 10/21/17 10/21/17 10/22/17 10/22/17 10/22/17 07:00 15:00 23:00 07:00 15:00 23:00 Intake Total 0 ml 480 ml 240 ml Balance 0 ml 480 ml 240 ml Intake Oral 0 ml 480 ml 240 ml # Voids 2 4 3 # Bowel Movements 0 1 Physical Exam HEAD: Normocephalic. EYES: No scleral icterus. No injection or drainage. NECK: Supple, trachea midline. No JVD or lymphadenopathy. CARDIOVASCULAR: Regular rate and rhythm without murmurs, gallops, or rubs. RESPIRATORY: Breath sounds equal bilaterally. No accessory muscle use. GASTROINTESTINAL: Abdomen soft, non-tender, nondistended. MUSCULOSKELETAL: No cyanosis, or edema. BACK: Nontender without obvious deformity. No CVA tenderness. Assessment and Plan Problem List: (1) Chest pain ICD Codes: R07.9 - Chest pain, unspecified Status: Acute (2) NSTEMI (non-ST elevated myocardial infarction) ICD Codes: I21.4 - Non-ST elevation (NSTEMI) myocardial infarction Status: Acute (3) Hypertensive urgency ICD Codes: I16.0 - Hypertensive urgency Status: Acute Assessment and Plan elevated troponin demand mediated blood pressure control BP improved on current regimen DC planning patient assistance as outpatient FU with PCP will sign off call with further questions Problem Qualifiers (1) Chest pain: Qualified Codes: R07.9 - Chest pain, unspecified Minor,Rosalio Varma MD October 22, 2017 09:03
[2017-10-22] MEDS ORDERED: PILL SPLITTER OTHER PRN (09:15)
[2017-10-22] MEDS: LOSARTAN 50 MG TAB PO SCH (09:23)
[2017-10-22] MEDS: ASPIRIN 81 MG CHEW TAB CHEW SCH (09:23)
[2017-10-22] MEDS: SPIRONOLACTONE 25 MG TAB PO SCH (09:28)
[2017-10-22 10:53] VITALS: PULSE 81
[2017-10-22] MEDS ORDERED: HYDR-3801 PO (10:53)
[2017-10-22] MEDS ORDERED: NIFE90TA2 PO (10:53)
[2017-10-22] MEDS ORDERED: LABE200T2 PO (10:53)
[2017-10-22] MEDS ORDERED: COZA50TA PO (10:54)
[2017-10-22] MEDS ORDERED: SPIR25 PO (10:54)
--- NOTE | 2017-10-22 10:57 | HHI.DCPOC ---
Discharge Care Plan Diagnosis: (1) Acute worsening of stage 3 chronic kidney disease (2) NSTEMI (non-ST elevated myocardial infarction) (3) Hypertension (4) Chest pain (5) Tobacco abuse (6) Hypertensive emergency Goals to Promote Your Health * To prevent worsening of your condition and complications * To maintain your health at the optimal level Directions to Meet Your Goals Take your medications as prescribed Follow your dietary instruction Follow activity as directed Keep your appointments as scheduled Take your immunizations and boosters as scheduled If your symptoms worsen call your PCP, if no PCP go to Urgent Care Center or Emergency Room Smoking is Dangerous to Your Health. Avoid second hand smoke Call the 24-hour hour crisis hotline for domestic abuse at Javier Vasquez MD October 22, 2017 10:57
--- NOTE | 2017-10-22 11:06 | HHI.DS ---
Discharge Summary Admission Date October 18, 2017 at 14:23 Discharge Date: October 22, 2017 Admitting Diagnosis Chest pain, CHERYL, hypertensive emergency (1) Chest pain ICD Code: R07.9 - Chest pain, unspecified Diagnosis: Principal Status: Resolved (2) Hypertensive emergency ICD Code: I16.1 - Hypertensive emergency Diagnosis: Principal Status: Resolved (3) Acute worsening of stage 3 chronic kidney disease ICD Code: N18.3 - Chronic kidney disease, stage 3 (moderate) Diagnosis: Principal Status: Acute (4) NSTEMI (non-ST elevated myocardial infarction) ICD Code: I21.4 - Non-ST elevation (NSTEMI) myocardial infarction Diagnosis: Principal Status: Resolved Procedures none Brief History - From Admission This is a 42-year-old female who presents to the emergency department complaining of chest pain. Patient was playing around with her grandchildren when she developed sharp severe retrosternal pain for 1 hour without radiation, nausea, vomiting, diaphoresis, shortness of breath and palpitations. Because of her history of NSTEMI she presented to the emergency room. Back in May 2016, she presented to the emergency room with NSTEMI 2/2 hypertensive emergency and flash pulmonary edema. Her blood pressure extremely elevated over 210/110 and already received IV labetalol, Nitropaste and nitroglycerin sublingual. Patient states her blood pressure has been controlled when she was taking all her medications. At this time she is only able to afford lisinopril , hydrochlorothiazide and clonidine. She also is worsening renal function no change in urinary habits denies NSAID use. All other systems reviewed negative CBC/BMP: 10/20/17 1245 10/21/17 0633 Significant Findings Laboratory Tests Test 10/19/17 14:30 10/19/17 19:50 10/20/17 12:45 10/21/17 06:33 Urine Turbidity HAZY (CLEAR) Urine Protein 30 mg/dL (NEG-TRACE) Urine Glucose (UA) 70 mg/dL (NEG) Urine Leukocyte Esterase LARGE (NEG) Urine RBC 10 /hpf (0-3) Urine WBC 41 /hpf (0-5) Urine Bacteria MOD /hpf (NONE) Urine Mucus FEW /lpf (OCC) Urine Random Total Protein 58 MG/DL (0-11.8) Urine Protein/Creatinine Ratio 0.37 (0.00-0.14) Troponin I 0.12 NG/ML (0.02-0.05) Blood Urea Nitrogen 27 MG/DL (7-18) 29 MG/DL (7-18) Creatinine 2.01 MG/DL (0.50-1.00) 2.06 MG/DL (0.50-1.00) Estimat Glomerular Filtration Rate 33 ML/MIN (>89) 32 ML/MIN (>89) Random Glucose 118 MG/DL (74-106) Imaging Last Impressions Abdomen Magnetic Resonance Angio 10/21/17 0000 Signed Impressions: CONCLUSION: 1. No hemodynamically significant renal artery stenosis identified. Renal Ultrasound 10/19/17 0000 Signed Impressions: CONCLUSION: 1. Negative renal sonogram. Chest X-Ray 10/18/17 1219 Signed Impressions: CONCLUSION: Residual scarring within the lingula. Otherwise, no acute infiltrate or effu libia. PE at Discharge NAD Lungs are clear bilaterally. S1-S2 present with regular rate and rhythm, no murmurs, rubs or gallops. Abdomen is soft, nontender, nondistended. no edema in lower extremities no JVD observed Pt update on day of discharge The patient denies chest pain or shortness of breath. Blood pressure much improved. Hospital Course The patient presented with chest pain and severe elevated hypertension. The patient was admitted to the medical floor and monitor with telemetry. Patient had severely elevated hypertension with abnormal EKG with new T wave inversions in lateral leads. Patient has had a history of end STEMI secondary to hypertensive emergency and flash pulmonary edema in the past. Chest x-ray as described above without acute process. Cardiology was consulted since there was troponin elevation of 0.12. Aspirin and beta-denilson was continued, however blood pressure continue to be very elevated. Cardiology recommended Lexiscan which the patient declined, after that a treadmill exercise stress test was ordered, however he was suspended due to the patient's severely elevated blood pressure. For the patient's hypertensive emergency since the patient came with chest pain and elevated troponins the patient also Nitropaste , Procardia, Lopressor, clonidine and Cardene drip. Cardene drip was eventually discontinued as well as Nitropaste. Medications were titrated. Nifedipine dose was increased to 90 minutes p.o. daily. Nephrology was also consulted for acute on chronic kidney disease stage III. Renal ultrasound negative for hydronephrosis or obstruction. BUN and creatinine were monitored during hospital stay. Nephrology order an MRA of the abdomen which did not show any renal artery stenosis. The patient's blood pressure improved with blood pressure management on day of discharge. Patient is symptomatic. Patient will be discharged home to follow-up with PCP and nephrology. Case was discussed with manager of case management to provide help for medications when the patient is discharged. Pt Condition on Discharge: Stable Discharge Disposition: Discharge Home Discharge Time: <= 30 minutes Discharge Instructions DIET: Follow Instructions for: Heart Healthy Diet Activities you can perform: Regular-No Restrictions Activities to Avoid: Strenuous Activity Follow up Referrals: Nephrology - 2 Weeks with Farhat Goldsmith MD PCP Follow-up - 1 Week with Katelynnlatrell Mcgee New Medications: Hydralazine (Hydralazine) 100 Mg Tab 100 MG PO Q8HR for Blood Pressure Management, #93 TAB Take with meals Labetalol (Labetalol) 200 Mg Tab 300 MG PO Q12HR for Blood Pressure Management, #62 TAB Losartan (Cozaar) 50 Mg Tab 50 MG PO Q12HR for Blood Pressure Management, #62 TAB Nifedipine (Nifedipine ER) 90 Mg Tab 90 MG PO DAILY for Blood Pressure Management, #31 TAB Spironolactone (Aldactone) 25 Mg Tab 25 MG PO BID@09,18 for Blood Pressure Management, #62 TAB Continued Medications: Cetirizine (Cetirizine) 10 Mg Tab 10 MG PO DAILY for Allergies, #30 TAB 2 Refills Clonidine (Clonidine) 0.3 Mg Tab 0.3 MG PO TID for Blood Pressure Management, #90 TAB 3 Refills Omeprazole (Omeprazole) 40 Mg Cap 40 MG PO DAILY, #30 CAP 4 Refills [Aspirin Chew] () 81 MG CHEW 81 MG CHEW DAILY for cad for 30 Days, TAB.CHEW 0 Refills Discontinued Medications: Dextromethorphan-Acetaminophen (Coricidin Hbp Flu 15-500-2 mg) 1 Tab Tab 500 MG PO DAILY Furosemide (Lasix) 40 Mg Tab 40 MG PO DAILY for hypertension, #30 TAB 3 Refills Hydrochlorothiazide (Hydrochlorothiazide) 25 Mg Tab 25 MG PO BID, #30 TAB Lisinopril (Lisinopril) 40 Mg Tab 40 MG PO DAILY for Blood Pressure Management, #90 TAB 3 Refills Metoprolol Tartrate (Lopressor) 50 Mg Tab 50 MG PO Q12HR for HTN, #60 TAB Nifedipine ER 24 HR (Procardia XL) 60 Mg Tab 60 MG PO DAILY for hypertension, #30 TAB 3 Refills Pantoprazole (Protonix) 40 Mg Tab 40 MG PO DAILY for Reflux, #30 TAB 3 Refills Potassium Chloride ER (Potassium Chloride ER) 10 Meq Cap 10 MEQ PO DAILY for Electrolyte Replacement, #30 CAP 3 Refills Javier Vasquez MD October 22, 2017 11:06
[2017-10-22 11:18] VITALS: O2SAT 98
[2017-10-22 11:36] LABS: BICARBONATE 26.4 MEQ/L (21.0-32.0); CALCIUM 9.2 MG/DL (8.5-10.1); CREATININE 2.31 MG/DL (0.50-1.00)
[2017-10-22 11:39] LABS: TROPONIN I 0.04 NG/ML (0.02-0.05)
--- NOTE | 2017-10-22 11:54 | ECHRPT ---
Indication: Chest pain, unspecified CONCLUSIONS The left ventricular systolic function is normal with an estimated ejection fraction in the range of 60-65%. Moderate concentric left ventricular hypertrophy. Normal left ventricular size. BP: 180 / 110 HR: 79 Rhythm: Sinus MEASUREMENTS (Male / Female) Normal Values Technical Quality:Good 2D ECHO LV Diastolic Diameter PLAX 4.2 cm 4.2 - 5.9 / 3.9 - 5.3 cm LV Systolic Diameter PLAX 3.0 cm IVS Diastolic Thickness 1.4 cm 0.6 - 1.0 / 0.6 - 0.9 cm LVPW Diastolic Thickness 1.4 cm 0.6 - 1.0 / 0.6 - 0.9 cm LV Relative Wall Thickness 0.7 LVOT Diameter 1.9 cm M-MODE Aortic Root Diameter MM 2.7 cm LA Systolic Diameter MM 2.3 cm LA Ao Ratio MM 0.9 AV Cusp Separation MM 1.8 cm DOPPLER AV Peak Velocity 163.0 cm/s AV Peak Gradient 10.6 mmHg LVOT Peak Velocity 105.0 cm/s LVOT Peak Gradient 4.4 mmHg AV Area Cont Eq pk 1.8 cm Mitral E Point Velocity 69.6 cm/s Mitral A Point Velocity 67.6 cm/s Mitral E to A Ratio 1.0 LV E' Lateral Velocity 3.3 cm/s Mitral E to LV E' Lateral Ratio 21.0 LV E' Septal Velocity 4.8 cm/s Mitral E to LV E' Septal Ratio 14.6 TR Peak Velocity 189.0 cm/s TR Peak Gradient 14.3 mmHg Right Atrial Pressure 10.0 mmHg Pulmonary Artery Systolic Pressu 24.3 mmHg Right Ventricular Systolic Press 24.3 mmHg PV Peak Velocity 122.0 cm/s PV Peak Gradient 6.0 mmHg FINDINGS LEFT VENTRICLE The left ventricular systolic function is normal with an estimated ejection fraction in the range of 60-65%. Moderate concentric left ventricular hypertrophy. Normal left ventricular size. RIGHT VENTRICLE Normal right ventricular size and systolic function. LEFT ATRIUM The left atrial size is normal. RIGHT ATRIUM The right atrial size is normal. ATRIAL SEPTUM Normal atrial septal thickness without atrial level shunting by limited color doppler interrogation. AORTA The aortic root and proximal ascending aorta are normal in size on limited imaging. MITRAL VALVE Structurally normal mitral valve. No mitral valve stenosis or regurgitation. AORTIC VALVE Trileaflet aortic valve. No aortic valve stenosis or regurgitation. TRICUSPID VALVE There is trace tricuspid valve regurgitation. The estimated pulmonary arterial pressure is 24.3 mmHg. PULMONARY VALVE No pulmonary valve regurgitation or stenosis. VESSELS The inferior vena cava is normal in size. PERICARDIUM No pericardial effusion. Rosalio Goff MD, FACC (Electronically Signed) Final Date:22 Oct 2017 11:54
[2017-10-22 12:00] VITALS: BP 127/73; PULSE 84; RESP 17; TEMP 97.8; O2SAT 98
--- NOTE | 2017-10-22 14:03 | HHI.NPPN ---
Subjective History of Present Illness Patient is a 42-year-old -[place] female who came in with uncontrolled hypertension, chest pain, renal failure. Patient has a compliance issue and loss assistance for her medical supply, she used to come to outpatient clinic at [facility] [place] Since then she ran out of the medication Review of Systems General Constitutional: Fatigue Objective Data Data 10/22/17 10/23/17 19:00 07:00 # Bowel Movements 1 Vital Signs Date Time Temp Pulse Resp B/P (MAP) Pulse Ox O2 Delivery O2 Flow Rate FiO2 10/22/17 12:00 97.8 84 17 127/73 (91) 98 10/22/17 11:18 98 10/22/17 10:53 81 10/22/17 08:00 98.0 82 16 130/72 (91) 98 10/22/17 04:00 98.0 79 18 149/93 (111) 97 10/22/17 00:00 76 10/22/17 00:00 97.8 79 18 139/86 (103) 97 10/21/17 20:00 98.5 79 18 152/88 (109) 98 10/21/17 16:00 97.8 78 18 169/101 (123) 98 -: 10/20/17 1245 10/22/17 1059 Physical Exam General Appearance: Well Developed, Well Nourished Neck Neck Exam: Neck Supple Pulmonary Resp Exam: Clear Bilaterally, Breath Sounds Equal Cardiology CV Exam: Regular, Normal Sinus Rhythm Gastrointestinal/Abdomen GI Exam: Soft, Non-Tender, Bowel Sounds Present Integumentary Skin Exam: Clear Extremeties Extremities Exam: No Edema Neurologic Neuro Exam: Alert, Awake, Oriented Assessment/Plan Problem List: (1) Acute worsening of stage 3 chronic kidney disease ICD Codes: N18.3 - Chronic kidney disease, stage 3 (moderate) Status: Acute Plan: Patient has chronic kidney disease GFR at best is 59 reduce to 25 which improved to 32 Patient has hypertensive urgency and this can damage the kidney She has hypertensive nephrosclerosis And has underlying kidney disease Noncompliance played a role in hypertensive urgency Patient states she will be paying more attention about her medication cardiology following CP pt refused Lexiscan Rt kidney 11.2 Lt 9.6 , reported normal. BP Labile on several medications MRA negative for ANUPAM Losartan and Aldactone plus Hydralazine/nifedipine/Labetalol/clonidine (2) Hypertensive urgency ICD Codes: I16.0 - Hypertensive urgency Status: Acute Plan: On medication not well controlled Hydralazine/Labetalol added to Nifedipine/Clonidine added Losartan and Aldactone (3) Chest pain ICD Codes: R07.9 - Chest pain, unspecified Status: Resolved Problem Qualifiers (1) Chest pain: Qualified Codes: R07.9 - Chest pain, unspecified Maryan Alas MD October 22, 2017 14:03
== END 2017-10-22 16:38 | disposition home or self-care (01) | DRG 683 ==
LOC: NEPC 12:04 → NEDA 14:23 → HIMW 15:50 → N07B 10-19 15:18
PROVIDERS: ADMIT Hospitalist; ATTEND Hospitalist
DX: N17.9 Acute kidney failure, unspecified (principal); I42.9 Cardiomyopathy, unspecified; I16.1 Hypertensive emergency; I12.9 Hypertensive chronic kidney disease with stage 1 through stage 4 chronic kidney disease, or unspecified chronic kidney disease; N18.3 Chronic kidney disease, stage 3 (moderate); R07.9 Chest pain, unspecified; F12.90 Cannabis use, unspecified, uncomplicated; I25.2 Old myocardial infarction; I25.10 Atherosclerotic heart disease of native coronary artery without angina pectoris; F17.200 Nicotine dependence, unspecified, uncomplicated; E87.6 Hypokalemia; E78.5 Hyperlipidemia, unspecified; K52.9 Noninfective gastroenteritis and colitis, unspecified; Z91.14 Patient's other noncompliance with medication regimen; Z79.82 Long term (current) use of aspirin
CPT/HCPCS: 71045; 76775; 80048; 80074; 81001; 82436; 82550; 82570; 83735; 84133; 84156; 84300; 84484; 85025; 85027; 85610; 85730; 86038; 86160; 87086; 87641; 93005; 93306; 99291; A9577; C8900; J7050

== ENCOUNTER 2018-01-07 21:49 | Inpatient (IN) ==
[2018-01-08 01:25] LABS: Baso % (Auto) 0.4 % (0.0-2.0); Eos # (Auto) 0.2 th/mm3 (0.0-0.4); Eos % (Auto) 1.3 % (0.0-4.0); Hemoglobin 12.1 gm/dL (11.6-15.3); Lymph # (Auto) 1.6 th/mm3 (1.0-4.8); Lymph % (Auto) 13.2 % (9.0-44.0); Mean Corpuscular HGB Conc 33.6 % (32.0-36.0); Mean Corpuscular Hemoglobin 32.3 pg (27.0-34.0); Mean Corpuscular Volume 96.2 fL (80.0-100.0); Mean Platelet Volume 9.8 fL (7.0-11.0); Mono % (Auto) 8.1 % (0.0-8.0); Neut # (Auto) 9.1 th/mm3 (1.8-7.7); Platelet Count 295 th/mm3 (150-450); Red Blood Count 3.74 mil/mm3 (4.00-5.30); Red Cell Distribution Width 14.3 % (11.6-17.2); White Blood Count 11.9 th/mm3 (4.0-11.0)
[2018-01-08 01:45] LABS: Calcium 9.4 mg/dL (8.5-10.1); Carbon Dioxide 24.9 meq/L (21.0-32.0); Potassium 3.4 meq/L (3.5-5.1)
--- NOTE | 2018-01-08 02:17 | CT ---
EXAM DATE: 01/08/2018 2:05 AM EDT AGE/SEX: 42 years / Female INDICATIONS: Patient states she has an abscess on left buttock. CLINICAL DATA: This is the patient's initial encounter. Patient reports that signs and symptoms have been present for 2 weeks and indicates a pain score of 8/10. MEDICAL/SURGICAL HISTORY: Hypertension. None. RADIATION DOSE: 6.64 CTDI (mGy) COMPARISON: No prior exams available for comparison. TECHNIQUE: Multiple contiguous axial images were obtained through the abdomen. Images were obtained using multiple row detector helical technique. Using automated exposure control and adjustment of the mA and/or kV according to patient size, radiation dose was kept as low as reasonably achievable to o btain optimal diagnostic quality images. DICOM format image data is available electronically for rev iew and comparison. FINDINGS: There is a fluid collection seen at the inferior medial posterior left gluteal region measuring 5.2 c m in AP dimension, 4.1 cm in transverse dimension and 5.7 cm in height. There is evidence radiation o f the surrounding fat. This does extend to abut the posterior left lateral aspect of the anus. Lower Lungs: The visualized lower lungs are clear. Liver: The liver has a homogeneous density without space-occupying lesion. There is no dilation of th e biliary tree. Spleen: Homogeneous density without enlargement. Pancreas: Unremarkable without mass or calcification. Kidneys: Normal in size and shape. No evidence of mass or hydronephrosis. Adrenal Glands: Unremarkable. Aorta: The aorta and proximal iliac vessels are grossly unremarkable without aneurysmal dilation. A therosclerotic calcifications are present. Bowel/Mesentery: The bowel loops are grossly unremarkable. The cecum and sigmoid colon have a normal configuration. The appendix is normal. Abdominal Wall: Intact. Retroperitoneum: No evidence of adenopathy in the retrocrural, para-aortic, or deep pelvic regions. Bladder: Contours are smooth. Reproductive Organs: No abnormal masses or calcifications seen. Inguinal: There are mildly prominent lymph nodes in the left inguinal region measuring up to 1.2 cm. Bony Structures: Unremarkable. CONCLUSION: 1. 5.7 cm fluid collection in the posterior medial inferior left gluteal region likely related to an abscess. There is induration in the surrounding fat. There are mildly prominent lymph nodes in the l eft inguinal region. 2. Prominent atherosclerotic calcifications with the patient's age. Electronically signed by: Ozzy Hansen MD 01/08/2018 2:16 AM EDT
[2018-01-08] MEDS ORDERED: hydrALAZINE HCl Inj 20 MG/ML Vial IV.PUSH ONE (02:44)
[2018-01-08] MEDS ORDERED: Piperacil/Tazo 3.375 GM Premix 50 ML IV.SIG ONE (04:02)
--- NOTE | 2018-01-08 04:04 | ED ---
HPI General Chief complaint: Skin/Abscess/Foreign Body Stated complaint: MEDICAL Time Seen by Provider: 01/08/18 00:44 Source: patient and old records reviewed Mode of arrival: ambulatory Limitations: no limitations History of Present Illness HPI narrative: The patient is a 42-year-old female presenting with complaint of abscess on the left buttock area. Patient stated she had several procedures in the past for I&D all of which were done inpatient under anesthesia. She initially had one in [place] where she is from and that she had another one while she was down here that was I&D in the OR as per patient were not able to find old records. She states that for the past 2 weeks she has been having a boil that is getting worse to the point that is now tracking to the vaginal area and it is very tender to palpation. She denies any fever or chills no nausea vomiting or diarrhea MD complaint: abscess/boil Onset (ago): week(s) (2) Location: buttocks Severity: severe Severity scale (1-10): >10 Quality: stabbing and sharp Pain Consistency: constant Relieving factors: none Exacerbating factors: palpation and movement Treatments prior to arrival: OTC topical medication and NSAID Related Data Home Medications Medication Instructions Recorded Confirmed hydralazine 100 mg PO Q8HR 12/15/17 01/08/18 labetalol 300 mg PO Q12H 12/15/17 01/08/18 losartan 50 mg PO Q12HR 12/15/17 01/08/18 nifedipine 90 mg PO DAILY 12/15/17 01/08/18 spironolactone 25 mg PO BID 12/15/17 01/08/18 Previous Rx's Medication Instructions Recorded erythromycin 1 applic EACH EYE Q6H #3.5 g 12/15/17 Allergies Allergy/AdvReac Type Severity Reaction Status Date / Time No Known Allergies Allergy Verified 01/08/18 00:35 Review of Systems ROS: all other systems reviewed are negative Constitutional Denies body ache(s), Denies chills, Denies fever(s) and Denies malaise Integumentary/Breasts Reports as per HPI [facility] Medical History Medical History Hypertension (Acute) Surgical History Surgical History Hx of removal of cyst (Acute) Family History Family History Other Family history of diabetes mellitus Family history of hypertension Social History Social History Substance History: No History of Abuse Second Hand Smoke Exposure: No Smoking Status: Former smoker Tobacco Type: Cigarettes How Often Do You Have a Drink Containing Alcohol: 2 to 3 times a week Recent Travel in [facility] within the Last 8 Weeks: No Recent Out of Country Travel within the Last 8 Weeks: No Immunization History Tetanus Immunization: Unsure Hx Influenza Vaccine This Season: No Exam Narrative Exam Narrative: GENERAL: Alert and oriented in mild distress due to pain SKIN: Focused skin assessment warm/dry. Indurated tissue with surrounding cellulitis and on the left buttock. Duration is approximately 6 x 3 cm perirectal it appears that is tracking to the left lower labial folds. very tender to palpation. the pateint cannot tolerate even light touch to the area. HEAD: Atraumatic. Normocephalic. EYES: Pupils equal and round. No scleral icterus. No injection or drainage. ENT: No nasal bleeding or discharge. Mucous membranes pink and moist. NECK: Trachea midline. No JVD. CARDIOVASCULAR: Regular rate and rhythm. No murmur appreciated. RESPIRATORY: No accessory muscle use. Clear to auscultation. Breath sounds equal bilaterally. GASTROINTESTINAL: Abdomen soft, non-tender, nondistended. Hepatic and splenic margins not palpable. Rectal: External Hemorrhoids noted. non bleeding non thrombosed. perirectal abscess with indurated tissue on left buttock perirectal MUSCULOSKELETAL: No obvious deformities. No clubbing. No cyanosis. No edema. NEUROLOGICAL: Awake and alert. No obvious cranial nerve deficits. Motor grossly within normal limits. Normal speech. PSYCHIATRIC: Appropriate mood and affect; insight and judgment normal. Course Reevaluation(s) Reevaluation #1: Patient feels better blood pressure improved to 166/77 after receiving 0.2 of [address]. Antibiotics given. CT was obtained due to the location of her injury she will be admitted for surgical consultation. Time: 04:03 Initial Documented Vital Signs Temperature 99.1 F 01/07/18 21:56 Pulse Rate 98 H 01/07/18 21:56 Respiratory Rate 16 01/07/18 21:56 Blood Pressure 169/106 H 01/07/18 21:56 Pulse Oximetry 96 01/07/18 21:56 Last Documented Vital Signs Temperature 97.7 F 01/08/18 20:45 Pulse Rate 83 01/08/18 20:45 Respiratory Rate 20 01/08/18 20:45 Blood Pressure 173/95 H 01/08/18 20:45 Pulse Oximetry 100 01/08/18 20:45 Medical Decision Making MDM Narrative Medical decision making narrative: Gross cytosis of 11.9. CT with perirectal abscess large indurated. Patient very tender to palpation to light touch more than likely she will not be able to tolerate procedure at bedside and will need general anesthesia as he did in the past. Medical Screen Exam Complete: Yes Emergency Medical Condition: Yes POC Test Results POC Urine Results: Negative Lab Data Lab results reviewed: Yes I reviewed the patient's lab results. Result diagrams: 01/08/18 01:00 01/08/18 01:00 Lab Results 01/08/18 01/08/18 01/08/18 Range/Units 01:00 01:00 01:00 WBC 11.9 H (4.0-11.0) th/mm3 RBC 3.74 L (4.00-5.30) mil/mm3 Hgb 12.1 (11.6-15.3) gm/dL Hct 36.0 (35.0-46.0) % MCV 96.2 (80.0-100.0) fL MCH 32.3 (27.0-34.0) pg MCHC 33.6 (32.0-36.0) % RDW 14.3 (11.6-17.2) % Plt Count 295 (150-450) th/mm3 MPV 9.8 (7.0-11.0) fL Neut % (Auto) 77.0 H (16.0-70.0) % Lymph % (Auto) 13.2 (9.0-44.0) % [place] % (Auto) 8.1 H (0.0-8.0) % Eos % (Auto) 1.3 (0.0-4.0) % Baso % (Auto) 0.4 (0.0-2.0) % Neut # (Auto) 9.1 H (1.8-7.7) th/mm3 Lymph # (Auto) 1.6 (1.0-4.8) th/mm3 [place] # (Auto) 1.0 H (0.0-0.9) th/mm3 Eos # (Auto) 0.2 (0.0-0.4) th/mm3 Baso # (Auto) 0.0 (0.0-0.2) th/mm3 WBC Differential . Differential Comment Auto diff final ESR 58 H (0-20) mm/hr Sodium 141 (136-145) meq/L Potassium 3.4 L (3.5-5.1) meq/L Chloride 107 (98-107) meq/L Carbon Dioxide 24.9 (21.0-32.0) meq/L Anion Gap 9 (5-15) meq/L BUN 30 H (7-18) mg/dL Creatinine 2.63 H (0.50-1.00) mg/dL Estimated GFR 24 L (>89) mL/min Random Glucose 98 (74-106) mg/dL Hemoglobin A1c (4.3-6.0) % Calcium 9.4 (8.5-10.1) mg/dL Triglycerides (42-150) mg/dL Cholesterol (120-200) mg/dL LDL Cholesterol, Calc (0-99) mg/dL HDL Cholesterol (40.0-60.0) mg/dL Cholesterol/HDL Ratio Ratio Vitamin B12 (193-986) pg/mL TSH (0.358-3.740) uIU/mL Free T4 (0.76-1.46) ng/dL 01/08/18 01/08/18 01/08/18 Range/Units 16:04 16:04 16:04 WBC (4.0-11.0) th/mm3 RBC (4.00-5.30) mil/mm3 Hgb (11.6-15.3) gm/dL Hct (35.0-46.0) % MCV (80.0-100.0) fL MCH (27.0-34.0) pg MCHC (32.0-36.0) % RDW (11.6-17.2) % Plt Count (150-450) th/mm3 MPV (7.0-11.0) fL Neut % (Auto) (16.0-70.0) % Lymph % (Auto) (9.0-44.0) % [place] % (Auto) (0.0-8.0) % Eos % (Auto) (0.0-4.0) % Baso % (Auto) (0.0-2.0) % Neut # (Auto) (1.8-7.7) th/mm3 Lymph # (Auto) (1.0-4.8) th/mm3 [place] # (Auto) (0.0-0.9) th/mm3 Eos # (Auto) (0.0-0.4) th/mm3 Baso # (Auto) (0.0-0.2) th/mm3 WBC Differential Differential Comment ESR (0-20) mm/hr Sodium (136-145) meq/L Potassium (3.5-5.1) meq/L Chloride (98-107) meq/L Carbon Dioxide (21.0-32.0) meq/L Anion Gap (5-15) meq/L BUN (7-18) mg/dL Creatinine (0.50-1.00) mg/dL Estimated GFR (>89) mL/min Random Glucose (74-106) mg/dL Hemoglobin A1c 6.2 H (4.3-6.0) % Calcium (8.5-10.1) mg/dL Triglycerides (42-150) mg/dL Cholesterol (120-200) mg/dL LDL Cholesterol, Calc (0-99) mg/dL HDL Cholesterol (40.0-60.0) mg/dL Cholesterol/HDL Ratio Ratio Vitamin B12 1048 H (193-986) pg/mL TSH 1.510 (0.358-3.740) uIU/mL Free T4 1.28 (0.76-1.46) ng/dL 01/08/18 Range/Units 16:04 WBC (4.0-11.0) th/mm3 RBC (4.00-5.30) mil/mm3 Hgb (11.6-15.3) gm/dL Hct (35.0-46.0) % MCV (80.0-100.0) fL MCH (27.0-34.0) pg MCHC (32.0-36.0) % RDW (11.6-17.2) % Plt Count (150-450) th/mm3 MPV (7.0-11.0) fL Neut % (Auto) (16.0-70.0) % Lymph % (Auto) (9.0-44.0) % [place] % (Auto) (0.0-8.0) % Eos % (Auto) (0.0-4.0) % Baso % (Auto) (0.0-2.0) % Neut # (Auto) (1.8-7.7) th/mm3 Lymph # (Auto) (1.0-4.8) th/mm3 [place] # (Auto) (0.0-0.9) th/mm3 Eos # (Auto) (0.0-0.4) th/mm3 Baso # (Auto) (0.0-0.2) th/mm3 WBC Differential Differential Comment ESR (0-20) mm/hr Sodium (136-145) meq/L Potassium (3.5-5.1) meq/L Chloride (98-107) meq/L Carbon Dioxide (21.0-32.0) meq/L Anion Gap (5-15) meq/L BUN (7-18) mg/dL Creatinine (0.50-1.00) mg/dL Estimated GFR (>89) mL/min Random Glucose (74-106) mg/dL Hemoglobin A1c (4.3-6.0) % Calcium (8.5-10.1) mg/dL Triglycerides 103 (42-150) mg/dL Cholesterol 142 (120-200) mg/dL LDL Cholesterol, Calc 89 (0-99) mg/dL HDL Cholesterol 32.7 L (40.0-60.0) mg/dL Cholesterol/HDL Ratio 4.34 Ratio Vitamin B12 (193-986) pg/mL TSH (0.358-3.740) uIU/mL Free T4 (0.76-1.46) ng/dL Imaging Data Radiologist's impression: Abdomen/Bladder Ultrasound 01/08/18 00:00 CONCLUSION: 1. Mild increased echotexture of the renal parenchyma suggesting medical renal disease. There is no hydronephrosis. 2. Trace left pleural fluid. Abdomen/Pelvis CT 01/08/18 00:50 CONCLUSION: 1. 5.7 cm fluid collection in the posterior medial inferior left gluteal region likely related to an abscess. There is induration in the surrounding fat. There are mildly prominent lymph nodes in the left inguinal region. 2. Prominent atherosclerotic calcifications with the patient's age. Discharge Plan Discharge Disposition Patient Disposition: 30 Still Patient Discharge Condition Condition: Good Discharge Details Diagnosis: Hypertension, CHERYL (acute kidney injury) Physicians Team ED Provider: Dominguez Hay Primary Care Provider: Katelynn Mcgee, Attending Provider: Warren Yi Other Providers: Aime Mccoy Discharge Interventions Interventions: ED Discharge Assessment Last Done: 01/08/18 12:14 Vital Signs Last Done: 01/08/18 04:03 Status ED Status: Left Department Discharge Information Discharge Date/Time: 01/08/18 12:15
[2018-01-08] MEDS ORDERED: Vancomycin Inj 1,000 MG in Sodium Chlor 0.9% Inj 250 ML IV.SIG SCH (05:00)
[2018-01-08] MEDS ORDERED: Acetaminophen 325 MG Tablet PO PRN ×2 (05:17→19:50)
[2018-01-08] MEDS ORDERED: Temazepam 15 MG Capsule PO PRN (05:17)
[2018-01-08] MEDS ORDERED: Vancomycin Consult Pharmacy 1 EACH OTHER SCH (05:19)
[2018-01-08] MEDS ORDERED: Sod Chloride 0.9% Inj 1,000 ML IV.SIG ONE (05:26)
[2018-01-08] MEDS: Sod Chloride 0.9% Inj 1,000 ML IV.CONT SCH ×2 (06:31→19:49)
--- NOTE | 2018-01-08 08:54 | P.HP ---
History of Present Illness Primary Care Physician: Katelynn Mcgee Chief Complaint: Left Buttock abscess. History of Present Illness: This is a pleasant 42 y/o Female who came to ER with complaint of Left buttock area abscess, Patient stated she had several procedures in the past for I&D all of which were done inpatient under anesthesia. She initially had one in [place] where she is from and that she had another one while she was down here that was I&D in the OR as per patient were not able to find old records. She states that for the past 2 weeks she has been having a boil that is getting worse to the point that is now tracking to the vaginal area and it is very tender to palpation. She denies any fever or chills no nausea vomiting or diarrhea, pain reported as for the last two weeks, 10/10 in intensity, Stabbing and Sharp sensation, constant pain, non radiated. took some OTC topical medicine and NSAIDs. Seen in Emergency room stable complaint of Pain, she had this process already treated in this facility in the past the CT gave 5.7 cm fluid collection in the posterior medial inferior left gluteal region likely related to an abscess there is induration in the surrounding fat, General surgery asked for the consult to be placed for Colorectal surgery Inpatient Certification: I certify that the inpatient services were ordered in accordance with Medicare regulations governing the order. This includes certification that hospital inpatient services are reasonable and necessary and in the case of services not specified as inpatient-only under 42 CFR 419.22(n), that they are appropriately provided as inpatient services in accordance to with the 2-midnight benchmark under 43 CFR 412.3(e) Estimated Total Length of Stay (Days): 2 Plans for Post Hospital Care: Home Review of Systems All other systems reviewed negative except as stated in [facility] - History History Provided By: Patient - Medical History Medical History: Medical History (Last Reviewed 01/08/18 @ 05:22 by Dominguez Hay DO) Hypertension - Surgical History Surgical History: Surgical History (Last Reviewed 01/08/18 @ 05:22 by Dominguez Hay DO) Hx of removal of cyst - Family History Family History: Family History (Last Updated 01/08/18 @ 15:11 by Warren Yi MD) Other Family history of diabetes mellitus Family history of hypertension - Tobacco History Smoking Status: Former smoker Tobacco Type: Cigarettes - Alcohol History How Often Do You Have a Drink Containing Alcohol: 2 to 3 times a week - Substance Use History Substance History: No History of Abuse - Travel History Recent Travel in the [place] Within the Last 8 Weeks: No Recent Travel Out of the Country Within the Last 8 Weeks: No - Immunization History Tetanus Immunization: Unsure Hx Influenza Vaccine This Season: No Medications and Allergies Active Medications: Active Medications Acetaminophen (Tylenol) 650 mg PO Q4H PRN PRN Reason: Temp > 100.4 Vancomycin HCl 1,000 mg/ (Sodium Chloride) 250 mls @ 250 mls/hr IV.SIG BEAD PREPARER [facility] Stop: 01/11/18 04:59 Sodium Chloride (Ns Inj) 1,000 mls @ 100 mls/hr IV.CONT .Q10H [facility] Last Admin: 01/08/18 06:31 Dose: 100 mls/hr Piperacillin/Tazobactam/Dextrose (Zosyn 3.375 Gm Premix) 50 mls @ 100 mls/hr IV.SIG Q6H [facility] Pharmacy Profile Note (Vancomycin Consult Pharmacy) 0 mls @ 0 mls/hr OTHER UNSCH [facility] Ondansetron HCl (Zofran Inj) 4 mg IV.PUSH Q6H PRN PRN Reason: NAUSEA OR VOMITING Temazepam (Restoril) 15 mg PO HS PRN PRN Reason: INSOMNIA Allergies Allergy/AdvReac Type Severity Reaction Status Date / Time No Known Allergies Allergy Verified 01/08/18 00:35 Home Medications Medication Instructions Recorded Confirmed Type hydralazine 100 mg PO Q8HR 12/15/17 01/08/18 History labetalol 300 mg PO Q12H 12/15/17 01/08/18 History losartan 50 mg PO Q12HR 12/15/17 01/08/18 History nifedipine 90 mg PO DAILY 12/15/17 01/08/18 History spironolactone 25 mg PO BID 12/15/17 01/08/18 History Exam Vital signs: Vital Signs 01/07/18 21:56 01/08/18 01:44 01/08/18 03:40 Temperature 99.1 F Pulse Rate 98 H 76 Respiratory Rate 16 16 16 Blood Pressure 169/106 H 221/102 H Pulse Oximetry 96 98 01/08/18 04:03 01/08/18 05:36 01/08/18 07:15 Temperature 98.9 F Pulse Rate 70 80 80 Respiratory Rate 18 Blood Pressure 167/77 H 141/70 H 140/86 Pulse Oximetry 98 98 Intake & Output 01/07/18 01/08/18 01/08/18 18:59 06:59 18:59 Intake Total 1050 / 1050 Balance 1050 / 1050 Weight 68.039 kg Intake: IV 1050 / 1050 Zosyn 3.375 GM Premix 50 ML @ 50 / 50 100 mls/hr IV.SIG ONCE ONE Rx#: [id number] NS Inj 1,000 ML @ Wide Open IV. 1000 / 1000 SIG BOLUS ONE Rx#:[id number] Narrative: GENERAL: Alert and oriented in mild distress due to pain SKIN: Focused skin assessment warm/dry. Indurated tissue with surrounding cellulitis and on the left buttock. Duration is approximately 6 x 3 cm perirectal it appears that is tracking to the left lower labial folds. very tender to palpation. the pateint cannot tolerate even light touch to the area. HEAD: Atraumatic. Normocephalic. EYES: Pupils equal and round. No scleral icterus. No injection or drainage. ENT: No nasal bleeding or discharge. Mucous membranes pink and moist. NECK: Trachea midline. No JVD. CARDIOVASCULAR: Regular rate and rhythm. No murmur appreciated. RESPIRATORY: No accessory muscle use. Clear to auscultation. Breath sounds equal bilaterally. GASTROINTESTINAL: Abdomen soft, non-tender, nondistended. Hepatic and splenic margins not palpable. Rectal: External Hemorrhoids noted. non bleeding non thrombosed. perirectal abscess with indurated tissue on left buttock perirectal MUSCULOSKELETAL: No obvious deformities. No clubbing. No cyanosis. No edema. NEUROLOGICAL: Awake and alert. No obvious cranial nerve deficits. Motor grossly within normal limits. Normal speech. PSYCHIATRIC: Appropriate mood and affect; insight and judgment normal. Results - Labs CBC & Chem 7: 01/08/18 01:00 01/08/18 01:00 Labs: Laboratory Results - last 24 hr 01/08/18 01/08/18 01/08/18 01:00 01:00 01:00 WBC 11.9 H RBC 3.74 L Hgb 12.1 Hct 36.0 MCV 96.2 MCH 32.3 MCHC 33.6 RDW 14.3 Plt Count 295 MPV 9.8 Neut % (Auto) 77.0 H Lymph % (Auto) 13.2 Will % (Auto) 8.1 H Eos % (Auto) 1.3 Baso % (Auto) 0.4 Neut # (Auto) 9.1 H Lymph # (Auto) 1.6 Will # (Auto) 1.0 H Eos # (Auto) 0.2 Baso # (Auto) 0.0 WBC Differential . Differential Comment Auto diff final ESR 58 H Sodium 141 Potassium 3.4 L Chloride 107 Carbon Dioxide 24.9 Anion Gap 9 BUN 30 H Creatinine 2.63 H Estimated GFR 24 L Random Glucose 98 Calcium 9.4 - Imaging Impressions Abdomen/Pelvis CT 01/08/18 00:50 CONCLUSION: 1. 5.7 cm fluid collection in the posterior medial inferior left gluteal region likely related to an abscess. There is induration in the surrounding fat. There are mildly prominent lymph nodes in the left inguinal region. 2. Prominent atherosclerotic calcifications with the patient's age. Caprini VTE Risk Assessment Caprini VTE Risk Assessment: No/Low Risk (score <= 1) Caprini Risk Assessment Model: Point Value = 1 Point Value = 2 Point Value = 3 Point Value = 5 Age 41-60 Minor surgery BMI > 25 kg/m2 Swollen legs Varicose veins or History of unexplained or recurrent spontaneous Oral contraceptives or hormone replacement Sepsis (< 1 month) Serious lung disease, including pneumonia (< 1 month) Abnormal pulmonary function Acute myocardial infarction Congestive heart failure (< 1 month) History of inflammatory bowel disease Medical patient at bed rest Age 61-74 Arthroscopic surgery Major open surgery (> 45 min) Laparoscopic surgery (> 45 min) Malignancy Confined to bed (> 72 hours) Immobilizing plaster cast Central venous access Age >= 75 History of VTE Family history of VTE Factor V Leiden Prothrombin [id number] Lupus anticoagulant Anticardiolipin antibodies Elevated serum homocysteine Heparin-induced thrombocytopenia Other congenital or acquired thrombophilia Stroke (< 1 month) Elective arthroplasty Hip, pelvis, or leg fracture Acute spinal cord injury (< 1 month) Prophylaxis Regimen: Total Risk Factor Score Risk Level Prophylaxis Regimen 0-1 Low Early ambulation 2 Moderate Order ONE of the following: *Sequential Compression Device (SCD) *Heparin 5000 units SQ BID 3-4 Higher Order ONE of the following medications: *Heparin 5000 units SQ TID *Enoxaparin/Lovenox 40 mg SQ daily (WT < 150 kg, CrCl > 30 mL/min) *Enoxaparin/Lovenox 30 mg SQ daily (WT < 150 kg, CrCl > 10-29 mL/min) *Enoxaparin/Lovenox 30 mg SQ BID (WT < 150 kg, CrCl > 30 mL/min) AND/OR *Sequential Compression Device (SCD) 5 or more Highest Order ONE of the following medications: *Heparin 5000 units SQ TID (Preferred with Epidurals) *Enoxaparin/Lovenox 40 mg SQ daily (WT < 150 kg, CrCl > 30 mL/min) *Enoxaparin/Lovenox 30 mg SQ daily (WT < 150 kg, CrCl > 10-29 mL/min) *Enoxaparin/Lovenox 30 mg SQ BID (WT < 150 kg, CrCl > 30 mL/min) AND *Sequential Compression Device (SCD) Assessment and Plan - Plan 1. Left Buttock area abscess consulted initially General Surgery but asked to be place the consult to Colorectal surgery, she is been started on antibiotics, Wide spectrum Vancomycin and Zosyn following blood cultures 2. Hypertension continue home medicines 3. Acute Kidney injury on chronic kidney disease, the patient states she has Chronic kidney disease but does not remember her base creatinine level. giving IV fluids and asked for renal US. 4. Vaginal Discharge asked for Bacterial Vaginosis seen white discharge started on Clotrimazole DVT prophylaxis with SCDs awaiting for probable procedure to follow. Code Status: Full code Discussed Condition With: Patient and nurse Discharge Planning: once cleared by Surgery
[2018-01-08] MEDS: Piperacil/Tazo 3.375 GM Premix 50 ML IV.SIG SCH ×3 (11:00→22:12)
[2018-01-08] MEDS ORDERED: Lidocaine PF 1% Inj 5 ML Syringe INFILTRATN ONE (12:00)
[2018-01-08] MEDS ORDERED: Labetalol HCl Inj 100 MG/20 ML Vial IV.CONT ONE (12:00)
[2018-01-08] MEDS ORDERED: Succinylcholine Inj 100 MG/5 ML Syringe IV.PUSH ONE (12:00)
[2018-01-08] MEDS ORDERED: Vancomycin Inj 1,250 MG in Sodium Chlor 0.9% Inj 250 ML IV.SIG ONE (16:00)
--- NOTE | 2018-01-08 16:37 | US ---
EXAM DATE: 01/08/2018 4:03 PM EDT AGE/SEX: 42 years / Female INDICATIONS: Increased BUN/creatinine. CLINICAL DATA: This is the patient's initial encounter. Patient reports that signs and symptoms have been present for 1 day and indicates a pain score of 10/10. MEDICAL/SURGICAL HISTORY: Hypertension. Abscess buttock. None. Cyst removal. COMPARISON: [facility], CT ABDOMEN & PELVIS W/O CONTRAST, 01/08/2018. . MEASUREMENTS: Right Kidney:__11.4 x 5.0 x 4.8 cm Left Kidney:__10.5 x 5.3 x 6.2 cm FINDINGS: Right Kidney: Increased echotexture. There is no cortical thinning. No hydronephrosis, stone, or mass is visualized. Left Kidney: Increased echotexture without cortical thinning. No hydronephrosis, stone, or mass is vi sualized. Bladder: Within normal limits given the degree of distension. Other: Trace left pleural fluid. CONCLUSION: 1. Mild increased echotexture of the renal parenchyma suggesting medical renal disease. There is no hydronephrosis. 2. Trace left pleural fluid. Electronically signed by: Ozzy Kolb MD 01/08/2018 4:36 PM EDT
[2018-01-08 17:22] LABS: Hemoglobin A1c 6.2 % (4.3-6.0)
[2018-01-08 17:42] LABS: Chol/HDL Ratio 4.34 Ratio; HDL Cholesterol 32.7 mg/dL (40.0-60.0)
[2018-01-08 18:05] LABS: Free T4 (Free Thyroxine) 1.28 ng/dL (0.76-1.46)
[2018-01-08] MEDS ORDERED: fentaNYL Citrate Inj 250 MCG/5 ML Ampul ONE (18:29)
[2018-01-08] MEDS: Spironolactone 25 MG Tablet PO SCH (19:01)
[2018-01-08] MEDS ORDERED: Potassium Chlor 40 mEq Premix 40 MEQ/100 ML PIGGYBACK IV.SIG PRN (19:50)
[2018-01-08] MEDS ORDERED: Potassium Chlor 20 mEq Premix 20 MEQ/100 ML PIGGYBACK IV.SIG PRN (19:50)
[2018-01-08] MEDS ORDERED: *Labetalol HCl Inj 100 MG/20 ML Vial PERIprocedural Use ONLY IV.PUSH ONE (20:16)
[2018-01-08] MEDS: KCL 20 mEq/D5W/NaCl 0.9% Inj 1,000 ML IV.CONT SCH (20:50)
--- NOTE | 2018-01-08 23:08 | MP ---
cc: Aime Mccoy MD DATE OF OPERATION: 01/08/2018 PREOPERATIVE DIAGNOSIS: Recurrent ischiorectal abscess. PROCEDURE PERFORMED: Exam under anesthesia with incision and drainage of a large ischiorectal abscess and fistulotomy. POSTOPERATIVE DIAGNOSIS: Recurrent ischiorectal abscess. SURGEON: Aime Mccoy MD DESCRIPTION OF PROCEDURE: The patient was placed in the supine position. After adequate general anesthesia, she was turned and placed in the left lateral decubitus position and supported appropriately. The buttocks were then taped apart, prepped with Betadine solution and draped in the usual sterile fashion. Examination revealed quite significant swelling and induration along the left ischiorectal space where previous scars were seen from prior drainage procedures. The anal canal was dilated and a half burks retractor inserted. No evidence of purulent drainage was seen. The internal mucosa appeared normal. No evidence of an inflammatory process was noted. The postanal space and anterior midline were pretty unremarkable. Therefore, a radial incision was made over the large indurated area and a cavity was entered almost immediately, draining large amounts of foul-smelling, purulent fluid. The incision was opened along the extent of the abscess and the abscess was probed digitally. It did appear to extend into the supralevator position, but no evidence of connection to the anal or rectal lumen could be identified. Cavity was irrigated and no irrigant was seen entering the rectal lumen. After wide irrigation and debridement, the external opening was enlarged by taking some of the skin and rind of the abscess was sent for pathology. Hemostasis achieved with electrocautery. The cavity was then packed loosely with a long Kerlix dressing and a large Fluff dressing placed externally. The patient tolerated the procedure quite well and was brought to the recovery room in stable condition. Sponge and needle counts were correct at the end of the procedure. Aime Mccoy MD [facility], [place]/ , 10:42 PM , 10:47 PM
[2018-01-09] MEDS: Piperacil/Tazo 3.375 GM Premix 50 ML IV.SIG SCH (05:04)
[2018-01-09] MEDS: KCL 20 mEq/D5W/NaCl 0.9% Inj 1,000 ML IV.CONT SCH ×2 (05:05→15:14)
[2018-01-09 06:48] LABS: Baso % (Auto) 0.1 % (0.0-2.0); Hematocrit 33.4 % (35.0-46.0); Hemoglobin 11.1 gm/dL (11.6-15.3); Lymph # (Auto) 0.8 th/mm3 (1.0-4.8); Lymph % (Auto) 5.6 % (9.0-44.0); Mean Corpuscular HGB Conc 33.3 % (32.0-36.0); Mean Corpuscular Hemoglobin 31.9 pg (27.0-34.0); Mean Corpuscular Volume 95.6 fL (80.0-100.0); Mean Platelet Volume 9.6 fL (7.0-11.0); Mono # (Auto) 0.4 th/mm3 (0.0-0.9); Neut # (Auto) 13.1 th/mm3 (1.8-7.7); Neut % (Auto) 91.3 % (16.0-70.0); Platelet Count 284 th/mm3 (150-450); Red Blood Count 3.49 mil/mm3 (4.00-5.30); Red Cell Distribution Width 14.2 % (11.6-17.2); White Blood Count 14.3 th/mm3 (4.0-11.0)
[2018-01-09 07:18] LABS: Calcium 8.3 mg/dL (8.5-10.1); Vancomycin,Random 23.9 Comment
[2018-01-09] MEDS ORDERED: Pantoprazole Inj 40 MG Vial IV.PUSH SCH (09:00)
--- NOTE | 2018-01-09 09:37 | P.PN ---
Subjective Interval history: This is a pleasant 42 y/o Female who came to ER with complaint of Left buttock area abscess, Patient stated she had several procedures in the past for I&D all of which were done inpatient under anesthesia. She initially had one in [place] where she is from and that she had another one while she was down here that was I&D in the OR as per patient were not able to find old records. She states that for the past 2 weeks she has been having a boil that is getting worse to the point that is now tracking to the vaginal area and it is very tender to palpation. She denies any fever or chills no nausea vomiting or diarrhea, pain reported as for the last two weeks, 10/10 in intensity, Stabbing and Sharp sensation, constant pain, non radiated. took some OTC topical medicine and NSAIDs. CT gave 5.7 cm fluid collection in the posterior medial inferior left gluteal region likely related to an abscess there is induration in the surrounding fat. 01/09: Seen in her bedroom, no complaint status post Surgery performed yesterday , no nausea, vomit or diarrhea discussed with nurse Miss Sheikh she will perform the Wound care management today. Physical Exam Vital signs: Vital Signs 01/08/18 11:04 01/08/18 12:00 01/08/18 16:00 Temperature 98.9 F 97.0 F L 97.0 F L Pulse Rate 75 76 83 Respiratory Rate 18 18 18 Blood Pressure 193/111 H 160/82 H 164/80 H Pulse Oximetry 100 93 L 95 01/08/18 19:50 01/08/18 20:00 01/08/18 20:15 Temperature 97.7 F Pulse Rate 84 82 84 Respiratory Rate 20 20 20 Blood Pressure 160/97 H 166/95 H 175/98 H Pulse Oximetry 100 100 100 01/08/18 20:30 01/08/18 20:45 01/08/18 21:30 Temperature 97.7 F 98.8 F Pulse Rate 83 83 75 Respiratory Rate 20 20 18 Blood Pressure 180/97 H 173/95 H 225/123 H Pulse Oximetry 100 100 95 01/09/18 00:00 01/09/18 04:00 01/09/18 08:00 Temperature 98.4 F 97.8 F 98.0 F Pulse Rate 93 H 80 85 Respiratory Rate 18 18 18 Blood Pressure 143/79 H 180/113 H 136/83 Pulse Oximetry 94 L 97 Intake & Output 01/08/18 01/09/18 01/09/18 18:59 06:59 18:59 Intake Total 50 / 50 2099 / 2099 50 / 50 Output Total 10 / 10 Balance 50 / 50 2089 / 2089 50 / 50 Weight 66.678 kg 68.3 kg Intake: IV 50 / 50 1200 / 1200 50 / 50 D5W/NS + KCL 20 mEq Inj 1,000 1000 / 1000 ML @ 100 mls/hr IV.CONT .Q10H POLI Rx#:[id number] NS Inj 1,000 ML @ 100 mls/hr IV 100 / 100 .CONT .Q10H POLI Rx#:[id number] Zosyn 3.375 GM Premix 50 ML @ 50 / 50 100 / 100 50 / 50 100 mls/hr IV.SIG Q6H POLI Rx#: [id number] Oral 600 / 600 Anesthesia Amount 300 / 300 Output: Estimated Blood Loss 10 Other: # Voids 2 1 Weight On Admission 24.2 kg Narrative: GENERAL: Alert and oriented in mild distress due to pain HEAD: Atraumatic. Normocephalic. EYES: Pupils equal and round. No scleral icterus. No injection or drainage. ENT: No nasal bleeding or discharge. Mucous membranes pink and moist. NECK: Trachea midline. No JVD. CARDIOVASCULAR: Regular rate and rhythm. No murmur appreciated. RESPIRATORY: No accessory muscle use. Clear to auscultation. Breath sounds equal bilaterally. GASTROINTESTINAL: Abdomen soft, non-tender, nondistended. MUSCULOSKELETAL: No obvious deformities. No clubbing. No cyanosis. No edema. NEUROLOGICAL: Awake and alert. No obvious cranial nerve deficits. Motor grossly within normal limits. Normal speech. PSYCHIATRIC: Appropriate mood and affect; insight and judgment normal. Results - Labs CBC & Chem 7: 01/09/18 05:45 01/09/18 05:45 Laboratory Results - last 24 hr 01/08/18 01/08/18 01/08/18 16:04 16:04 16:04 WBC RBC Hgb Hct MCV MCH MCHC RDW Plt Count MPV Neut % (Auto) Lymph % (Auto) [place] % (Auto) Eos % (Auto) Baso % (Auto) Neut # (Auto) Lymph # (Auto) [place] # (Auto) Eos # (Auto) Baso # (Auto) WBC Differential Differential Comment Sodium Potassium Chloride Carbon Dioxide Anion Gap BUN Creatinine Estimated GFR Random Glucose Hemoglobin A1c 6.2 H Calcium Triglycerides Cholesterol LDL Cholesterol, Calc HDL Cholesterol Cholesterol/HDL Ratio Vitamin B12 1048 H TSH 1.510 Free T4 1.28 Random Vancomycin 01/08/18 01/09/18 01/09/18 16:04 05:45 05:45 WBC 14.3 H RBC 3.49 L Hgb 11.1 L Hct 33.4 L MCV 95.6 MCH 31.9 MCHC 33.3 RDW 14.2 Plt Count 284 MPV 9.6 Neut % (Auto) 91.3 H Lymph % (Auto) 5.6 L [place] % (Auto) 3.0 Eos % (Auto) 0.0 Baso % (Auto) 0.1 Neut # (Auto) 13.1 H Lymph # (Auto) 0.8 L [place] # (Auto) 0.4 Eos # (Auto) 0.0 Baso # (Auto) 0.0 WBC Differential . Differential Comment Auto diff final Sodium 143 Potassium 4.0 Chloride 112 H Carbon Dioxide 22.0 Anion Gap 9 BUN 22 H Creatinine 2.35 H Estimated GFR 27 L Random Glucose 182 H Hemoglobin A1c Calcium 8.3 L D Triglycerides 103 Cholesterol 142 LDL Cholesterol, Calc 89 HDL Cholesterol 32.7 L Cholesterol/HDL Ratio 4.34 Vitamin B12 TSH Free T4 Random Vancomycin 23.9 - Imaging Impressions Abdomen/Bladder Ultrasound 01/08/18 00:00 CONCLUSION: 1. Mild increased echotexture of the renal parenchyma suggesting medical renal disease. There is no hydronephrosis. 2. Trace left pleural fluid. - Procedures DATE OF OPERATION: 01/08/2018 PREOPERATIVE DIAGNOSIS: Recurrent ischiorectal abscess. PROCEDURE PERFORMED: Exam under anesthesia with incision and drainage of a large ischiorectal abscess and fistulotomy. POSTOPERATIVE DIAGNOSIS: Recurrent ischiorectal abscess. SURGEON: Aime Mccoy MD Assessment and Plan - Plan 1. Left Buttock area abscess on Zosyn and Vancomycin, continue management by Colorectal surgery status post Exam under anesthesia, with incision and drainage of a large ischiorectal abscess and fistulotomy. wound care performed by nurse. 2. Hypertension uncontrolled on admission now improving on home medicines. 3. Acute on chronic kidney disease, the Renal US has chronic changes, will continue IV fluids and see how much she may improve or this is her baseline. 4. Vaginal Discharge asked for Bacterial Vaginosis seen white discharge started on Clotrimazole 5. DM II newly diagnosed. she had fasting blood glucose of more than 125 gm/dl also her Hemoglobin A1C 6.2 consult critical care educator and started sliding scale. will need to get Metformin on discharge. DVT prophylaxis with Lovenox started. added diet with protein Glucerna, Vitamin C and Zinc. Code Status: full Code. Discussed Condition With: Patient and nurse miss Sheikh Discharge Planning: once cleared by Surgery
[2018-01-09] MEDS: Spironolactone 25 MG Tablet PO SCH ×2 (09:39→17:34)
[2018-01-09] MEDS ORDERED: Dextrose 50% in Water 50 ML Vial IV.PUSH PRN (09:42)
[2018-01-09] MEDS: Insulin NovoLOG Aspart Correctional Sugar Inj SQ SCH ×3 (15:10→20:51)
[2018-01-09] MEDS: Ascorbic Acid 500 MG Tablet PO SCH (15:14)
--- NOTE | 2018-01-09 22:55 | P.PNCS ---
Subjective Colorectal Surgery Post Op Day #: 1 Interval history: afebrile, VSS UO good dante PO Objective Result Diagrams: 01/09/18 05:45 01/09/18 05:45 Objective Remarks: PE alert Abd - soft, flat Rectal - clean, dry, packing changed Assessment and Plan - Plan Imp: stable post-op OOB irrigate wounds, sitz baths DC plans
[2018-01-10] MEDS: Insulin NovoLOG Aspart Correctional Sugar Inj SQ SCH ×3 (05:05→11:40)
[2018-01-10 07:30] LABS: Baso # (Auto) 0.1 th/mm3 (0.0-0.2); Baso % (Auto) 0.6 % (0.0-2.0); Eos # (Auto) 0.3 th/mm3 (0.0-0.4); Eos % (Auto) 2.5 % (0.0-4.0); Hemoglobin 10.9 gm/dL (11.6-15.3); Lymph # (Auto) 1.4 th/mm3 (1.0-4.8); Lymph % (Auto) 12.9 % (9.0-44.0); Mean Corpuscular HGB Conc 33.1 % (32.0-36.0); Mean Corpuscular Hemoglobin 31.7 pg (27.0-34.0); Mean Corpuscular Volume 95.7 fL (80.0-100.0); Mean Platelet Volume 9.2 fL (7.0-11.0); Mono # (Auto) 0.6 th/mm3 (0.0-0.9); Mono % (Auto) 5.3 % (0.0-8.0); Neut # (Auto) 8.8 th/mm3 (1.8-7.7); Neut % (Auto) 78.7 % (16.0-70.0); Platelet Count 311 th/mm3 (150-450); Red Blood Count 3.45 mil/mm3 (4.00-5.30); Red Cell Distribution Width 14.5 % (11.6-17.2); White Blood Count 11.2 th/mm3 (4.0-11.0)
[2018-01-10 08:12] LABS: Calcium 8.5 mg/dL (8.5-10.1); Carbon Dioxide 21.7 meq/L (21.0-32.0); Potassium 3.6 meq/L (3.5-5.1)
[2018-01-10 08:14] LABS: Vancomycin,Random 12.6 Comment
[2018-01-10] MEDS: Ascorbic Acid 500 MG Tablet PO SCH (09:22)
[2018-01-10] MEDS: KCL 20 mEq/D5W/NaCl 0.9% Inj 1,000 ML IV.CONT SCH (09:23)
[2018-01-10] MEDS: Spironolactone 25 MG Tablet PO SCH (09:29)
[2018-01-10] MEDS ORDERED: Vancomycin Inj 1,000 MG in Sodium Chlor 0.9% Inj 250 ML IV.SIG ONE (14:00)
--- NOTE | 2018-01-10 14:27 | P.PN ---
Subjective Interval history: This is a pleasant 42 y/o Female who came to ER with complaint of Left buttock area abscess, Patient stated she had several procedures in the past for I&D all of which were done inpatient under anesthesia. She initially had one in [place] where she is from and that she had another one while she was down here that was I&D in the OR as per patient were not able to find old records. She states that for the past 2 weeks she has been having a boil that is getting worse to the point that is now tracking to the vaginal area and it is very tender to palpation. She denies any fever or chills no nausea vomiting or diarrhea, pain reported as for the last two weeks, 10/10 in intensity, Stabbing and Sharp sensation, constant pain, non radiated. took some OTC topical medicine and NSAIDs. CT gave 5.7 cm fluid collection in the posterior medial inferior left gluteal region likely related to an abscess there is induration in the surrounding fat. 01/09: Seen in her bedroom, no complaint status post Surgery performed yesterday 01/10: Seen in her bedroom discussed with nurse fuad to discharge from colorectal surgery, her Daughter will continue to perform the wound care management. no nausea vomit or diarrhea. Physical Exam Vital signs: Vital Signs 01/09/18 16:00 01/09/18 17:58 01/09/18 20:20 Temperature 97.2 F L 98.1 F 98.5 F Pulse Rate 88 79 89 Respiratory Rate 18 17 Blood Pressure 158/94 H 153/84 H 159/94 H Pulse Oximetry 94 L 96 96 01/10/18 00:19 01/10/18 08:00 01/10/18 10:04 Temperature 98.9 F 98.0 F Pulse Rate 89 91 H Respiratory Rate 18 18 Blood Pressure 153/88 H 143/73 H Pulse Oximetry 97 98 96 Intake & Output 01/09/18 01/10/18 01/10/18 18:59 06:59 18:59 Intake Total 2792.5 / 2792.5 1779 Balance 2792.5 / 2792.5 1779 Weight 67 kg Intake: IV 2312.5 / 2312.5 1000 / 1000 D5W/NS + KCL 20 mEq Inj 1,000 1000 / 1000 1000 / 1000 ML @ 60 mls/hr IV.CONT .[id number] POLI Rx#:[id number] NS Inj 1,000 ML @ 100 mls/hr IV 1000 / 1000 .CONT .Q10H POLI Rx#:[id number] Zosyn 3.375 GM Premix 50 ML @ 50 / 50 100 mls/hr IV.SIG Q6H POLI Rx#: [id number] Oral 480 / 480 780 / 780 Other: # Voids 1 2 Narrative: GENERAL: Alert and oriented in mild distress due to pain HEAD: Atraumatic. Normocephalic. EYES: Pupils equal and round. No scleral icterus. No injection or drainage. ENT: No nasal bleeding or discharge. Mucous membranes pink and moist. NECK: Trachea midline. No JVD. CARDIOVASCULAR: Regular rate and rhythm. No murmur appreciated. RESPIRATORY: No accessory muscle use. Clear to auscultation. Breath sounds equal bilaterally. GASTROINTESTINAL: Abdomen soft, non-tender, nondistended. MUSCULOSKELETAL: No obvious deformities. No clubbing. No cyanosis. No edema. NEUROLOGICAL: Awake and alert. No obvious cranial nerve deficits. Motor grossly within normal limits. Normal speech. PSYCHIATRIC: Appropriate mood and affect; insight and judgment normal. Results - Labs CBC & Chem 7: 01/10/18 07:15 01/10/18 07:15 Laboratory Results - last 24 hr 01/09/18 01/09/18 01/10/18 17:33 20:49 05:05 WBC RBC Hgb Hct MCV MCH MCHC RDW Plt Count MPV Neut % (Auto) Lymph % (Auto) [place] % (Auto) Eos % (Auto) Baso % (Auto) Neut # (Auto) Lymph # (Auto) [place] # (Auto) Eos # (Auto) Baso # (Auto) WBC Differential Differential Comment Sodium Potassium Chloride Carbon Dioxide Anion Gap BUN Creatinine Estimated GFR POC Glucose 127 H 165 H 127 H Random Glucose Calcium Random Vancomycin 01/10/18 01/10/18 01/10/18 07:15 07:15 07:52 WBC 11.2 H RBC 3.45 L Hgb 10.9 L Hct 33.0 L MCV 95.7 MCH 31.7 MCHC 33.1 RDW 14.5 Plt Count 311 MPV 9.2 Neut % (Auto) 78.7 H Lymph % (Auto) 12.9 [place] % (Auto) 5.3 Eos % (Auto) 2.5 Baso % (Auto) 0.6 Neut # (Auto) 8.8 H Lymph # (Auto) 1.4 [place] # (Auto) 0.6 Eos # (Auto) 0.3 Baso # (Auto) 0.1 WBC Differential . Differential Comment Auto diff final Sodium 145 Potassium 3.6 Chloride 115 H Carbon Dioxide 21.7 Anion Gap 8 BUN 16 Creatinine 2.04 H Estimated GFR 32 L POC Glucose 130 H Random Glucose 111 H Calcium 8.5 Random Vancomycin 12.6 01/10/18 11:35 WBC RBC Hgb Hct MCV MCH MCHC RDW Plt Count MPV Neut % (Auto) Lymph % (Auto) [place] % (Auto) Eos % (Auto) Baso % (Auto) Neut # (Auto) Lymph # (Auto) [place] # (Auto) Eos # (Auto) Baso # (Auto) WBC Differential Differential Comment Sodium Potassium Chloride Carbon Dioxide Anion Gap BUN Creatinine Estimated GFR POC Glucose 109 Random Glucose Calcium Random Vancomycin Microbiology 01/08/18 01:00 Blood - Peripheral Aerobic Blood Culture - Preliminary No growth in 2 days 01/08/18 01:00 Blood - Peripheral Anaerobic Blood Culture - Preliminary No growth in 2 days 01/08/18 01:00 Blood - Peripheral Aerobic Blood Culture - Preliminary No growth in 2 days 01/08/18 01:00 Blood - Peripheral Anaerobic Blood Culture - Preliminary No growth in 2 days - Procedures DATE OF OPERATION: 01/08/2018 PREOPERATIVE DIAGNOSIS: Recurrent ischiorectal abscess. PROCEDURE PERFORMED: Exam under anesthesia with incision and drainage of a large ischiorectal abscess and fistulotomy. POSTOPERATIVE DIAGNOSIS: Recurrent ischiorectal abscess. SURGEON: Aime Mccoy MD Assessment and Plan - Plan 1. Left Buttock area abscess on Zosyn and Vancomycin, continue management by Colorectal surgery status post Exam under anesthesia, with incision and drainage of a large ischiorectal abscess and fistulotomy. at this time okay to discharge from Colorectal specialist and her daughter will perform the wound care follow up scheduled. continue Omnicef and Flagyl as outpatient. 2. Hypertension controlled. 3. Acute on chronic kidney disease, the Renal US has chronic changes, patient will need to follow with PCP and monitor her renal function and avoid major compromise. 4. Vaginal Discharge asked for Bacterial Vaginosis seen white discharge started on Clotrimazole continue antibiotics. 5. DM II newly diagnosed. she had fasting blood glucose of more than 125 gm/dl also her Hemoglobin A1C 6.2 consult elementary educator and started sliding scale. her glucose has normalized will need to follow with PCP and follow blood sugars may need to start medicines. DVT prophylaxis with Lovenox started. added diet with protein Glucerna, Vitamin C and Zinc. Code Status: Full code. Discussed Condition With: Patient and nurse. Discharge Planning: discharge Home now.
[2018-01-10] MEDS ORDERED: Piperacil/Tazo 2.25 GM Premix 50 ML IV.SIG SCH (15:00)
--- NOTE | 2018-01-10 17:07 | P.DS ---
Date of admission: 01/08/18 05:06 Primary care physician: Katelynn Mcgee Attending physician on discharge: Warren Yi Anticipated date of discharge: 01/10/18 Brief History from admission: This is a pleasant 42 y/o Female who came to ER with complaint of Left buttock area abscess, Patient stated she had several procedures in the past for I&D all of which were done inpatient under anesthesia. She initially had one in [place] where she is from and that she had another one while she was down here that was I&D in the OR as per patient were not able to find old records. She states that for the past 2 weeks she has been having a boil that is getting worse to the point that is now tracking to the vaginal area and it is very tender to palpation. She denies any fever or chills no nausea vomiting or diarrhea, pain reported as for the last two weeks, 10/10 in intensity, Stabbing and Sharp sensation, constant pain, non radiated. took some OTC topical medicine and NSAIDs. Seen in Emergency room stable complaint of Pain, she had this process already treated in this facility in the past the CT gave 5.7 cm fluid collection in the posterior medial inferior left gluteal region likely related to an abscess there is induration in the surrounding fat, General surgery asked for the consult to be placed for Colorectal surgery DS: Diagnosis - Discharge Diagnosis (1) Abscess, gluteal, left Status: Acute (2) CHERYL (acute kidney injury) Status: Acute (3) Hypertension Status: Acute DS: Medications - Discharge Medications Prescriptions: cefdinir 300 mg PO Q12H #20 ml metronidazole [Flagyl] 500 mg PO TID #30 tab oxycodone-acetaminophen 2 tab PO Q4H PRN 3 Days #14 tab PRN Reason: Pain Scale 6 To 10 DS: Summary Hospital Course: This is a pleasant 42 y/o Female who came to ER with complaint of Left buttock area abscess, Patient stated she had several procedures in the past for I&D all of which were done inpatient under anesthesia. She initially had one in [place] where she is from and that she had another one while she was down here that was I&D in the OR as per patient were not able to find old records. She states that for the past 2 weeks she has been having a boil that is getting worse to the point that is now tracking to the vaginal area and it is very tender to palpation. She denies any fever or chills no nausea vomiting or diarrhea, pain reported as for the last two weeks, 10/10 in intensity, Stabbing and Sharp sensation, constant pain, non radiated. took some OTC topical medicine and NSAIDs. CT gave 5.7 cm fluid collection in the posterior medial inferior left gluteal region likely related to an abscess there is induration in the surrounding fat. 01/09: Seen in her bedroom, no complaint status post Surgery performed yesterday 01/10: Seen in her bedroom discussed with nurse okay to discharge from colorectal surgery, her Daughter will continue to perform the wound care management. no nausea vomit or diarrhea. - Procedures DATE OF OPERATION: 01/08/2018 PREOPERATIVE DIAGNOSIS: Recurrent ischiorectal abscess. PROCEDURE PERFORMED: Exam under anesthesia with incision and drainage of a large ischiorectal abscess and fistulotomy. POSTOPERATIVE DIAGNOSIS: Recurrent ischiorectal abscess. SURGEON: Aime Mccoy MD Assessment and Plan - Plan 1. Left Buttock area abscess on Zosyn and Vancomycin, continue management by Colorectal surgery status post Exam under anesthesia, with incision and drainage of a large ischiorectal abscess and fistulotomy. at this time okay to discharge from Colorectal specialist and her daughter will perform the wound care follow up scheduled. continue Omnicef and Flagyl as outpatient. 2. Hypertension controlled. 3. Acute on chronic kidney disease, the Renal US has chronic changes, patient will need to follow with PCP and monitor her renal function and avoid major compromise. 4. Vaginal Discharge asked for Bacterial Vaginosis seen white discharge started on Clotrimazole continue antibiotics. 5. DM II newly diagnosed. she had fasting blood glucose of more than 125 gm/dl also her Hemoglobin A1C 6.2 consult community health educator and started sliding scale. her glucose has normalized will need to follow with PCP and follow blood sugars may need to start medicines. DVT prophylaxis with Lovenox started. added diet with protein Glucerna, Vitamin C and Zinc. Code Status: Full code. Discussed Condition With: Patient and nurse. Discharge Planning: discharge Home now. - Time Spent with Patient Total time spent providing and/or coordinating discharge services: Less than 30 minutes - Quality: VTE Deep Vein Thrombosis/Pulmonary Embolism Present on Admission: No Exam Vital signs: Vital Signs 01/09/18 17:58 01/09/18 20:20 01/10/18 00:19 Temperature 98.1 F 98.5 F 98.9 F Pulse Rate 79 89 89 Respiratory Rate 18 17 18 Blood Pressure 153/84 H 159/94 H 153/88 H Pulse Oximetry 96 96 97 01/10/18 08:00 01/10/18 10:04 Temperature 98.0 F Pulse Rate 91 H Respiratory Rate 18 Blood Pressure 143/73 H Pulse Oximetry 98 96 Intake & Output 01/09/18 01/10/18 01/10/18 18:59 06:59 18:59 Intake Total 2792.5 / 2792.5 1780 / 1780 250 / 250 Balance 2792.5 / 2792.5 1780 / 1780 250 / 250 Weight 67 kg Intake: IV 2312.5 / 2312.5 1000 / 1000 250 / 250 D5W/NS + KCL 20 mEq Inj 1,000 1000 / 1000 1000 / 1000 ML @ 60 mls/hr IV.CONT .[id number] POLI Rx#:[id number] NS Inj 1,000 ML @ 100 mls/hr IV 1000 / 1000 .CONT .Q10H POLI Rx#:[id number] Zosyn 3.375 GM Premix 50 ML @ 50 / 50 100 mls/hr IV.SIG Q6H POLI Rx#: [id number] Vancomycin Inj 1,000 MG In NS 250 / 250 Inj 250 ML @ 250 mls/hr IV.SIG ONCE ONE Rx#:[id number] Oral 480 / 480 780 / 780 Other: # Voids 1 2 Narrative: GENERAL: Alert and oriented in mild distress due to pain HEAD: Atraumatic. Normocephalic. EYES: Pupils equal and round. No scleral icterus. No injection or drainage. ENT: No nasal bleeding or discharge. Mucous membranes pink and moist. NECK: Trachea midline. No JVD. CARDIOVASCULAR: Regular rate and rhythm. No murmur appreciated. RESPIRATORY: No accessory muscle use. Clear to auscultation. Breath sounds equal bilaterally. GASTROINTESTINAL: Abdomen soft, non-tender, nondistended. MUSCULOSKELETAL: No obvious deformities. No clubbing. No cyanosis. No edema. NEUROLOGICAL: Awake and alert. No obvious cranial nerve deficits. Motor grossly within normal limits. Normal speech. PSYCHIATRIC: Appropriate mood and affect; insight and judgment normal. Results Procedures completed during hospitalization: DATE OF OPERATION: 01/08/2018 PREOPERATIVE DIAGNOSIS: Recurrent ischiorectal abscess. PROCEDURE PERFORMED: Exam under anesthesia with incision and drainage of a large ischiorectal abscess and fistulotomy. POSTOPERATIVE DIAGNOSIS: Recurrent ischiorectal abscess. SURGEON: Aime Mccoy MD Pending studies at discharge: Pending at discharge 01/08/18 08:14 Surgical [PTH] Routine Labs on day of discharge: Labs from last 24 hours 01/10/18 01/10/18 01/10/18 11:35 07:52 07:15 WBC RBC Hgb Hct MCV MCH MCHC RDW Plt Count MPV Neut % (Auto) Lymph % (Auto) [place] % (Auto) Eos % (Auto) Baso % (Auto) Neut # (Auto) Lymph # (Auto) [place] # (Auto) Eos # (Auto) Baso # (Auto) WBC Differential Differential Comment Sodium 145 Potassium 3.6 Chloride 115 H Carbon Dioxide 21.7 Anion Gap 8 BUN 16 Creatinine 2.04 H Estimated GFR 32 L POC Glucose 109 130 H Random Glucose 111 H Calcium 8.5 Random Vancomycin 12.6 01/10/18 01/10/18 01/09/18 07:15 05:05 20:49 WBC 11.2 H RBC 3.45 L Hgb 10.9 L Hct 33.0 L MCV 95.7 MCH 31.7 MCHC 33.1 RDW 14.5 Plt Count 311 MPV 9.2 Neut % (Auto) 78.7 H Lymph % (Auto) 12.9 [place] % (Auto) 5.3 Eos % (Auto) 2.5 Baso % (Auto) 0.6 Neut # (Auto) 8.8 H Lymph # (Auto) 1.4 [place] # (Auto) 0.6 Eos # (Auto) 0.3 Baso # (Auto) 0.1 WBC Differential . Differential Comment Auto diff final Sodium Potassium Chloride Carbon Dioxide Anion Gap BUN Creatinine Estimated GFR POC Glucose 127 H 165 H Random Glucose Calcium Random Vancomycin 01/09/18 17:33 WBC RBC Hgb Hct MCV MCH MCHC RDW Plt Count MPV Neut % (Auto) Lymph % (Auto) [place] % (Auto) Eos % (Auto) Baso % (Auto) Neut # (Auto) Lymph # (Auto) [place] # (Auto) Eos # (Auto) Baso # (Auto) WBC Differential Differential Comment Sodium Potassium Chloride Carbon Dioxide Anion Gap BUN Creatinine Estimated GFR POC Glucose 127 H Random Glucose Calcium Random Vancomycin Preliminary micro results at discharge 01/08/18 01:00 Aerobic Blood Culture - Preliminary Blood - Peripheral No growth in 2 days Anaerobic Blood Culture - Preliminary No growth in 2 days 01/08/18 01:00 Aerobic Blood Culture - Preliminary Blood - Peripheral No growth in 2 days Anaerobic Blood Culture - Preliminary No growth in 2 days - Impressions ITS Impressions Abdomen/Bladder Ultrasound 01/08/18 00:00 CONCLUSION: 1. Mild increased echotexture of the renal parenchyma suggesting medical renal disease. There is no hydronephrosis. 2. Trace left pleural fluid. Abdomen/Pelvis CT 01/08/18 00:50 CONCLUSION: 1. 5.7 cm fluid collection in the posterior medial inferior left gluteal region likely related to an abscess. There is induration in the surrounding fat. There are mildly prominent lymph nodes in the left inguinal region. 2. Prominent atherosclerotic calcifications with the patient's age. Discharge Plan - Discharge Disposition Patient Disposition: Discharge Home - Discharge Condition Condition: Good - Discharge Order Discharge Orders: Discharge Order (Routine); Ordered 01/10/18 Ordered By: Warren Yi Consult Other Clear for Discharge (Routine); Ordered 01/10/18 Ordered By: Aime Mccoy - Discharge Details Anticipated Discharge Date: 01/10/18 Discharge Comment: follow with PCP and Colorectal surgery in three days as outpatient - Physicians Team Primary Care Provider: Katelynn Mcgee, Attending Provider: Warren Yi Other Providers: Aime Mccoy MD
== END 2018-01-10 16:35 | disposition home or self-care (01) ==
LOC: NEPC 21:49 → NEDA 01-08 05:06 → NEDH 01-08 09:32 → H7ONC 01-08 11:51 → N07 01-09 17:31
PROVIDERS: ADMIT Internal Medicine; ATTEND Internal Medicine